=== PATIENT | male | born 1950 | race Caucasian/White ===

== ENCOUNTER 2016-09-13 08:41 | Inpatient (IN) | payer MEDICARE ==
[2016-09-13] VITALS (38 sets, daily range): BP systolic 51–123; BP diastolic 33–67; PULSE 70–124; RESP 16–18; TEMP 98.9–103.1; O2SAT 82–100
[~2016-09-13] VITALS: Ht 180.3 cm; Wt 76.0 kg
[~2016-09-13 08:41] MED LIST: AMLO5TAB22 PO; AZAT50 PO; GABA300C3 PO; NORC10TA2 PO; OMEP20TA PO; PROZ20CA11 PO; ROPI2 PO; TEMA15 PO; TIZA4 PO
[2016-09-13] MEDS ORDERED: AZAT50 PO (08:48)
[2016-09-13] MEDS ORDERED: AMLO10TA2 PO (08:48)
[2016-09-13] MEDS ORDERED: ZOFR4TAB PO (08:48)
[2016-09-13] MEDS ORDERED: FLUO1TAB3 PO (08:48)
[2016-09-13] MEDS ORDERED: TIZA4TAB PO (08:48)
[2016-09-13] MEDS ORDERED: GABA600T PO (08:48)
[2016-09-13] MEDS ORDERED: DIAZ10TA PO (08:48)
[2016-09-13] MEDS ORDERED: OMEP20TA PO (08:48)
[2016-09-13] MEDS ORDERED: SODIUM CHLOR 0.9% 1000 ML INJ 400 ML IV ONE (08:49)
[2016-09-13] MEDS ORDERED: SODIUM CHLOR 0.9% 1000 ML INJ 1,000 ML IV ONE ×2 (08:49)
[2016-09-13] MEDS ORDERED: AZITHROMYCIN INJ 500 MG in SODIUM CHLOR 0.9% 250 ML INJ 250 ML IV STA (08:49)
[2016-09-13] MEDS ORDERED: CEFEPIME INJ 2,000 MG in SODIUM CHLORIDE 0.9% INJ 100 ML IV STA (08:49)
--- NOTE | 2016-09-13 08:57 | PD ---
HPI Chief Complaint: myalgias Time Seen by Provider: 08:43 Travel History International Travel<30 days: No Contact w/Intl Traveler<30days: No Traveled to known affect area: No History of Present Illness HPI The patient is a 66-year-old male who presents emergency department via EMS for body aches. The patient states he has a history of myositis and neuropathy for which she takes multiple medications. However, over the last 2 days the patient notes increasing body aches. The patient states that his entire body hurts, he also complains of a productive cough producing clear to yellow sputum, nausea with one episode of vomiting this morning, and diffuse body aches. He does complain of chills, is unsure if he has been running a fever. The patient denies any abdominal pain or diarrhea. The patient states he did not receive an influenza vaccination this year because of his history of myositis. The patient's primary physician is Dr. Mills. The patient's symptoms are moderate, possibly exacerbated by history of myositis and neuropathy, and there are no current alleviating factors. 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) Cardiovascular Problems: Yes (NEW ONSET OF HYPOTENSION ) High Cholesterol: Yes Chemotherapy: No Chest Pain: No Congestive Heart Failure: No COPD: Yes Cerebrovascular Accident: No Diabetes: No Diminished Hearing: No Endocrine: No Fibromyalgia: Yes Gastrointestinal Disorders: Yes (CHRON'S DISEASE, GERD, HIATAL HERNIA, CHRONIC GASTRITIS, DIARRHEA) GERD: Yes (TAKES PRILOSEC) Glaucoma: No Genitourinary: No Headaches: Yes Hepatitis: No Hiatal Hernia: Yes Hypertension: Yes Kidney Stones: No Musculoskeletal: Yes (ARTHRITIS, BURSITIS, FIBROMYALGIA, DDD, R SHOULDER PAIN) Neurologic: Yes (LEG NEUROPATHY) Psychiatric: No Reproductive: 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) Respiratory: Yes (SLEEP APNEA, COPD) Immunizations Current: No ( ) Migraines: No Myocardial Infarction: No Radiation Therapy: No Renal Failure: No Seizures: No Sickle Cell Disease: No Sleep Apnea: Yes Thyroid Disease: No Ulcer: No PNEUMOCCOCAL Vaccine (Year): 1 Past Surgical History Abdominal Surgery: Yes (HERNIA REPAIR 5 Y/0, BOWEL RESECTION 04/2010) AICD: No Appendectomy: No Arteriovenous Shunt: No Cardiac Surgery: No Cholecystectomy: Yes Ear Surgery: No Endocrine Surgery: No Eye Surgery: No Genitourinary Surgery: 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) Gynecologic Surgery: No Insulin Pump: No Joint Replacement: No Oral Surgery: Yes (TEETH REMOVAL) Pacemaker: No Thoracic Surgery: No Other Surgery: Yes Social History Alcohol Use: Yes (RARE) Tobacco Use: No (quit 2006 ) Substance Use: No Allergies-Medications (Allergen,Severity, Reaction): Coded Allergies: Fire Ant (Verified Allergy, Intermediate, Anaphylaxis, 07/17/16) Reported Meds & Prescriptions Reported Meds & Active Scripts Active Reported Diazepam 10 Mg Tab 10 Mg PO TID PRN Amlodipine (Amlodipine Besylate) 10 Mg Tab 10 Mg PO DAILY Fluoxetine (Fluoxetine HCl) 20 Mg Tab 20 Mg PO DAILY Omeprazole 20 Mg Tab 20 Mg PO DAILY Zofran (Ondansetron HCl) 4 Mg Tab 4 Mg PO Q6HR PRN Gabapentin 600 Mg Tab 600 Mg PO HS Tizanidine (Tizanidine HCl) 4 Mg Tab 4 Mg PO QID Azathioprine 50 Mg Tab 50 Mg PO DAILY Hazardous agent use appropriate precautions for handling and disposal. Review of Systems Except as stated in HPI: all other systems reviewed are Neg General / Constitutional: Positive: Fever, Chills HENT: Positive: Headaches, No: Neck Pain Cardiovascular: No: Chest Pain or Discomfort Respiratory: Positive: Cough, No: Shortness of Breath Gastrointestinal: Positive: Nausea, Vomiting, No: Diarrhea, Abdominal Pain Musculoskeletal: Positive: Myalgias, Arthralgias Skin: No Rash Physical Exam Narrative GENERAL: Awake, alert, pleasant 66-year-old male who appears his stated age. SKIN: Warm and dry. HEAD: Atraumatic. Normocephalic. EYES: Mild injection bilaterally. ENT: No nasal bleeding or discharge. Mucous membranes pink and moist. NECK: Trachea midline. No JVD. CARDIOVASCULAR: Regular, tachycardic with a heart rate of 120. RESPIRATORY: No accessory muscle use. Diminished breath sounds in the right bases with rhonchi. Scattered rhonchi noted over the left lung le. GASTROINTESTINAL: Abdomen soft, non-tender, nondistended. Well-healed midline surgical scar. MUSCULOSKELETAL: Extremities are slightly cool to the touch. NEUROLOGICAL: Awake and alert. No obvious cranial nerve deficits. Motor grossly within normal limits. Normal speech. PSYCHIATRIC: Appropriate mood and affect; insight and judgment normal. Data Data Last Documented VS Vital Signs Date Time Temp Pulse Resp B/P Pulse Ox O2 Delivery O2 Flow Rate FiO2 09/13/16 10:20 100.8 115 18 107/57 97 Nasal Cannula 2 Orders Electrocardiogram (09/13/16 08:49) Complete Blood Count With Diff (09/13/16 08:49) Comprehensive Metabolic Panel (09/13/16 08:49) Lactic Acid Sepsis Protocol (09/13/16 08:49) Magnesium (Mg) (09/13/16 08:49) Lipase (09/13/16 08:49) Ckmb (Isoenzyme) Profile (09/13/16 08:49) Troponin I (09/13/16 08:49) Urinalysis - C+S If Indicated (09/13/16 08:49) Influenzae A/B Antigen (09/13/16 08:49) Blood Culture (09/13/16 08:49) Chest, Single Ap (09/13/16 08:49) Blood Gas Venous (Vbg) (09/13/16 08:49) Blood Glucose (09/13/16 08:49) Ecg Monitoring (09/13/16 08:49) Iv Access Insert/Monitor (09/13/16 08:49) Oximetry (09/13/16 08:49) Oxygen Administration (09/13/16 08:49) Cefepime Inj (Maxipime Inj) (09/13/16 08:49) Azithromycin Inj (Zithromax Inj) (09/13/16 08:49) Acetaminophen (Tylenol) (09/13/16 09:00) Ondansetron Inj (Zofran Inj) (09/13/16 09:00) Sodium Chlor 0.9% 1000 Ml Inj (Ns 1000 M (09/13/16 08:49) Sodium Chlor 0.9% 1000 Ml Inj (Ns 1000 M (09/13/16 08:49) Sodium Chlor 0.9% 1000 Ml Inj (Ns 1000 M (09/13/16 08:49) Ketorolac Inj (Toradol Inj) (09/13/16 09:00) Morphine Inj (Morphine Inj) (09/13/16 09:00) Albuterol-Ipratropium Neb (Duoneb Neb) (09/13/16 09:00) Ct Pulmonary Angiogram (09/13/16 ) Magnesium Sulfate 1 Gm Premix (Magnesium (09/13/16 10:00) Potassium Chloride Eff (K-Lyte Cl Eff) (09/13/16 10:15) Admit Order (Ed Use Only) (09/13/16 11:00) Iohexol 350 Inj (Omnipaque 350 Inj) (09/13/16 11:02) Labs Laboratory Tests Test 09/13/16 09/13/16 09/13/16 08:56 09:00 09:32 White Blood Count 14.0 TH/MM3 Red Blood Count 4.13 MIL/MM3 Hemoglobin 12.6 GM/DL Hematocrit 37.9 % Mean Corpuscular Volume 91.7 FL Mean Corpuscular Hemoglobin 30.5 PG Mean Corpuscular Hemoglobin 33.3 % Concent Red Cell Distribution Width 14.4 % Platelet Count 283 TH/MM3 Mean Platelet Volume 7.3 FL Neutrophils (%) (Auto) 91.3 % Lymphocytes (%) (Auto) 2.0 % Monocytes (%) (Auto) 4.4 % Eosinophils (%) (Auto) 0.3 % Basophils (%) (Auto) 2.0 % Neutrophils # (Auto) 12.8 TH/MM3 Lymphocytes # (Auto) 0.3 TH/MM3 Monocytes # (Auto) 0.6 TH/MM3 Eosinophils # (Auto) 0.0 TH/MM3 Basophils # (Auto) 0.3 TH/MM3 CBC Comment DIFF FINAL Differential Comment Sodium Level 145 MEQ/L Potassium Level 3.2 MEQ/L Chloride Level 108 MEQ/L Carbon Dioxide Level 27.6 MEQ/L Anion Gap 9 MEQ/L Blood Urea Nitrogen 9 MG/DL Creatinine 1.00 MG/DL Estimat Glomerular Filtration 75 ML/MIN Rate Random Glucose 93 MG/DL Lactic Acid Level 2.2 mmol/L Calcium Level 8.0 MG/DL Magnesium Level 1.1 MG/DL Total Bilirubin 0.4 MG/DL Aspartate Amino Transf 16 U/L (AST/SGOT) Alanine Aminotransferase 13 U/L (ALT/SGPT) Alkaline Phosphatase 73 U/L Total Creatine Kinase 53 U/L Troponin I 0.02 NG/ML Total Protein 6.7 GM/DL Albumin 2.8 GM/DL Lipase 72 U/L Blood Gas Puncture Site VENOUS DRAW Blood Gas Patient Temperature 98.6 Venous Blood pH 7.29 Venous Blood Partial Pressure 57 mmHg CO2 Venous Blood Partial Pressure 31 mmHg O2 Venous Blood HCO3 27 mmol/L Venous Blood Oxygen Saturation 46 % Venous Blood Oxygen Content 8.3 Vol % Venous Blood Base Excess 1.0 mmol/L Oxygen Delivery Device NASAL CANNULA Blood Gas Liter Flow 4 L/M Urine pH 6.0 Urine Protein NEG mg/dL Urine Glucose (UA) NEG mg/dL Urine Ketones NEG mg/dL Urine Occult Blood TRACE Urine Nitrite NEG Urine Bilirubin NEG Urine Leukocyte Esterase NEG MDM Medical Decision Making Medical Screen Exam Complete: Yes Emergency Medical Condition: Yes Medical Record Reviewed: Yes Interpretation(s) EKG reveals sinus tachycardia with a heart rate of 114. Nonspecific T wave changes. QTC slightly prolonged 424 ms, just less than half the R-R interval. Laboratory Tests Test 09/13/16 09/13/16 09/13/16 08:56 09:00 09:32 White Blood Count 14.0 TH/MM3 Red Blood Count 4.13 MIL/MM3 Hemoglobin 12.6 GM/DL Hematocrit 37.9 % Mean Corpuscular Volume 91.7 FL Mean Corpuscular Hemoglobin 30.5 PG Mean Corpuscular Hemoglobin 33.3 % Concent Red Cell Distribution Width 14.4 % Platelet Count 283 TH/MM3 Mean Platelet Volume 7.3 FL Neutrophils (%) (Auto) 91.3 % Lymphocytes (%) (Auto) 2.0 % Monocytes (%) (Auto) 4.4 % Eosinophils (%) (Auto) 0.3 % Basophils (%) (Auto) 2.0 % Neutrophils # (Auto) 12.8 TH/MM3 Lymphocytes # (Auto) 0.3 TH/MM3 Monocytes # (Auto) 0.6 TH/MM3 Eosinophils # (Auto) 0.0 TH/MM3 Basophils # (Auto) 0.3 TH/MM3 CBC Comment DIFF FINAL Differential Comment Sodium Level 145 MEQ/L Potassium Level 3.2 MEQ/L Chloride Level 108 MEQ/L Carbon Dioxide Level 27.6 MEQ/L Anion Gap 9 MEQ/L Blood Urea Nitrogen 9 MG/DL Creatinine 1.00 MG/DL Estimat Glomerular Filtration 75 ML/MIN Rate Random Glucose 93 MG/DL Lactic Acid Level 2.2 mmol/L Calcium Level 8.0 MG/DL Magnesium Level 1.1 MG/DL Aspartate Amino Transf 16 U/L (AST/SGOT) Alanine Aminotransferase 13 U/L (ALT/SGPT) Alkaline Phosphatase 73 U/L Total Creatine Kinase 53 U/L Troponin I 0.02 NG/ML Total Protein 6.7 GM/DL Albumin 2.8 GM/DL Lipase 72 U/L Blood Gas Puncture Site VENOUS DRAW Blood Gas Patient Temperature 98.6 Venous Blood pH 7.29 Venous Blood Partial Pressure 57 mmHg CO2 Venous Blood Partial Pressure 31 mmHg O2 Venous Blood HCO3 27 mmol/L Venous Blood Oxygen Saturation 46 % Venous Blood Oxygen Content 8.3 Vol % Venous Blood Base Excess 1.0 mmol/L Oxygen Delivery Device NASAL CANNULA Blood Gas Liter Flow 4 L/M Urine pH 6.0 Urine Protein NEG mg/dL Urine Glucose (UA) NEG mg/dL Urine Ketones NEG mg/dL Urine Occult Blood TRACE Urine Nitrite NEG Urine Bilirubin NEG Urine Leukocyte Esterase NEG Date/Time Procedure Status Source Growth 09/13/16 08:40 Aerobic Blood Culture Received Blood Peripheral Pending 09/13/16 08:40 Anaerobic Blood Culture Received Blood Peripheral Pending 09/13/16 08:56 Aerobic Blood Culture Received Blood Peripheral Pending 09/13/16 08:56 Anaerobic Blood Culture Received Blood Peripheral Pending 09/13/16 09:00 Influenza Types A,B Antigen (DAYANNA) - Final Complete Nasal Aspirate NEGATIVE FOR FLU A AND B ANTIGEN.... Differential Diagnosis Differential diagnosis includes pneumonia, influenza, sepsis, pyelonephritis, myositis, neuropathy, chronic pain. Narrative Course IV was established, labs are drawn and sent, and the patient was placed on cardiac telemetry monitoring and continuous pulse oximetry monitoring. The patient met SIRS criteria with elevated heart rate of 120 and temperature 103.1 orally. Therefore, blood cultures and lactic acid were sent to lab. Chest x- ray was obtained. Patient has hypoxia with an O2 saturation on 6 L of 90-92%, initially pneumonia was considered as the top differential. Therefore, the patient was administered cefepime and Zithromax as he may need intensive care unit admission. The patient was administered 3 L of IV fluids, Tylenol, Toradol , Zofran, and 2 mg of morphine for his myalgias. The patient's white count was mildly elevated at 14.3, lactic acid was mildly elevated at 2.2, creatinine was normal at 1. Chest x-ray was clear, therefore, CT pulmonary angiogram was ordered as patient does have hypoxia with tachycardia. CT pulmonary angiogram was negative for PE, does reveal bilateral infiltrates. The patient's oxygen level did improve, he is weaned to 2 L via nasal cannula with an O2 sat of 96%. The patient's heart rate also improved to 103. I believe the patient is stable for the medical floor, I discussed the patient with the on-call hospitalist for Dr. Mills, Dr. Ramirez, who agrees with admission. Sepsis Criteria SIRS Criteria (2 or more): Temp > 100.9 or < 96.8, Heart rate over 90 Physician Communication Physician Communication I discussed the patient Dr. Ramirez who agrees with admission. Diagnosis Primary Impression: Bilateral pneumonia Qualified Code: J18.9 - Pneumonia of both lungs due to infectious organism, unspecified part of lung Additional Impressions: Sepsis Qualified Code: A41.9 - Sepsis, due to unspecified organism Hypoxia Admitting Information Admitting Physician Requests: Admit Condition: Stable Aden Nash MD Sep 13, 2016 08:57
[2016-09-13] MEDS ORDERED: ONDANSETRON HCL 4 MG/2 ML VIAL IV PRN (09:00)
[2016-09-13] MEDS ORDERED: RESP: ALBUTEROL 2.5 MG/IPRATROPIUM 0.5 MG NEB (SCH) NEB ONE (09:00)
[2016-09-13] MEDS ORDERED: MORPHINE SULFATE 4 MG/ML INJ IV PUSH ONE (09:00)
[2016-09-13] MEDS ORDERED: ACETAMINOPHEN 325 MG TAB PO ONE (09:00)
[2016-09-13] MEDS ORDERED: KETOROLAC TROMETHAMINE 30 MG/ML (IVP) VIAL IV PUSH ONE (09:00)
[2016-09-13 09:07] LABS: BLOOD GAS VENOUS HCO3 27 mmol/L (22-26); BLOOD GAS VENOUS O2 CONTENT 8.3 Vol % (9.0-17.0); BLOOD GAS VENOUS O2 HGB SAT 46 % (70-76); BLOOD GAS VENOUS PCO2 57 mmHg (44-48); BLOOD GAS VENOUS PO2 31 mmHg (35-40); BLOOD GAS VENOUS pH 7.29 (7.360-7.400); TEMP CORR TO 98.6
[2016-09-13 09:08] LABS: CRITICAL VALUE YES; DRAW SITE VENOUS DRAW; LITER FLOW 4 L/M; OXYGEN DEVICE NASAL CANNULA; STAT YES
[2016-09-13 09:15] LABS: AUTOMATED NEUTROPHIL # 12.8 TH/MM3 (1.8-7.7); BASOPHIL # 0.3 TH/MM3 (0-0.2); EOSINOPHIL % 0.3 % (0.0-4.0); HEMATOCRIT 37.9 % (39.0-51.0); HEMO FLAGS DIFF FINAL; LYMPHOCYTE # 0.3 TH/MM3 (1.0-4.8); MEAN CELL VOLUME 91.7 FL (80.0-100.0); MEAN CORPUSCULAR HEMOGLOBIN 30.5 PG (27.0-34.0); MEAN CORPUSCULAR HGB CONC 33.3 % (32.0-36.0); MONO % 4.4 % (0.0-8.0); NEUT % 91.3 % (16.0-70.0); PLATELET COUNT 283 TH/MM3 (150-450); RED BLOOD COUNT 4.13 MIL/MM3 (4.50-5.90); RED CELL DISTRIBUTION WIDTH 14.4 % (11.6-17.2)
[2016-09-13 09:40] LABS: BLOOD, URINE TRACE (NEG); GLUCOSE,URINE NEG (NEG); KETONE, URINE NEG (NEG); NITRITE,URINE NEG (NEG)
[2016-09-13 09:42] LABS: METHOD OF COLLECTION CATH; URINE COLOR YELLOW (YELLW/STRAW)
[2016-09-13 09:48] LABS: BICARBONATE 27.6 MEQ/L (21.0-32.0); BLOOD UREA NITROGEN 9 MG/DL (7-18); MAGNESIUM 1.1 MG/DL (1.5-2.5)
[2016-09-13 09:50] LABS: ALT (GPT) 13 U/L (12-78); AST (GOT) 16 U/L (15-37)
[2016-09-13 09:51] LABS: GLOMERULAR FILTRATION RATE 75 ML/MIN (>89)
[2016-09-13 09:53] LABS: ALKALINE PHOSPHATASE 73 U/L (45-117)
--- NOTE | 2016-09-13 09:54 | RADHPO ---
EXAM DATE/TIME: 09/13/2016 08:51 [facility] COMPARISON: No previous studies available for comparison. INDICATIONS : Cough and fever. MEDICAL HISTORY : Hypertension. Chronic obstructive pulmonary disease. SURGICAL HISTORY : None. ENCOUNTER: Initial ACUITY: 2 days PAIN SCORE: 0/10 LOCATION: Bilateral chest FINDINGS: A single view of the chest demonstrates the lungs to be symmetrically aerated without evidence of mas s, infiltrate or effusion. The cardiomediastinal contours are unremarkable. Osseous structures are intact. CONCLUSION: No acute disease. Rony Garcia MD on September 13, 2016 at 9:53 Board Certified Radiologist. This report was verified electronically.
[2016-09-13 09:55] LABS: ANION GAP 9 MEQ/L (5-15); CHLORIDE 108 MEQ/L (98-107); POTASSIUM 3.2 MEQ/L (3.5-5.1); SODIUM (NA) 145 MEQ/L (136-145)
[2016-09-13 09:57] LABS: CREATINE KINASE 53 U/L (39-308)
[2016-09-13] MEDS ORDERED: MAGNESIUM SULFATE 1 GM PREMIX 100 ML IV ONE (10:00)
[2016-09-13 10:01] LABS: TOTAL BILIRUBIN ADULT 0.4 MG/DL (0.2-1.0)
[2016-09-13] MEDS ORDERED: POTASSIUM CHLORIDE 25 MEQ EFFERVESCENT TAB PO ONE (10:15)
--- NOTE | 2016-09-13 10:45 | RADHPO ---
EXAM DATE/TIME: 09/13/2016 10:24 [facility] COMPARISON: CHEST SINGLE AP, September 13, 2016, 8:51. INDICATIONS : Hypoxia. IV CONTRAST: 75 cc Omnipaque 350 (iohexol) IV RADIATION DOSE: 9.94 CTDIvol (mGy) MEDICAL HISTORY : Hypertension. Chronic obstructive pulmonary disease. Hernia, hiatal. SURGICAL HISTORY : Hysterectomy. ENCOUNTER: Initial ACUITY: 1 day PAIN SCALE: 0/10 LOCATION: Bilateral chest TECHNIQUE: Volumetric scanning of the chest was performed using a pulmonary embolism protocol MIP images were re constructed. Using automated exposure control and adjustment of the mA and/or kV according to patien t size, radiation dose was kept as low as reasonably achievable to obtain optimal diagnostic quality images. FINDINGS: There are emphysematous changes identified. A ground glass nodule in the left upper lobe is noted dei suring 7 mm. There is a nodular focus in the left lower lobe measuring 8 point millimeters as well as a right upper lobe nodular density measuring 10.1 mm. There is basilar air space disease in both low er lobes. Subcentimeter mediastinal and hilar lymph nodes. Fatty infiltration of the liver. There are no pulmonary emboli. CONCLUSION: 1. No evidence for pulmonary embolism. 2. Bilateral scattered pulmonary infiltrates noted. Followup CT examination recommended after appropr iate medical therapy to ensure resolution of these nodular infiltrates. Rony Garcia MD on September 13, 2016 at 10:42 Board Certified Radiologist. This report was verified electronically.
[2016-09-13] MEDS ORDERED: IOHEXOL 350 MG/ML 10 ML VIAL (for RAD DIAG) IV ONE (11:02)
[2016-09-13 11:07] LABS: LACTIC ACID GHOST NOT REPORTABLE
[2016-09-13 11:13] LABS: COMMENT (UR) CATH-CULT NOT IND; CULTURE IF INDICATED CATH CULTURE NOT IND; RBC, URINE 0-3 /hpf (0-3); SQUAMOUS EPITHELIAL CELL URINE 0-5 /hpf (0-5)
[2016-09-13] MEDS ORDERED: SODIUM CHLORID 0.9% 500 ML INJ 500 ML IV ONE (12:00)
[2016-09-13] MEDS: LEVOFLOXACIN 750 MG PREMIX INJ 150 ML IV SCH (12:26)
[2016-09-13] MEDS: SODIUM CHLOR 0.9% 1000 ML INJ 1,000 ML IV SCH (12:27)
[2016-09-13] MEDS: ENOXAPARIN SODIUM 40 MG/0.4 ML SYRINGE SQ SCH (13:14)
[2016-09-13] MEDS: NOREPINEPHRINE 4 MG/D5W 250 ML IV SCH (15:47)
[2016-09-13] MEDS: cefTRIAXone INJ 1,000 MG in SODIUM CHLORIDE 0.9% INJ 100 ML IV SCH (17:10)
[2016-09-13] MEDS ORDERED: POTASSIUM CHLORIDE 8 MEQ CONTROLLED RELEASE TAB PO ONE (18:15)
[2016-09-13] MEDS ORDERED: POTASSIUM CHLORIDE 20 MEQ CONTROLLED RELEASE TAB PO ONE (18:45)
[2016-09-13] MEDS: MAGNESIUM SULFATE 1 GM PREMIX 100 ML IV SCH ×2 (18:50→20:18)
[2016-09-13] MEDS: methylPREDNISolone SOD SUCC 40 MG/1 ML VIAL IV PUSH SCH (18:50)
--- NOTE | 2016-09-13 19:12 | MH ---
cc: ORLANDO FARRELL DATE OF ADMISSION 09/13/[address] Herbert Mills CHIEF COMPLAINT The patient came to the emergency room complaining of cough, congestion and weakness of 2-3 days duration. HISTORY OF PRESENT ILLNESS This is a 66 year old chronically ill male with prior history of Crohn's disease who is on Imuran. Had last colonoscopy about two years that was okay. As per patient, he has chronic diarrhea three or four times a day sometimes more. He also suffers from chronic pain and has to take narcotics along with Valium on regular basis. He was in his usual state of health until two or three days ago when he started experiencing cough when was worse at night. He has bouts of bad coughing spells which is mostly dry, occasional scanty white sputum production. He felt congested in his chest. This morning he woke up not feeling good. He was weak, tired, very fatigued. He developed nausea, started vomiting. He vomited four or five times a day and also had four or five loose bowel movements. He felt very weak afterward with body aches, got concerned and ended up at the hospital. Upon arrival he was clinically getting dehydrated. He was tachycardic. Lab showed evidence of leukocytosis. Chest x-ray did not reveal any acute finding. He was complaining of shortness of breath. CTA of the chest was performed to rule out pulmonary embolism. That study was negative for PE, however, it picked up bilateral pulmonary small infiltrate. He was diagnosed with pneumonia, possible early sepsis. He was given about two liters of IV fluid along with broad spectrum IV antibiotics. His lactic acid level was also elevated. The patient has shown some improvement initially, however, his blood pressure dropped again. He ended up needing another liter of IV fluid bolus followed by initiation of pressors. He is now being admitted to the Intensive Care Unit for further evaluation and management. PAST MEDICAL HISTORY 1. Crohn's disease 2. Hypertension 3. Hyperlipidemia 4. Chronic obstructive pulmonary disease 5. Osteoarthritis 6. Fibromyalgia 7. Degenerative disk disease 8. Chronic pain 9. History of depression 10. History of peripheral neuropathy 11. Possible questionable rheumatoid arthritis 12. History of testicular cancer PAST SURGICAL HISTORY 1. Orchiectomy followed by radiation and chemotherapy 2. History of herniated appendix 3. History of bowel surgery 4. Prior colonoscopy ALLERGIES BEE STINGS DILAUDID - HALLUCINATIONS MORPHINE - HALLUCINATIONS FIRE ANTS. MEDICATIONS Home, 1. Zofran 4 mg q 6 hrs 2. Neurontin 600 mg at bedtime 3. Fluoxetine 20 mg daily 4. Valium 10 mg three times a day 5. 4 mg four times a day 6. Norvasc 10 mg daily 7. Imuran 50 mg daily 8. Omeprazole 20 mg daily SOCIAL HISTORY The patient used to smoke in the past. He is about 30 years of two pack per day smoking. Stopped smoking six years ago. Denies drinking or drug abuse. He is and lives with his . Used to work at [employer]. He is currently on disability due to his Crohn's disease. FAMILY HISTORY Both of his parents are . They in their 80s. Dad had Alzheimer's disease. Mom of old age.. REVIEW OF SYSTEMS The patient reports weakness, chronic back pain, chronic abdominal pain, chronic diarrhea which has not significantly changed but he did vomit this morning four or five times. Lee hematemesis, denies coffee ground emesis, denies melena or bright red blood per rectum. He denies chest pain, dyspnea at rest, orthopnea or paroxysmal nocturnal dyspnea. He feels weak, tired and malaise. He reportedly has lost weight probably in the last four or five months. He had a colonoscopy two years ago that was okay and he was told to have a repeat colonoscopy in five years as per patient. The patient denied major depression or suicidal ideations. Denies dysuria or hematuria. He has burning pain in his feet. He takes Neurontin and Dilaudid and muscle spasms. He is able to ambulate with his cane. Otherwise review of systems is negative for 12 systems. PHYSICAL EXAMINATION GENERAL: Chronic ill-appearing middle aged male lying in bed. He is awake and alert. He is oriented times three. VITAL SIGNS: Upon arrival blood pressure 122/66, pulse 124, respirations 18, temperature 103.1 degrees Fahrenheit. O2 saturation 82%. Most recent blood pressure is 101/59 with pulse of __, respirations 18, O2 saturation 98% on two liters. HEAD: Normocephalic, atraumatic. EYES: Extraocular movements are intact. Pupils round and reactive. No icterus. Patient has mild pallor. ENT: No throat congestion. No oral ulcer. No thrush. Patient had dry oral mucosa. Ears clear. NECK: Supple. No jugular venous distention. No lymphadenopathy. No bruits. CARDIOVASCULAR: S1, S2 audible, irregular rhythm. No murmur or gallop. RESPIRATORY: Good bilateral air entry. Occasional faint rhonchi. No crackles. ABDOMEN: Soft, protuberant, bulky. Mild tenderness in lower abdomen. No rebound or guarding. No rigidity. No hepatosplenomegaly appreciated. EXTREMITIES: No pedal edema. Feet are slightly cool to touch. She has good capillary refill. No mottling noted. NEUROLOGIC: Awake and responsive. Oriented times three. No left right confusion. No slurring of speech. No facial asymmetry. Moving all four extremities. ____ generalized weakness. No cerebellar sign. Gait not tested. LABORATORY DATA White count 14.0, hemoglobin 12.6. Hematocrit 37.9 platelet count 128, MCV 91.7. Sodium 145, potassium 3.2, chloride 108, bicarb 27.6, BUN of 9, creatinine 1.0, glucose 93. Calcium 8.0. ALP 73, AST 16, ALT 13. Total protein 6.7, albumin 2.8. Lipase was 72. Magnesium 1.1, total bilirubin 0.4. Lactic acid level was 2.2, repeat was 2.6 after three hours of resuscitation. Urinalysis showed yellow clear urine. Specific gravity 1.020. Occult blood trace. Otherwise unremarkable. Influenza A and B antigens were negative. IMAGING STUDIES Chest x-ray portable done did not reveal any evidence of acute infiltrate or effusion. No mass lesion, osseous structures were normal. CT of the chest was performed. This study was negative for pulmonary embolism. However, it showed bilateral scattered pulmonary infiltrate. Follow up CT recommended after completion of medical therapy to ensure resolution of these nodular infiltrates. CARDIOLOGY STUDIES Electrocardiogram shows sinus tachycardia, ventricular rate 114, possible left atrial abnormality, nonspecific T wave changes. ASSESSMENT 1. Septic shock. 2. Community acquired pneumonia question aspiration 3. Chronic diarrhea, rule out superimposed bacterial infection with C-difficile colitis. Patient may have element of dehydration further precipitating his hypotension. 4. Crohn's disease on Imuran 5. Immunocompromised host. 6. History of hypertension 7. History of chronic obstructive pulmonary disease 8. Prior history of testicular cancer 9. Generalized anxiety disorder. 10. Chronic pain. PLAN The patient is admitted to the hospital. He is admitted to the Intensive Care Unit. He has received aggressive IV fluid resuscitation. We will continue IV fluid with normal saline at 100 mL an hour. He was started on Levophed drip. We will continue it. We will titrate to keep MAP above 65. Blood cultures have been taken. He was started on IV Rocephin 1 gram daily and Levaquin 750 mg IV daily. We will add Solu-Medrol 40 mg q 6 hr. We will obtain Infectious Disease consultation. We will hold blood pressure medication. His potassium and magnesium are low. We will replace them. We will put him on heart healthy diet. Put him on Pepcid for GI protection. We will give him subcu Lovenox for DVT prophylaxis. Follow CBC and electrolytes. I have discussed the finding with the patient discussion. GI service has been consulted and Infectious Disease has been consulted. The patient meets inpatient criteria due to his sepsis and shock. He requires aggressive fluid resuscitation along with IV antibiotic and control of the infection. Expected length of stay is about 4-5 days. Possible discharge home versus senior living facility when stable. MD KIRTI Rodriguez/ /6:09 PM /6:31 PM
[2016-09-13] MEDS: GABAPENTIN 300 MG CAP PO SCH (20:18)
[2016-09-14] VITALS (33 sets, daily range): BP systolic 107–174; BP diastolic 61–92; PULSE 66–105; RESP 15–20; TEMP 96.3–98.6; O2SAT 95–100
[2016-09-14] MEDS: methylPREDNISolone SOD SUCC 40 MG/1 ML VIAL IV PUSH SCH ×5 (01:43→23:50)
[2016-09-14] MEDS: SODIUM CHLOR 0.9% 1000 ML INJ 1,000 ML IV SCH ×3 (01:45→16:35)
[2016-09-14 06:30] LABS: HEMATOCRIT 35.3 % (39.0-51.0); MEAN CELL VOLUME 91.3 FL (80.0-100.0); MEAN CORPUSCULAR HEMOGLOBIN 30.5 PG (27.0-34.0); MEAN CORPUSCULAR HGB CONC 33.4 % (32.0-36.0); PLATELET COUNT 230 TH/MM3 (150-450); RED BLOOD COUNT 3.87 MIL/MM3 (4.50-5.90); RED CELL DISTRIBUTION WIDTH 14.6 % (11.6-17.2); REVIEW FLAG FINAL; WHITE BLOOD COUNT 7.8 TH/MM3 (4.0-11.0)
[2016-09-14] MEDS: ACETAMINOPHEN/HYDROcodone 325 MG/5 MG TAB PO PRN ×3 (07:01→21:23)
[2016-09-14 07:15] LABS: BICARBONATE 25.9 MEQ/L (21.0-32.0); POTASSIUM 4.4 MEQ/L (3.5-5.1)
[2016-09-14] MEDS: PANTOPRAZOLE SOD 40 MG DELAYED RELEASE TAB PO SCH (08:59)
[2016-09-14] MEDS: DIAZEPAM 5 MG TAB PO PRN ×2 (09:01→21:24)
[2016-09-14] MEDS: FLUoxetine HCL 20 MG CAP PO SCH (09:01)
[2016-09-14] MEDS: LEVOFLOXACIN 750 MG PREMIX INJ 150 ML IV SCH (12:31)
[2016-09-14] MEDS: ENOXAPARIN SODIUM 40 MG/0.4 ML SYRINGE SQ SCH (12:32)
--- NOTE | 2016-09-14 12:36 | PD.ID.CON ---
History of Present Illness Service ID Consult Requested By Dr Luna Reason for Consult sepsis Primary Care Physician Herbert Mills M.D. Diagnoses: History of Present Illness 66-year-old male with extensive past med hx including Chrohn dz, arthritis, fibromyalgia presents emergency department yday via EMS for body aches. Also co emesis x few hrs (resolved) Denies cough SOB or chest pain Reports diarrnehea, chronic, unchanged Some vague abdominal discomfort No fever, chil;ls On presentatiojn leukocytosis if 14 K, lactic acidemia CTA showe no e/o PE, but showed bilateral scattered pulmonary infiltrates Started on levaquine and CFTX He was ob pressors initially 2/2 hypotension , but levaphed was stoppped His BP is stable, with a trend to hypertension Review of Systems Constitutional: COMPLAINS OF: Fatigue, Weight loss Ears, nose, mouth, throat: COMPLAINS OF: Running Nose, Sinus Pain Gastrointestinal: COMPLAINS OF: Abdominal pain, Diarrhea, Nausea, Vomiting Musculoskeletal: COMPLAINS OF: Joint pain, Muscle aches Other As above, thre rest of 12 point review is negative Past Family Social History Allergies: Coded Allergies: Fire Ant (Verified Allergy, Intermediate, Anaphylaxis, 07/17/16) Past Medical History Chrohn's dz neuropathy HTN COPD testicular ca sp orchiectomy arthritis bursitis Past Surgical History orchiectomy R hemicolectomy Active Ordered Medications Medications where reviewed in EMR Antibiotics Include: levaquine iv CFTX Family History Non-Contributory. Social History Past Tobacco. No ETOH. No Illicit Drugs. Physical Exam Vital Signs Vital Signs Date Time Temp Pulse Resp B/P Pulse Ox O2 Delivery O2 Flow Rate FiO2 09/14/16 11:03 102 17 174/84 95 Room Air 09/14/16 10:26 103 16 134/72 99 09/14/16 09:18 105 16 163/89 99 09/14/16 08:18 94 16 158/79 100 Nasal Cannula 2 09/14/16 08:05 16 09/14/16 07:16 98.2 96 16 164/92 100 Nasal Cannula 2 09/14/16 07:15 96 16 09/14/16 06:20 92 17 157/82 96 Room Air 09/14/16 06:05 92 17 138/76 96 Room Air 09/14/16 05:46 77 18 107/68 09/14/16 05:25 80 114/63 09/14/16 05:05 85 120/61 09/14/16 04:40 82 17 128/66 95 Room Air 09/14/16 04:25 72 128/61 09/14/16 04:15 82 126/73 09/14/16 03:55 77 16 134/70 09/14/16 03:35 75 18 126/70 09/14/16 03:15 72 17 133/74 09/14/16 02:50 80 16 147/72 96 Room Air 09/14/16 02:35 72 15 133/70 96 Room Air 09/14/16 02:15 98.6 09/14/16 02:15 70 16 125/68 Nasal Cannula 09/14/16 02:00 72 16 131/66 96 Room Air 09/14/16 01:55 72 18 131/64 95 Room Air 09/14/16 01:35 72 17 133/72 98 Nasal Cannula 2 09/14/16 01:15 68 17 131/64 96 Room Air 09/14/16 01:00 72 16 143/77 95 Room Air 09/14/16 00:35 67 16 136/73 97 Nasal Cannula 09/13/16 23:55 70 16 118/63 100 Nasal Cannula 2 09/13/16 23:05 72 18 119/66 99 Nasal Cannula 09/13/16 22:45 98.9 09/13/16 22:30 70 16 113/59 100 Nasal Cannula 2 09/13/16 22:00 70 16 123/67 99 Nasal Cannula 2 09/13/16 21:50 72 18 120/66 98 Nasal Cannula 2 09/13/16 21:32 73 17 117/61 100 Nasal Cannula 2 09/13/16 21:06 80 102/51 09/13/16 20:40 80 17 108/60 99 2 09/13/16 20:15 83 17 118/64 99 Nasal Cannula 2 09/13/16 19:45 81 16 107/59 99 Nasal Cannula 2 09/13/16 19:20 82 16 102/60 99 Nasal Cannula 2 09/13/16 19:05 82 16 100/60 100 Nasal Cannula 2 09/13/16 18:20 71 09/13/16 18:00 71 18 111/62 100 Nasal Cannula 2 09/13/16 16:40 77 18 101/59 97 Nasal Cannula 2 09/13/16 16:30 76 18 106/63 97 Nasal Cannula 2 09/13/16 16:20 76 18 85/49 97 Nasal Cannula 2 09/13/16 16:10 78 18 76/48 97 Nasal Cannula 2 09/13/16 16:00 78 18 69/42 97 Nasal Cannula 2 09/13/16 15:50 80 18 79/49 97 Nasal Cannula 2 09/13/16 15:40 80 18 68/41 96 Nasal Cannula 2 09/13/16 15:30 78 18 62/40 99 Nasal Cannula 2 09/13/16 15:10 78 18 61/39 98 Nasal Cannula 2 09/13/16 15:00 78 18 52/33 98 Nasal Cannula 2 09/13/16 14:30 82 18 51/35 98 Nasal Cannula 2 09/13/16 14:00 92 18 70/45 97 Nasal Cannula 2 09/13/16 13:30 96 18 85/51 96 Nasal Cannula 2 09/13/16 13:00 100 18 104/54 96 Nasal Cannula 2 09/13/16 12:40 96 18 87/46 96 Nasal Cannula 2 09/13/16 12:30 98 18 75/46 96 Nasal Cannula 2 Physical Exam CONSTITUTIONAL/GENERAL: This is an adequately nourished patient, in no apparent distress. TUBES/LINES/DRAINS: SKIN: No jaundice, rashes, or lesions. Skin temperature appropriate. Not diaphoretic. HEAD: Atraumatic. Normocephalic. EYES: Pupils equal and round and reactive. Extraocular motions intact. No scleral icterus. No injection or drainage. Fundi not examined. ENT: Hearing grossly normal. Nose without bleeding or purulent drainage. Oral mucosae without visible erythema, exudates, masses, or lesions. Edentulous dentures in place NECK: Trachea midline. Supple, nontender. CARDIOVASCULAR: Regular rate and rhythm without murmurs, gallops, or rubs. No JVD. Peripheral pulses symmetric. RESPIRATORY/CHEST: Symmetric, unlabored respirations. Clear to auscultation. Breath sounds equal bilaterally. No wheezes, rales, or rhonchi. GASTROINTESTINAL: Abdomen soft, non-tender, nondistended. No hepato-splenomegaly , or palpable masses. No guarding. Bowel sounds present. Well healed old medial laparotomy scar cw past surg hx GENITOURINARY: Without palpable bladder distension. MUSCULOSKELETAL: Extremities without clubbing, cyanosis, or edema. No joint tenderness or effusion noted. No calf tenderness. No mottling or clubbing. R hip w/o swelling or skin changes + mildly limited ROM 2/2 pain mild tenderness to palpation (diffuse) LYMPHATICS: No palpable cervical or supraclavicular adenopathy. NEUROLOGICAL: Awake and alert. Motor and sensory grossly within normal limits. Follows commands.Normal speech Moves all extremities. PSYCHIATRIC: No obvious anxiety/depression. no apparent hallucinations or other psychotic thought process. Laboratory Laboratory Tests Test 09/14/16 06:20 White Blood Count 7.8 Red Blood Count 3.87 Hemoglobin 11.8 Hematocrit 35.3 Mean Corpuscular Volume 91.3 Mean Corpuscular Hemoglobin 30.5 Mean Corpuscular Hemoglobin 33.4 Concent Red Cell Distribution Width 14.6 Platelet Count 230 Mean Platelet Volume 6.8 Sodium Level 146 Potassium Level 4.4 Chloride Level 114 Carbon Dioxide Level 25.9 Anion Gap 6 Blood Urea Nitrogen 8 Creatinine 0.89 Estimat Glomerular Filtration 86 Rate Random Glucose 119 Calcium Level 7.7 Date/Time Procedure Status Source Growth 09/13/16 09:00 Influenza Types A,B Antigen (DAYANNA) - Final Complete Nasal Aspirate NEGATIVE FOR FLU A AND B ANTIGEN.... 09/13/16 08:56 Aerobic Blood Culture - Preliminary Resulted Blood Peripheral NO GROWTH IN 1 DAY 09/13/16 08:56 Anaerobic Blood Culture - Preliminary Resulted Blood Peripheral NO GROWTH IN 1 DAY Result Diagram: 09/14/16 0620 09/14/16 0620 Imaging Last Impressions Chest X-Ray 09/13/16 0849 Signed Impressions: Service Date/Time: Tuesday, September 13, 2016 08:51 - CONCLUSION: No acute disease. Rony Garcia MD CT Angiography 09/13/16 0000 Signed Impressions: Service Date/Time: Tuesday, September 13, 2016 10:24 - CONCLUSION: 1. No evidence for pulmonary embolism. 2. Bilateral scattered pulmonary infiltrates noted. Followup CT examination recommended after appropriate medical therapy to ensure resolution of these nodular infiltrates. Rony Garcia MD Assessment and Plan Assessment and Plan Suspected sepsis PNA ? atypical ? viral Underlying Chrohn dz on imuran - cont CFTX - change levaquine to azithro monitor blood clx - chk sputum clx and leg/pneumococcal AG Discussed Condition With Jeanine Perez MD Sep 14, 2016 12:36
--- NOTE | 2016-09-14 13:30 | EKG ---
Date Performed: 09/13/2016 Time Performed: 08:52:08 PTAGE: 66 years EKG: Sinus tachycardia Possible left atrial abnormality Septal T wave changes are nonspecific Roland rderline ECG Compared to PREVIOUS TRACING , the sinus tachycardia and anterolateral ST-T wave changes are new. PRE VIOUS TRACIN02/01/2015 05.03 DOCTOR: Jillian Hubbard Interpretating Date/Time 09/14/2016 13:27:53
[2016-09-14] MEDS: AZITHROMYCIN INJ 500 MG in SODIUM CHLOR 0.9% 250 ML INJ 250 ML IV SCH (14:30)
[2016-09-14] MEDS: NOREPINEPHRINE 4 MG/D5W 250 ML IV SCH (14:48)
--- NOTE | 2016-09-14 15:20 | HHI.PR ---
Subjective History of Present Illness Patent feel better no acute issue d/w MARIANGEL Dacosta Leukocytosis resolved mild high sodium will monitor. Review of Systems Constitutional Constitutional: Fatigue, Weakness Vitals/Results Intake & Output 09/13/16 09/13/16 09/14/16 15:00 23:00 07:00 Intake Total 3100 ml 700 ml Output Total 2700 ml Balance 3100 ml -2000 ml Intake IV Total 3100 ml 700 ml Output Urine Total 2700 ml # Voids 1 Vital Signs Vital Signs Date Time Temp Pulse Resp B/P Pulse Ox O2 Delivery O2 Flow Rate FiO2 09/14/16 13:51 16 09/14/16 11:03 102 17 174/84 95 Room Air 09/14/16 10:26 103 16 134/72 99 09/14/16 09:18 105 16 163/89 99 09/14/16 08:18 94 16 158/79 100 Nasal Cannula 2 09/14/16 07:16 98.2 96 16 164/92 100 Nasal Cannula 2 09/14/16 07:15 96 16 09/14/16 06:20 92 17 157/82 96 Room Air 09/14/16 06:05 92 17 138/76 96 Room Air 09/14/16 05:46 77 18 107/68 09/14/16 05:25 80 114/63 09/14/16 05:05 85 120/61 09/14/16 04:40 82 17 128/66 95 Room Air 09/14/16 04:25 72 128/61 09/14/16 04:15 82 126/73 09/14/16 03:55 77 16 134/70 09/14/16 03:35 75 18 126/70 09/14/16 03:15 72 17 133/74 09/14/16 02:50 80 16 147/72 96 Room Air 09/14/16 02:35 72 15 133/70 96 Room Air 09/14/16 02:15 98.6 09/14/16 02:15 70 16 125/68 Nasal Cannula 09/14/16 02:00 72 16 131/66 96 Room Air 09/14/16 01:55 72 18 131/64 95 Room Air 09/14/16 01:35 72 17 133/72 98 Nasal Cannula 2 09/14/16 01:15 68 17 131/64 96 Room Air 09/14/16 01:00 72 16 143/77 95 Room Air 09/14/16 00:35 67 16 136/73 97 Nasal Cannula 09/13/16 23:55 70 16 118/63 100 Nasal Cannula 2 09/13/16 23:05 72 18 119/66 99 Nasal Cannula 09/13/16 22:45 98.9 09/13/16 22:30 70 16 113/59 100 Nasal Cannula 2 09/13/16 22:00 70 16 123/67 99 Nasal Cannula 2 09/13/16 21:50 72 18 120/66 98 Nasal Cannula 2 09/13/16 21:32 73 17 117/61 100 Nasal Cannula 2 09/13/16 21:06 80 102/51 09/13/16 20:40 80 17 108/60 99 2 09/13/16 20:15 83 17 118/64 99 Nasal Cannula 2 09/13/16 19:45 81 16 107/59 99 Nasal Cannula 2 09/13/16 19:20 82 16 102/60 99 Nasal Cannula 2 09/13/16 19:05 82 16 100/60 100 Nasal Cannula 2 09/13/16 18:20 71 09/13/16 18:00 71 18 111/62 100 Nasal Cannula 2 09/13/16 16:40 77 18 101/59 97 Nasal Cannula 2 09/13/16 16:30 76 18 106/63 97 Nasal Cannula 2 09/13/16 16:20 76 18 85/49 97 Nasal Cannula 2 09/13/16 16:10 78 18 76/48 97 Nasal Cannula 2 09/13/16 16:00 78 18 69/42 97 Nasal Cannula 2 09/13/16 15:50 80 18 79/49 97 Nasal Cannula 2 09/13/16 15:40 80 18 68/41 96 Nasal Cannula 2 09/13/16 15:30 78 18 62/40 99 Nasal Cannula 2 CBC/BMP: 09/14/16 0620 09/14/16 0620 Lab Results Laboratory Tests Test 09/14/16 06:20 White Blood Count 7.8 TH/MM3 Red Blood Count 3.87 MIL/MM3 Hemoglobin 11.8 GM/DL Hematocrit 35.3 % Mean Corpuscular Volume 91.3 FL Mean Corpuscular Hemoglobin 30.5 PG Mean Corpuscular Hemoglobin 33.4 % Concent Red Cell Distribution Width 14.6 % Platelet Count 230 TH/MM3 Mean Platelet Volume 6.8 FL Sodium Level 146 MEQ/L Potassium Level 4.4 MEQ/L Chloride Level 114 MEQ/L Carbon Dioxide Level 25.9 MEQ/L Anion Gap 6 MEQ/L Blood Urea Nitrogen 8 MG/DL Creatinine 0.89 MG/DL Estimat Glomerular Filtration 86 ML/MIN Rate Random Glucose 119 MG/DL Calcium Level 7.7 MG/DL Physical Exam General General Appearance: No Acute Distress, Comfortable Eyes Eye Exam: Sclera White, Extraocular Movement Intact Throat Throat Exam: Oral Mucosa [place] & Moist, Oral Pharynx Normal Neck Neck Exam: Neck Supple, Trachea Midline Pulmonary Resp Exam: Clear Bilaterally, Breath Sounds Equal Cardiology CV Exam: Regular, Normal Sinus Rhythm Gastrointestinal/Abdomen GI Exam: Soft, Non-Tender, Bowel Sounds Present Musculoskeletal MS Exam: Joints Intact Integumentary Skin Exam: Warm, Dry, Intact Extremeties Extremities Exam: No Edema Neurologic Neuro Exam: Alert, Awake, Oriented, Speech Clear, Moving All Extremities, No Focal Deficits Psychiatric Psych Exam: Appropriate Responses VTE Prophylaxis VTE Prophylaxis Device: SCDs PUD Prophylasis PUD Prophylaxis: Protonix Assessment/Plan Assessment/Plan ASSESSMENT 1. Septic shock. 2. Community acquired pneumonia on rocephin + zithromax. 3. Chronic diarrhea, rule out superimposed bacterial infection with C-difficile colitis. Patient may have element of dehydration further precipitating his hypotension. 4. Crohn's disease on Imuran GI Consulted. 5. Immunocompromised host. 6. History of hypertension 7. History of chronic obstructive pulmonary disease 8. Prior history of testicular cancer 9. Generalized anxiety disorder. 10. Chronic pain. PLAN He has received aggressive IV fluid resuscitation. We will continue IV fluid with normal saline at 100 mL an hour. He is off Levophed drip. Blood cultures have been taken. negative so far. He is on IV Rocephin 1 gram daily and Zithromax 500 mg IV daily. + Solu-Medrol 40 mg q 6 hr. Infectious Disease input noted... . His potassium and magnesium was low. replace will monitor.. on Pepcid for GI protection. + subcu Lovenox for DVT prophylaxis. Follow CBC and CMP and magnasium level.. Discussed Condition with: Patient Srini Palmer MD Sep 14, 2016 15:19 stable. Discussed Condition with: Patient Srini Palmer MD Sep 14, 2016 15:19
[2016-09-14] MEDS: cefTRIAXone INJ 1,000 MG in SODIUM CHLORIDE 0.9% INJ 100 ML IV SCH (16:35)
--- NOTE | 2016-09-14 20:28 | MB ---
cc: KENY ARMENTA MD DATE OF CONSULTATION 09/14/[address] Panda Ramirez. REASON FOR CONSULTATION Crohn's disease for followup. HISTORY OF THE PRESENT ILLNESS A 66-year-old male patient with a known history of Crohn disease diagnosed in 2009, mainly ileocolonic. He had a right hemicolectomy at the time of presentation and was treated by Imuran and a short period of time by Humira, that appeared to put him in complete resolution of his symptoms. The patient had colonoscopy two years ago by Dr. Alfredo that reported him as normal. The patient is also known to have irritable bowel syndrome along with his symptoms with a chronic diarrhea described as three to four bowel movements a day mostly post prandial and no blood, change in weight or appetite. No other associated symptoms. The patient was admitted to the hospital and part of the evaluation he was found to have cough and CT scan was suggestive of pneumonia and currently being treated for community-acquired pneumonia and possible early sepsis. The patient himself denies any new symptoms when it comes to Crohn disease. He has frequent bowel movements described as chronic without any change, mostly postprandial. No other associated symptoms and no blood. The patient had some improvement when he took cholestyramine but the patient cannot afford this medication now because of insurance issues. PAST MEDICAL HISTORY 1. Crohn disease. 2. Hypertension. 3. Dyslipidemia. 4. Chronic obstructive pulmonary disease. 5. Osteoarthritis. 6. Fibromyalgia. 7. Degenerative joint disease. 8. Chronic pains. 9. History of depression. 10. History of peripheral neuropathy. 11. History of testicular tumor. PAST SURGICAL HISTORY 1. Previous colonoscopy 2 years ago. 2. Orchiectomy followed by radiation chemotherapy. 3. History of herniated appendix. 4. History of right hemicolectomy. ALLERGIES DILAUDID, MORPHINE, AND FIRE ANTS. MEDICATIONS 1. Imuran 50 mg p.o. daily. 2. Norvasc 10 mg p.o. daily. 3. Omeprazole 20 milligrams p.o. daily. 4. Zofran 4 mg p.o. p.r.n. 5. Neurontin 600 mg at bedtime. 6. Fluoxetine 20 mg p.o. daily. SOCIAL HISTORY The patient is an ex-smoker with 50 years, a pack smoking per day. Stopped smoking six years ago. Denies IV drug abuse or alcohol use. He is and lives with his . FAMILY HISTORY Unremarkable. REVIEW OF SYSTEMS All 10 systems reviewed, negative except the ones mentioned in the history of present illness. PHYSICAL EXAMINATION GENERAL: The patient is found to be comfortable at this time, not in distress or in pain. Hemodynamically stable. HEAD AND NECK: Normocephalic, atraumatic. Pupils equal and reactive to light. Supple neck. No lymphadenopathy. No thyromegaly. CHEST: Clear to auscultation bilaterally. No crackles or wheezes. HEART: Regular rate and rhythm. No murmurs. ABDOMEN: Soft, nontender. No hepatosplenomegaly. No palpable masses. Scar of surgery noted in the right abdomen. EXTREMITIES: Showed bilateral clubbing. No edema. Normal pulses. NEUROLOGIC: Cranial nerves II-XII grossly intact. No motor or sensory deficits. SKIN: No rashes or discoloration. LABORATORY DATA The labs showed a white count 7.8, hemoglobin 11.8, hematocrit 35.3. Chemistry within normal limits. CT angio showed no evidence of PE but bilateral pulmonary infiltrates suggestive of early pneumonia. ASSESSMENT/PLAN A 66-year-old male patient with the following problems: 1. Chronic diarrhea described as postprandial for several years attributed to irritable bowel syndrome rather than his Crohn with improvement in cholestyramine that he stopped taking because of insurance issues. 2. Crohn disease in remission for several years, currently stable on low-dose Imuran 50 mg p.o. daily. 3. Status post right hemicolectomy in 2009. 4. Currently with pneumonia and likely community-acquired with a status of chronic immunosuppressive with Imuran. RECOMMENDATIONS 1. I agree with the plan as by primary care doctor including check stool for ova and parasite, culture and sensitivity. We will check CRP to check disease activity. Check stools for calprotectin. 2. Continue IV methyl prednisolone. Further recommendations to follow. Thank you for the consult. Keny MCCALL /4:24 PM /7:56 PM
[2016-09-14] MEDS: GABAPENTIN 300 MG CAP PO SCH (21:24)
[2016-09-15] VITALS (7 sets, daily range): BP systolic 98–149; BP diastolic 67–92; PULSE 63–89; RESP 16–20; TEMP 96.8–98.3; O2SAT 96–100
[2016-09-15] MEDS: ACETAMINOPHEN/HYDROcodone 325 MG/5 MG TAB PO PRN (05:03)
[2016-09-15] MEDS: SODIUM CHLOR 0.9% 1000 ML INJ 1,000 ML IV SCH ×3 (05:03→23:20)
[2016-09-15] MEDS: methylPREDNISolone SOD SUCC 40 MG/1 ML VIAL IV PUSH SCH ×4 (05:03→23:19)
[2016-09-15] MEDS ORDERED: HYDR-3583 PO (05:37)
[2016-09-15] MEDS ORDERED: TIZA4TAB PO (05:37)
[2016-09-15 06:15] LABS: AUTOMATED NEUTROPHIL # 7.9 TH/MM3 (1.8-7.7); BASOPHIL % 0.4 % (0.0-2.0); EOSINOPHIL # 0.1 TH/MM3 (0-0.4); EOSINOPHIL % 0.6 % (0.0-4.0); HEMATOCRIT 33.1 % (39.0-51.0); LYMPHOCYTE # 0.3 TH/MM3 (1.0-4.8); MEAN CELL VOLUME 93.7 FL (80.0-100.0); MEAN CORPUSCULAR HEMOGLOBIN 30.9 PG (27.0-34.0); MEAN CORPUSCULAR HGB CONC 32.9 % (32.0-36.0); MONO % 1.9 % (0.0-8.0); NEUT % 94.1 % (16.0-70.0); PLATELET COUNT 235 TH/MM3 (150-450); RED BLOOD COUNT 3.53 MIL/MM3 (4.50-5.90); RED CELL DISTRIBUTION WIDTH 15.4 % (11.6-17.2); WHITE BLOOD COUNT 8.5 TH/MM3 (4.0-11.0)
[2016-09-15 06:21] LABS: HEMO FLAGS DIFF FINAL
[2016-09-15 06:24] LABS: CHLORIDE 111 MEQ/L (98-107); POTASSIUM 3.8 MEQ/L (3.5-5.1); SODIUM (NA) 144 MEQ/L (136-145)
[2016-09-15 06:27] LABS: ANION GAP 9 MEQ/L (5-15); BICARBONATE 24.2 MEQ/L (21.0-32.0)
[2016-09-15 06:43] LABS: ALKALINE PHOSPHATASE 55 U/L (45-117); ALT (GPT) 12 U/L (12-78); AST (GOT) 12 U/L (15-37); BLOOD UREA NITROGEN 8 MG/DL (7-18); GLOMERULAR FILTRATION RATE 115 ML/MIN (>89); MAGNESIUM 2.1 MG/DL (1.5-2.5); TOTAL BILIRUBIN ADULT 0.2 MG/DL (0.2-1.0)
--- NOTE | 2016-09-15 08:47 | HHI.PR ---
Subjective History of Present Illness Patent feel better no acute issue d/w RN at bed side. Leukocytosis resolved mild high sodium resolve stool positive for C- diff started on oral vancomycin. Review of Systems Constitutional Constitutional: Fatigue, Weakness Vitals/Results Intake & Output 09/14/16 09/14/16 09/15/16 14:59 22:59 06:59 Intake Total 1000 ml 1780 ml Output Total 820 ml Balance 180 ml 1780 ml Intake Oral 480 ml IV Total 1000 ml 1300 ml Output Urine Total 820 ml # Voids 1 2 2 # Bowel Movements 1 Vital Signs Vital Signs Date Time Temp Pulse Resp B/P Pulse Ox O2 Delivery O2 Flow Rate FiO2 09/15/16 05:57 18 09/15/16 04:00 97.1 81 16 142/83 97 09/15/16 00:00 97.5 71 18 109/76 98 09/14/16 22:00 97.6 69 16 126/83 96 09/14/16 20:10 66 09/14/16 20:00 97.6 67 16 135/82 98 09/14/16 16:00 96.3 73 20 124/80 97 09/14/16 14:55 92 17 124/66 96 Room Air 09/14/16 14:25 88 16 123/73 97 Room Air 09/14/16 13:25 91 16 131/73 96 Room Air 09/14/16 12:25 98.0 82 16 119/66 98 Room Air 09/14/16 11:03 102 17 174/84 95 Room Air 09/14/16 10:26 103 16 134/72 99 09/14/16 09:18 105 16 163/89 99 CBC/BMP: 09/15/16 0500 09/15/16 0500 Lab Results Laboratory Tests Test 09/15/16 05:00 White Blood Count 8.5 TH/MM3 Red Blood Count 3.53 MIL/MM3 Hemoglobin 10.9 GM/DL Hematocrit 33.1 % Mean Corpuscular Volume 93.7 FL Mean Corpuscular Hemoglobin 30.9 PG Mean Corpuscular Hemoglobin 32.9 % Concent Red Cell Distribution Width 15.4 % Platelet Count 235 TH/MM3 Mean Platelet Volume 7.4 FL Neutrophils (%) (Auto) 94.1 % Lymphocytes (%) (Auto) 3.0 % Monocytes (%) (Auto) 1.9 % Eosinophils (%) (Auto) 0.6 % Basophils (%) (Auto) 0.4 % Neutrophils # (Auto) 7.9 TH/MM3 Lymphocytes # (Auto) 0.3 TH/MM3 Monocytes # (Auto) 0.2 TH/MM3 Eosinophils # (Auto) 0.1 TH/MM3 Basophils # (Auto) 0.0 TH/MM3 CBC Comment DIFF FINAL Differential Comment Sodium Level 144 MEQ/L Potassium Level 3.8 MEQ/L Chloride Level 111 MEQ/L Carbon Dioxide Level 24.2 MEQ/L Anion Gap 9 MEQ/L Blood Urea Nitrogen 8 MG/DL Creatinine 0.69 MG/DL Estimat Glomerular Filtration 115 ML/MIN Rate Random Glucose 128 MG/DL Calcium Level 8.1 MG/DL Magnesium Level 2.1 MG/DL Total Bilirubin 0.2 MG/DL Aspartate Amino Transf 12 U/L (AST/SGOT) Alanine Aminotransferase 12 U/L (ALT/SGPT) Alkaline Phosphatase 55 U/L Total Protein 6.1 GM/DL Albumin 2.4 GM/DL Physical Exam General General Appearance: No Acute Distress, Comfortable Eyes Eye Exam: Sclera White, Extraocular Movement Intact Throat Throat Exam: Oral Mucosa [place] & Moist, Oral Pharynx Normal Neck Neck Exam: Neck Supple, Trachea Midline Pulmonary Resp Exam: Clear Bilaterally, Breath Sounds Equal Cardiology CV Exam: Regular, Normal Sinus Rhythm Gastrointestinal/Abdomen GI Exam: Soft, Non-Tender, Bowel Sounds Present Musculoskeletal MS Exam: Joints Intact Integumentary Skin Exam: Warm, Dry, Intact Extremeties Extremities Exam: No Edema Neurologic Neuro Exam: Alert, Awake, Oriented, Speech Clear, Moving All Extremities, No Focal Deficits Psychiatric Psych Exam: Appropriate Responses VTE Prophylaxis VTE Prophylaxis Device: SCDs PUD Prophylasis PUD Prophylaxis: Protonix Assessment/Plan Assessment/Plan ASSESSMENT 1. Septic shock. 2. Community acquired pneumonia on rocephin + zithromax. 3. Chronic diarrhea, C-difficile colitis started on vancomycin oral.. Patient have element of dehydration ..better 4. Crohn's disease on Imuran GI Consulted. 5. Immunocompromised host. 6. History of hypertension 7. History of chronic obstructive pulmonary disease 8. Prior history of testicular cancer 9. Generalized anxiety disorder. 10. Chronic pain. PLAN He has received aggressive IV fluid resuscitation. We will continue IV fluid with normal saline at 100 mL an hour. He is off Levophed drip. Blood cultures have been taken. negative so far. He is on IV Rocephin 1 gram daily and Zithromax 500 mg IV daily. + Solu-Medrol 40 mg q 6 hr. Infectious Disease input noted... . His potassium and magnesium was low. resolved.. on Pepcid for GI protection. + subcu Lovenox for DVT prophylaxis. Follow CBC and CMP and magnasium level.. ..noted. check CBC with diff CMP in AM. Discussed Condition with: Patient Srini Palmer MD Sep 15, 2016 08:46
[2016-09-15] MEDS: FLUoxetine HCL 20 MG CAP PO SCH (09:11)
[2016-09-15] MEDS: PANTOPRAZOLE SOD 40 MG DELAYED RELEASE TAB PO SCH (09:11)
[2016-09-15] MEDS: ACETAMINOPHEN/HYDROcodone 325 MG/10 MG TAB PO PRN ×4 (09:12→21:58)
[2016-09-15 11:26] LABS: C. DIFF EPI 027 PRESUMPTIVE NEGATIVE (NEGATIVE)
[2016-09-15 11:53] LABS: C. DIFF TOXIN PCR POSITIVE (NEGATIVE)
[2016-09-15] MEDS: AZITHROMYCIN INJ 500 MG in SODIUM CHLOR 0.9% 250 ML INJ 250 ML IV SCH (12:28)
[2016-09-15] MEDS: ENOXAPARIN SODIUM 40 MG/0.4 ML SYRINGE SQ SCH (12:29)
[2016-09-15] MEDS ORDERED: ACETAMINOPHEN/HYDROcodone 325 MG/5 MG TAB PO PRN (12:30)
[2016-09-15] MEDS: LACTOBACILLUS ACIDOPHILUS TAB PO SCH (17:22)
[2016-09-15] MEDS: cefTRIAXone INJ 1,000 MG in SODIUM CHLORIDE 0.9% INJ 100 ML IV SCH (17:22)
[2016-09-15] MEDS: VANCOMYCIN 500 MG VIAL (FOR ORAL USE ONLY) PO SCH ×2 (17:23→21:59)
[2016-09-15] MEDS: GABAPENTIN 300 MG CAP PO SCH (21:57)
[2016-09-15] MEDS: DIAZEPAM 5 MG TAB PO PRN (23:19)
[2016-09-16] VITALS (7 sets, daily range): BP systolic 94–167; BP diastolic 58–91; PULSE 59–80; RESP 16–20; TEMP 95.9–96.9; O2SAT 94–100
[2016-09-16] MEDS: ACETAMINOPHEN/HYDROcodone 325 MG/10 MG TAB PO PRN ×5 (02:43→21:32)
[2016-09-16] MEDS: methylPREDNISolone SOD SUCC 40 MG/1 ML VIAL IV PUSH SCH ×2 (05:55→12:00)
[2016-09-16 06:17] LABS: AUTOMATED NEUTROPHIL # 7.3 TH/MM3 (1.8-7.7); BASOPHIL % 0.2 % (0.0-2.0); EOSINOPHIL % 0.1 % (0.0-4.0); HEMATOCRIT 35.6 % (39.0-51.0); HEMO FLAGS DIFF FINAL; LYMPH % 3.3 % (9.0-44.0); LYMPHOCYTE # 0.3 TH/MM3 (1.0-4.8); MEAN CORPUSCULAR HEMOGLOBIN 29.7 PG (27.0-34.0); MEAN CORPUSCULAR HGB CONC 31.9 % (32.0-36.0); MONO % 1.7 % (0.0-8.0); NEUT % 94.7 % (16.0-70.0); PLATELET COUNT 266 TH/MM3 (150-450); RED BLOOD COUNT 3.83 MIL/MM3 (4.50-5.90); RED CELL DISTRIBUTION WIDTH 14.8 % (11.6-17.2); WHITE BLOOD COUNT 7.7 TH/MM3 (4.0-11.0)
[2016-09-16 06:28] LABS: CHLORIDE 110 MEQ/L (98-107); POTASSIUM 3.7 MEQ/L (3.5-5.1); SODIUM (NA) 144 MEQ/L (136-145)
[2016-09-16 06:37] LABS: ANION GAP 10 MEQ/L (5-15); BICARBONATE 23.7 MEQ/L (21.0-32.0); BLOOD UREA NITROGEN 8 MG/DL (7-18)
[2016-09-16 06:40] LABS: ALT (GPT) 13 U/L (12-78); AST (GOT) 15 U/L (15-37); GLOMERULAR FILTRATION RATE 105 ML/MIN (>89)
[2016-09-16 06:41] LABS: TOTAL BILIRUBIN ADULT 0.3 MG/DL (0.2-1.0)
[2016-09-16 06:42] LABS: ALKALINE PHOSPHATASE 54 U/L (45-117)
[2016-09-16] MEDS: FLUoxetine HCL 20 MG CAP PO SCH (08:30)
[2016-09-16] MEDS: PANTOPRAZOLE SOD 40 MG DELAYED RELEASE TAB PO SCH (08:30)
[2016-09-16] MEDS: VANCOMYCIN 500 MG VIAL (FOR ORAL USE ONLY) PO SCH ×4 (08:30→21:26)
[2016-09-16] MEDS: LACTOBACILLUS ACIDOPHILUS TAB PO SCH ×3 (08:30→17:04)
--- NOTE | 2016-09-16 08:54 | HHI.PR ---
Subjective History of Present Illness Patent feel better no acute issue d/w RN at bed side.Tri. Leukocytosis resolved mild high sodium resolve stool positive for C- diff on oral vancomycin. Diarrhea better Review of Systems Constitutional Constitutional: Fatigue, Weakness Vitals/Results Intake & Output 09/15/16 09/15/16 09/16/16 15:00 23:00 07:00 Intake Total 1825 ml 400 ml 754 ml Output Total 2 ml Balance 1825 ml 398 ml 754 ml Intake Oral 850 ml IV Total 975 ml 400 ml 754 ml Output Urine Total 2 ml # Voids 8 2 # Bowel Movements 6 0 0 Vital Signs Vital Signs Date Time Temp Pulse Resp B/P Pulse Ox O2 Delivery O2 Flow Rate FiO2 09/16/16 07:29 78 09/16/16 04:00 96.2 75 20 154/91 100 09/16/16 00:00 96.3 63 18 138/84 96 09/15/16 20:00 63 09/15/16 20:00 96.8 65 20 98/67 96 09/15/16 16:00 96.8 64 18 135/78 97 09/15/16 13:47 67 09/15/16 12:00 97.2 68 18 135/76 96 CBC/BMP: 09/16/16 0525 09/16/16 0525 Lab Results Laboratory Tests Test 09/16/16 05:25 White Blood Count 7.7 TH/MM3 Red Blood Count 3.83 MIL/MM3 Hemoglobin 11.4 GM/DL Hematocrit 35.6 % Mean Corpuscular Volume 93.0 FL Mean Corpuscular Hemoglobin 29.7 PG Mean Corpuscular Hemoglobin 31.9 % Concent Red Cell Distribution Width 14.8 % Platelet Count 266 TH/MM3 Mean Platelet Volume 7.4 FL Neutrophils (%) (Auto) 94.7 % Lymphocytes (%) (Auto) 3.3 % Monocytes (%) (Auto) 1.7 % Eosinophils (%) (Auto) 0.1 % Basophils (%) (Auto) 0.2 % Neutrophils # (Auto) 7.3 TH/MM3 Lymphocytes # (Auto) 0.3 TH/MM3 Monocytes # (Auto) 0.1 TH/MM3 Eosinophils # (Auto) 0.0 TH/MM3 Basophils # (Auto) 0.0 TH/MM3 CBC Comment DIFF FINAL Differential Comment Sodium Level 144 MEQ/L Potassium Level 3.7 MEQ/L Chloride Level 110 MEQ/L Carbon Dioxide Level 23.7 MEQ/L Anion Gap 10 MEQ/L Blood Urea Nitrogen 8 MG/DL Creatinine 0.75 MG/DL Estimat Glomerular Filtration 105 ML/MIN Rate Random Glucose 112 MG/DL Calcium Level 8.4 MG/DL Total Bilirubin 0.3 MG/DL Aspartate Amino Transf 15 U/L (AST/SGOT) Alanine Aminotransferase 13 U/L (ALT/SGPT) Alkaline Phosphatase 54 U/L Total Protein 6.2 GM/DL Albumin 2.5 GM/DL Physical Exam General General Appearance: Well Developed, Well Nourished, No Acute Distress, Comfortable Eyes Eye Exam: Sclera White, Extraocular Movement Intact Throat Throat Exam: Oral Mucosa [place] & Moist, Oral Pharynx Normal Neck Neck Exam: Neck Supple, Trachea Midline Pulmonary Resp Exam: Clear Bilaterally, Breath Sounds Equal Cardiology CV Exam: Regular, Normal Sinus Rhythm Gastrointestinal/Abdomen GI Exam: Soft, Non-Tender, Bowel Sounds Present Musculoskeletal MS Exam: Joints Intact Integumentary Skin Exam: Warm, Dry, Intact Extremeties Extremities Exam: No Edema Neurologic Neuro Exam: Alert, Awake, Oriented, Speech Clear, Moving All Extremities, No Focal Deficits Psychiatric Psych Exam: Appropriate Responses VTE Prophylaxis VTE Prophylaxis Device: SCDs PUD Prophylasis PUD Prophylaxis: Protonix Assessment/Plan Assessment/Plan ASSESSMENT 1. Septic shock. 2. Community acquired pneumonia on rocephin + zithromax. 3. Chronic diarrhea, C-difficile colitis on vancomycin oral.. Patient have element of dehydration ..better 4. Crohn's disease on Imuran GI input noted. 5. Immunocompromised host. 6. History of hypertension 7. History of chronic obstructive pulmonary disease 8. Prior history of testicular cancer 9. Generalized anxiety disorder. 10. Chronic pain. PLAN He has received aggressive IV fluid resuscitation. We will continue IV fluid with normal saline at 100 mL an hour. He is off Levophed drip. Blood cultures have been taken. negative so far. He is on IV Rocephin 1 gram daily and Zithromax 500 mg IV daily. + Solu-Medrol 40 mg q 6 hr. Infectious Disease input noted... . His potassium and magnesium was low. resolved.. on Pepcid for GI protection. + subcu Lovenox for DVT prophylaxis. Follow CBC and CMP and magnasium level.. ..noted. check CBC with diff CMP in AM. Discussed Condition with: Patient Srini Palmer MD Sep 16, 2016 08:54
[2016-09-16] MEDS ORDERED: ZOLPIDEM TARTRATE 5 MG TAB PO PRN (09:00)
[2016-09-16] MEDS: SODIUM CHLOR 0.9% 1000 ML INJ 1,000 ML IV SCH ×2 (10:00→21:25)
--- NOTE | 2016-09-16 12:12 | HHI.IDPN ---
Subjective Subjective Remarks pt has + C diff test he was started on vancomycin and improved Diarrhea decerased fever resolved no cough no SOB abdominal pain minimal Antibiotics vancomycin Allergies: Coded Allergies: Fire Ant (Verified Allergy, Intermediate, Anaphylaxis, 07/17/16) Objective . Vital Signs Date Time Temp Pulse Resp B/P Pulse Ox O2 Delivery O2 Flow Rate FiO2 09/16/16 11:54 95.9 59 18 128/76 96 09/16/16 08:00 96.9 80 18 167/91 99 09/16/16 07:29 78 09/16/16 04:00 96.2 75 20 154/91 100 09/16/16 00:00 96.3 63 18 138/84 96 09/15/16 20:00 63 09/15/16 20:00 96.8 65 20 98/67 96 09/15/16 16:00 96.8 64 18 135/78 97 09/15/16 13:47 67 09/15/16 09/15/16 09/16/16 15:00 23:00 07:00 Intake Total 1825 ml 400 ml 754 ml Output Total 2 ml Balance 1825 ml 398 ml 754 ml Intake Oral 850 ml IV Total 975 ml 400 ml 754 ml Output Urine Total 2 ml # Voids 8 2 # Bowel Movements 6 0 0 . Laboratory Tests Test 09/15/16 09/16/16 05:00 05:25 White Blood Count 8.5 TH/MM3 7.7 TH/MM3 Red Blood Count 3.53 MIL/MM3 3.83 MIL/MM3 Hemoglobin 10.9 GM/DL 11.4 GM/DL Hematocrit 33.1 % 35.6 % Mean Corpuscular Volume 93.7 FL 93.0 FL Mean Corpuscular Hemoglobin 30.9 PG 29.7 PG Mean Corpuscular Hemoglobin 32.9 % 31.9 % Concent Red Cell Distribution Width 15.4 % 14.8 % Platelet Count 235 TH/MM3 266 TH/MM3 Mean Platelet Volume 7.4 FL 7.4 FL Neutrophils (%) (Auto) 94.1 % 94.7 % Lymphocytes (%) (Auto) 3.0 % 3.3 % Monocytes (%) (Auto) 1.9 % 1.7 % Eosinophils (%) (Auto) 0.6 % 0.1 % Basophils (%) (Auto) 0.4 % 0.2 % Neutrophils # (Auto) 7.9 TH/MM3 7.3 TH/MM3 Lymphocytes # (Auto) 0.3 TH/MM3 0.3 TH/MM3 Monocytes # (Auto) 0.2 TH/MM3 0.1 TH/MM3 Eosinophils # (Auto) 0.1 TH/MM3 0.0 TH/MM3 Basophils # (Auto) 0.0 TH/MM3 0.0 TH/MM3 CBC Comment DIFF FINAL DIFF FINAL Differential Comment Laboratory Tests Test 09/15/16 09/16/16 05:00 05:25 Sodium Level 144 MEQ/L 144 MEQ/L Potassium Level 3.8 MEQ/L 3.7 MEQ/L Chloride Level 111 MEQ/L 110 MEQ/L Carbon Dioxide Level 24.2 MEQ/L 23.7 MEQ/L Anion Gap 9 MEQ/L 10 MEQ/L Blood Urea Nitrogen 8 MG/DL 8 MG/DL Creatinine 0.69 MG/DL 0.75 MG/DL Estimat Glomerular Filtration 115 ML/MIN 105 ML/MIN Rate Random Glucose 128 MG/DL 112 MG/DL Calcium Level 8.1 MG/DL 8.4 MG/DL Magnesium Level 2.1 MG/DL Total Bilirubin 0.2 MG/DL 0.3 MG/DL Aspartate Amino Transf 12 U/L 15 U/L (AST/SGOT) Alanine Aminotransferase 12 U/L 13 U/L (ALT/SGPT) Alkaline Phosphatase 55 U/L 54 U/L Total Protein 6.1 GM/DL 6.2 GM/DL Albumin 2.4 GM/DL 2.5 GM/DL Imaging Last Impressions Chest X-Ray 09/13/16 0849 Signed Impressions: Service Date/Time: Tuesday, September 13, 2016 08:51 - CONCLUSION: No acute disease. Rony Garcia MD CT Angiography 09/13/16 0000 Signed Impressions: Service Date/Time: Tuesday, September 13, 2016 10:24 - CONCLUSION: 1. No evidence for pulmonary embolism. 2. Bilateral scattered pulmonary infiltrates noted. Followup CT examination recommended after appropriate medical therapy to ensure resolution of these nodular infiltrates. Rony Garcia MD Physical Exam CONSTITUTIONAL/GENERAL: This is an adequately nourished patient, in no apparent distress. SKIN: No jaundice, rashes, or lesions. EYES: No scleral icterus. CARDIOVASCULAR: Regular rate and rhythm without murmurs, gallops, or rubs. RESPIRATORY/CHEST: Symmetric, unlabored respirations. Clear to auscultation. Breath sounds equal bilaterally. No wheezes, rales, or rhonchi. GASTROINTESTINAL: Abdomen soft, non-tender, nondistended. No hepato-splenomegaly , or palpable masses. No guarding. Bowel sounds present. Well healed old medial laparotomy scar cw past surg hx GENITOURINARY: Without palpable bladder distension. MUSCULOSKELETAL: Extremities without clubbing, cyanosis, or edema. No joint tenderness or effusion noted. No calf tenderness. No mottling or clubbing. NEUROLOGICAL: Awake and alert. Motor and sensory grossly within normal limits. Follows commands.Normal speech PSYCHIATRIC: No obvious anxiety/depression. no apparent hallucinations or other psychotic thought process. Assessment & Plan Remarks C.diff - confirmed - 1 st episode - improving with vancomycin Suspected sepsis PNA ? viral -clinically resolved Underlying Chrohn dz on imuran - dc CFTX, azithro - cont vancomycin 125 mg PO q6 hrs x 2 wks Jeanine Mccracken MD Sep 16, 2016 12:12
[2016-09-16] MEDS: ENOXAPARIN SODIUM 40 MG/0.4 ML SYRINGE SQ SCH (13:56)
--- NOTE | 2016-09-16 16:18 | HHI.GIFU ---
GI Follow-up Note Consult Follow-up Subjective: Patient laying in bed comfortably, no new complaints except diarrhea, and some abdominal pain Objective: PHYSICAL EXAMINATION: Vitals signs stable No fever HEENT: Pupils round and reactive to light; normocephalic; atraumatic; no jaundice. Throat is clear. NECK: Neck is supple, no JVD, no lymphadenopathy. CHEST: Chest is clear to auscultation and percussion. CARDIAC: Regular rate and rhythm with no murmur gallop or rubs. ABDOMEN: Soft, nondistended, nontender; no hepatosplenomegaly; bowel sounds are present in all four quadrants. EXTREMITIES: No clubbing, cyanosis, or edema. SKIN: Normal; no rash; no jaundice. BLADDER CHANGER: No focal deficits; alert and oriented times three. Available Data (labs, X- Rays, Procedues) : Last Impressions Chest X-Ray 09/13/16 0849 Signed Impressions: Service Date/Time: Tuesday, September 13, 2016 08:51 - CONCLUSION: No acute disease. Rony Garcia MD CT Angiography 09/13/16 0000 Signed Impressions: Service Date/Time: Tuesday, September 13, 2016 10:24 - CONCLUSION: 1. No evidence for pulmonary embolism. 2. Bilateral scattered pulmonary infiltrates noted. Followup CT examination recommended after appropriate medical therapy to ensure resolution of these nodular infiltrates. Rony Garcia MD Laboratory Tests Test 09/15/16 09/16/16 05:00 05:25 White Blood Count 8.5 TH/MM3 7.7 TH/MM3 Red Blood Count 3.53 MIL/MM3 3.83 MIL/MM3 Hemoglobin 10.9 GM/DL 11.4 GM/DL Hematocrit 33.1 % 35.6 % Mean Corpuscular Volume 93.7 FL 93.0 FL Mean Corpuscular Hemoglobin 30.9 PG 29.7 PG Mean Corpuscular Hemoglobin 32.9 % 31.9 % Concent Red Cell Distribution Width 15.4 % 14.8 % Platelet Count 235 TH/MM3 266 TH/MM3 Mean Platelet Volume 7.4 FL 7.4 FL Neutrophils (%) (Auto) 94.1 % 94.7 % Lymphocytes (%) (Auto) 3.0 % 3.3 % Monocytes (%) (Auto) 1.9 % 1.7 % Eosinophils (%) (Auto) 0.6 % 0.1 % Basophils (%) (Auto) 0.4 % 0.2 % Neutrophils # (Auto) 7.9 TH/MM3 7.3 TH/MM3 Lymphocytes # (Auto) 0.3 TH/MM3 0.3 TH/MM3 Monocytes # (Auto) 0.2 TH/MM3 0.1 TH/MM3 Eosinophils # (Auto) 0.1 TH/MM3 0.0 TH/MM3 Basophils # (Auto) 0.0 TH/MM3 0.0 TH/MM3 CBC Comment DIFF FINAL DIFF FINAL Differential Comment Sodium Level 144 MEQ/L 144 MEQ/L Potassium Level 3.8 MEQ/L 3.7 MEQ/L Chloride Level 111 MEQ/L 110 MEQ/L Carbon Dioxide Level 24.2 MEQ/L 23.7 MEQ/L Anion Gap 9 MEQ/L 10 MEQ/L Blood Urea Nitrogen 8 MG/DL 8 MG/DL Creatinine 0.69 MG/DL 0.75 MG/DL Estimat Glomerular Filtration 115 ML/MIN 105 ML/MIN Rate Random Glucose 128 MG/DL 112 MG/DL Calcium Level 8.1 MG/DL 8.4 MG/DL Magnesium Level 2.1 MG/DL Total Bilirubin 0.2 MG/DL 0.3 MG/DL Aspartate Amino Transf 12 U/L 15 U/L (AST/SGOT) Alanine Aminotransferase 12 U/L 13 U/L (ALT/SGPT) Alkaline Phosphatase 55 U/L 54 U/L Total Protein 6.1 GM/DL 6.2 GM/DL Albumin 2.4 GM/DL 2.5 GM/DL Allergies Coded Allergies Type Severity Reaction Last Updated Verified Fire Ant Allergy Intermediate Anaphylaxis 07/17/16 Yes Active Scripts Medications Dose Route/Sig Days Date Category Dose Instructions Tizanidine (Tizanidine HCl) 4 Mg Tab 4 Mg PO TID 09/15/16 Reported Hydrocodone-Acetaminophen 10-325 mg Tab 1 Tab PO Q6H PRN 09/15/16 Reported Diazepam 10 Mg Tab 10 Mg PO TID PRN 09/13/16 Reported Amlodipine (Amlodipine Besylate) 10 Mg Tab 10 Mg PO DAILY 09/13/16 Reported Fluoxetine (Fluoxetine HCl) 20 Mg Tab 20 Mg PO DAILY 09/13/16 Reported Omeprazole 20 Mg Tab 20 Mg PO DAILY 09/13/16 Reported Zofran (Ondansetron HCl) 4 Mg Tab 4 Mg PO Q6HR PRN 09/13/16 Reported Gabapentin 600 Mg Tab 600 Mg PO HS 09/13/16 Reported Tizanidine (Tizanidine HCl) 4 Mg Tab 4 Mg PO QID 09/13/16 Reported Azathioprine 50 Mg Tab 50 Mg PO DAILY 09/13/16 Reported Hazardous agent use appropriate precautions for handling and disposal. ASSESSMENT/PLAN: Seen and examined , doing well. Restart azathioprine. DC solumederol. Complete 2 weeks on vancomicin. Can dc home with gi fu. Will sign off.Thank you It was a pleasure seeing Dave Wolff. Thank you for this consult. Entered by: Evan Ulrich MD Sep 16, 2016 16:18
[2016-09-16] MEDS ORDERED: azaTHIOprine 50 MG TAB PO ONE ×2 (16:30→17:30)
[2016-09-16] MEDS: GABAPENTIN 300 MG CAP PO SCH (21:25)
[2016-09-17] VITALS: BP 148/87; PULSE 51; RESP 18; TEMP 96.2; O2SAT 95
[2016-09-17 04:00] VITALS: BP 154/93; PULSE 66; RESP 18; TEMP 96.7; O2SAT 98
[2016-09-17] MEDS: DIAZEPAM 5 MG TAB PO PRN (05:57)
[2016-09-17] MEDS: ACETAMINOPHEN/HYDROcodone 325 MG/10 MG TAB PO PRN (05:57)
[2016-09-17] MEDS: SODIUM CHLOR 0.9% 1000 ML INJ 1,000 ML IV SCH (05:58)
[2016-09-17 06:22] LABS: AUTOMATED NEUTROPHIL # 4.7 TH/MM3 (1.8-7.7); BASOPHIL % 0.2 % (0.0-2.0); HEMATOCRIT 37.3 % (39.0-51.0); LYMPH % 12.6 % (9.0-44.0); LYMPHOCYTE # 0.7 TH/MM3 (1.0-4.8); MEAN CELL VOLUME 92.6 FL (80.0-100.0); MEAN CORPUSCULAR HEMOGLOBIN 29.7 PG (27.0-34.0); MONO % 7.9 % (0.0-8.0); NEUT % 79.3 % (16.0-70.0); PLATELET COUNT 302 TH/MM3 (150-450); RED BLOOD COUNT 4.03 MIL/MM3 (4.50-5.90); RED CELL DISTRIBUTION WIDTH 14.4 % (11.6-17.2); WHITE BLOOD COUNT 5.9 TH/MM3 (4.0-11.0)
[2016-09-17 06:23] LABS: HEMO FLAGS DIFF FINAL
[2016-09-17 06:27] LABS: CHLORIDE 110 MEQ/L (98-107); POTASSIUM 3.1 MEQ/L (3.5-5.1); SODIUM (NA) 146 MEQ/L (136-145)
[2016-09-17 06:30] LABS: ANION GAP 7 MEQ/L (5-15); BICARBONATE 28.8 MEQ/L (21.0-32.0)
[2016-09-17 06:31] LABS: BLOOD UREA NITROGEN 8 MG/DL (7-18)
[2016-09-17 06:33] LABS: ALT (GPT) 14 U/L (12-78)
[2016-09-17 06:34] LABS: AST (GOT) 11 U/L (15-37); GLOMERULAR FILTRATION RATE 93 ML/MIN (>89)
[2016-09-17 06:35] LABS: TOTAL BILIRUBIN ADULT 0.2 MG/DL (0.2-1.0)
[2016-09-17 06:36] LABS: ALKALINE PHOSPHATASE 50 U/L (45-117)
[2016-09-17 08:00] VITALS: BP 127/76; PULSE 59; RESP 16; TEMP 96.1; O2SAT 96
--- NOTE | 2016-09-17 08:29 | HHI.PR ---
Subjective History of Present Illness Patent feel better no acute issue d/w RN at bed side.Tri. Leukocytosis resolved mild high sodium resolved stool positive for C- diff on oral vancomycin. Diarrhea better ok to DC per GI. Review of Systems Constitutional Constitutional: Fatigue, Weakness Vitals/Results Intake & Output 09/16/16 09/16/16 09/17/16 15:00 23:00 07:00 Intake Total 360 ml 224 ml 688 ml Balance 360 ml 224 ml 688 ml Intake Oral 360 ml IV Total 224 ml 688 ml # Voids 2 1 # Bowel Movements 0 Vital Signs Vital Signs Date Time Temp Pulse Resp B/P Pulse Ox O2 Delivery O2 Flow Rate FiO2 09/17/16 07:52 18 09/17/16 04:00 96.7 66 18 154/93 98 09/17/16 00:00 96.2 51 18 148/87 95 09/16/16 20:00 59 09/16/16 20:00 96.3 65 18 94/58 96 09/16/16 16:00 96.9 70 16 142/85 94 09/16/16 11:54 95.9 59 18 128/76 96 CBC/BMP: 09/17/16 0550 09/17/16 0550 Lab Results Laboratory Tests Test 09/17/16 05:50 White Blood Count 5.9 TH/MM3 Red Blood Count 4.03 MIL/MM3 Hemoglobin 12.0 GM/DL Hematocrit 37.3 % Mean Corpuscular Volume 92.6 FL Mean Corpuscular Hemoglobin 29.7 PG Mean Corpuscular Hemoglobin 32.0 % Concent Red Cell Distribution Width 14.4 % Platelet Count 302 TH/MM3 Mean Platelet Volume 7.0 FL Neutrophils (%) (Auto) 79.3 % Lymphocytes (%) (Auto) 12.6 % Monocytes (%) (Auto) 7.9 % Eosinophils (%) (Auto) 0.0 % Basophils (%) (Auto) 0.2 % Neutrophils # (Auto) 4.7 TH/MM3 Lymphocytes # (Auto) 0.7 TH/MM3 Monocytes # (Auto) 0.5 TH/MM3 Eosinophils # (Auto) 0.0 TH/MM3 Basophils # (Auto) 0.0 TH/MM3 CBC Comment DIFF FINAL Differential Comment Sodium Level 146 MEQ/L Potassium Level 3.1 MEQ/L Chloride Level 110 MEQ/L Carbon Dioxide Level 28.8 MEQ/L Anion Gap 7 MEQ/L Blood Urea Nitrogen 8 MG/DL Creatinine 0.83 MG/DL Estimat Glomerular Filtration 93 ML/MIN Rate Random Glucose 79 MG/DL Calcium Level 8.1 MG/DL Total Bilirubin 0.2 MG/DL Aspartate Amino Transf 11 U/L (AST/SGOT) Alanine Aminotransferase 14 U/L (ALT/SGPT) Alkaline Phosphatase 50 U/L Total Protein 5.8 GM/DL Albumin 2.4 GM/DL Physical Exam General General Appearance: Well Developed, Well Nourished, No Acute Distress, Comfortable Eyes Eye Exam: Sclera White, Extraocular Movement Intact Throat Throat Exam: Oral Mucosa [place] & Moist, Oral Pharynx Normal Neck Neck Exam: Neck Supple, Trachea Midline Pulmonary Resp Exam: Clear Bilaterally, Breath Sounds Equal Cardiology CV Exam: Regular, Normal Sinus Rhythm Gastrointestinal/Abdomen GI Exam: Soft, Non-Tender, Bowel Sounds Present Musculoskeletal MS Exam: Joints Intact Integumentary Skin Exam: Warm, Dry, Intact Extremeties Extremities Exam: No Edema Neurologic Neuro Exam: Alert, Awake, Oriented, Speech Clear, Moving All Extremities, No Focal Deficits Psychiatric Psych Exam: Appropriate Responses VTE Prophylaxis VTE Prophylaxis Device: SCDs PUD Prophylasis PUD Prophylaxis: Protonix Assessment/Plan Assessment/Plan ASSESSMENT 1. Septic shock. 2. Community acquired pneumonia on rocephin + zithromax. 3. Chronic diarrhea, C-difficile colitis on vancomycin oral.. Patient have element of dehydration ..better 4. Crohn's disease on Imuran GI input noted. 5. Immunocompromised host. 6. History of hypertension 7. History of chronic obstructive pulmonary disease 8. Prior history of testicular cancer 9. Generalized anxiety disorder. 10. Chronic pain. PLAN He has received aggressive IV fluid resuscitation. We will continue IV fluid with normal saline at 100 mL an hour. He is off Levophed drip. Blood cultures have been taken. negative so far. He is on IV Rocephin 1 gram daily and Zithromax 500 mg IV daily. + Solu-Medrol 40 mg q 6 hr. Infectious Disease input noted... . His potassium and magnesium was low. resolved.. on Pepcid for GI protection. + subcu Lovenox for DVT prophylaxis. Follow CBC and CMP and magnasium level.. ..noted. OK TO DC HOME TODAY. F/U WITH PCP/GI 1 WEEK. Discussed Condition with: Patient Srini Palmer MD Sep 17, 2016 08:29
[2016-09-17] MEDS ORDERED: VANC1CAP7 PO (09:05)
[2016-09-17] MEDS ORDERED: LACT PO (09:05)
[2016-09-17] MEDS: VANCOMYCIN 500 MG VIAL (FOR ORAL USE ONLY) PO SCH (10:24)
[2016-09-17] MEDS: PANTOPRAZOLE SOD 40 MG DELAYED RELEASE TAB PO SCH (10:24)
[2016-09-17] MEDS: FLUoxetine HCL 20 MG CAP PO SCH (10:24)
[2016-09-17] MEDS: LACTOBACILLUS ACIDOPHILUS TAB PO SCH (10:24)
--- NOTE | 2016-09-19 08:54 | MD ---
cc: SRINI BEDOLLA MD ADMISSION DATE: 09/13/2016 DISCHARGE DATE: 09/17/2016 DISCHARGE DISPOSITION Okay to discharge the patient home. CONDITION AT THE TIME OF DISCHARGE Satisfactory. ACTIVITY As tolerated. DIET Cardiac diet. ALLERGY TO FIRE ANTS. MEDICATIONS 1. Lactobacillus/acidophilus one p.o. t.i.d. 2. Vancomycin 250 mg p.o. q.i.d. 3. Amlodipine 10 mg p.o. daily. 4. Azathioprine 50 mg p.o. daily. 5. Diazepam 10 mg p.o. daily. 6. Fluoxetine 20 mg p.o. daily. 7. Gabapentin 600 mg p.o. at bedtime. 8. Hydrocodone/acetaminophen one p.o. q. 6 hours. 9. Omeprazole 20 mg p.o. daily. 10. Zofran 4 mg p.o. q.6 hours p.r.n. nausea and vomiting. 11. Tizanidine 4 mg p.o. q.i.d. FOLLOWUP Patient advised to follow up with PCP and GI in one week. ADMISSION DIAGNOSES 1. Septic shock which is improved. 2. Possible community-acquired pneumonia which is improved. 3. Diarrhea secondary to Clostridium difficile colitis. The patient treated with and vancomycin. Diarrhea improved. 4. Immunocompromised host. 5. History of hypertension. 6. History of chronic obstructive pulmonary disease. 7. Prior history of testicular cancer. 8. History of anxiety. 9. History of chronic pain. HOSPITAL COURSE This is a 66-year-old male admitted with above-mentioned diagnosis, seen by GI. The patient's CT angio was done and shows no evidence of pulmonary embolism, bilateral scattered pulmonary infiltrate noted. Follow-up CT examination recommended after appropriate medical therapy to ensure resolution of these nodular infiltrates. The patient's chest x-ray done shows no acute disease. The patient remained stable. No acute event happened. The patient had influenza A and B antigen test which were negative. Blood cultures x 2 - at 5 days no growth. The patient had leukocytosis which resolved. The patient with a hemoglobin of 12.0. The patient had mild hypernatremia; sodium was 146. The patient also mild hypokalemia. The patient had a urine examination shows urine occult blood trace. The patient's C. diff antigen was positive. DISCHARGE INSTRUCTIONS The patient discharged in satisfactory condition, was advised to followup with PCP in 1-2 days. Infectious Disease doctor, Dr. Torie Mccracken, had seen the patient during his hospital stay. The patient remained stable during the hospital stay. No acute event happened. Please see further details in the medical record. Srini Bedolla MD EA/JORGE A /5:42 AM /8:29 AM
== END 2016-09-17 11:00 | disposition home or self-care (01) | DRG 871 ==
LOC: PHED 08:41 → PHEDA 11:12 → PH3A 09-14 15:18
PROVIDERS: ADMIT Specialist; ATTEND Specialist
DX: A41.9 Sepsis, unspecified organism (principal); J18.9 Pneumonia, unspecified organism; R65.21 Severe sepsis with septic shock; E87.0 Hyperosmolality and hypernatremia; J44.9 Chronic obstructive pulmonary disease, unspecified; A04.7 Enterocolitis due to Clostridium difficile; K50.90 Crohn's disease, unspecified, without complications; E86.0 Dehydration; F41.1 Generalized anxiety disorder; E87.6 Hypokalemia; G89.29 Other chronic pain; I10 Essential (primary) hypertension; R09.02 Hypoxemia; K58.0 Irritable bowel syndrome with diarrhea; M79.7 Fibromyalgia; E78.5 Hyperlipidemia, unspecified; G47.30 Sleep apnea, unspecified; K21.9 Gastro-esophageal reflux disease without esophagitis; M19.90 Unspecified osteoarthritis, unspecified site; M60.9 Myositis, unspecified; G62.9 Polyneuropathy, unspecified; Z85.47 Personal history of malignant neoplasm of testis; Z92.3 Personal history of irradiation; Z92.21 Personal history of antineoplastic chemotherapy; Z87.891 Personal history of nicotine dependence; Z88.5 Allergy status to narcotic agent; Z79.899 Other long term (current) drug therapy
CPT/HCPCS: 71010; 71275; 80048; 80053; 81001; 82550; 82805; 83605; 83690; 83735; 84484; 85025; 85027; 87040; 87493; 87804; 93005; 94664; 96365; 96367; 96368; 96375; J0456; J0692; J0696; J1650; J1885; J1956; J2270; J2405; J2920; J3475; J7030; J7040; J7050; J7500; Q9967

== ENCOUNTER 2016-10-09 18:07 | Emergency (ER) | payer MEDICARE ==
[~2016-10-09] VITALS: Ht 180.3 cm; Wt 76.0 kg
[~2016-10-09 18:07] MED LIST changes: +AMLO10TA2 PO; -AMLO5TAB22 PO; +DIAZ10TA PO; +FLUO1TAB3 PO; -GABA300C3 PO; +GABA600T PO; +HYDR-3583 PO; +LACT PO; -NORC10TA2 PO; -PROZ20CA11 PO; -ROPI2 PO; -TEMA15 PO; -TIZA4 PO; +TIZA4TAB PO; +VANC1CAP7 PO; +ZOFR4TAB PO
[2016-10-09] MEDS ORDERED: SODIUM CHLOR 0.9% 1000 ML INJ 1,000 ML IV ONE (19:05)
--- NOTE | 2016-10-09 19:11 | PD ---
HPI Chief Complaint: syncope Time Seen by Provider: 18:57 Travel History International Travel<30 days: No (unknown) Contact w/Intl Traveler<30days: No (unknown) History of Present Illness HPI 66yo M with PMH of crohns disease with chronic diarrhea, chronic pain, HTN, COPD , h/o testicular CA presents to the ED with c/o syncopal episode today. Pt went to open the door for his physical therapist and passed out. States the PT caught him. However, he fell 3 days ago and has abrasion on his forehead. Denies any fever, chest pain, sob, n/v, abdominal pain, focal weakness or numbness. Pt was recently admitted 09/13/16-09/17/16 for septal shock and found to have bilateral pneumonia and cdiff colitis. Only complaint right now is his chronic diarrhea but has no abdominal pain. 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) Cardiovascular Problems: Yes (htn) High Cholesterol: Yes (controlled on meds) Chemotherapy: No Chest Pain: No Congestive Heart Failure: No COPD: Yes Cerebrovascular Accident: No Diabetes: No Diminished Hearing: No Endocrine: No Fibromyalgia: Yes Gastrointestinal Disorders: Yes (CHRON'S DISEASE, GERD, HIATAL HERNIA, CHRONIC GASTRITIS, DIARRHEA) GERD: Yes (TAKES PRILOSEC) Glaucoma: No Genitourinary: No Headaches: Yes Hepatitis: No Hiatal Hernia: Yes Hypertension: Yes Kidney Stones: No Musculoskeletal: Yes (ARTHRITIS, BURSITIS, FIBROMYALGIA, DDD, R SHOULDER PAIN) Neurologic: Yes (LEG NEUROPATHY) Psychiatric: No Reproductive: 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) Respiratory: Yes (copd) Immunizations Current: No ( ) Migraines: No Myocardial Infarction: No Radiation Therapy: No Renal Failure: No Seizures: No Sickle Cell Disease: No Sleep Apnea: Yes Thyroid Disease: No Ulcer: No PNEUMOCCOCAL Vaccine (Year): 1 Past Surgical History Abdominal Surgery: Yes (HERNIA REPAIR 5 Y/0, BOWEL RESECTION 04/2010) AICD: No Appendectomy: No Arteriovenous Shunt: No Cardiac Surgery: No Cholecystectomy: Yes Ear Surgery: No Endocrine Surgery: No Eye Surgery: No Genitourinary Surgery: 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) Gynecologic Surgery: No Insulin Pump: No Joint Replacement: No Oral Surgery: Yes (TEETH REMOVAL) Pacemaker: No Thoracic Surgery: No Other Surgery: Yes Social History Alcohol Use: Yes (RARE) Tobacco Use: No (quit 2006 ) Substance Use: No Allergies-Medications (Allergen,Severity, Reaction): Coded Allergies: Fire Ant (Verified Allergy, Intermediate, Anaphylaxis, 07/17/16) Reported Meds & Prescriptions Reported Meds & Active Scripts Active Vancocin (Vancomycin HCl) 250 Mg Cap 250 Mg PO QID Acidophilus/l-Sporogenes (Lactobacillus Acidophilus) 1 Tab Tab 1 Tab PO TID Reported Hydrocodone-Acetaminophen 10-325 mg Tab 1 Tab PO Q6H PRN Diazepam 10 Mg Tab 10 Mg PO TID PRN Amlodipine (Amlodipine Besylate) 10 Mg Tab 10 Mg PO DAILY Fluoxetine (Fluoxetine HCl) 20 Mg Tab 20 Mg PO DAILY Omeprazole 20 Mg Tab 20 Mg PO DAILY Gabapentin 600 Mg Tab 600 Mg PO HS Tizanidine (Tizanidine HCl) 4 Mg Tab 4 Mg PO QID Azathioprine 50 Mg Tab 50 Mg PO DAILY Hazardous agent use appropriate precautions for handling and disposal. Review of Systems Except as stated in HPI: all other systems reviewed are Neg Physical Exam Narrative GENERAL: 66yo flail appearing male. SKIN: Warm and dry. HEAD: Atraumatic. Normocephalic. EYES: Pupils equal and round. No scleral icterus. No injection or drainage. ENT: No nasal bleeding or discharge. Mucous membranes pink and moist. NECK: Trachea midline. No JVD. CARDIOVASCULAR: Bradycardic and hypotensive. No murmur appreciated. RESPIRATORY: No accessory muscle use. Clear to auscultation. Breath sounds equal bilaterally. GASTROINTESTINAL: Abdomen soft, non-tender, nondistended. No rebound tenderness or guarding. RECTAL: Brown stool. Hemaprompt negative. MUSCULOSKELETAL: No obvious deformities. No clubbing. No cyanosis. No edema. NEUROLOGICAL: Awake and alert. No obvious cranial nerve deficits. Motor grossly within normal limits. Normal speech. PSYCHIATRIC: Appropriate mood and affect; insight and judgment normal. Data Data Last Documented VS Vital Signs Date Time Temp Pulse Resp B/P Pulse Ox O2 Delivery O2 Flow Rate FiO2 10/09/16 22:40 62 17 128/69 98 10/09/16 21:20 Room Air 10/09/16 19:15 97.5 Orders Electrocardiogram (10/09/16 19:05) Basic Metabolic Panel (Bmp) (10/09/16 19:05) Complete Blood Count With Diff (10/09/16 19:05) Ckmb (Isoenzyme) Profile (10/09/16 19:05) Troponin I (10/09/16 19:05) Act Partial Throm Time (Ptt) (10/09/16 19:05) Prothrombin Time / Inr (Pt) (10/09/16 19:05) Urinalysis - C+S If Indicated (10/09/16 19:05) Chest, Single Ap (10/09/16 19:05) Ct Brain W/O Iv Contrast(Rout) (10/09/16 19:05) Ecg Monitoring (10/09/16 19:05) Iv Access Insert/Monitor (10/09/16 19:05) Oximetry (10/09/16 19:05) Sodium Chloride 0.9% Flush (Ns Flush) (10/09/16 19:15) Sodium Chlor 0.9% 1000 Ml Inj (Ns 1000 M (10/09/16 19:05) Orthostatic Vital Signs (10/09/16 19:05) Lactic Acid Sepsis Protocol (10/09/16 19:26) Protein Corrected Calcium(Pcc) (10/09/16 19:20) Calcium Gluconate Inj (Calcium Gluconate (10/09/16 20:45) Labs Laboratory Tests Test 10/09/16 10/09/16 19:20 20:45 White Blood Count 3.5 TH/MM3 Red Blood Count 3.38 MIL/MM3 Hemoglobin 10.6 GM/DL Hematocrit 31.0 % Mean Corpuscular Volume 91.7 FL Mean Corpuscular Hemoglobin 31.2 PG Mean Corpuscular Hemoglobin 34.1 % Concent Red Cell Distribution Width 14.8 % Platelet Count 192 TH/MM3 Mean Platelet Volume 6.6 FL Neutrophils (%) (Auto) 56.6 % Lymphocytes (%) (Auto) 24.2 % Monocytes (%) (Auto) 12.0 % Eosinophils (%) (Auto) 6.7 % Basophils (%) (Auto) 0.5 % Neutrophils # (Auto) 2.1 TH/MM3 Lymphocytes # (Auto) 0.8 TH/MM3 Monocytes # (Auto) 0.4 TH/MM3 Eosinophils # (Auto) 0.2 TH/MM3 Basophils # (Auto) 0.0 TH/MM3 CBC Comment DIFF FINAL Differential Comment Prothrombin Time 10.5 SEC Prothromb Time International 1.0 RATIO Ratio Activated Partial 24.4 SEC Thromboplast Time Sodium Level 147 MEQ/L Potassium Level 4.0 MEQ/L Chloride Level 114 MEQ/L Carbon Dioxide Level 25.6 MEQ/L Anion Gap 7 MEQ/L Blood Urea Nitrogen 7 MG/DL Creatinine 0.87 MG/DL Estimat Glomerular Filtration 88 ML/MIN Rate Random Glucose 85 MG/DL Lactic Acid Level 1.0 mmol/L Calcium Level 7.4 MG/DL Protein Corrected Calcium 8.1 MG/DL Total Creatine Kinase 35 U/L Troponin I LESS THAN 0.02 NG/ML Total Protein 5.8 GM/DL Urine Collection Type CLEAN CATCH Urine Color YELLOW Urine Turbidity CLEAR Urine pH 6.0 Urine Specific [place] 1.017 Urine Protein NEG mg/dL Urine Glucose (UA) NEG mg/dL Urine Ketones NEG mg/dL Urine Occult Blood NEG Urine Nitrite NEG Urine Bilirubin NEG Urine Leukocyte Esterase NEG Urine WBC 0-2 /hpf Microscopic Urinalysis Comment CULT NOT INDICATED Urine Collection Time 2044 [facility] Medical Decision Making Medical Screen Exam Complete: Yes Emergency Medical Condition: Yes Interpretation(s) EKG: Sinus bradycardia at 58bpm. Normal axis. No ST segment elevation or depression. Differential Diagnosis Dehydration vs. orthostatic hypotension vs. arrhythmia vs. ICH Narrative Course 66yo flail appearing male here with episode of syncope. Pt was initially hypotensive with BP 80s/50s. Pt looks dehydrated and has been having chronic diarrhea and recent cdiff colitis. Pt will be given IVF NS. Labs reviewed, WBC low at 3.5. H/H 10.6/31.0 at baseline. Calcium low at 8.1 corrected, replaced with calcium gluconate 1gm IV. Na mildly elevated at 147. Troponin negative. Lactic acid 1.0. Creatinine normal at 0.87. BP improved to 123/69 with 1 liter of NS IVF. UA negative. CXR negative. CT brain negative. Pt feels better after liter of fluid. Pt likely had vasovagal syncope. Pt has good services at home and his PMD is setting him up for hospice care. Pt wants to go home and feels better. Work up has been negative. Pt will be discharged home with close follow up with PMD. Return precautions given. VS is stable now and pt has no complaints. [facility] Point of Care Internal Pos. & Neg. Controls: Passed Fecal Specimen Occult Blood: Negative Diagnosis Primary Impression: Dehydration Patient Instructions: General Instructions Departure Forms: Tests/Procedures Additional Instructions: Please follow up with your PMD in 1-2 days. Return to the ED if symptoms worsen. Med/Other Pt SpecificInfo: No Change to Meds Disposition: DISCHARGE HOME Condition: Stable Jaci Campo DO Oct 09, 2016 19:11 Med/Other Pt SpecificInfo: No Change to Meds Disposition: DISCHARGE HOME Condition: Stable Jaci Campo DO Oct 09, 2016 19:11
[2016-10-09 19:15] VITALS: BP 85/53; PULSE 65; RESP 18; TEMP 97.5; O2SAT 96
[2016-10-09] MEDS ORDERED: SODIUM CHLORIDE 0.9% FLUSH 5 ML FLUSH IVF PRN (19:15)
[2016-10-09 19:25] VITALS: BP 88/46; PULSE 62; RESP 16; O2SAT 95
--- NOTE | 2016-10-09 19:36 | RADHPO ---
EXAM DATE/TIME: 10/09/2016 19:18 [facility] COMPARISON: CHEST SINGLE AP, September 13, 2016, 8:51. INDICATIONS : Syncope. MEDICAL HISTORY : Hypertension. Chronic obstructive pulmonary disease. SURGICAL HISTORY : None. ENCOUNTER: Initial ACUITY: 1 day PAIN SCORE: 0/10 LOCATION: Bilateral chest FINDINGS: A single view of the chest demonstrates the lungs to be symmetrically aerated without evidence of mas s, infiltrate or effusion. The cardiomediastinal contours are unremarkable. Osseous structures are intact. CONCLUSION: No acute disease. Enio Parr MD on October 09, 2016 at 19:35 Board Certified Radiologist. This report was verified electronically.
[2016-10-09 19:45] VITALS: BP 93/57; PULSE 59; RESP 16
[2016-10-09 19:52] LABS: CHLORIDE 114 MEQ/L (98-107); SODIUM (NA) 147 MEQ/L (136-145)
[2016-10-09 19:56] LABS: APTT (PATIENT) 24.4 SEC (24.3-30.1); PROTHROMBIN TIME - PATIENT 10.5 SEC (9.8-11.6)
[2016-10-09 19:58] LABS: ANION GAP 7 MEQ/L (5-15); BICARBONATE 25.6 MEQ/L (21.0-32.0); BLOOD UREA NITROGEN 7 MG/DL (7-18)
[2016-10-09 20:00] LABS: GLOMERULAR FILTRATION RATE 88 ML/MIN (>89)
[2016-10-09 20:06] LABS: CREATINE KINASE 35 U/L (39-308)
[2016-10-09 20:10] VITALS: BP 103/56; PULSE 60; RESP 17
[2016-10-09 20:12] LABS: CALCIUM-PROTEIN CORRECTED 8.1 MG/DL (8.5-10.1)
[2016-10-09 20:21] LABS: AUTOMATED NEUTROPHIL # 2.1 TH/MM3 (1.8-7.7); BASOPHIL % 0.5 % (0.0-2.0); EOSINOPHIL # 0.2 TH/MM3 (0-0.4); EOSINOPHIL % 6.7 % (0.0-4.0); HEMO FLAGS DIFF FINAL; LYMPH % 24.2 % (9.0-44.0); LYMPHOCYTE # 0.8 TH/MM3 (1.0-4.8); MEAN CELL VOLUME 91.7 FL (80.0-100.0); MEAN CORPUSCULAR HEMOGLOBIN 31.2 PG (27.0-34.0); MEAN CORPUSCULAR HGB CONC 34.1 % (32.0-36.0); NEUT % 56.6 % (16.0-70.0); RED BLOOD COUNT 3.38 MIL/MM3 (4.50-5.90); RED CELL DISTRIBUTION WIDTH 14.8 % (11.6-17.2); WHITE BLOOD COUNT 3.5 TH/MM3 (4.0-11.0)
[2016-10-09 20:22] LABS: PLATELET COUNT 192 TH/MM3 (150-450)
[2016-10-09 20:35] VITALS: BP_SYST 115; BP_SYST 121; BP_SYST 123; BP_DIAS 69; BP_DIAS 72; RESP 18; RESP 19
[2016-10-09] MEDS ORDERED: CALCIUM GLUCONATE INJ 1 GM in DEXTROSE 5% IN WATER 100ML INJ 100 ML IV ONE ×2 (20:45)
[2016-10-09 20:58] LABS: BLOOD, URINE NEG (NEG); GLUCOSE,URINE NEG (NEG); KETONE, URINE NEG (NEG); NITRITE,URINE NEG (NEG)
--- NOTE | 2016-10-09 21:05 | RADHPO ---
EXAM DATE/TIME: 10/09/2016 20:21 [facility] COMPARISON: CT BRAIN W/O CONTRAST, July 12, 2016, 1:42. INDICATIONS : Syncope. Dizziness. RADIATION DOSE: 62.18 CTDIvol (mGy) MEDICAL HISTORY : Chronic obstructive pulmonary disease. Hypertension. Carcinoma, testicular. SURGICAL HISTORY : Testicular. ENCOUNTER: Initial ACUITY: 2 days PAIN SCALE: 2/10 LOCATION: frontal TECHNIQUE: Multiple contiguous axial images were obtained of the head. Using automated exposure control and adj ustment of the mA and/or kV according to patient size, radiation dose was kept as low as reasonably a chievable to obtain optimal diagnostic quality images. FINDINGS: CEREBRUM: The ventricles are normal for age. No evidence of midline shift, mass lesion, hemorrhage or acute in farction. No extra-axial fluid collections are seen. POSTERIOR FOSSA: The cerebellum and brainstem are intact. The 4th ventricle is midline. The cerebellopontine angle i s unremarkable. EXTRACRANIAL: The visualized portion of the orbits is intact. Minimal sinus disease. SKULL: The calvaria is intact. No evidence of skull fracture. CONCLUSION: No acute intracranial findings Enio Parr MD on October 09, 2016 at 21:02 Board Certified Radiologist. This report was verified electronically.
[2016-10-09 21:08] LABS: METHOD OF COLLECTION CLEAN CATCH
[2016-10-09 21:09] LABS: COMMENT (UR) CULT NOT INDICATED; CULTURE IF INDICATED CULT NOT INDICATED; URINE COLOR YELLOW (YELLW/STRAW); WBC, URINE 0-2 /hpf (0-5)
[2016-10-09 22:40] VITALS: BP 128/69
--- NOTE | 2016-10-10 16:30 | EKG ---
Date Performed: 10/09/2016 Time Performed: 19:29:24 PTAGE: 66 years EKG: Sinus bradycardia with borderline 1st degree A-V block Borderline ECG PREVIOUS TRACING : 09/13/2016 08.52 Compared to prior tracing no significant change DOCTOR: Clayton Nelson Interpretating Date/Time 10/10/2016 16:28:50
== END 2016-10-09 22:44 | disposition home or self-care (01) ==
LOC: PHED 18:07
DX: E86.0 Dehydration (principal); S00.81XA Abrasion of other part of head, initial encounter; K50.90 Crohn's disease, unspecified, without complications; E78.00 Pure hypercholesterolemia, unspecified; J44.9 Chronic obstructive pulmonary disease, unspecified; M79.7 Fibromyalgia; K21.9 Gastro-esophageal reflux disease without esophagitis; Z91.81 History of falling; I10 Essential (primary) hypertension; W19.XXXA Unspecified fall, initial encounter; Y93.9 Activity, unspecified; Y92.9 Unspecified place or not applicable; Y99.9 Unspecified external cause status
CPT/HCPCS: 70450; 71010; 80048; 81001; 82550; 83605; 84155; 84484; 85025; 85610; 85730; 93005; 96361; 96365; 99285; J0610; J7030

== ENCOUNTER 2016-10-26 23:53 | Emergency (ER) | payer MEDICARE ==
[~2016-10-26 23:53] MED LIST changes: -ZOFR4TAB PO
[2016-10-26 23:59] VITALS: BP 196/93; PULSE 107; RESP 18; TEMP 98.6; O2SAT 97
[2016-10-27 00:31] VITALS: PULSE 107; RESP 18; O2SAT 99
--- NOTE | 2016-10-27 01:04 | RADRPT ---
EXAM DATE/TIME: 10/27/2016 00:32 [facility] COMPARISON: CHEST SINGLE AP, October 09, 2016, 19:18. INDICATIONS : Pt has had headache x 2 days with shortness of breath. MEDICAL HISTORY : Hypertension. Chronic obstructive pulmonary disease. Carcinoma, testicular. SURGICAL HISTORY : Testicular ENCOUNTER: Initial ACUITY: 2 days PAIN SCORE: 8/10 LOCATION: Bilateral chest FINDINGS: A single view of the chest demonstrates the lungs to be symmetrically aerated without evidence of mas s, infiltrate or effusion. The cardiomediastinal contours are unremarkable. Osseous structures are intact. CONCLUSION: 1. No acute cardiopulmonary disease. Juanito Cagle MD on October 27, 2016 at 1:02 Board Certified Radiologist. This report was verified electronically.
--- NOTE | 2016-10-27 01:09 | RADRPT ---
EXAM DATE/TIME: 10/27/2016 00:52 [facility] COMPARISON: CT BRAIN W/O CONTRAST, October 09, 2016, 20:21. INDICATIONS : Cephalgia with nausea. RADIATION DOSE: 44.05 CTDIvol (mGy) MEDICAL HISTORY : Hypertension. Chronic obstructive pulmonary disease. Crohn's disease. testicular cancer. SURGICAL HISTORY : Cholecystectomy. Hernia repair. Bowel resection. ENCOUNTER: Initial ACUITY: 1 day PAIN SCALE: 3/10 LOCATION: cranial TECHNIQUE: Multiple contiguous axial images were obtained of the head. Using automated exposure control and adj ustment of the mA and/or kV according to patient size, radiation dose was kept as low as reasonably a chievable to obtain optimal diagnostic quality images. FINDINGS: CEREBRUM: The ventricles are normal for age. No evidence of midline shift, mass lesion, hemorrhage or acute in farction. No extra-axial fluid collections are seen. POSTERIOR FOSSA: The cerebellum and brainstem are intact. The 4th ventricle is midline. The cerebellopontine angle i s unremarkable. EXTRACRANIAL: The visualized portion of the orbits is intact. SKULL: The calvaria is intact. No evidence of skull fracture. CONCLUSION: 1. No evidence of acute intracranial pathology. No masses are identified. Juanito Cagle MD on October 27, 2016 at 1:07 Board Certified Radiologist. This report was verified electronically.
[2016-10-27] MEDS ORDERED: ONDANSETRON HCL 4 MG/2 ML VIAL IV ONE (01:15)
[2016-10-27] MEDS ORDERED: HYDROmorphone HCL PF 1 MG/ML VIAL IV PUSH ONE (01:15)
[2016-10-27] MEDS ORDERED: SODIUM CHLORID 0.9% 500 ML INJ 500 ML IV ONE (01:15)
--- NOTE | 2016-10-27 01:25 | PD ---
HPI Chief Complaint: Headache Time Seen by Provider: 00:07 Travel History International Travel<30 days: No Contact w/Intl Traveler<30days: No Traveled to known affect area: No History of Present Illness HPI The patient is a 66 year old male who presents to the [facility] emergency department with a history of reportedly beginning to have difficulty swallowing with a sore throat around 5 PM. He reports that he then went to lie down and woke up at approximately 10 PM with a headache. He reports that the headache is at the base of his skull and radiates up into the temples. He cannot recall when he last checked his blood pressure. He reports that he has a history of high blood pressure with intermittent bouts of low blood pressure, therefore he was placed on his blood pressure medication as needed if his systolic blood pressure goes above 175. The patient on arrival is noted to have a blood pressure 196/93. The patient reports having nausea but no vomiting. The patient denies having any recent diarrhea, however a month ago he was experiencing diarrhea and was diagnosed with C. difficile colitis, status post treatment. The patient additionally reports that he was also on antibiotic within the last month related to a diagnosis of pneumonia. He reports that his cough has improved. He denies having any recent fevers or chills. He reports that he had been eating and drinking well prior to the onset of sore throat. The patient denies any recent fevers, neck pain, chest pain, shortness of breath , abdominal pain, vomiting, diarrhea, urinary symptoms, one-sided weakness, slurred speech, facial droop, or difficulty with word finding ability. FOR[facility], LAT[facility] Past Medical History Narrative Medical The patient's past medical history is significant for recent history of C. difficile diagnosed a month ago status post treatment, history of pneumonia diagnosed a few weeks ago status post treatment, history of possible rheumatoid arthritis, Crohn's disease, hypertension, hyperlipidemia, COPD, osteoarthritis, degenerative disc disease with chronic pain, depression, peripheral neuropathy, history of testicular cancer Arthritis: Yes Asthma: No Autoimmune Disease: Yes (RA) Blood Disorders: No Anxiety: Yes Depression: Yes Heart Rhythm Problems: No Cancer: 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) Cardiovascular Problems: Yes (htn) High Cholesterol: Yes (controlled on meds) Chemotherapy: No Chest Pain: No Congestive Heart Failure: No COPD: Yes Cerebrovascular Accident: No Diabetes: No Diminished Hearing: No Endocrine: No Fibromyalgia: Yes Gastrointestinal Disorders: Yes (CHRON'S DISEASE, GERD, HIATAL HERNIA, CHRONIC GASTRITIS, DIARRHEA) GERD: Yes (TAKES PRILOSEC) Glaucoma: No Genitourinary: No Headaches: Yes Hepatitis: No Hiatal Hernia: Yes Hypertension: Yes (controlled on meds) Kidney Stones: No Musculoskeletal: Yes (ARTHRITIS, BURSITIS, FIBROMYALGIA, DDD, R SHOULDER PAIN) Neurologic: Yes (LEG NEUROPATHY) Psychiatric: No Reproductive: 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) Respiratory: Yes (copd) Immunizations Current: No ( ) Migraines: No Myocardial Infarction: No Radiation Therapy: No Renal Failure: No Seizures: No Sickle Cell Disease: No Sleep Apnea: Yes Thyroid Disease: No Ulcer: No PNEUMOCCOCAL Vaccine (Year): 1 Past Surgical History Narrative Surgical The patient's past surgical history is significant for orchiectomy followed by radiation and chemotherapy, history of appendectomy, history of bowel surgery related to Crohn's Abdominal Surgery: Yes (HERNIA REPAIR 5 Y/0, BOWEL RESECTION 04/2010) AICD: No Appendectomy: No Arteriovenous Shunt: No Cardiac Surgery: No Cholecystectomy: Yes Ear Surgery: No Endocrine Surgery: No Eye Surgery: No Genitourinary Surgery: 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) Gynecologic Surgery: No Insulin Pump: No Joint Replacement: No Oral Surgery: Yes (TEETH REMOVAL) Pacemaker: No Thoracic Surgery: No Other Surgery: Yes Social History Alcohol Use: Yes (RARE) Tobacco Use: No (quit 2006 ) Substance Use: No Allergies-Medications (Allergen,Severity, Reaction): Coded Allergies: Fire Ant (Verified Allergy, Intermediate, Anaphylaxis, 07/17/16) Reported Meds & Prescriptions Reported Meds & Active Scripts Active Nystatin Liq 100,000 unit/ml Susp 5 Ml SWISH-SWAL QID 10 Days Zofran Odt (Ondansetron Odt) 4 Mg Tab 4 Mg SL Q6HR PRN Acidophilus/l-Sporogenes (Lactobacillus Acidophilus) 1 Tab Tab 1 Tab PO TID Reported Hydrocodone-Acetaminophen 10-325 mg Tab 1 Tab PO Q6H PRN Diazepam 10 Mg Tab 10 Mg PO TID PRN Amlodipine (Amlodipine Besylate) 10 Mg Tab 10 Mg PO DAILY Fluoxetine (Fluoxetine HCl) 20 Mg Tab 20 Mg PO DAILY Omeprazole 20 Mg Tab 20 Mg PO DAILY Gabapentin 600 Mg Tab 600 Mg PO HS Tizanidine (Tizanidine HCl) 4 Mg Tab 4 Mg PO QID Azathioprine 50 Mg Tab 50 Mg PO DAILY Hazardous agent use appropriate precautions for handling and disposal. Review of Systems Except as stated in HPI: all other systems reviewed are Neg General / Constitutional: No: Fever Eyes: No: Visual changes HENT: No: Headaches Cardiovascular: No: Chest Pain or Discomfort Respiratory: No: Shortness of Breath Gastrointestinal: No: Abdominal Pain Genitourinary: No: Dysuria Musculoskeletal: No: Pain Skin: No Rash Neurologic: No: Weakness Psychiatric: No: Depression Endocrine: No: Polydipsia Hematologic/Lymphatic: No: Easy Bruising Physical Exam Narrative General: The patient is a well-developed, thin appearing male, uncomfortable appearing on initial arrival, initial blood pressure is 196/93. Head and Neck exam: Head is normocephalic atraumatic. Eyes: EOMI, pupils are equal round and reactive to light. Nose: Midline septum with pink mucous membranes Mouth: Dentition unremarkable. Moist mucus membranes. Posterior oropharynx is mild erythematous with white patchy exudates along the posterior hard and soft palate suspicious for thrush. No tonsillar hypertrophy. Uvula midline. Airway patent. Neck: No palpable lymphadenopathy. No nuchal rigidity. No thyromegaly. Cardiovascular: Sinus tachycardia in the 1 teens without murmurs, gallops, or rubs. No pulse deficit to the extremities on simultaneous auscultation and palpation of his radial artery. Lungs: Clear to auscultation bilaterally. No wheezes, rhonchi, or rales. Abdomen: Soft, without tenderness to palpation in all 4 quadrants of the abdomen. No guarding, rebound, or rigidity. Normal bowel sounds are audible. Extremities: No clubbing, cyanosis, or edema. 2+ pulses in all 4 extremities. Back: No spinous process tenderness to palpation. No costovertebral angle tenderness to palpation. No calf tenderness on palpation. Neurologic Exam: Cranial nerves 2-12 were intact on exam. Strength is 5/5 in all 4 extremities. No sensory deficits noted. Skin Exam: No rash noted. Intact skin that is warm and dry. Data Data Last Documented VS Vital Signs Date Time Temp Pulse Resp B/P Pulse Ox O2 Delivery O2 Flow Rate FiO2 10/27/16 04:35 89 18 183/92 99 Nasal Cannula 3 10/26/16 23:59 98.6 Orders Electrocardiogram (10/27/16 00:15) Complete Blood Count With Diff (10/27/16 00:15) Comprehensive Metabolic Panel (10/27/16 00:15) Prothrombin Time / Inr (Pt) (10/27/16 00:15) Act Partial Throm Time (Ptt) (10/27/16 00:15) Urinalysis - C+S If Indicated (10/27/16 00:15) Chest, Single Ap (10/27/16 00:15) Ct Brain W/O Iv Contrast(Rout) (10/27/16 00:15) Iv Access Insert/Monitor (10/27/16 00:15) Ecg Monitoring (10/27/16:15) Oximetry (10/27/16 00:15) Ondansetron Inj (Zofran Inj) (10/27/16 01:15) Hydromorphone Pf Inj (Dilaudid Pf Inj) (10/27/16 01:15) Sodium Chlorid 0.9% 500 Ml Inj (Ns 500 M (10/27/16 01:15) Metoclopramide Inj (Reglan Inj) (10/27/16 02:30) Labetalol Inj (Trandate Inj) (10/27/16 03:30) Oral Rehydration (10/27/16 03:31) Clonidine (Catapres) (10/27/16 04:45) Labs Laboratory Tests Test 10/27/16 10/27/16 02:00 02:40 White Blood Count 10.7 TH/MM3 Red Blood Count 4.05 MIL/MM3 Hemoglobin 12.5 GM/DL Hematocrit 37.1 % Mean Corpuscular Volume 91.7 FL Mean Corpuscular Hemoglobin 30.8 PG Mean Corpuscular Hemoglobin 33.6 % Concent Red Cell Distribution Width 15.0 % Platelet Count 266 TH/MM3 Mean Platelet Volume 7.5 FL Neutrophils (%) (Auto) 86.1 % Lymphocytes (%) (Auto) 4.0 % Monocytes (%) (Auto) 7.3 % Eosinophils (%) (Auto) 2.0 % Basophils (%) (Auto) 0.6 % Neutrophils # (Auto) 9.2 TH/MM3 Lymphocytes # (Auto) 0.4 TH/MM3 Monocytes # (Auto) 0.8 TH/MM3 Eosinophils # (Auto) 0.2 TH/MM3 Basophils # (Auto) 0.1 TH/MM3 CBC Comment DIFF FINAL Differential Comment Prothrombin Time 10.1 SEC Prothromb Time International 0.9 RATIO Ratio Activated Partial 25.7 SEC Thromboplast Time Sodium Level 144 MEQ/L Potassium Level 4.1 MEQ/L Chloride Level 109 MEQ/L Carbon Dioxide Level 28.9 MEQ/L Anion Gap 6 MEQ/L Blood Urea Nitrogen 12 MG/DL Creatinine 0.91 MG/DL Estimat Glomerular Filtration 84 ML/MIN Rate Random Glucose 88 MG/DL Calcium Level 8.4 MG/DL Total Bilirubin 0.3 MG/DL Aspartate Amino Transf 12 U/L (AST/SGOT) Alanine Aminotransferase 10 U/L (ALT/SGPT) Alkaline Phosphatase 64 U/L Total Protein 6.5 GM/DL Albumin 3.1 GM/DL Urine Color LIGHT-YELLOW Urine Turbidity CLEAR Urine pH 5.5 Urine Specific [place] 1.014 Urine Protein NEG mg/dL Urine Glucose (UA) NEG mg/dL Urine Ketones TRACE mg/dL Urine Occult Blood NEG Urine Nitrite NEG Urine Bilirubin NEG Urine Urobilinogen LESS THAN 2.0 MG/DL Urine Leukocyte Esterase NEG Urine RBC 1 /hpf Urine WBC 1 /hpf Urine Squamous Epithelial <1 /hpf Cells Microscopic Urinalysis Comment CULT NOT INDICATED MDM Medical Decision Making Medical Screen Exam Complete: Yes Emergency Medical Condition: Yes Medical Record Reviewed: Yes Interpretation(s) Last Impressions Head CT 10/27/1614 Signed Impressions: Service Date/Time: Thursday, October 27, 2016 00:52 - CONCLUSION: 1. No evidence of acute intracranial pathology. No masses are identified. Juanito Cagle MD Chest X-Ray 10/27/1614 Signed Impressions: Service Date/Time: Thursday, October 27, 2016 00:32 - CONCLUSION: 1. No acute cardiopulmonary disease. Juanito Cagle MD Laboratory Tests Test 10/27/16 10/27/16 02:00 02:40 White Blood Count 10.7 TH/MM3 Red Blood Count 4.05 MIL/MM3 Hemoglobin 12.5 GM/DL Hematocrit 37.1 % Mean Corpuscular Volume 91.7 FL Mean Corpuscular Hemoglobin 30.8 PG Mean Corpuscular Hemoglobin 33.6 % Concent Red Cell Distribution Width 15.0 % Platelet Count 266 TH/MM3 Mean Platelet Volume 7.5 FL Neutrophils (%) (Auto) 86.1 % Lymphocytes (%) (Auto) 4.0 % Monocytes (%) (Auto) 7.3 % Eosinophils (%) (Auto) 2.0 % Basophils (%) (Auto) 0.6 % Neutrophils # (Auto) 9.2 TH/MM3 Lymphocytes # (Auto) 0.4 TH/MM3 Monocytes # (Auto) 0.8 TH/MM3 Eosinophils # (Auto) 0.2 TH/MM3 Basophils # (Auto) 0.1 TH/MM3 CBC Comment DIFF FINAL Differential Comment Prothrombin Time 10.1 SEC Prothromb Time International 0.9 RATIO Ratio Activated Partial 25.7 SEC Thromboplast Time Sodium Level 144 MEQ/L Potassium Level 4.1 MEQ/L Chloride Level 109 MEQ/L Carbon Dioxide Level 28.9 MEQ/L Anion Gap 6 MEQ/L Blood Urea Nitrogen 12 MG/DL Creatinine 0.91 MG/DL Estimat Glomerular Filtration 84 ML/MIN Rate Random Glucose 88 MG/DL Calcium Level 8.4 MG/DL Total Bilirubin 0.3 MG/DL Aspartate Amino Transf 12 U/L (AST/SGOT) Alanine Aminotransferase 10 U/L (ALT/SGPT) Alkaline Phosphatase 64 U/L Total Protein 6.5 GM/DL Albumin 3.1 GM/DL Urine Color LIGHT-YELLOW Urine Turbidity CLEAR Urine pH 5.5 Urine Specific [place] 1.014 Urine Protein NEG mg/dL Urine Glucose (UA) NEG mg/dL Urine Ketones TRACE mg/dL Urine Occult Blood NEG Urine Nitrite NEG Urine Bilirubin NEG Urine Urobilinogen LESS THAN 2.0 MG/DL Urine Leukocyte Esterase NEG Urine RBC 1 /hpf Urine WBC 1 /hpf Urine Squamous Epithelial <1 /hpf Cells Microscopic Urinalysis Comment CULT NOT INDICATED Laboratory Tests Test 10/27/16 10/27/16 02:00 02:40 Red Blood Count 4.05 MIL/MM3 (4.50-5.90) Hemoglobin 12.5 GM/DL (13.0-17.0) Hematocrit 37.1 % (39.0-51.0) Neutrophils (%) (Auto) 86.1 % (16.0-70.0) Lymphocytes (%) (Auto) 4.0 % (9.0-44.0) Neutrophils # (Auto) 9.2 TH/MM3 (1.8-7.7) Lymphocytes # (Auto) 0.4 TH/MM3 (1.0-4.8) Chloride Level 109 MEQ/L (98-107) Estimat Glomerular Filtration 84 ML/MIN (>89) Rate Calcium Level 8.4 MG/DL (8.5-10.1) Aspartate Amino Transf 12 U/L (15-37) (AST/SGOT) Alanine Aminotransferase 10 U/L (12-78) (ALT/SGPT) Albumin 3.1 GM/DL (3.4-5.0) Urine Ketones TRACE mg/dL (NEG) Differential Diagnosis Intracranial hemorrhage, versus headache related to elevated blood pressure, versus migraine, versus tension headache, versus viral syndrome Narrative Course During the course of the patients emergency department visit, the patients history, examination, and differential diagnosis were reviewed with the patient. The patient had IV access obtained and blood work sent for analysis. The patient was placed on a court monitor with oximetry and blood pressure monitoring. An EKG was done on arrival. The patient's EKG shows heart rate of 116, sinus rhythm, no acute ST segment elevation. A CT scan of the brain was ordered, chest x-ray was ordered. The patient was provided hydromorphone 0.5 mg IV for pain, Zofran 4 mg IV for nausea, normal saline a 500 mL bolus 1. The patient's blood pressure was monitored for improvement, however his blood pressure actually went up to a systolic in the 200s. The patient had an episode of vomiting and was given Reglan 5 mg IV. The patient was given labetalol 5 mg IV for hypertension. The patient's nausea was controlled. The patient was started on oral rehydration therapy after his CT scan of the brain showed no evidence of intracranial hemorrhage. The patients laboratory studies were reviewed and remarkable for a white count of 10.7, hemoglobin 12.5, platelets 266 with 86.1 neutrophils, lymphocytes 4.0, CMP is remarkable for chloride of 109, GFR of 84, calcium 8.4, AST 12, ALT 10, albumin 3.1, PT PTT unremarkable. Urinalysis unremarkable. Radiology studies were reviewed and remarkable for a chest x-ray that shows no acute abnormality. CT scan of the brain shows no evidence of acute intracranial pathology, no masses are identified. I suspect that the patient's elevated blood pressure is partly the cause of the patient's headache. The patient reports improvement of his headache and has had improvement of his blood pressure. The patient was instructed regarding the importance of close follow-up with his primary care physician. I did recommend that he discuss starting back on amlodipine. The patient was given a trial of oral rehydration. The patient on examination is noted to have thrush. The patient will be given a prescription for nystatin and Zofran if he is able to tolerate his oral rehydration. The patient is resting comfortably and feels better, is alert and in no distress. The patients results and examination findings were discussed with the patient. The repeat examination is unremarkable and benign. The history, exam, diagnostic testing, and current condition do not suggest any significant pathology to warrant further testing, continued ED treatment, admission, or surgical evaluation at this point. The vital signs have been stable. The patient does not have uncontrollable pain, intractable vomiting, or other significant symptoms. The patient's condition is stable and appropriate for discharge. The patient will pursue further outpatient evaluation with a primary care physician or other designated or consulting physician as indicated in the discharge instructions. The patient expressed understanding and was agreeable with this plan. Diagnosis Primary Impression: Headache Qualified Code: R51 - Acute nonintractable headache, unspecified headache type Additional Impressions: Poorly-controlled hypertension Thrush Referrals: Primary Care Physician 2 days Patient Instructions: Acute Headache (ED), General Instructions, Hypertension ( ED), Oral Candidiasis (ED) Med/Other Pt SpecificInfo: Prescription(s) given Scripts Nystatin Liq 100,000 unit/ml Susp5 Ml SWISH-SWAL QID 10 Days Ref 0 Prov:Hilary Gates MD 10/27/16 Ondansetron Odt (Zofran Odt)4 Mg Tab4 Mg SL Q6HR PRN (Nausea/Vomiting) #7 TAB Ref 0 Prov:Hilary Gates MD 10/27/16 Disposition: DISCHARGE HOME Condition: Stable Hilary Gates MD Oct 27, 2016 01:25
[2016-10-27] MEDS ORDERED: METOCLOPRAMIDE HCL 10 MG/2 ML VIAL IV PUSH ONE (02:30)
[2016-10-27 02:41] LABS: AUTOMATED NEUTROPHIL # 9.2 TH/MM3 (1.8-7.7); BASOPHIL # 0.1 TH/MM3 (0-0.2); BASOPHIL % 0.6 % (0.0-2.0); EOSINOPHIL # 0.2 TH/MM3 (0-0.4); HEMATOCRIT 37.1 % (39.0-51.0); HEMO FLAGS DIFF FINAL; LYMPHOCYTE # 0.4 TH/MM3 (1.0-4.8); MEAN CELL VOLUME 91.7 FL (80.0-100.0); MEAN CORPUSCULAR HEMOGLOBIN 30.8 PG (27.0-34.0); MEAN CORPUSCULAR HGB CONC 33.6 % (32.0-36.0); MONO % 7.3 % (0.0-8.0); NEUT % 86.1 % (16.0-70.0); PLATELET COUNT 266 TH/MM3 (150-450); RED BLOOD COUNT 4.05 MIL/MM3 (4.50-5.90); WHITE BLOOD COUNT 10.7 TH/MM3 (4.0-11.0)
[2016-10-27 02:56] LABS: ALT (GPT) 10 U/L (12-78); ANION GAP 6 MEQ/L (5-15); AST (GOT) 12 U/L (15-37); BICARBONATE 28.9 MEQ/L (21.0-32.0); BLOOD UREA NITROGEN 12 MG/DL (7-18); CHLORIDE 109 MEQ/L (98-107); GLOMERULAR FILTRATION RATE 84 ML/MIN (>89); POTASSIUM 4.1 MEQ/L (3.5-5.1); SODIUM (NA) 144 MEQ/L (136-145)
[2016-10-27 02:58] LABS: ALKALINE PHOSPHATASE 64 U/L (45-117); APTT (PATIENT) 25.7 SEC (24.3-30.1); INTERNATIONAL NORMALIZED RATIO 0.9 RATIO; PROTHROMBIN TIME - PATIENT 10.1 SEC (9.8-11.6); TOTAL BILIRUBIN ADULT 0.3 MG/DL (0.2-1.0)
[2016-10-27 02:59] LABS: BLOOD, URINE NEG (NEG); GLUCOSE,URINE NEG (NEG); KETONE, URINE TRACE mg/dL (NEG); NITRITE,URINE NEG (NEG); PH, URINE 5.5 (5.0-8.5); SQUAMOUS EPITHELIAL CELL URINE <1 /hpf (0-5); URINE COLOR LIGHT-YELLOW (YELLW/STRAW)
[2016-10-27 03:00] LABS: COMMENT (UR) CULT NOT INDICATED; CULTURE IF INDICATED CULT NOT INDICATED
[2016-10-27 03:12] VITALS: BP 200/95; PULSE 103; RESP 18; O2SAT 99
[2016-10-27] MEDS ORDERED: LABETALOL HCL 100 MG/20 ML VIAL IV PUSH ONE (03:30)
[2016-10-27 03:34] VITALS: BP 189/95; PULSE 105; RESP 18; O2SAT 99
[2016-10-27] MEDS ORDERED: ZOFR4TAB3 SL (03:42)
[2016-10-27] MEDS ORDERED: NYST1000 SWISH-SWAL (03:42)
[2016-10-27 04:35] VITALS: BP 183/92; PULSE 89; RESP 18; O2SAT 99
[2016-10-27] MEDS ORDERED: cloNIDine HCL 0.1 MG TAB PO ONE (04:45)
--- NOTE | 2016-10-27 11:20 | EKG ---
Date Performed: 10/27/2016 Time Performed: 00:19:54 PTAGE: 66 years EKG: Sinus Tachycardia Compared to prior tracing no significant change except for increase in he art rate. ABNORMAL RHYTHM ECG PREVIOUS TRACING : 10/09/2016 19.29 DOCTOR: Juanito Nelson Interpretating Date/Time 10/27/2016 11:19:43
== END 2016-10-27 05:13 | disposition home or self-care (01) ==
LOC: NEPE 23:53
DX: R51 Headache (principal); I10 Essential (primary) hypertension; B37.9 Candidiasis, unspecified; M79.7 Fibromyalgia; J44.9 Chronic obstructive pulmonary disease, unspecified; R00.0 Tachycardia, unspecified; Z85.47 Personal history of malignant neoplasm of testis; Z87.891 Personal history of nicotine dependence
CPT/HCPCS: 70450; 71010; 80053; 81001; 85025; 85610; 85730; 93005; 96361; 96374; 96375; 99285; J1170; J2405; J2765; J7040

== ENCOUNTER 2016-11-20 06:58 | Inpatient (IN) | payer MEDICARE ==
[~2016-11-20] VITALS: Ht 180.3 cm; Wt 65.0 kg
[2016-11-20] VITALS (9 sets, daily range): BP systolic 134–190; BP diastolic 65–95; PULSE 93–112; RESP 16–20; TEMP 97.8–101; O2SAT 98–100
[~2016-11-20 06:58] MED LIST changes: +NYST1000 SWISH-SWAL; -VANC1CAP7 PO; +ZOFR4TAB3 SL
--- NOTE | 2016-11-20 07:18 | PD ---
HPI Chief Complaint: Fall Time Seen by Provider: 07:02 Travel History International Travel<30 days: No (unknown) Contact w/Intl Traveler<30days: No (unknown) History of Present Illness HPI 66yo M with PMH of peripheral neuropathy, COPD, Crohn's disease, testicular cancer 2000 s/p radiation, HTN presents to the ED for evaluation s/p fall today. Pt was walking to the bathroom and states his legs gave out and next thing he knew he was on the bathroom floor. His was trying to help him get up but he was too weak. States he falls frequently secondary to his neuropathy and has an order for mechanical wheelchair but has not gotten it yet. Denies any chest pain, sob, n/v, abdominal pain, focal weakness or numbness. Pt was found to have a fever by [facility] and admits to increased cough. Pt complained of headache and right sided neck pain after the fall and did not have headache prior to the fall. Headache is mainly occipital. States he does not remember what happened. Pt has chronic diarrhea and was treated for cdiff colitis 2 weeks ago. Has degenerative disc disease and chronic neck pain. 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) Cardiovascular Problems: Yes (htn) High Cholesterol: Yes (controlled on meds) Chemotherapy: No Chest Pain: No Congestive Heart Failure: No COPD: Yes Cerebrovascular Accident: No Diabetes: No Diminished Hearing: No Endocrine: No Fibromyalgia: Yes Gastrointestinal Disorders: Yes (CHRON'S DISEASE, GERD, HIATAL HERNIA, CHRONIC GASTRITIS, DIARRHEA) GERD: Yes (TAKES PRILOSEC) Glaucoma: No Genitourinary: No Headaches: Yes Hepatitis: No Hiatal Hernia: Yes Hypertension: Yes (controlled on meds) Kidney Stones: No Musculoskeletal: Yes (ARTHRITIS, BURSITIS, FIBROMYALGIA, DDD, R SHOULDER PAIN) Neurologic: Yes (LEG NEUROPATHY) Psychiatric: No Reproductive: 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) Respiratory: Yes (copd) Immunizations Current: No ( ) Migraines: No Myocardial Infarction: No Radiation Therapy: No Renal Failure: No Seizures: No Sickle Cell Disease: No Sleep Apnea: Yes Thyroid Disease: No Ulcer: No PNEUMOCCOCAL Vaccine (Year): 1 Past Surgical History Abdominal Surgery: Yes (HERNIA REPAIR 5 Y/0, BOWEL RESECTION 04/2010) AICD: No Appendectomy: No Arteriovenous Shunt: No Cardiac Surgery: No Cholecystectomy: Yes Ear Surgery: No Endocrine Surgery: No Eye Surgery: No Genitourinary Surgery: 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) Gynecologic Surgery: No Insulin Pump: No Joint Replacement: No Oral Surgery: Yes (TEETH REMOVAL) Pacemaker: No Thoracic Surgery: No Other Surgery: Yes Social History Alcohol Use: Yes (RARE) Tobacco Use: No (quit 2006 ) Substance Use: No Allergies-Medications (Allergen,Severity, Reaction): Coded Allergies: Fire Ant (Verified Allergy, Intermediate, Anaphylaxis, 07/17/16) Reported Meds & Prescriptions Reported Meds & Active Scripts Active Zofran Odt (Ondansetron Odt) 4 Mg Tab 4 Mg SL Q6HR PRN Acidophilus/l-Sporogenes (Lactobacillus Acidophilus) 1 Tab Tab 1 Tab PO TID Reported Hydrocodone-Acetaminophen 10-325 mg Tab 1 Tab PO Q6H PRN Diazepam 10 Mg Tab 10 Mg PO TID PRN Fluoxetine (Fluoxetine HCl) 20 Mg Tab 20 Mg PO DAILY Omeprazole 20 Mg Tab 20 Mg PO DAILY Gabapentin 600 Mg Tab 600 Mg PO HS Tizanidine (Tizanidine HCl) 4 Mg Tab 4 Mg PO QID Azathioprine 50 Mg Tab 50 Mg PO DAILY Hazardous agent use appropriate precautions for handling and disposal. Review of Systems Except as stated in HPI: all other systems reviewed are Neg Physical Exam Narrative GENERAL: 66yo M in moderate distress. SKIN: Warm and dry. HEAD: Atraumatic. Normocephalic. No hematoma or ttp but states pain is mainly in occiput region. EYES: Pupils equal and round. EOMI. No scleral icterus. No injection or drainage. ENT: Throat: No exudate. TM wnl. No hemotympanum. NECK: No midline cervical spine ttp. Pt complains of right neck pain but not tender to palpation. CARDIOVASCULAR: Tachycardic. No murmur appreciated. RESPIRATORY: No accessory muscle use. Clear to auscultation. Breath sounds equal bilaterally. GASTROINTESTINAL: Abdomen soft, non-tender, nondistended. MUSCULOSKELETAL: No obvious deformities. No clubbing. No cyanosis. No edema. NEUROLOGICAL: Awake and alert. No obvious cranial nerve deficits. Motor grossly within normal limits. Normal speech. PSYCHIATRIC: Appropriate mood and affect; insight and judgment normal. Data Data Last Documented VS Vital Signs Date Time Temp Pulse Resp B/P Pulse Ox O2 Delivery O2 Flow Rate FiO2 11/20/16 07:21 101.0 100 16 146/77 100 Nasal Cannula 2 Orders Complete Blood Count With Diff (11/20/16 07:22) Comprehensive Metabolic Panel (11/20/16 07:22) Prothrombin Time / Inr (Pt) (11/20/16 07:22) Act Partial Throm Time (Ptt) (11/20/16 07:22) Influenzae A/B Antigen (11/20/16 07:22) Magnesium (Mg) (11/20/16 07:22) Troponin I (11/20/16 07:22) Ckmb (Isoenzyme) Profile (11/20/16 07:22) Electrocardiogram (11/20/16 ) Blood Culture (11/20/16 07:22) Chest, Single Ap (11/20/16 ) Sodium Chlor 0.9% 1000 Ml Inj (Ns 1000 M (11/20/16 07:30) Sodium Chlor 0.9% 1000 Ml Inj (Ns 1000 M (11/20/16 07:30) Vancomycin Inj (Vancomycin Inj) (11/20/16 07:30) Piperacil-Tazo 3.375 Gm Premix (Zosyn 3. (11/20/16 07:30) Ct Brain W/O Iv Contrast(Rout) (11/20/16 ) Ct Cerv Spine W/O Contrast (11/20/16 ) Acetaminophen (Tylenol) (11/20/16 07:30) Ondansetron Inj (Zofran Inj) (11/20/16 08:00) Lactic Acid Sepsis Protocol (11/20/16 08:25) Urinalysis - C+S If Indicated (11/20/16 08:31) Magnesium Sulfate 1 Gm Premix (Magnesium (11/20/16 09:00) Ketorolac Inj (Toradol Inj) (11/20/16 09:30) Ampicillin Inj (Ampicillin Inj) (11/20/16 09:30) Hydralazine Inj (Apresoline Inj) (11/20/16 09:45) Admit Order (Ed Use Only) (11/20/16 09:52) Labs Laboratory Tests Test 11/20/16 11/20/16 11/20/16 08:00 08:40 08:57 White Blood Count 9.9 TH/MM3 Red Blood Count 4.68 MIL/MM3 Hemoglobin 13.9 GM/DL Hematocrit 42.9 % Mean Corpuscular Volume 91.7 FL Mean Corpuscular Hemoglobin 29.7 PG Mean Corpuscular Hemoglobin 32.4 % Concent Red Cell Distribution Width 14.2 % Platelet Count 341 TH/MM3 Mean Platelet Volume 7.0 FL Neutrophils (%) (Auto) 86.8 % Lymphocytes (%) (Auto) 6.4 % Monocytes (%) (Auto) 5.5 % Eosinophils (%) (Auto) 1.2 % Basophils (%) (Auto) 0.1 % Neutrophils # (Auto) 8.7 TH/MM3 Lymphocytes # (Auto) 0.6 TH/MM3 Monocytes # (Auto) 0.5 TH/MM3 Eosinophils # (Auto) 0.1 TH/MM3 Basophils # (Auto) 0.0 TH/MM3 CBC Comment DIFF FINAL Differential Comment Erythrocyte Sedimentation Rate 49 mm/hr Prothrombin Time 10.3 SEC Prothromb Time International 0.9 RATIO Ratio Activated Partial 24.6 SEC Thromboplast Time Sodium Level 143 MEQ/L Potassium Level 4.1 MEQ/L Chloride Level 106 MEQ/L Carbon Dioxide Level 30.1 MEQ/L Anion Gap 7 MEQ/L Blood Urea Nitrogen 9 MG/DL Creatinine 0.94 MG/DL Estimat Glomerular Filtration 81 ML/MIN Rate Random Glucose 102 MG/DL Calcium Level 8.1 MG/DL Magnesium Level 1.2 MG/DL Total Bilirubin 0.3 MG/DL Aspartate Amino Transf 435 U/L (AST/SGOT) Alanine Aminotransferase 183 U/L (ALT/SGPT) Alkaline Phosphatase 188 U/L Total Creatine Kinase 32 U/L Troponin I LESS THAN 0.02 NG/ML C-Reactive Protein 1.30 MG/DL Total Protein 7.2 GM/DL Albumin 3.0 GM/DL Urine Collection Type CLEAN CATCH Urine Color YELLOW Urine Turbidity CLEAR Urine pH 5.5 Urine Specific [place] 1.025 Urine Protein NEG mg/dL Urine Glucose (UA) NEG mg/dL Urine Ketones NEG mg/dL Urine Occult Blood NEG Urine Nitrite NEG Urine Bilirubin NEG Urine Leukocyte Esterase NEG Urine RBC 0-3 /hpf Urine Squamous Epithelial 0-5 /hpf Cells Microscopic Urinalysis Comment CULT NOT INDICATED Urine Collection Time 08:40 Lactic Acid Level 1.0 mmol/L MDM Medical Decision Making Medical Screen Exam Complete: Yes Emergency Medical Condition: Yes Interpretation(s) EKG: Sinu tachycardia at 65bpm. RAD. RBBB. TWI III. QTc 415ms. Differential Diagnosis ICH vs. sepsis vs. pneumonia vs. dehydration vs. UTI vs. electrolyte abnormality vs. meningitis Narrative Course 66yo M with history of neuropathy and frequent falls here s/p fall and generalized weakness. Pt found to be febrile and tachycardic. Pt given NS IVF x2 and empirically treated with vancomycin and zosyn. Appears dehydrated and states he has chronic diarrhea. Does have headache and neck pain but did not have it until after the fall today. Labs reviewed, no leukocytosis. Neutrophil 86.8%. CMP notable for elevated liver enzymes compare to 10/27/16. Pt may have hepatitis. No abdominal tenderness on exam. Troponin negative. Albumin low at baseline. Magnesium is low at 1.2. Will replace with magnesium sulfate 1gm IV. UA negative. CT brain negative. CT cspine negative. Mild degenerative disc disease. CXR showed no acute cardiopulmonary abnormality. Influenza is negative. Discussed with Dr. Valle and admitted to his service. Although I have low suspicion for meningitis, pt is febrile with headache and neck pain and I have no other source of infection. Pt agreed to lumbar puncture and it was sent. CSF was clear on first attempt. Pt was empirically given vancomycin and zosyn already and I added ampicillin since pt is over 50yo to cover listeria. Hydralazine 10mg IV given for elevated bp. Pt's headache improved very mildly with toradol. Will place pt on droplet precaution while waiting for LP results. Critical Care Narrative Aggregate critical care time was 35 minutes. Time to perform other separately billable procedures was not included in the critical care time. My time did not include minutes spent treating any other patients simultaneously or on activities that did not directly contribute to the patient's treatment. The services I provided to this patient were to treat and/or prevent clinically significant deterioration that could result in: cardiovascular collapse or . I provided critical care services requiring my management, as noted below: Chart data review, documentation time, medication orders and management, vital sign assessments/reviewing monitor data, ordering and reviewing lab tests, ordering and interpreting/reviewing x-rays and diagnostic studies, care of the patient and discussion of the patient with the admitting physicians. Procedures Procedure Narrative LUMBAR PUNCTURE: The patient was placed in sitting position. The lumbar area of the back was prepped with Betadine and sterilely draped. The L4-L5 interspace was infiltrated with 1% lidocaine plain. Number 20 gauge LP needle was placed in the interspace. Opening pressure deferred. Number 4 milliliters of clear CSF were obtained. Patient tolerated procedure well. Diagnosis Primary Impression: Sepsis Qualified Code: A41.9 - Sepsis, due to unspecified organism Additional Impression: Hypomagnesemia Admitting Information Admitting Physician Requests: Jaci Sofia DO Nov 20, 2016 07:18
[2016-11-20] MEDS ORDERED: PIPERACIL-TAZO 3.375 GM PREMIX 50 ML IV ONE (07:30)
[2016-11-20] MEDS ORDERED: ACETAMINOPHEN 325 MG TAB PO ONE (07:30)
[2016-11-20] MEDS ORDERED: VANCOMYCIN INJ 1,050 MG in SODIUM CHLOR 0.9% 250 ML INJ 250 ML IV ONE (07:30)
[2016-11-20] MEDS ORDERED: SODIUM CHLOR 0.9% 1000 ML INJ 1,000 ML IV ONE ×2 (07:30)
--- NOTE | 2016-11-20 07:51 | RADHPO ---
EXAM DATE/TIME: 11/20/2016 07:34 [facility] COMPARISON: CHEST SINGLE AP, October 27, 2016, 0:32. INDICATIONS : Cough, weakness, headache MEDICAL HISTORY : Hypertension. Chronic obstructive pulmonary disease. Crohn's disease. SURGICAL HISTORY : Cholecystectomy. hernia repair, bowel resection ENCOUNTER: Initial ACUITY: 1 day PAIN SCORE: 6/10 LOCATION: Bilateral chest FINDINGS: Portable AP view of the chest demonstrates a normal-sized cardiac silhouette. No effusion, consolidat ion, or pneumothorax is visualized. The bones and soft tissues demonstrate no acute abnormality. CONCLUSION: No acute cardiopulmonary abnormality is identified. Enio Arteaga MD on November 20, 2016 at 7:46 Board Certified Radiologist. This report was verified electronically.
[2016-11-20] MEDS ORDERED: ONDANSETRON HCL 4 MG/2 ML VIAL IV PUSH ONE (08:00)
[2016-11-20 08:16] LABS: AUTOMATED NEUTROPHIL # 8.7 TH/MM3 (1.8-7.7); BASOPHIL % 0.1 % (0.0-2.0); EOSINOPHIL # 0.1 TH/MM3 (0-0.4); EOSINOPHIL % 1.2 % (0.0-4.0); HEMATOCRIT 42.9 % (39.0-51.0); HEMO FLAGS DIFF FINAL; LYMPH % 6.4 % (9.0-44.0); LYMPHOCYTE # 0.6 TH/MM3 (1.0-4.8); MEAN CELL VOLUME 91.7 FL (80.0-100.0); MEAN CORPUSCULAR HEMOGLOBIN 29.7 PG (27.0-34.0); MEAN CORPUSCULAR HGB CONC 32.4 % (32.0-36.0); MONO % 5.5 % (0.0-8.0); NEUT % 86.8 % (16.0-70.0); PLATELET COUNT 341 TH/MM3 (150-450); RED BLOOD COUNT 4.68 MIL/MM3 (4.50-5.90); RED CELL DISTRIBUTION WIDTH 14.2 % (11.6-17.2); WHITE BLOOD COUNT 9.9 TH/MM3 (4.0-11.0)
[2016-11-20 08:19] LABS: CHLORIDE 106 MEQ/L (98-107); POTASSIUM 4.1 MEQ/L (3.5-5.1); SODIUM (NA) 143 MEQ/L (136-145)
[2016-11-20 08:23] LABS: ANION GAP 7 MEQ/L (5-15); BICARBONATE 30.1 MEQ/L (21.0-32.0); BLOOD UREA NITROGEN 9 MG/DL (7-18); MAGNESIUM 1.2 MG/DL (1.5-2.5)
[2016-11-20 08:24] LABS: APTT (PATIENT) 24.6 SEC (24.3-30.1); INTERNATIONAL NORMALIZED RATIO 0.9 RATIO; PROTHROMBIN TIME - PATIENT 10.3 SEC (9.8-11.6)
[2016-11-20 08:26] LABS: ALT (GPT) 183 U/L (12-78); AST (GOT) 435 U/L (15-37); GLOMERULAR FILTRATION RATE 81 ML/MIN (>89)
[2016-11-20 08:27] LABS: TOTAL BILIRUBIN ADULT 0.3 MG/DL (0.2-1.0)
[2016-11-20 08:29] LABS: ALKALINE PHOSPHATASE 188 U/L (45-117)
[2016-11-20 08:30] LABS: CREATINE KINASE 32 U/L (39-308)
--- NOTE | 2016-11-20 08:46 | RADHPO ---
EXAM DATE/TIME: 11/20/2016 08:31 [facility] COMPARISON: CT BRAIN W/O CONTRAST, October 27, 2016, 0:52. INDICATIONS : Trauma. Fall. Cephalgia. RADIATION DOSE: 65.04 CTDIvol (mGy) MEDICAL HISTORY : Chronic obstructive pulmonary disease. Gastroesophageal reflux disease. Carcinoma, testicular.Hyperte nsion. Crohn's disease. SURGICAL HISTORY : Cholecystectomy. ENCOUNTER: Initial ACUITY: 1 day PAIN SCALE: 8/10 LOCATION: cranial TECHNIQUE: Multiple contiguous axial images were obtained of the head. Using automated exposure control and adj ustment of the mA and/or kV according to patient size, radiation dose was kept as low as reasonably a chievable to obtain optimal diagnostic quality images. FINDINGS: CEREBRUM: The ventricles are normal for age. No evidence of midline shift, mass lesion, hemorrhage or acute in farction. No extra-axial fluid collections are seen. POSTERIOR FOSSA: The cerebellum and brainstem are intact. The 4th ventricle is midline. The cerebellopontine angle i s unremarkable. EXTRACRANIAL: The visualized portion of the orbits is intact. SKULL: The calvaria is intact. No evidence of skull fracture. CONCLUSION: Normal examination for a patient of this age. No significant change has occurred. Gary Juarez MD on November 20, 2016 at 8:43 Board Certified Radiologist. This report was verified electronically.
[2016-11-20 08:51] LABS: BLOOD, URINE NEG (NEG); GLUCOSE,URINE NEG (NEG); KETONE, URINE NEG (NEG); NITRITE,URINE NEG (NEG); PH, URINE 5.5 (5.0-8.5)
--- NOTE | 2016-11-20 08:55 | RADHPO ---
EXAM DATE/TIME: 11/20/2016 08:31 [facility] COMPARISON: CT CERVICAL SPINE W/O CONTRAST, July 12, 2016, 1:42. INDICATIONS : Trauma. Fall. Neck pain. RADIATION DOSE: 26.58 CTDIvol (mGy) MEDICAL HISTORY : Chronic obstructive pulmonary disease. Gastroesophageal reflux disease. Carcinoma, testicular.Hyperte nsion. Crohn's disease. SURGICAL HISTORY : Cholecystectomy. ENCOUNTER: Initial ACUITY: 1 day PAIN SCALE: 7/10 LOCATION: neck TECHNIQUE: Volumetric scanning of the cervical spine was performed. Multiplanar reconstructions in the sagittal, coronal and oblique axial planes were performed. Using automated exposure control and adjustment o f the mA and/or kV according to patient size, radiation dose was kept as low as reasonably achievable to obtain optimal diagnostic quality images. FINDINGS: VERTEBRAE: Normal vertebral body height. ALIGNMENT: No evidence of subluxation. C2-C3: The bony spinal canal is normal in size. No evidence of disc bulge or herniation. The neural forami na are bilaterally patent. C3-C4: The bony spinal canal is normal in size. No evidence of disc bulge or herniation. The neural forami na are bilaterally patent. C4-C5: The bony spinal canal is normal in size. No evidence of disc bulge or herniation. The neural forami na are bilaterally patent. C5-C6: The bony spinal canal is normal in size. No evidence of disc bulge or herniation. The neural forami na are bilaterally patent. C6-C7: The bony spinal canal is normal in size. No evidence of disc bulge or herniation. The neural forami na are bilaterally patent. C7-T1: The bony spinal canal is normal in size. No evidence of disc bulge or herniation. The neural forami na are bilaterally patent. CONCLUSION: 1. No acute findings. Mild degenerative disc disease. No significant change from June 2016. Gary Juarez MD on November 20, 2016 at 8:48 Board Certified Radiologist. This report was verified electronically.
[2016-11-20 08:58] LABS: COMMENT (UR) CULT NOT INDICATED; CULTURE IF INDICATED CULT NOT INDICATED; METHOD OF COLLECTION CLEAN CATCH; RBC, URINE 0-3 /hpf (0-3); SQUAMOUS EPITHELIAL CELL URINE 0-5 /hpf (0-5); URINE COLOR YELLOW (YELLW/STRAW)
[2016-11-20] MEDS ORDERED: MAGNESIUM SULFATE 1 GM PREMIX 100 ML IV ONE (09:00)
[2016-11-20] MEDS ORDERED: AMPICILLIN INJ 2,000 MG in SODIUM CHLORIDE 0.9% INJ 100 ML IV ONE (09:30)
[2016-11-20] MEDS ORDERED: KETOROLAC TROMETHAMINE 30 MG/ML (IVP) VIAL IV PUSH ONE (09:30)
[2016-11-20] MEDS ORDERED: hydrALAZINE HCL 20 MG/ML VIAL IV PUSH ONE (09:45)
[2016-11-20] MEDS ORDERED: ONDANSETRON HCL 4 MG/2 ML VIAL IVP PRN (11:15)
[2016-11-20] MEDS ORDERED: NALOXONE HCL 0.4 MG/ML AMP IV PRN (11:15)
[2016-11-20] MEDS ORDERED: DIAZEPAM 10 MG TAB PO PRN (11:15)
[2016-11-20] MEDS ORDERED: SODIUM CHLORIDE 0.9% FLUSH 5 ML FLUSH FLUSH PRN (11:15)
[2016-11-20 11:19] LABS: GROSS BLOOD TUBE #1 0 (0); GROSS BLOOD TUBE #2 0 (0); GROSS BLOOD TUBE #3 0 (0); SUPERNATE COLOR TUBE #1 CLEAR (CLEAR); SUPERNATE COLOR TUBE #2 CLEAR (CLEAR); SUPERNATE COLOR TUBE #3 CLEAR (CLEAR)
[2016-11-20 11:20] LABS: GROSS BLOOD TUBE #4 0 (0); SUPERNATE COLOR TUBE #4 CLEAR (CLEAR); WBC TUBE #4 0 /MM3 (0-10)
[2016-11-20 11:42] LABS: CSF LYMPHOCYTES 0 %; CSF NEUTROPHILS 0 %
[2016-11-20] MEDS: SODIUM CHLOR 0.9% 1000 ML INJ 1,000 ML IV SCH ×2 (11:56→22:19)
[2016-11-20] MEDS ORDERED: Vancomycin Consult Pharmacy 1 EA OTHER SCH (12:00)
[2016-11-20] MEDS: MORPHINE SULFATE 15 MG TAB PO PRN ×3 (12:11→22:41)
[2016-11-20] MEDS: LACTOBACILLUS ACIDOPHILUS TAB PO SCH ×2 (13:00→18:36)
[2016-11-20] MEDS: AMPICILLIN-SULBACTAM INJ 3 GM in SODIUM CHLORIDE 0.9% INJ 100 ML IV SCH ×2 (13:03→18:36)
[2016-11-20] MEDS ORDERED: DIATRIZOATE MEGLUM/DIATRIZOATE SOD 9 ML CUP ONE ×3 (14:01→14:37)
[2016-11-20] MEDS ORDERED: DIATRIZOATE MEGLUM/DIATRIZOATE SOD 9 ML CUP PO ONE (15:00)
--- NOTE | 2016-11-20 15:00 | RADHPO ---
EXAM DATE/TIME: 11/20/2016 13:48 [facility] COMPARISON: No previous studies available for comparison. INDICATIONS : Increased lab values. MEDICAL HISTORY : Hypercholesterolemia. Hypertension. Chronic obstructive pulmonary disease. Crohn's disease. hiatal he rnia. gastritis. gerd. testicular cancer. radiation therapy. arthritis. SURGICAL HISTORY : Cholecystectomy. Hernia repair. Bowel resection. ENCOUNTER: Initial ACUITY: 1 day PAIN SCORE: 0/10 LOCATION: Abdomen. MEASUREMENTS: LIVER: 17.3 cm length COMMON DUCT: 6 mm RIGHT KIDNEY: 10.0 x 4.8 x 5.3 cm SPLEEN: 10.8 cm length FINDINGS: LIVER: Increased echotexture without focal lesion or ductal dilatation. COMMON DUCT: No intraluminal mass or stone visualized. GALLBLADDER: Surgically absent. PANCREAS: The visualized portions are within normal limits. RIGHT KIDNEY: No hydronephrosis, stone or mass. SPLEEN: No focal lesion. CONCLUSION: 1. Liver mildly enlarged to 17 cm with fatty infiltration. 2. Cholecystectomy without biliary ductal dilatation. No free fluid. Gary Juarez MD on November 20, 2016 at 14:56 Board Certified Radiologist. This report was verified electronically.
[2016-11-20] MEDS ORDERED: IOHEXOL 350 MG/ML 10 ML VIAL (for RAD DIAG) IV ONE (17:29)
--- NOTE | 2016-11-20 18:03 | RADHPO ---
EXAM DATE/TIME: 11/20/2016 16:50 [facility] COMPARISON: CT PULMONARY ANGIOGRAM, September 13, 2016, 10:24. CT ABDOMEN & PELVIS W/O CONTRAST, February 13, 2016, 1 3:28. INDICATIONS : Fever. Elevated LFT's. nausea. IV CONTRAST: 100 cc Omnipaque 350 (iohexol) IV ORAL CONTRAST: Prescribed oral contrast ingested. RADIATION DOSE: 7.63 CTDIvol (mGy) MEDICAL HISTORY : Chronic obstructive pulmonary disease. Gastroesophageal reflux disease. Carcinoma, testicular.Hyperte nsion. Crohn's disease. SURGICAL HISTORY : Cholecystectomy. ENCOUNTER: Initial ACUITY: 1 day PAIN SCALE: 2/10 LOCATION: Abdomen. TECHNIQUE: Volumetric scanning of the abdomen and pelvis was performed. Using automated exposure control and ad justment of the mA and/or kV according to patient size, radiation dose was kept as low as reasonably achievable to obtain optimal diagnostic quality images. FINDINGS: Lung bases demonstrate some distal airway disease and peribronchial thickening with bronchiolectasis and several small nodular infiltrates. Mild fatty liver. Spleen, adrenals, kidneys and pancreas demonstrate no acute findings. Previous chol ecystectomy. No bowel obstruction. No free air or free fluid. Mild constipation. Colonic diverticula without diver ticulitis. CONCLUSION: 1. Distal airway disease in the lungs with some bronchial thickening and distal bronchiolectasis. Sev eral small areas of nodular infiltrate noted with overall improvement compared with CT from August 2016. 2. No acute findings within the abdomen. Mild fatty liver. Cholecystectomy. No constipation. Gary Juarez MD on November 20, 2016 at 17:56 Board Certified Radiologist. This report was verified electronically.
--- NOTE | 2016-11-20 18:29 | HHI.HP ---
HPI Service [facility] Primary Care Physician Herbert Mills M.D. Admission Diagnosis Sepsis with no known source Diagnoses: Travel History International Travel<30 Days: No Contact w/Intl Traveler <30 Da: No Traveled to Known Affected Are: No History of Present Illness This 66-year-old male who was seen by the undersigned at the [facility] emergency department on 11/20/16. He fell earlier today, no loss of consciousness, he is walking to the bathroom and his leg gave way. He has problems with early onset arthritis that affects most of his joints. Also he has Crohn's disease which is on Imuran. He came in with a temperature of 101 with headache and neck pain. Also has a heart rate is 110. He had some diarrhea. He had a recent C. difficile colitis in August 2016. He was found to have elevated liver enzymes. No focus of Infection was found in the emergency department. He was given a dose of intravenous vancomycin and a dose of intravenous Zosyn. He was seen by the undersigned in room 11. He underwent a lumbar puncture while in the emergency department. CSF analysis was unremarkable. He did have elevated liver enzymes on this admission and he had normal liver enzymes back on 10/27/16. He continues to use tizanidine for his muscular spasm. He was due to have an endoscopy and colonoscopy in few days. The patient did mention a episode of syncope on 09/29/16 that was felt secondary to dehydration. His blood pressure was low in the emergency department. Review of Systems Other As above, 10 systems reviewed otherwise negative Past Family Social History Past Medical History Crohn's disease COPD Osteoarthritis Rheumatoid arthritis Testicular cancer status post radiation in 2000 Hyperlipidemia Anxiety hypertension C. difficile colitis Hiatal hernia Sleep apnea Past Surgical History Cholecystectomy Reported Medications Reported Meds & Active Scripts Active Zofran Odt (Ondansetron Odt) 4 Mg Tab 4 Mg SL Q6HR PRN Acidophilus/l-Sporogenes (Lactobacillus Acidophilus) 1 Tab Tab 1 Tab PO TID Reported Hydrocodone-Acetaminophen 10-325 mg Tab 1 Tab PO Q6H PRN Diazepam 10 Mg Tab 10 Mg PO TID PRN Fluoxetine (Fluoxetine HCl) 20 Mg Tab 20 Mg PO DAILY Omeprazole 20 Mg Tab 20 Mg PO DAILY Gabapentin 600 Mg Tab 600 Mg PO HS Tizanidine (Tizanidine HCl) 4 Mg Tab 4 Mg PO QID Azathioprine 50 Mg Tab 50 Mg PO DAILY Hazardous agent use appropriate precautions for handling and disposal. Allergies: Coded Allergies: Fire Ant (Verified Allergy, Intermediate, Anaphylaxis, 07/17/16) Family History Reviewed but not significant Social History No smoking, occasional alcohol, no illicit drug use Physical Exam Vital Signs Vital Signs Date Time Temp Pulse Resp B/P Pulse Ox O2 Delivery O2 Flow Rate FiO2 11/20/16 17:00 16 11/20/16 15:30 98 16 154/81 99 Nasal Cannula 2 11/20/16 13:30 104 16 144/87 99 Nasal Cannula 2 11/20/16 11:30 98.4 107 16 134/70 99 Nasal Cannula 2 11/20/16 10:25 99.0 112 16 190/95 99 Room Air 11/20/16 10:25 Nasal Cannula 2 11/20/16 07:21 101.0 100 16 146/77 100 Nasal Cannula 2 11/20/16 07:21 100 18 98 Nasal Cannula 2 11/20/16 07:21 101.0 110 16 146/77 100 Nasal Cannula 2 11/20/16 07:18 101.0 110 16 148/82 98 Physical Exam GENERAL: This is a well-nourished, well-developed patient, in no apparent distress. SKIN: No rashes, ecchymoses or lesions. Cool and dry. HEAD: Atraumatic. Normocephalic. No temporal or scalp tenderness. EYES: Pupils equal round and reactive. Extraocular motions intact. No scleral icterus. No injection or drainage. ENT: Nose without bleeding, purulent drainage or septal hematoma. Throat without erythema, tonsillar hypertrophy or exudate. Uvula midline. Airway patent. NECK: Trachea midline. No JVD or lymphadenopathy. Supple, nontender, no meningeal signs. CARDIOVASCULAR: Regular rate and rhythm without murmurs, gallops, or rubs. RESPIRATORY: Occasional crackles . No wheezes GASTROINTESTINAL: Abdomen soft, non-tender, nondistended. No hepato-splenomegaly , or palpable masses. No guarding. MUSCULOSKELETAL:Manifestations of osteoarthritis evident in his fingers , Extremities without clubbing, cyanosis, or edema. NEUROLOGICAL: Awake and alert. Cranial nerves II through XII intact. Normal speech. Laboratory Laboratory Tests Test 11/20/16 11/20/16 11/20/16 11/20/16 08:00 08:40 08:57 10:36 White Blood Count 9.9 Red Blood Count 4.68 Hemoglobin 13.9 Hematocrit 42.9 Mean Corpuscular Volume 91.7 Mean Corpuscular Hemoglobin 29.7 Mean Corpuscular Hemoglobin 32.4 Concent Red Cell Distribution Width 14.2 Platelet Count 341 Mean Platelet Volume 7.0 Neutrophils (%) (Auto) 86.8 Lymphocytes (%) (Auto) 6.4 Monocytes (%) (Auto) 5.5 Eosinophils (%) (Auto) 1.2 Basophils (%) (Auto) 0.1 Neutrophils # (Auto) 8.7 Lymphocytes # (Auto) 0.6 Monocytes # (Auto) 0.5 Eosinophils # (Auto) 0.1 Basophils # (Auto) 0.0 CBC Comment DIFF FINAL Differential Comment Erythrocyte Sedimentation Rate 49 Prothrombin Time 10.3 Prothromb Time International 0.9 Ratio Activated Partial 24.6 Thromboplast Time Sodium Level 143 Potassium Level 4.1 Chloride Level 106 Carbon Dioxide Level 30.1 Anion Gap 7 Blood Urea Nitrogen 9 Creatinine 0.94 Estimat Glomerular Filtration 81 Rate Random Glucose 102 Calcium Level 8.1 Magnesium Level 1.2 Total Bilirubin 0.3 Aspartate Amino Transf 435 (AST/SGOT) Alanine Aminotransferase 183 (ALT/SGPT) Alkaline Phosphatase 188 Total Creatine Kinase 32 Troponin I LESS THAN 0.02 C-Reactive Protein 1.30 Total Protein 7.2 Albumin 3.0 Urine Collection Type CLEAN CATCH Urine Color YELLOW Urine Turbidity CLEAR Urine pH 5.5 Urine Specific [place] 1.025 Urine Protein NEG Urine Glucose (UA) NEG Urine Ketones NEG Urine Occult Blood NEG Urine Nitrite NEG Urine Bilirubin NEG Urine Leukocyte Esterase NEG Urine RBC 0-3 Urine Squamous Epithelial 0-5 Cells Microscopic Urinalysis Comment CULT NOT INDICATED Urine Collection Time 08:40 Lactic Acid Level 1.0 CSF Volume (Tube 1) 1.0 CSF Supernatant Color (tube 1) CLEAR CSF Gross Blood (Tube 1) 0 CSF Volume (Tube 2) 1.0 CSF Supernatant Color (tube 2) CLEAR CSF Gross Blood (Tube 2) 0 CSF Volume (Tube 3) 1.0 CSF Supernatant Color (tube 3) CLEAR CSF Gross Blood (Tube 3) 0 CSF Volume (Tube 4) 1.0 CSF Supernatant Color (tube 4) CLEAR CSF Gross Blood (Tube 4) 0 CSF WBC (Tube 4) 0 CSF RBC (Tube 4) 0 CSF Neutrophils 0 CSF Lymphocytes 0 CSF Glucose 57 CSF Total Protein 44.3 Test 11/20/16 12:05 Lactic Acid Level 1.7 Date/Time Procedure Status Source Growth 11/20/16 10:36 Gram Stain - Final Resulted Cerebral Spinal Fluid Lumbar Puncture 11/20/16 10:36 CSF Culture Resulted Cerebral Spinal Fluid Lumbar Puncture Pending 11/20/16 08:55 Influenza Types A,B Antigen (DAYANNA) - Final Complete Nasal Aspirate NEGATIVE FOR FLU A AND B ANTIGEN.... 11/20/16 08:05 Aerobic Blood Culture Received Blood Peripheral Pending 11/20/16 08:05 Anaerobic Blood Culture Received Blood Peripheral Pending Result Diagram: 11/20/16 0800 11/20/16 0800 Imaging Last Impressions Liver Ultrasound 11/20/16 0000 Signed Impressions: Service Date/Time: November 13:48 - CONCLUSION: 1. Liver mildly enlarged to 17 cm with fatty infiltration. 2. Cholecystectomy without biliary ductal dilatation. No free fluid. Gary Juarez MD Head CT 11/20/16 0000 Signed Impressions: Service Date/Time: November 08:31 - CONCLUSION: Normal examination for a patient of this age. No significant change has occurred. Gary Juarez MD Chest X-Ray 11/20/16 0000 Signed Impressions: Service Date/Time: November 07:34 - CONCLUSION: No acute cardiopulmonary abnormality is identified. Enio Aretaga MD Cervical Spine CT 11/20/16 0000 Signed Impressions: Service Date/Time: November 08:31 - CONCLUSION: 1. No acute findings. Mild degenerative disc disease. No significant change from June 2016. Gary Juarez MD Abdomen/Pelvis CT 11/20/16 0000 Signed Impressions: Service Date/Time: November 16:50 - CONCLUSION: 1. Distal airway disease in the lungs with some bronchial thickening and distal bronchiolectasis. Several small areas of nodular infiltrate noted with overall improvement compared with CT from August 2016. 2. No acute findings within the abdomen. Mild fatty liver. Cholecystectomy. No constipation. Gary Juarez MD Assessment and Plan Assessment and Plan Assessment Fever, etiology unclear Headache Fall Bronchiectasis Nodular infiltrates in both lungs Elevated liver enzymes Fatty liver changes Mild hepatomegaly Management Admit to telemetry Empiric antibiotics Follow CSF cultures Consult infectious disease specialist Pain control Consult GI Follow blood cultures Follow liver enzymes DVT prophylaxis Avoid hepatotoxic medications at this time Hold off tizanidine as this could increase liver enzymes Continue home medications otherwise Discussed with patient Discussed with nurse Discussed with emergency physician Roderick Reed MD Nov 20, 2016 18:29
[2016-11-20] MEDS ORDERED: MAGNESIUM SULFATE 4 GM PREMIX 100 ML IV ONE (18:30)
[2016-11-20] MEDS ORDERED: MAGNESIUM SULFATE 4 GM/NS 100 ML IV ONE ×2 (20:00)
--- NOTE | 2016-11-20 21:11 | MB ---
cc: MERE DONALDSON MD DATE OF CONSULTATION 11/20/[address] Valle REASON FOR CONSULTATION Fever and elevated liver function test. HISTORY OF PRESENT ILLNESS This is a 66-year-old white male who has multiple medical problems. The patient presented to emergency department after a fall. The patient noted that he was walking to the bathroom and his legs gave out and he fell onto the bathroom floor. His alerted EMS and he was brought to the emergency department for evaluation. The patient does not recall the events around the fall. He stated to me that he was feeling fine when he went to bed yesterday. Upon evaluation, he was found to have temperature of 101 degrees and heart rate of 100 and further workup was performed. He underwent lumbar puncture which showed no white cells in the CSF and normal glucose and normal protein. He denies headache or nausea or vomiting. Laboratory testing revealed elevated liver function tests. Prior blood test on 10/27 showed normal liver function. The patient tells that he has not been receiving any new medications. He has been evaluated by gastroenterology and was due to undergo endoscopy and colonoscopy in a few days. He was recently hospitalized and was treated for C-difficile colitis in August 2016 into September 2016. Subsequent evaluation in the emergency department on 09/29 for syncope was done and he was felt to be dehydrated. At that time, he was hypotensive in the emergency department. The patient notes that he has chronic diarrhea. He states that whenever he eats he gets diarrhea and notes that he has lost approximately 60 in the last six months. He was also evaluated for headache in October 2016 and he was given a prescription for medications including Nystatin for thrush. The white blood cell count is normal. His liver function tests revealed AST of 435, AST 183, alkaline phosphatase 188. Currently, he feels well. He states that he has neuropathy and gets pains in his legs, back and neck. PAST MEDICAL HISTORY 1. COPD, 2. Crohn's disease 3. Hypercholesteremia 4. Testicular cancer treated in 2000 with radiation therapy 5. Anxiety, depression, 6. Hypertension, 7. Peripheral neuropathy, 8. History of C-difficile colitis. 9. Hiatal hernia 10. Rheumatoid arthritis, 11. Sleep apnea. ALLERGIES NO KNOWN DRUG ALLERGIES. MEDICATIONS 1. Azathioprine 2. Protonix. 3. Prozac. 4. Neurontin 5. Lactinex. 6. Ampicillin/Sulbactam. 7. Vancomycin. SOCIAL HISTORY The patient is . No tobacco. Rare alcohol use. No illicit drugs. FAMILY HISTORY Noncontributory. REVIEW OF SYSTEMS GENERAL: No chills, significant for fever. HEENT: No visual blurring or diplopia. No difficulty swallowing. No throat soreness. CARDIOVASCULAR: No palpitations or chest pain. RESPIRATORY: No cough or shortness of breath. GASTROINTESTINAL: Significant for diarrhea. No constipation, mild right lower abdominal pains. GENITOURINARY:: No urgency, frequency or dysuria. HEMATOPOIETIC: No easy bruising or bleeding. ENDOCRINE: No polyuria or polydipsia. NEUROLOGIC: Weakness of the lower extremities. INTEGUMENTARY: No skin rash or itching. PSYCHIATRIC: Denies problems with his mentation. PHYSICAL EXAMINATION GENERAL: This is a slender well-developed male in no acute distress. VITAL SIGNS: Temperature 98.4, blood pressure is 134/70, respirations 16, heart rate 107. HEENT: Extraocular movements grossly intact, pupils reactive to light. No icterus. Oropharynx no visible lesions. NECK: Supple. No adenopathy. LUNGS: Clear breath sounds HEART: Regular rate and rhythm without murmurs. ABDOMEN: Bowel sounds present, soft, no tenderness appreciated. RECTAL: Not performed. EXTREMITIES: No clubbing, cyanosis or edema. SKIN: No rash. NEUROLOGIC: Nonfocal. PSYCHIATRIC: Patient calm and cooperative. LABORATORY DATA WBC 9.9, platelet count 341, hemoglobin 13.9, differential 86% neutrophils. Creatinine 0.94, BUN nine, sodium 143, AST 435, ALT 183, lactic acid 1.7. Hepatitis serology pending. IMPRESSION Elevated liver function tests in patient with fever and now status post fall. The patient had negative cerebrospinal fluid numbers and urinalysis unremarkable and chest x-ray shows no acute cardiopulmonary disease. Liver ultrasound shows mildly enlarged liver with fatty infiltration. At this point, given the clinical features and laboratory values it is unclear whether the patient has infection as the cause of his fever and elevated liver function tests. He potentially could have medication reaction, but it is certainly possible he could have a viral infection causing the fever and liver function test elevation. RECOMMENDATIONS 1. Continue vancomycin 2. Discontinue the ampicillin since he has no evidence of infection in the urine or lungs and cerebrospinal fluid test is unremarkable and he has a history of C-difficile and I would like to avoid certain antibiotics unless there is a foci of infection. The patient is due to undergo CT scan of the abdomen and that should be monitored as well. Thank you for this consultation. The patient's progress will be monitored and further recommendations will be given upon followup of his clinical status and laboratory values. Mere Donaldson MD FD/ /4:30 PM /8:43 PM
[2016-11-20] MEDS: VANCOMYCIN INJ 1,100 MG in SODIUM CHLOR 0.9% 250 ML INJ 250 ML IV SCH (22:18)
[2016-11-20] MEDS: SODIUM CHLORIDE 0.9% FLUSH 5 ML FLUSH FLUSH SCH (22:19)
[2016-11-20] MEDS: GABAPENTIN 300 MG CAP PO SCH (22:19)
[2016-11-21] VITALS: BP_SYST 179; BP_SYST 189; BP_DIAS 100; BP_DIAS 102; PULSE 103; RESP 18; TEMP 98.9; O2SAT 97
[2016-11-21] MEDS: AMPICILLIN-SULBACTAM INJ 3 GM in SODIUM CHLORIDE 0.9% INJ 100 ML IV SCH ×3 (00:57→12:51)
[2016-11-21 04:00] VITALS: BP 159/98; PULSE 102; RESP 20; TEMP 98.1; O2SAT 84
[2016-11-21] MEDS: SODIUM CHLOR 0.9% 1000 ML INJ 1,000 ML IV SCH ×3 (05:51→21:51)
[2016-11-21] MEDS: MORPHINE SULFATE 15 MG TAB PO PRN ×2 (05:58→09:51)
[2016-11-21 06:32] LABS: BASOPHIL % 0.1 % (0.0-2.0); EOSINOPHIL % 0.4 % (0.0-4.0); HEMATOCRIT 35.2 % (39.0-51.0); HEMO FLAGS DIFF FINAL; LYMPH % 2.4 % (9.0-44.0); LYMPHOCYTE # 0.3 TH/MM3 (1.0-4.8); MEAN CELL VOLUME 91.1 FL (80.0-100.0); MEAN CORPUSCULAR HEMOGLOBIN 30.1 PG (27.0-34.0); MEAN CORPUSCULAR HGB CONC 33.1 % (32.0-36.0); MONO % 5.1 % (0.0-8.0); PLATELET COUNT 262 TH/MM3 (150-450); RED BLOOD COUNT 3.86 MIL/MM3 (4.50-5.90); RED CELL DISTRIBUTION WIDTH 13.9 % (11.6-17.2); WHITE BLOOD COUNT 10.9 TH/MM3 (4.0-11.0)
[2016-11-21 06:36] LABS: POTASSIUM 3.5 MEQ/L (3.5-5.1)
[2016-11-21 06:39] LABS: BICARBONATE 31.5 MEQ/L (21.0-32.0)
[2016-11-21 08:00] VITALS: BP_SYST 156; BP_SYST 171; BP_DIAS 87; BP_DIAS 93; PULSE 90; PULSE 96; RESP 18; TEMP 97.3; O2SAT 96
[2016-11-21] MEDS: SODIUM CHLORIDE 0.9% FLUSH 5 ML FLUSH FLUSH SCH ×2 (09:00→21:00)
[2016-11-21] MEDS ORDERED: FLUoxetine HCL 20 MG CAP PO SCH (09:00)
[2016-11-21] MEDS: FLUoxetine HCL 10 MG CAP PO SCH (09:00)
[2016-11-21] MEDS: azaTHIOprine 50 MG TAB PO SCH (09:52)
[2016-11-21] MEDS: PANTOPRAZOLE SOD 20 MG DELAYED RELEASE TAB PO SCH (09:52)
[2016-11-21] MEDS: LACTOBACILLUS ACIDOPHILUS TAB PO SCH ×3 (09:52→17:50)
[2016-11-21] MEDS: VANCOMYCIN INJ 1,100 MG in SODIUM CHLOR 0.9% 250 ML INJ 250 ML IV SCH ×2 (09:53→21:47)
[2016-11-21 10:16] LABS: ALT (GPT) 92 U/L (12-78); AST (GOT) 75 U/L (15-37)
[2016-11-21 10:17] LABS: INDIRECT BILIRUBIN 0.3 MG/DL (0.0-0.8); TOTAL BILIRUBIN ADULT 0.4 MG/DL (0.2-1.0)
[2016-11-21 10:18] LABS: ALKALINE PHOSPHATASE 153 U/L (45-117)
[2016-11-21] MEDS ORDERED: VANCOMYCIN INJ 1,000 MG in SODIUM CHLOR 0.9% 250 ML INJ 250 ML IV SCH (11:30)
--- NOTE | 2016-11-21 11:54 | HHI.PR ---
Subjective Interval History Alert, oriented, complaining of headache, no fever last night Review of Systems Constitutional Constitutional Remarks As above, 10 systems reviewed otherwise negative Vitals/Results Intake & Output 11/20/16 11/20/16 11/21/16 15:00 23:00 07:00 Intake Total 3050 ml 420 ml Output Total 650 ml 500 ml Balance -650 ml 2550 ml 420 ml Intake Oral 420 ml IV Total 3050 ml Output Urine Total 650 ml 500 ml # Voids 2 1 2 # Bowel Movements 0 Vital Signs Vital Signs Date Time Temp Pulse Resp B/P Pulse Ox O2 Delivery O2 Flow Rate FiO2 11/21/16 08:00 97.3 90 18 156/87 96 11/21/16 04:00 98.1 102 20 159/98 84 11/21/16 00:00 98.9 103 18 189/100 97 11/21/16 00:00 98.9 103 18 179/102 97 11/20/16 22:30 103 11/20/16 22:00 97.8 93 20 151/65 98 11/20/16 18:40 97 16 154/76 97 11/20/16 17:00 16 11/20/16 15:30 98 16 154/81 99 Nasal Cannula 2 11/20/16 13:30 104 16 144/87 99 Nasal Cannula 2 CBC/BMP: 11/21/16 0534 11/21/16 0534 Lab Results Laboratory Tests Test 11/20/16 11/21/16 11/21/16 12:05 05:34 08:50 Lactic Acid Level 1.7 mmol/L Hepatitis A IgM Antibody NEGATIVE Hepatitis B Surface Antigen NEGATIVE Hepatitis B Core IgM Antibody NEGATIVE Hepatitis C Antibody NEGATIVE White Blood Count 10.9 TH/MM3 Red Blood Count 3.86 MIL/MM3 Hemoglobin 11.6 GM/DL Hematocrit 35.2 % Mean Corpuscular Volume 91.1 FL Mean Corpuscular Hemoglobin 30.1 PG Mean Corpuscular Hemoglobin 33.1 % Concent Red Cell Distribution Width 13.9 % Platelet Count 262 TH/MM3 Mean Platelet Volume 7.3 FL Neutrophils (%) (Auto) 92.0 % Lymphocytes (%) (Auto) 2.4 % Monocytes (%) (Auto) 5.1 % Eosinophils (%) (Auto) 0.4 % Basophils (%) (Auto) 0.1 % Neutrophils # (Auto) 10.0 TH/MM3 Lymphocytes # (Auto) 0.3 TH/MM3 Monocytes # (Auto) 0.6 TH/MM3 Eosinophils # (Auto) 0.0 TH/MM3 Basophils # (Auto) 0.0 TH/MM3 CBC Comment DIFF FINAL Differential Comment Sodium Level 144 MEQ/L Potassium Level 3.5 MEQ/L Chloride Level 106 MEQ/L Carbon Dioxide Level 31.5 MEQ/L Anion Gap 7 MEQ/L Blood Urea Nitrogen 6 MG/DL Creatinine 0.66 MG/DL Estimat Glomerular Filtration 121 ML/MIN Rate Random Glucose 111 MG/DL Calcium Level 7.6 MG/DL Total Bilirubin 0.4 MG/DL Direct Bilirubin 0.1 MG/DL Indirect Bilirubin 0.3 MG/DL Aspartate Amino Transf 75 U/L (AST/SGOT) Alanine Aminotransferase 92 U/L (ALT/SGPT) Alkaline Phosphatase 153 U/L Total Protein 6.8 GM/DL Albumin 2.7 GM/DL Physical Exam General General Appearance: Well Developed, No Acute Distress, Comfortable Eyes Eye Exam: Pupils Reactive Ears & Nose Ears & Nose Exam: Nasal Mucosa [place] Throat Throat Exam: Oral Mucosa [place] & Moist Neck Neck Exam: Trachea Midline Pulmonary Resp Exam: Crackles Cardiology CV Exam: Normal Sinus Rhythm, Good Perfusion Gastrointestinal/Abdomen GI Exam: Non-Tender, Bowel Sounds Present Musculoskeletal MS Exam: Normal Tone Integumentary Skin Exam: Warm, Dry Extremeties Extremities Exam: No Edema Neurologic Neuro Exam: Awake, Oriented, Speech Clear, Moving All Extremities Psychiatric Psych Exam: Appropriate Responses VTE Prophylaxis VTE Prophylaxis Meds: Heparin Assessment/Plan Assessment/Plan Assessment Fever, etiology unclear Headache Fall Bronchiectasis Nodular infiltrates in both lungs Elevated liver enzymes Fatty liver changes Mild hepatomegaly Management telemetry antibiotics per infectious disease Follow CSF cultures infectious disease specialist following Pain control GI following Follow blood cultures Follow liver enzymes DVT prophylaxis Avoid hepatotoxic medications at this time Hold off tizanidine as this could increase liver enzymes Increase morphine dose Discussed with patient Discussed with nurse Roderick Valle MD Nov 21, 2016 11:54
[2016-11-21 12:00] VITALS: BP 171/93; PULSE 96; RESP 18; TEMP 97; O2SAT 96
--- NOTE | 2016-11-21 12:15 | MB ---
cc: JESSIKA OCAMPO M.D. DATE OF CONSULTATION: 11/21/2016 DATE OF : 1950 REFERRING PHYSICIAN: Dr. Valle. REASON FOR CONSULTATION: 1. Elevated liver enzymes. 2. History of Crohn's disease. HISTORY OF PRESENT ILLNESS: Mr. Wolff is an unfortunate 66-year-old gentleman with multiple medical problems, admitted through the hospital with fever, weakness and falling episodes. He is a very poor historian and I am unable to get a clear history from him. He does have a history of Crohn disease was followed by Juan Alfredo, apparently he is scheduled to have an upper endoscopy and colonoscopy, as an outpatient next week. Unclear exactly which Doctor. His last colonoscopy and endoscopy were many years ago was unable to follow with due to his insurance. He is taking Azathioprine and another medication; he is not quite sure about the name. He reports having diarrhea, decreased appetite and weight loss approximately 60 pounds for the last couple of months. He is not aware of any elevation of his liver enzymes in the past denies any history of jaundice or any other liver issues. Denies history of alcohol or starting new medications. PAST MEDICAL HISTORY: 1. Chronic obstructive pulmonary disease. 2. Crohn's disease. 3. High cholesterol 4. Testicular cancer in 2000 status post radiation therapy. 5. Anxiety. 6. Hypertension. 7. Peripheral neuropathy. 8. C-Difficile. 9. Hiatal hernia. 10. Rheumatoid arthritis 11. Sleep apnea. ALLERGIES No known allergies. MEDICATIONS: Protonix pros and Neurontin Lactinex ampicillin and vancomycin. MEDICATIONS current medications in the hospital 1. Imuran. 2. Protonix. 3. Prozac. 4. Vancomycin was started on admission currently is a see above 06/23 Lactinex. 5. Ampicillin. 6. Morphine. 7. Zofran. 8. Valium IV fluids. SOCIAL HISTORY He denies smoking, drinking or drug use. FAMILY HISTORY Denies any family history of colon cancer or any other GI pathology on review of systems he denies any chills. She did have fever or weight loss, decreased appetite. REVIEW OF SYSTEMS ENT: No alteration in baseline hearing or visual acuity PULMONARY: Denies any chest pain, shortness of breath. GASTROINTESTINAL: As above. GENITOURINARY: Denies dysuria, hematuria. HEMATOLOGIC: No history of anemia or bleeding disorder. SKIN: No alteration in baseline skin lesion. NEUROLOGIC: No history of TIA or CVA kind of symptoms. Did have recent falls possible secondary to increased weakness. PHYSICAL EXAMINATION: IN GENERAL: On clinical exam he is sitting comfortably in bed in no acute distress. He looks chronically very weak and sleepy has difficulty communicating. VITAL SIGNS: Temperature is 98, one, pulse 102, respirations 20, blood pressure 159/98, pulse ox 94. HEAD, EYES, EARS, NOSE, AND THROAT: Pupils equal, round, reactive to light and accommodation. NECK: No jugular venous distention. No lymphadenopathy. CHEST: Clear to the patient and palpation. CARDIOVASCULAR SYSTEM: Sinus. No murmur. ABDOMEN: Abdomen is soft, nontender. Bowel sounds are present. CENTRAL NERVOUS SYSTEM: Awake, alert, oriented x3. No focal signs identified. LABORATORY FINDINGS: His hemoglobin on admission was 13.9, 11.6 white count 10.9, platelets 262. PT/INR normal. He has AST 435, ALT 183, alkaline phosphatase 188. Total CPK 32. C-reactive protein 130, rest normal liver enzymes today are pending. RADIOLOGIC: The patient had a CT abdomen and pelvis which showed distal airway disease in the lungs with bronchial thickening and distal bronchiolectasis. He has no acute findings in the abdomen, mild fatty liver, status post cholecystectomy. The patient also had a cervical spine CT which was suggestive of degenerative disk disease. Liver ultrasound also done on admission showed fatty infiltration of the liver, otherwise negative. The patient also had cerebral lumbar puncture, the results were negative for meningitis. IMPRESSION 1. Elevation of the liver enzymes. 2. Fever, unclear etiology at this time. 3. No indication of biliary obstruction. 4. Possible medication-induced versus sepsis. 5. Crohn disease based on clinical presentation does not seem to be controlled at this time. 6. Weight loss multifactorial no indication of malignancy at this time. RECOMMENDATIONS 1. We are going to send additional blood work, RENATO, antimitochondrial antibody, anti-smooth muscle antibody, celiac panel. Alpha-1 antitrypsin, iron therapy, NGTP, CMV, herpes, EBV virus and obtain records from the office. 2. The patient will benefit from an upper endoscopy and colonoscopy possibly before discharge or outpatient when clinically more stable. 3. History of C differential blood count. The C diff was sent again results are pending. I would like to thank Dr. Grecia thomas for referring him to our office for consultation. MD ALAN Silva/magdiel /7:23 AM /12:11 PM
[2016-11-21] MEDS ORDERED: MORPHINE SULFATE 15 MG TAB PO PRN ×2 (14:00→15:30)
[2016-11-21 14:10] LABS: GAMMA GT 107 U/L (15-85)
[2016-11-21 14:17] LABS: FERRITIN 100 NG/ML (26-388); TRANSFERRIN IRON PROFILE 297 MG/DL (200-360)
--- NOTE | 2016-11-21 16:21 | HHI.IDPN ---
Note Infectious Disease Note Patient feels okay. Notes he had generalized pain but it is better with pain meds. Afebrile. No nausea or vomiting. Cultures are negative. LFT's lower. PAST MEDICAL HISTORY 1. COPD, 2. Crohn's disease 3. Hypercholesteremia 4. Testicular cancer treated in 2000 with radiation therapy 5. Anxiety, depression, 6. Hypertension, 7. Peripheral neuropathy, 8. History of C-difficile colitis. 9. Hiatal hernia 10. Rheumatoid arthritis, 11. Sleep apnea. ALLERGIES NO KNOWN DRUG ALLERGIES. Current Medications Medications (Trade) Dose Ordered Sig/Rupal Route PRN Reason Start Time Stop Time Status Last Admin Dose Admin Sodium Chloride (NS 1000 ml Inj) 1,000 ml @ 100 mls/hr Q10H IV 11/20/16 11:06 11/21/16 05:51 IV Flush (NS Flush) 2 ml UNSCH PRN FLUSH FLUSH AFTER USING IV ACCESS 11/20/16 11:15 IV Flush (NS Flush) 2 ml BID FLUSH 11/20/16 21:00 11/20/16 22:19 Ondansetron HCl (Zofran Inj) 4 mg Q6H PRN IVP NAUSEA OR VOMITING 11/20/16 11:15 Naloxone HCl (Narcan Inj) 0.4 mg UNSCH PRN IV SEE LABEL COMMENTS 11/20/16 11:15 Azathioprine (Imuran) 50 mg DAILY PO 11/21/16 09:00 11/21/16 09:52 Diazepam (Valium) 10 mg TID PRN PO ANXIETY 11/20/16 11:15 11/21/16 01:03 Gabapentin (Neurontin) 600 mg HS PO 11/20/16 21:00 11/20/16 22:19 Lactobacillus Acidophilus (Lactinex) 1 tab TID PO 11/20/16 13:00 11/21/16 12:51 Pantoprazole Sodium (Protonix) 20 mg DAILY PO 11/21/16 09:00 11/21/16 09:52 Fluoxetine HCl 10 mg 10 mg DAILY PO 11/21/16 09:00 Pharmacy Profile Note 0 ml @ 0 mls/hr UNSCH OTHER 11/20/16 12:00 Ampicillin Sodium/ Sulbactam Sodium 3 gm/Sodium Chloride 100 ml @ 200 mls/hr Q6H IV 11/20/16 12:00 11/21/16 12:51 Vancomycin HCl/ Sodium Chloride (Vancomycin Inj/ NS 250 ml Inj) 261 ml @ 250 mls/hr Q12H IV 11/20/16 22:00 11/21/16 09:53 Miscellaneous Information SPECIFIC LAB TO BE DRAWN:VANCOMY... ONCE ONCE XX 11/22/16 09:45 11/22/16 09:46 Morphine Sulfate (Msir) 30 mg Q4H PRN PO pain 2-10 11/21/16 14:00 11/21/16 14:03 SOCIAL HISTORY The patient is . No tobacco. Rare alcohol use. No illicit drugs. FAMILY HISTORY Noncontributory. OBJECTIVE: Vital Signs Date Time Temp Pulse Resp B/P Pulse Ox O2 Delivery O2 Flow Rate FiO2 11/21/16 12:00 97.0 96 18 171/93 96 11/21/16 08:00 97.3 90 18 156/87 96 11/21/16 04:00 98.1 102 20 159/98 84 11/21/16 00:00 98.9 103 18 189/100 97 11/21/16 00:00 98.9 103 18 179/102 97 11/20/16 22:30 103 11/20/16 22:00 97.8 93 20 151/65 98 11/20/16 18:40 97 16 154/76 97 11/20/16 17:00 16 11/20/16 11/20/16 11/21/16 15:00 23:00 07:00 Intake Total 3050 ml 420 ml Output Total 650 ml 500 ml Balance -650 ml 2550 ml 420 ml Intake Oral 420 ml IV Total 3050 ml Output Urine Total 650 ml 500 ml # Voids 2 1 2 # Bowel Movements 0 Laboratory Tests Test 11/20/16 11/21/16 08:00 05:34 White Blood Count 9.9 TH/MM3 10.9 TH/MM3 Red Blood Count 4.68 MIL/MM3 3.86 MIL/MM3 Hemoglobin 13.9 GM/DL 11.6 GM/DL Hematocrit 42.9 % 35.2 % Mean Corpuscular Volume 91.7 FL 91.1 FL Mean Corpuscular Hemoglobin 29.7 PG 30.1 PG Mean Corpuscular Hemoglobin 32.4 % 33.1 % Concent Red Cell Distribution Width 14.2 % 13.9 % Platelet Count 341 TH/MM3 262 TH/MM3 Mean Platelet Volume 7.0 FL 7.3 FL Neutrophils (%) (Auto) 86.8 % 92.0 % Lymphocytes (%) (Auto) 6.4 % 2.4 % Monocytes (%) (Auto) 5.5 % 5.1 % Eosinophils (%) (Auto) 1.2 % 0.4 % Basophils (%) (Auto) 0.1 % 0.1 % Neutrophils # (Auto) 8.7 TH/MM3 10.0 TH/MM3 Lymphocytes # (Auto) 0.6 TH/MM3 0.3 TH/MM3 Monocytes # (Auto) 0.5 TH/MM3 0.6 TH/MM3 Eosinophils # (Auto) 0.1 TH/MM3 0.0 TH/MM3 Basophils # (Auto) 0.0 TH/MM3 0.0 TH/MM3 CBC Comment DIFF FINAL DIFF FINAL Differential Comment Erythrocyte Sedimentation Rate 49 mm/hr IMAGING: Liver Ultrasound 11/20/16 Signed Impressions: Service Date/Time: November 13:48 - CONCLUSION: 1. Liver mildly enlarged to 17 cm with fatty infiltration. 2. Cholecystectomy without biliary ductal dilatation. No free fluid. Gary Juarez MD Head CT 11/20/16 Signed Impressions: Service Date/Time: November 08:31 - CONCLUSION: Normal examination for a patient of this age. No significant change has occurred. Gary Juarez MD Chest X-Ray 11/20/16 Signed Impressions: Service Date/Time: November 07:34 - CONCLUSION: No acute cardiopulmonary abnormality is identified. Enio Arteaga MD Cervical Spine CT 11/20/16 Signed Impressions: Service Date/Time: November 08:31 - CONCLUSION: 1. No acute findings. Mild degenerative disc disease. No significant change from June 2016. Gary Juarez MD Abdomen/Pelvis CT 11/20/16 Signed Impressions: Service Date/Time: November 16:50 - CONCLUSION: 1. Distal airway disease in the lungs with some bronchial thickening and distal bronchiolectasis. Several small areas of nodular infiltrate noted with overall improvement compared with CT from August 2016. 2. No acute findings within the abdomen. Mild fatty liver. Cholecystectomy. No constipation. Gary Juarez MD PHYSICAL EXAMINATION GENERAL: No acute distress. HEENT: Extraocular movements grossly intact, pupils reactive to light. No icterus. Oropharynx no visible lesions. NECK: Supple. No adenopathy. LUNGS: Clear breath sounds HEART: Regular rate and rhythm without murmurs. ABDOMEN: Bowel sounds present, soft, no tenderness appreciated. EXTREMITIES: No clubbing, cyanosis or edema. SKIN: No rash. NEUROLOGIC: Nonfocal. PSYCHIATRIC: Patient calm and cooperative. IMPRESSION Elevated liver function tests in patient with fever and now status post fall. The patient had negative cerebrospinal fluid numbers and urinalysis unremarkable and chest x-ray shows no acute cardiopulmonary disease. Liver ultrasound shows mildly enlarged liver with fatty infiltration. At this point, given the clinical features and laboratory values it is unclear whether the patient has infection as the cause of his fever and elevated liver function tests. He potentially could have medication reaction, but it is certainly possible he could have a viral infection causing the fever and liver function test elevation. RECOMMENDATIONS 1. Continue vancomycin and monitor the blood culture. 2. Discontinue the ampicillin since he has no evidence of infection in the urine or lungs and cerebrospinal fluid test is unremarkable and he has a history of C-difficile and I would like to avoid certain antibiotics unless there is a foci of infection. If blood culture and CSF is negative at 72 hours can D/C antibiotics. Kye Gooden MD Nov 21, 2016 16:21
[2016-11-21 20:00] VITALS: BP 160/95; PULSE 113; PULSE 117; RESP 18; TEMP 97.4; O2SAT 92
[2016-11-21 20:05] VITALS: O2SAT 93
--- NOTE | 2016-11-21 20:31 | EKG ---
Date Performed: 11/20/2016 Time Performed: 07:40:20 PTAGE: 66 years EKG: Sinus tachycardia Rightward axis Right bundle branch block Abnormal ECG PREVIOUS TRACING : 10/27/2016 00.19 Compared to prior tracing no significant change DOCTOR: Cyrus Noble Interpretating Date/Time 11/21/2016 20:29:52
[2016-11-21] MEDS: GABAPENTIN 300 MG CAP PO SCH (21:47)
[2016-11-22] VITALS (9 sets, daily range): BP systolic 135–163; BP diastolic 81–100; PULSE 60–110; RESP 12–20; TEMP 97–99.1; O2SAT 84–100
[2016-11-22 07:30] LABS: POTASSIUM 3.9 MEQ/L (3.5-5.1)
[2016-11-22 07:34] LABS: BICARBONATE 29.4 MEQ/L (21.0-32.0)
[2016-11-22 07:38] LABS: INDIRECT BILIRUBIN 0.3 MG/DL (0.0-0.8); TOTAL BILIRUBIN ADULT 0.4 MG/DL (0.2-1.0)
[2016-11-22] MEDS: LACTOBACILLUS ACIDOPHILUS TAB PO SCH ×3 (08:36→17:40)
[2016-11-22] MEDS: FLUoxetine HCL 10 MG CAP PO SCH (08:37)
[2016-11-22] MEDS: PANTOPRAZOLE SOD 20 MG DELAYED RELEASE TAB PO SCH (08:37)
[2016-11-22] MEDS: azaTHIOprine 50 MG TAB PO SCH (08:37)
[2016-11-22] MEDS: SODIUM CHLORIDE 0.9% FLUSH 5 ML FLUSH FLUSH SCH ×2 (08:37→22:05)
[2016-11-22] MEDS: SODIUM CHLOR 0.9% 1000 ML INJ 1,000 ML IV SCH ×2 (09:03→22:26)
[2016-11-22 09:18] LABS: AUTOMATED NEUTROPHIL # 6.4 TH/MM3 (1.8-7.7); BASOPHIL # 0.1 TH/MM3 (0-0.2); BASOPHIL % 1.8 % (0.0-2.0); EOSINOPHIL # 0.1 TH/MM3 (0-0.4); EOSINOPHIL % 1.3 % (0.0-4.0); HEMATOCRIT 36.5 % (39.0-51.0); HEMO FLAGS DIFF FINAL; LYMPH % 8.3 % (9.0-44.0); LYMPHOCYTE # 0.7 TH/MM3 (1.0-4.8); MEAN CELL VOLUME 91.6 FL (80.0-100.0); MEAN CORPUSCULAR HEMOGLOBIN 29.9 PG (27.0-34.0); MEAN CORPUSCULAR HGB CONC 32.7 % (32.0-36.0); MONO % 9.1 % (0.0-8.0); NEUT % 79.5 % (16.0-70.0); PLATELET COUNT 268 TH/MM3 (150-450); RED BLOOD COUNT 3.98 MIL/MM3 (4.50-5.90); RED CELL DISTRIBUTION WIDTH 13.7 % (11.6-17.2)
--- NOTE | 2016-11-22 09:20 | HHI.PR ---
Subjective Remarks 66yr old male seen and examined today. No fever/CP/SOB/NV. Pain is controlled with meds. Objective Objective Results - Vital Signs Date Time Temp Pulse Resp B/P Pulse Ox O2 Delivery O2 Flow Rate FiO2 11/22/16 08:05 96 Nasal Cannula 3.00 11/22/16 08:00 98.7 91 20 163/100 99 11/22/16 04:00 97.9 97 18 155/87 91 11/22/16 00:39 97.6 110 16 145/89 93 11/21/16 20:05 93 Nasal Cannula 3.00 11/21/16 20:00 117 11/21/16 20:00 97.4 113 18 160/95 92 11/21/16 12:00 97.0 96 18 171/93 96 I/O 11/21/16 11/21/16 11/21/16 11/22/16 11/22/16 11/22/16 07:00 15:00 23:00 07:00 15:00 23:00 Intake Total 420 ml 1525 ml 1286 ml Output Total 600 ml Balance 420 ml 1525 ml 686 ml Intake Oral 420 ml IV Total 1525 ml 1286 ml Output Urine Total 600 ml # Voids 2 3 # Bowel Movements 0 1 0 Result Diagram: 11/21/16 0534 11/22/16 0625 Imaging Last Impressions Liver Ultrasound 11/20/16 0000 Signed Impressions: Service Date/Time: November 13:48 - CONCLUSION: 1. Liver mildly enlarged to 17 cm with fatty infiltration. 2. Cholecystectomy without biliary ductal dilatation. No free fluid. Gary Juarez MD Head CT 11/20/16 0000 Signed Impressions: Service Date/Time: November 08:31 - CONCLUSION: Normal examination for a patient of this age. No significant change has occurred. Gary Juarez MD Chest X-Ray 11/20/16 0000 Signed Impressions: Service Date/Time: November 07:34 - CONCLUSION: No acute cardiopulmonary abnormality is identified. Enio Arteaga MD Cervical Spine CT 11/20/16 0000 Signed Impressions: Service Date/Time: November 08:31 - CONCLUSION: 1. No acute findings. Mild degenerative disc disease. No significant change from June 2016. Gary Juarez MD Abdomen/Pelvis CT 11/20/16 0000 Signed Impressions: Service Date/Time: November 16:50 - CONCLUSION: 1. Distal airway disease in the lungs with some bronchial thickening and distal bronchiolectasis. Several small areas of nodular infiltrate noted with overall improvement compared with CT from August 2016. 2. No acute findings within the abdomen. Mild fatty liver. Cholecystectomy. No constipation. Gary Juarez MD Other Results Laboratory Tests Test 11/22/16 06:25 Sodium Level 144 Potassium Level 3.9 Chloride Level 107 Carbon Dioxide Level 29.4 Anion Gap 8 Blood Urea Nitrogen 2 Creatinine 0.52 Estimat Glomerular Filtration 159 Rate Random Glucose 75 Calcium Level 8.0 Total Bilirubin 0.4 Direct Bilirubin 0.1 Indirect Bilirubin 0.3 Aspartate Amino Transf 33 (AST/SGOT) Alanine Aminotransferase 57 (ALT/SGPT) Alkaline Phosphatase 104 Total Protein 6.0 Albumin 2.3 Amylase Level 14 Lipase 42 Date/Time Procedure Status Source Growth 11/20/16 10:36 Gram Stain - Final Resulted Cerebral Spinal Fluid Lumbar Puncture 11/20/16 10:36 CSF Culture - Preliminary Resulted Cerebral Spinal Fluid Lumbar Puncture NO GROWTH IN 48 HOURS. 11/20/16 08:55 Influenza Types A,B Antigen (DAYANNA) - Final Complete Nasal Aspirate NEGATIVE FOR FLU A AND B ANTIGEN.... 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 He is alert and awake. HEAD: Normocephalic without any lesion or mass noted. . EYES: Perrla, Normal eye movement, no Icterus. OROPHARYNGEAL: Oropharynx without erythema or edema. MOUTH/THROAT: Buccal mucosa is moist. NECK: Supple. CARDIAC: Regular rhythm, regular rate, S1 and S2 are heard. LUNGS: Clear to auscultation bilaterally. ABDOMEN: Soft, nontender, no organomegaly or masses. Bowel sounds are heard in all four quadrants. No rebound. No guarding. EXTREMITIES: No edema. Pulses equal bilateral. NEUROLOGICAL: No focal deficits. SKIN:Warm and moist PSYCH: Mood and affect appropriate A/P Assessment and Plan Assessment Fever, etiology unclear Headache Fall Bronchiectasis Nodular infiltrates in both lungs Elevated liver enzymes Fatty liver changes Mild hepatomegaly Management telemetry antibiotics per infectious disease Follow CSF cultures infectious disease specialist following Pain control Appreciate Gi input. Repeat c.diff pending. Patient will benefit from EGD/colonoscopy when clinically stable. Follow blood cultures Follow liver enzymes DVT prophylaxis: heparin Avoid hepatotoxic medications at this time Hold off tizanidine as this could increase liver enzymes Pain control: morphine Discussed with patient Discussed with nurse AM labs. Ronak Rosario MD Nov 22, 2016 09:20
[2016-11-22] MEDS ORDERED: VANCOMYCIN TROUGH XX ONE (09:45)
[2016-11-22] MEDS: VANCOMYCIN INJ 1,100 MG in SODIUM CHLOR 0.9% 250 ML INJ 250 ML IV SCH (10:48)
[2016-11-22] MEDS ORDERED: ACETAMINOPHEN 325 MG TAB PO ONE (13:30)
[2016-11-22] MEDS: GABAPENTIN 300 MG CAP PO SCH (22:05)
[2016-11-22] MEDS: VANCOMYCIN INJ 1,250 MG in SODIUM CHLOR 0.9% 250 ML INJ 250 ML IV SCH (22:26)
[2016-11-22] MEDS: MORPHINE SULFATE 15 MG TAB PO PRN (22:27)
[2016-11-23] VITALS (7 sets, daily range): BP systolic 130–187; BP diastolic 76–106; PULSE 67–119; RESP 12–20; TEMP 98–100; O2SAT 92–98
[2016-11-23] MEDS: MORPHINE SULFATE 15 MG TAB PO PRN ×2 (03:42→22:21)
[2016-11-23 07:51] LABS: AUTOMATED NEUTROPHIL # 5.5 TH/MM3 (1.8-7.7); BASOPHIL % 0.2 % (0.0-2.0); EOSINOPHIL # 0.2 TH/MM3 (0-0.4); EOSINOPHIL % 2.3 % (0.0-4.0); HEMATOCRIT 35.2 % (39.0-51.0); LYMPH % 9.8 % (9.0-44.0); LYMPHOCYTE # 0.7 TH/MM3 (1.0-4.8); MEAN CELL VOLUME 91.7 FL (80.0-100.0); MEAN CORPUSCULAR HEMOGLOBIN 29.1 PG (27.0-34.0); MEAN CORPUSCULAR HGB CONC 31.8 % (32.0-36.0); MONO % 9.6 % (0.0-8.0); NEUT % 78.1 % (16.0-70.0); PLATELET COUNT 272 TH/MM3 (150-450); RED BLOOD COUNT 3.83 MIL/MM3 (4.50-5.90); RED CELL DISTRIBUTION WIDTH 13.8 % (11.6-17.2); WHITE BLOOD COUNT 7.1 TH/MM3 (4.0-11.0)
[2016-11-23 07:53] LABS: HEMO FLAGS DIFF FINAL
[2016-11-23 07:59] LABS: CHLORIDE 108 MEQ/L (98-107); POTASSIUM 3.2 MEQ/L (3.5-5.1); SODIUM (NA) 146 MEQ/L (136-145)
[2016-11-23 08:03] LABS: ANION GAP 7 MEQ/L (5-15); BICARBONATE 30.9 MEQ/L (21.0-32.0); BLOOD UREA NITROGEN 3 MG/DL (7-18)
[2016-11-23 08:06] LABS: ALT (GPT) 38 U/L (12-78); AST (GOT) 13 U/L (15-37); GLOMERULAR FILTRATION RATE 133 ML/MIN (>89)
[2016-11-23 08:07] LABS: TOTAL BILIRUBIN ADULT 0.3 MG/DL (0.2-1.0)
[2016-11-23 08:09] LABS: ALKALINE PHOSPHATASE 92 U/L (45-117)
[2016-11-23] MEDS: FLUoxetine HCL 10 MG CAP PO SCH (08:12)
[2016-11-23] MEDS: azaTHIOprine 50 MG TAB PO SCH (08:13)
[2016-11-23] MEDS: PANTOPRAZOLE SOD 20 MG DELAYED RELEASE TAB PO SCH (08:13)
[2016-11-23] MEDS: LACTOBACILLUS ACIDOPHILUS TAB PO SCH ×3 (08:13→17:08)
[2016-11-23] MEDS: SODIUM CHLORIDE 0.9% FLUSH 5 ML FLUSH FLUSH SCH ×2 (08:14→21:00)
--- NOTE | 2016-11-23 08:15 | HHI.PR ---
Subjective Remarks 66yr old male seen and examined today. No fever/CP/SOB/NV. Pain is controlled with meds. Objective Objective Results - Vital Signs Date Time Temp Pulse Resp B/P Pulse Ox O2 Delivery O2 Flow Rate FiO2 11/23/16 07:56 92 21 11/23/16 04:03 98.0 105 12 159/99 92 11/23/16 00:03 98.6 67 12 130/76 96 11/22/16 23:27 18 11/22/16 20:41 99.1 60 12 135/81 93 11/22/16 19:41 95 Nasal Cannula 2.00 11/22/16 19:39 84 21 11/22/16 16:00 98.0 92 20 158/100 99 11/22/16 12:00 97.0 98 20 150/88 100 I/O 11/22/16 11/22/16 11/22/16 11/23/16 11/23/16 11/23/16 07:00 15:00 23:00 07:00 15:00 23:00 Intake Total 1286 ml 450 ml Output Total 600 ml 970 ml Balance 686 ml -520 ml Intake Oral 450 ml IV Total 1286 ml Output Urine Total 600 ml 970 ml # Voids 0 1 # Bowel Movements 0 Result Diagram: 11/23/16 0645 11/23/16 0645 Imaging Last Impressions Liver Ultrasound 11/20/16 0000 Signed Impressions: Service Date/Time: November 13:48 - CONCLUSION: 1. Liver mildly enlarged to 17 cm with fatty infiltration. 2. Cholecystectomy without biliary ductal dilatation. No free fluid. Gary Juarez MD Head CT 11/20/16 0000 Signed Impressions: Service Date/Time: November 08:31 - CONCLUSION: Normal examination for a patient of this age. No significant change has occurred. Gary Juarez MD Chest X-Ray 11/20/16 0000 Signed Impressions: Service Date/Time: November 07:34 - CONCLUSION: No acute cardiopulmonary abnormality is identified. Enio Arteaga MD Cervical Spine CT 11/20/16 0000 Signed Impressions: Service Date/Time: November 08:31 - CONCLUSION: 1. No acute findings. Mild degenerative disc disease. No significant change from June 2016. Gary Juarez MD Abdomen/Pelvis CT 11/20/16 0000 Signed Impressions: Service Date/Time: November 16:50 - CONCLUSION: 1. Distal airway disease in the lungs with some bronchial thickening and distal bronchiolectasis. Several small areas of nodular infiltrate noted with overall improvement compared with CT from August 2016. 2. No acute findings within the abdomen. Mild fatty liver. Cholecystectomy. No constipation. Gary Juarez MD Other Results Laboratory Tests Test 11/22/16 11/22/16 11/23/16 09:06 10:43 06:45 White Blood Count 8.0 7.1 Red Blood Count 3.98 3.83 Hemoglobin 11.9 11.2 Hematocrit 36.5 35.2 Mean Corpuscular Volume 91.6 91.7 Mean Corpuscular Hemoglobin 29.9 29.1 Mean Corpuscular Hemoglobin 32.7 31.8 Concent Red Cell Distribution Width 13.7 13.8 Platelet Count 268 272 Mean Platelet Volume 6.7 7.3 Neutrophils (%) (Auto) 79.5 78.1 Lymphocytes (%) (Auto) 8.3 9.8 Monocytes (%) (Auto) 9.1 9.6 Eosinophils (%) (Auto) 1.3 2.3 Basophils (%) (Auto) 1.8 0.2 Neutrophils # (Auto) 6.4 5.5 Lymphocytes # (Auto) 0.7 0.7 Monocytes # (Auto) 0.7 0.7 Eosinophils # (Auto) 0.1 0.2 Basophils # (Auto) 0.1 0.0 CBC Comment DIFF FINAL DIFF FINAL Differential Comment Vancomycin Level Trough 11.2 Sodium Level 146 Potassium Level 3.2 Chloride Level 108 Carbon Dioxide Level 30.9 Anion Gap 7 Blood Urea Nitrogen 3 Creatinine 0.61 Estimat Glomerular Filtration 133 Rate Random Glucose 89 Calcium Level 8.1 Total Bilirubin 0.3 Aspartate Amino Transf 13 (AST/SGOT) Alanine Aminotransferase 38 (ALT/SGPT) Alkaline Phosphatase 92 Total Protein 6.0 Albumin 2.3 Date/Time Procedure Status Source Growth 11/20/16 10:36 Gram Stain - Final Resulted Cerebral Spinal Fluid Lumbar Puncture 11/20/16 10:36 CSF Culture - Preliminary Resulted Cerebral Spinal Fluid Lumbar Puncture NO GROWTH IN 48 HOURS. 11/20/16 08:55 Influenza Types A,B Antigen (DAYANNA) - Final Complete Nasal Aspirate NEGATIVE FOR FLU A AND B ANTIGEN.... 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 He is alert and awake. HEAD: Normocephalic without any lesion or mass noted. . EYES: Perrla, Normal eye movement, no Icterus. OROPHARYNGEAL: Oropharynx without erythema or edema. MOUTH/THROAT: Buccal mucosa is moist. NECK: Supple. CARDIAC: Regular rhythm, regular rate, S1 and S2 are heard. LUNGS: Clear to auscultation bilaterally. ABDOMEN: Soft, nontender, no organomegaly or masses. Bowel sounds are heard in all four quadrants. No rebound. No guarding. EXTREMITIES: No edema. Pulses equal bilateral. NEUROLOGICAL: No focal deficits. SKIN:Warm and moist PSYCH: Mood and affect appropriate A/P Assessment and Plan Assessment Fever, etiology unclear Headache Fall Bronchiectasis Nodular infiltrates in both lungs Elevated liver enzymes Fatty liver changes Mild hepatomegaly Hypokalemia. Management telemetry antibiotics per infectious disease Follow CSF cultures infectious disease specialist following Pain control Appreciate GI input. Repeat c.diff pending. Patient will benefit from EGD/colonoscopy when clinically stable. Follow blood cultures Follow liver enzymes: normalized now. Replace potassium and monitor. DVT prophylaxis: heparin Avoid hepatotoxic medications at this time Hold off tizanidine as this could increase liver enzymes Pain control: morphine Discussed with patient Discussed with nurse AM labs. Ronak Rosario MD Nov 23, 2016 08:15
[2016-11-23] MEDS ORDERED: POTASSIUM CHLORIDE 20 MEQ CONTROLLED RELEASE TAB PO ONE (10:00)
[2016-11-23] MEDS: VANCOMYCIN INJ 1,250 MG in SODIUM CHLOR 0.9% 250 ML INJ 250 ML IV SCH ×2 (10:11→21:19)
[2016-11-23] MEDS: SODIUM CHLOR 0.9% 1000 ML INJ 1,000 ML IV SCH ×2 (12:35→19:52)
--- NOTE | 2016-11-23 16:49 | HHI.GIFU ---
GI Follow-up Note Consult Follow-up Subjective: Patient laying in bed comfortably, no new complaints except feeling weal and tired Objective: PHYSICAL EXAMINATION: Vitals signs stable No fever HEENT: Pupils round and reactive to light; normocephalic; atraumatic; no jaundice. Throat is clear. NECK: Neck is supple, no JVD, no lymphadenopathy. CHEST: Chest is clear to auscultation and percussion. CARDIAC: Regular rate and rhythm with no murmur gallop or rubs. ABDOMEN: Soft, nondistended, nontender; no hepatosplenomegaly; bowel sounds are present in all four quadrants. EXTREMITIES: No clubbing, cyanosis, or edema. SKIN: Normal; no rash; no jaundice. 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 Available Data (labs, X- Rays, Procedues) : Last Impressions Liver Ultrasound 11/20/16 Signed Impressions: Service Date/Time: November 13:48 - CONCLUSION: 1. Liver mildly enlarged to 17 cm with fatty infiltration. 2. Cholecystectomy without biliary ductal dilatation. No free fluid. Gary Juarez MD Head CT 11/20/16 Signed Impressions: Service Date/Time: November 08:31 - CONCLUSION: Normal examination for a patient of this age. No significant change has occurred. Gary Juarez MD Chest X-Ray 11/20/16 Signed Impressions: Service Date/Time: November 07:34 - CONCLUSION: No acute cardiopulmonary abnormality is identified. Enio Arteaga MD Cervical Spine CT 11/20/16 Signed Impressions: Service Date/Time: November 08:31 - CONCLUSION: 1. No acute findings. Mild degenerative disc disease. No significant change from June 2016. Gary Juarez MD Abdomen/Pelvis CT 11/20/16 0000 Signed Impressions: Service Date/Time: November 16:50 - CONCLUSION: 1. Distal airway disease in the lungs with some bronchial thickening and distal bronchiolectasis. Several small areas of nodular infiltrate noted with overall improvement compared with CT from August 2016. 2. No acute findings within the abdomen. Mild fatty liver. Cholecystectomy. No constipation. Gary Juarez MD Laboratory Tests Test 311/22/16 11/22/16 11/23/16 06:25 09:06 10:43 06:45 Sodium Level 144 MEQ/L 146 MEQ/L Potassium Level 3.9 MEQ/L 3.2 MEQ/L Chloride Level 107 MEQ/L 108 MEQ/L Carbon Dioxide Level 29.4 MEQ/L 30.9 MEQ/L Anion Gap 8 MEQ/L 7 MEQ/L Blood Urea Nitrogen 2 MG/DL 3 MG/DL Creatinine 0.52 MG/DL 0.61 MG/DL Estimat Glomerular Filtration 159 ML/MIN 133 ML/MIN Rate Random Glucose 75 MG/DL 89 MG/DL Calcium Level 8.0 MG/DL 8.1 MG/DL Total Bilirubin 0.4 MG/DL 0.3 MG/DL Direct Bilirubin 0.1 MG/DL Indirect Bilirubin 0.3 MG/DL Aspartate Amino Transf 33 U/L 13 U/L (AST/SGOT) Alanine Aminotransferase 57 U/L 38 U/L (ALT/SGPT) Alkaline Phosphatase 104 U/L 92 U/L Total Protein 6.0 GM/DL 6.0 GM/DL Albumin 2.3 GM/DL 2.3 GM/DL Amylase Level 14 U/L Lipase 42 U/L White Blood Count 8.0 TH/MM3 7.1 TH/MM3 Red Blood Count 3.98 MIL/MM3 3.83 MIL/MM3 Hemoglobin 11.9 GM/DL 11.2 GM/DL Hematocrit 36.5 % 35.2 % Mean Corpuscular Volume 91.6 FL 91.7 FL Mean Corpuscular Hemoglobin 29.9 PG 29.1 PG Mean Corpuscular Hemoglobin 32.7 % 31.8 % Concent Red Cell Distribution Width 13.7 % 13.8 % Platelet Count 268 TH/MM3 272 TH/MM3 Mean Platelet Volume 6.7 FL 7.3 FL Neutrophils (%) (Auto) 79.5 % 78.1 % Lymphocytes (%) (Auto) 8.3 % 9.8 % Monocytes (%) (Auto) 9.1 % 9.6 % Eosinophils (%) (Auto) 1.3 % 2.3 % Basophils (%) (Auto) 1.8 % 0.2 % Neutrophils # (Auto) 6.4 TH/MM3 5.5 TH/MM3 Lymphocytes # (Auto) 0.7 TH/MM3 0.7 TH/MM3 Monocytes # (Auto) 0.7 TH/MM3 0.7 TH/MM3 Eosinophils # (Auto) 0.1 TH/MM3 0.2 TH/MM3 Basophils # (Auto) 0.1 TH/MM3 0.0 TH/MM3 CBC Comment DIFF FINAL DIFF FINAL Differential Comment Vancomycin Level Trough 11.2 MCG/ML Allergies Coded Allergies Type Severity Reaction Last Updated Verified Fire Ant Allergy Intermediate Anaphylaxis 07/17/16 Yes Active Scripts Medications Dose Route/Sig Days Date Category Dose Instructions Zofran Odt (Ondansetron Odt) 4 Mg Tab 4 Mg SL Q6HR PRN 10/27/16 Rx Acidophilus/l-Sporogenes (Lactobacillus Acidophilus) 1 Tab Tab 1 Tab PO TID 09/17/16 Rx Hydrocodone-Acetaminophen 10-325 mg Tab 1 Tab PO Q6H PRN 09/15/16 Reported Diazepam 10 Mg Tab 10 Mg PO TID PRN 09/13/16 Reported Fluoxetine (Fluoxetine HCl) 20 Mg Tab 20 Mg PO DAILY 09/13/16 Reported Omeprazole 20 Mg Tab 20 Mg PO DAILY 09/13/16 Reported Gabapentin 600 Mg Tab 600 Mg PO HS 09/13/16 Reported Tizanidine (Tizanidine HCl) 4 Mg Tab 4 Mg PO QID 09/13/16 Reported Azathioprine 50 Mg Tab 50 Mg PO DAILY 09/13/16 Reported Hazardous agent use appropriate precautions for handling and disposal. ASSESSMENT/PLAN: Seen and examined, doing better. No bleeding. Had appointment with dr. Robison egd/colonoscopy tomorrow as outpt. Egd/ Colonoscopy planned for thursday as inpt. Lfts improving. It was a pleasure seeing Dave Wolff. Thank you for this consult. Entered by: Evan Ulrich MD Nov 23, 2016 16:49
[2016-11-23] MEDS: GABAPENTIN 300 MG CAP PO SCH (21:19)
[2016-11-23] MEDS: cloNIDine HCL 0.1 MG TAB PO PRN (21:19)
[2016-11-24] VITALS: BP 142/89; PULSE 95; RESP 18; TEMP 98.1; O2SAT 96
[2016-11-24 04:00] VITALS: BP 158/98; PULSE 90; RESP 18; TEMP 97.6; O2SAT 96
[2016-11-24] MEDS: SODIUM CHLOR 0.9% 1000 ML INJ 1,000 ML IV SCH (05:05)
[2016-11-24 06:19] LABS: BICARBONATE 29.2 MEQ/L (21.0-32.0)
--- NOTE | 2016-11-24 07:56 | HHI.GIFU ---
GI Follow-up Note Consult Follow-up Subjective: Patient laying in bed comfortably, feeling better. Discussed about egd/colonoscopy in am, would like to have it as an op with dr Canela .At this time denies nausea, vomiting, abdominal pain or any other gi problems . Objective: PHYSICAL EXAMINATION: Vitals signs stable No fever Vital Signs Date Time Temp Pulse Resp B/P Pulse Ox O2 Delivery O2 Flow Rate FiO2 11/24/16 04:00 97.6 90 18 158/98 96 11/24/16 00:00 96 21 11/24/16 00:00 98.1 95 18 142/89 96 HEENT: Pupils round and reactive to light; normocephalic; atraumatic; no jaundice. Throat is clear. NECK: Neck is supple, no JVD, no lymphadenopathy. CHEST: Chest is clear to auscultation and percussion. CARDIAC: Regular rate and rhythm with no murmur gallop or rubs. ABDOMEN: Soft, nondistended, nontender; no hepatosplenomegaly; bowel sounds are present in all four quadrants. EXTREMITIES: No clubbing, cyanosis, or edema. SKIN: Normal; no rash; no jaundice. DRILLING FLUIDS SPECIALIST: No focal deficits; alert and oriented times three. Available Data (labs, X- Rays, Procedues) : Laboratory Tests Test 11/22/16 11/22/16 11/23/16 11/24/16 09:06 10:43 06:45 05:05 White Blood Count 8.0 TH/MM3 7.1 TH/MM3 Red Blood Count 3.98 MIL/MM3 3.83 MIL/MM3 Hemoglobin 11.9 GM/DL 11.2 GM/DL Hematocrit 36.5 % 35.2 % Mean Corpuscular Volume 91.6 FL 91.7 FL Mean Corpuscular Hemoglobin 29.9 PG 29.1 PG Mean Corpuscular Hemoglobin 32.7 % 31.8 % Concent Red Cell Distribution Width 13.7 % 13.8 % Platelet Count 268 TH/MM3 272 TH/MM3 Mean Platelet Volume 6.7 FL 7.3 FL Neutrophils (%) (Auto) 79.5 % 78.1 % Lymphocytes (%) (Auto) 8.3 % 9.8 % Monocytes (%) (Auto) 9.1 % 9.6 % Eosinophils (%) (Auto) 1.3 % 2.3 % Basophils (%) (Auto) 1.8 % 0.2 % Neutrophils # (Auto) 6.4 TH/MM3 5.5 TH/MM3 Lymphocytes # (Auto) 0.7 TH/MM3 0.7 TH/MM3 Monocytes # (Auto) 0.7 TH/MM3 0.7 TH/MM3 Eosinophils # (Auto) 0.1 TH/MM3 0.2 TH/MM3 Basophils # (Auto) 0.1 TH/MM3 0.0 TH/MM3 CBC Comment DIFF FINAL DIFF FINAL Differential Comment Vancomycin Level Trough 11.2 MCG/ML Sodium Level 146 MEQ/L 146 MEQ/L Potassium Level 3.2 MEQ/L 3.0 MEQ/L Chloride Level 108 MEQ/L 109 MEQ/L Carbon Dioxide Level 30.9 MEQ/L 29.2 MEQ/L Anion Gap 7 MEQ/L 8 MEQ/L Blood Urea Nitrogen 3 MG/DL 3 MG/DL Creatinine 0.61 MG/DL 0.65 MG/DL Estimat Glomerular Filtration 133 ML/MIN 123 ML/MIN Rate Random Glucose 89 MG/DL 89 MG/DL Calcium Level 8.1 MG/DL 8.1 MG/DL Total Bilirubin 0.3 MG/DL Aspartate Amino Transf 13 U/L (AST/SGOT) Alanine Aminotransferase 38 U/L (ALT/SGPT) Alkaline Phosphatase 92 U/L Total Protein 6.0 GM/DL Albumin 2.3 GM/DL ASSESSMENT/PLAN: sepsis-clinically better elevated lfts -improved most likely secondary sepsi, medications-currently improved Crohn's disease -noncompliant due to insurance issues-needs egd/colonoscopy would like to have it as an op with his new gi doctor Recommendations fu labs egd/colon op with dr jami jeffers gi of his choice upon dc gi will sign off call us as needed It was a pleasure seeing Dave Wolff. Thank you for this consult. Entered by: Sandra Mcwilliams MD Nov 24, 2016 07:56
[2016-11-24 08:00] VITALS: BP 171/98; PULSE 117; PULSE 91; RESP 18; TEMP 97; O2SAT 92
[2016-11-24] MEDS: LACTOBACILLUS ACIDOPHILUS TAB PO SCH (08:04)
[2016-11-24] MEDS: azaTHIOprine 50 MG TAB PO SCH (08:05)
[2016-11-24] MEDS: MORPHINE SULFATE 15 MG TAB PO PRN (08:05)
[2016-11-24] MEDS: cloNIDine HCL 0.1 MG TAB PO PRN (08:05)
[2016-11-24] MEDS: PANTOPRAZOLE SOD 20 MG DELAYED RELEASE TAB PO SCH (08:06)
[2016-11-24] MEDS: FLUoxetine HCL 10 MG CAP PO SCH (09:00)
[2016-11-24] MEDS: SODIUM CHLORIDE 0.9% FLUSH 5 ML FLUSH FLUSH SCH (09:00)
--- NOTE | 2016-11-24 09:00 | HHI.PR ---
Subjective History of Present Illness PT is seen & exam,ined chart reviewed I am ok , feels better Headache is better ch back pain / pain meds are helping NO N/V appetite is better ch burning in b/l feet d/t neuropathy , unchanged No sig cough , no sputum No CP or SOB No abd pain No diarrhea or melena Offers no otehr c/o Vitals/Results Intake & Output 11/23/16 11/23/16 11/24/16 15:00 23:00 07:00 Intake Total 630 ml 800 ml Balance 630 ml 800 ml Intake Oral 630 ml IV Total 800 ml # Voids 5 2 5 # Bowel Movements 5 2 10 Vital Signs Vital Signs Date Time Temp Pulse Resp B/P Pulse Ox O2 Delivery O2 Flow Rate FiO2 11/24/16 08:00 117 11/24/16 04:00 97.6 90 18 158/98 96 11/24/16 00:00 96 21 11/24/16 00:00 98.1 95 18 142/89 96 11/23/16 23:32 20 11/23/16 20:00 98.7 103 18 179/106 98 11/23/16 20:00 119 11/23/16 16:00 100.0 97 20 187/100 93 11/23/16 11:00 98.5 110 20 174/100 93 CBC/BMP: 11/23/16 0645 11/24/16 0505 Lab Results Laboratory Tests Test 11/24/16 05:05 Sodium Level 146 MEQ/L Potassium Level 3.0 MEQ/L Chloride Level 109 MEQ/L Carbon Dioxide Level 29.2 MEQ/L Anion Gap 8 MEQ/L Blood Urea Nitrogen 3 MG/DL Creatinine 0.65 MG/DL Estimat Glomerular Filtration 123 ML/MIN Rate Random Glucose 89 MG/DL Calcium Level 8.1 MG/DL Physical Exam General General Appearance: No Acute Distress, Comfortable Eyes Eye Exam: Pupils Equal, Sclera White Ears & Nose Ears & Nose Exam: Nasal Mucosa [place] Throat Throat Exam: Oral Mucosa [place] & Moist Neck Neck Exam: Neck Supple, Trachea Midline Pulmonary Resp Exam: Clear Bilaterally, Breath Sounds Equal, No Distress Cardiology CV Exam: Regular, Normal Sinus Rhythm Gastrointestinal/Abdomen GI Exam: Soft, Non-Tender, Bowel Sounds Present Integumentary Skin Exam: Warm, Dry Extremeties Extremities Exam: No Edema Neurologic Neuro Exam: Alert, Awake, Oriented, Speech Clear, Moving All Extremities Psychiatric Psych Exam: Appropriate Responses VTE Prophylaxis VTE Prophylaxis Meds: Heparin Assessment/Plan Assessment/Plan Assessment ACUTE FEBRILE ILLNESS ? etiology unclear ? VIRAL INFECTION S/P Headache Fall Bronchiectasis Elevated liver enzymes/Fatty liver changes Mild hepatomegaly Hx Rheumatoid arthritis Hx Crohn's disease Hx of Testicular cancer s/p Orchiectomy s/p radiation in 2000 Hyperlipidemia Anxiety hypertension Hiatal hernia Sleep apnea PLAN Blood c/s neg s/p spinal tap , neg spinal fluid c/s neg x 72 hrs ID input appreciated will d/c IV vanco already off IV ampicillin Acute hep panel neg RENATO/AMA/ASMA [p] Dent test +ve CMV titer is neg GI input appreciated , rec EGD , cscope as out pt basis on Imuran analgesic prn Antidepressants cont current tx DVT prophylaxis Avoid hepatotoxic medications at this time Hold off tizanidine as this could increase liver enzymes medically stable for d./c d/c home today f/u pending labs at pcp's office f/u pcp f/u GI see MRS see Orders Luis Felipe Ramirez MD Nov 24, 2016 09:00
[2016-11-24 09:05] VITALS: RESP 20
[2016-11-24] MEDS ORDERED: PHARMACY ORDERED LAB XX ONE (09:45)
[2016-11-24] MEDS: VANCOMYCIN INJ 1,250 MG in SODIUM CHLOR 0.9% 250 ML INJ 250 ML IV SCH (10:00)
[2016-11-24] MEDS ORDERED: POTASSIUM CHLOR 10 MEQ PREMIX 100 ML IV ONE (10:00)
[2016-11-24] MEDS ORDERED: POTASSIUM CHLORIDE 10 MEQ CONTROLLED RELEASE TAB PO ONE (10:15)
[2016-11-24 10:54] LABS: ANA SCREEN NEG (NEG)
[2016-11-25 03:49] LABS: HERPES 6 IGG 1:20 (()); HERPES 6 IGM <1:20 (()); HERPES INTERPRETATION PAST INFECTION (()); MITOCHONDRIAL ABS LESS THAN 20.0 U (())
[2016-11-25 17:53] LABS: IGA SERUM 293 mg/dL (81-463); TISSUE TRANSGLUTAMINASE AB IGG ND U/mL (())
[2016-11-25 23:54] LABS: ENDOMYSIAL AB TITER ND (<1:5); TISSUE TRANSGLUTAMINASE AB LESS THAN 1 U/mL (())
--- NOTE | 2016-11-30 18:16 | HHI.DS ---
Discharge Summary Admission Date Nov 20, 2016 at 09:53 Discharge Date: Nov 24, 2016 Admitting Diagnosis Sepsis with no known source (1) Sepsis (2) Transaminitis Imaging Last Impressions Liver Ultrasound 11/20/16 Signed Impressions: Service Date/Time: November 13:48 - CONCLUSION: 1. Liver mildly enlarged to 17 cm with fatty infiltration. 2. Cholecystectomy without biliary ductal dilatation. No free fluid. Gary Juarez MD Head CT 11/20/16 Signed Impressions: Service Date/Time: November 08:31 - CONCLUSION: Normal examination for a patient of this age. No significant change has occurred. Gary Juarez MD Chest X-Ray 11/20/16 Signed Impressions: Service Date/Time: November 07:34 - CONCLUSION: No acute cardiopulmonary abnormality is identified. Enio Arteaga MD Cervical Spine CT 11/20/16 Signed Impressions: Service Date/Time: November 08:31 - CONCLUSION: 1. No acute findings. Mild degenerative disc disease. No significant change from June 2016. Gary Juarez MD Abdomen/Pelvis CT 11/20/16 Signed Impressions: Service Date/Time: November 16:50 - CONCLUSION: 1. Distal airway disease in the lungs with some bronchial thickening and distal bronchiolectasis. Several small areas of nodular infiltrate noted with overall improvement compared with CT from August 2016. 2. No acute findings within the abdomen. Mild fatty liver. Cholecystectomy. No constipation. Gary Juarez MD Hospital Course This 66-year-old male who presented to ED. He has fallen earlier, no loss of consciousness, he was walking to the bathroom and his leg gave way. He has problems with early onset arthritis that affects most of his joints. Also he has Crohn's disease for which is on Imuran. He came in with a temperature of 101 with headache and neck pain. Also has a heart rate is 110. He had some diarrhea. He had a recent C. difficile colitis in August 2016. He was found to have elevated liver enzymes. No focus of Infection was found in the emergency department. He was given a dose of intravenous vancomycin and a dose of intravenous Zosyn. He underwent a lumbar puncture while in the emergency department. CSF analysis was unremarkable. He did have elevated liver enzymes on this admission and he had normal liver enzymes back on 10/27/16. He continued to use tizanidine for his muscular spasm. He was due to have an endoscopy and colonoscopy in few days. The patient did mention a episode of syncope on 09/29/16 that was felt secondary to dehydration. His blood pressure was low in the emergency department. Pt. was admitted for further evaluation Acute febrile illness etiology unclear ? VIRAL INFECTION S/P Headache Fall Bronchiectasis Elevated liver enzymes/Fatty liver changes Mild hepatomegaly Hx Rheumatoid arthritis Hx Crohn's disease Hx of Testicular cancer s/p Orchiectomy s/p radiation in 2000 Hyperlipidemia Anxiety hypertension Hiatal hernia Sleep apnea During the course of the hospitalization, the following took place: Admitted to telemetry Empiric antibiotics will follow CSF cultures were followed Infectious disease and GI was consulted Appropriate pain control disorder Liver enzymes were followed We avoided hepatotoxic medications at this time Held off tizanidine as this could increase liver enzymes Continued some home medications Blood cultures remain negative Results from spinal fluid were negative Per ID recommendations, it wasn't clear as to the source of the fever and elevated liver enzymes. Potentially they could be due to medication reaction, also possibly due to viral infection. Was continued on vancomycin Discontinued the ampicillin since he has no evidence of infection in the urine or lungs and cerebrospinal fluid test is unremarkable and he has a history of C-difficile and wanted to avoid certain antibiotics unless there is a foci of infection. If blood culture and CSF was negative at 72 hours can D/C antibiotics-these were discontinued GI evaluated patient, acute hepatitis panel was negative RENATO, AMA, ASMA were pending [place] test was [place] test +ve CMV titer is neg GI input appreciated , rec EGD , cscope-patient declined GI workup, wanted to follow-up with his own computer systems design analyst as outpatient She was continued on antidepressant Patient was put on appropriate DVT prophylaxis DVT prophylaxis Patient stabilized, he had no further fever Patient was discharged home in stable condition Pt Condition on Discharge: Stable Discharge Disposition: Discharge Home Discharge Instructions DIET: Follow Instructions for: As Tolerated, No Restrictions Fluid Restrictions: none Activities you can perform: Regular-No Restrictions Other Activity Instructions: fall precautions Follow up Referrals: Gastroenterology - 3 Weeks PCP Follow-up - 1 Week Continued Medications: Azathioprine (Azathioprine) 50 Mg Tab 50 MG PO DAILY Hazardous agent use appropriate precautions for handling and disposal. Immunosuppression #30 Ref 0 TAB Diazepam (Diazepam) 10 Mg Tab 10 MG PO TID PRN ANXIETY Ref 0 TAB Fluoxetine (Fluoxetine) 20 Mg Tab 20 MG PO DAILY Depression Control #30 Ref 0 TAB Gabapentin (Gabapentin) 600 Mg Tab 600 MG PO HS Pain Management #30 Ref 0 TAB Hydrocodone-Acetaminophen (Hydrocodone-Acetaminophen) 10-325 mg Tab 1 TAB PO Q6H PRN PAIN Ref 0 TAB Lactobacillus Acidophilus (Acidophilus/l-Sporogenes) 1 Tab Tab 1 TAB PO TID probiotic #30 TAB Omeprazole (Omeprazole) 20 Mg Tab 20 MG PO DAILY Reflux #30 Ref 0 TAB Ondansetron Odt (Zofran Odt) 4 Mg Tab 4 MG SL Q6HR PRN Nausea/Vomiting #7 Ref 0 TAB Discontinued Medications: Tizanidine (Tizanidine) 4 Mg Tab 4 MG PO QID Muscle Spasm Ref 0 TAB Barbara MohamudP Nov 30, 2016 18:16
== END 2016-11-24 12:30 | disposition home or self-care (01) | DRG 872 ==
LOC: PHED 06:58 → PHEDA 09:53 → PH3A 18:40
PROVIDERS: ADMIT Specialist; ATTEND Specialist
DX: A41.9 Sepsis, unspecified organism (principal); K76.0 Fatty (change of) liver, not elsewhere classified; J44.9 Chronic obstructive pulmonary disease, unspecified; E83.42 Hypomagnesemia; G62.9 Polyneuropathy, unspecified; K50.90 Crohn's disease, unspecified, without complications; I10 Essential (primary) hypertension; E78.5 Hyperlipidemia, unspecified; E86.0 Dehydration; E87.6 Hypokalemia; G47.30 Sleep apnea, unspecified; G89.29 Other chronic pain; K21.9 Gastro-esophageal reflux disease without esophagitis; K44.9 Diaphragmatic hernia without obstruction or gangrene; M06.9 Rheumatoid arthritis, unspecified; M19.90 Unspecified osteoarthritis, unspecified site; M79.7 Fibromyalgia; F41.9 Anxiety disorder, unspecified; R29.6 Repeated falls; Z85.47 Personal history of malignant neoplasm of testis; Z90.79 Acquired absence of other genital organ(s); Z91.19 Patient's noncompliance with other medical treatment and regimen; Z92.3 Personal history of irradiation
CPT/HCPCS: 62270; 70450; 71010; 72125; 74177; 76705; 76937; 80048; 80053; 80074; 80076; 80202; 81001; 82103; 82150; 82390; 82550; 82728; 82784; 82945; 82977; 83516; 83520; 83540; 83550; 83605; 83690; 83735; 84157; 84484; 85025; 85610; 85652; 85730; 86038; 86140; 86256; 86308; 86790; 87040; 87070; 87205; 87497; 87804; 89051; 93005; 96361; 96374; 96375; J0290; J0295; J0360; J1885; J2405; J2543; J3370; J3475; J3480; J7030; J7050; J7500; Q9963; Q9967

== ENCOUNTER 2017-01-08 12:08 | Emergency (ER) | payer MEDICARE ==
[~2017-01-08] VITALS: Ht 180.3 cm; Wt 63.0 kg
[~2017-01-08 12:08] MED LIST changes: -AMLO10TA2 PO; -NYST1000 SWISH-SWAL; -TIZA4TAB PO
[2017-01-08 12:17] VITALS: BP 100/59; PULSE 68; RESP 18; TEMP 97.6; O2SAT 95
[2017-01-08] MEDS ORDERED: SODIUM CHLOR 0.9% 1000 ML INJ 1,000 ML IV ONE ×2 (12:52→13:45)
[2017-01-08] MEDS ORDERED: SODIUM CHLORIDE 0.9% FLUSH 10 ML FLUSH IVF PRN (13:00)
--- NOTE | 2017-01-08 13:05 | PD ---
HPI Chief Complaint: Medical Clearance Time Seen by Provider: 12:35 Travel History International Travel<30 days: No Contact w/Intl Traveler<30days: No Traveled to known affect area: No History of Present Illness HPI The patient is a 66-year-old male who presents to the emergency department via EMS for dizziness. The patient has a history of chronic pain secondary to neuropathy. The patient was evaluated by his neurologist, Dr. Cortés, earlier today in the office. The patient states she returned home from his office visit and the neurologist office called him and advised him to come to the emergency department because "my color didn't look good". The patient does have a history of chronic pain, takes multiple medications for chronic pain. He also has a history of labile blood pressure with hypotension and hypertension, takes clonidine when necessary, however, did not take any blood pressure medications today. The patient does complain of mild lightheadedness, but denies any chest pain, shortness of breath, nausea, vomiting, or abdominal pain. 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) Cardiovascular Problems: Yes (htn) High Cholesterol: Yes (controlled on meds) Chemotherapy: No Chest Pain: No Congestive Heart Failure: No COPD: Yes Cerebrovascular Accident: No Diabetes: No Diminished Hearing: No Endocrine: No Fibromyalgia: Yes Gastrointestinal Disorders: Yes (CHRON'S DISEASE, GERD, HIATAL HERNIA, CHRONIC GASTRITIS, DIARRHEA) GERD: Yes (TAKES PRILOSEC) Glaucoma: No Genitourinary: No Headaches: Yes Hepatitis: No Hiatal Hernia: Yes Heparin Induced Thrombocytopen: No Hypertension: Yes (controlled on meds) Kidney Stones: No Musculoskeletal: Yes (ARTHRITIS, BURSITIS, FIBROMYALGIA, DDD, R SHOULDER PAIN) Neurologic: Yes (LEG NEUROPATHY) Psychiatric: No Reproductive: 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) Respiratory: Yes (COPD) Immunizations Current: No ( ) Migraines: No Myocardial Infarction: No Radiation Therapy: No Renal Failure: No Seizures: No Sickle Cell Disease: No Sleep Apnea: Yes Thyroid Disease: No Ulcer: No Influenza Vaccination: No PNEUMOCCOCAL Vaccine (Year): 1 Past Surgical History Abdominal Surgery: Yes (HERNIA REPAIR 5 Y/0, BOWEL RESECTION 04/2010) AICD: No Appendectomy: No Arteriovenous Shunt: No Cardiac Surgery: No Cholecystectomy: Yes Ear Surgery: No Endocrine Surgery: No Eye Surgery: No Genitourinary Surgery: 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) Gynecologic Surgery: No Insulin Pump: No Joint Replacement: No Oral Surgery: Yes (TEETH REMOVAL) Pacemaker: No Thoracic Surgery: No Other Surgery: Yes Social History Alcohol Use: Yes (RARE) Tobacco Use: No (quit 2006 ) Substance Use: No Allergies-Medications (Allergen,Severity, Reaction): Coded Allergies: Fire Ant (Verified Allergy, Intermediate, Anaphylaxis, 07/17/16) Reported Meds & Prescriptions Reported Meds & Active Scripts Active Zofran Odt (Ondansetron Odt) 4 Mg Tab 4 Mg SL Q6HR PRN Acidophilus/l-Sporogenes (Lactobacillus Acidophilus) 1 Tab Tab 1 Tab PO TID Reported Dicyclomine (Dicyclomine HCl) 10 Mg Cap 10 Mg PO TID PRN Hydrocodone-Acetaminophen 10-325 mg Tab 1 Tab PO Q6H PRN Diazepam 10 Mg Tab 10 Mg PO TID PRN Fluoxetine (Fluoxetine HCl) 20 Mg Tab 20 Mg PO DAILY Omeprazole 20 Mg Tab 20 Mg PO DAILY Gabapentin 600 Mg Tab 600 Mg PO HS Azathioprine 50 Mg Tab 50 Mg PO DAILY Hazardous agent use appropriate precautions for handling and disposal. Review of Systems Except as stated in HPI: all other systems reviewed are Neg General / Constitutional: No: Fever HENT: Positive: Lightheadedness Cardiovascular: No: Chest Pain or Discomfort, Palpitations, Tachycardia, Diaphoresis Respiratory: No: Shortness of Breath Gastrointestinal: No: Nausea, Vomiting, Abdominal Pain Musculoskeletal: Positive: Weakness Neurologic: Positive: Dizziness Physical Exam Narrative GENERAL: Awake, alert, nontoxic-appearing 66-year-old male who appears his stated age and is in no acute respiratory distress. SKIN: Focused skin assessment warm/dry. HEAD: Atraumatic. Normocephalic. EYES: Pupils equal and round. No injection or drainage. ENT: No nasal bleeding or discharge. Mucous membranes pink and moist. NECK: Trachea midline. No JVD. CARDIOVASCULAR: Regular rate and rhythm. No murmur appreciated. Heart rate in the 60s. RESPIRATORY: No accessory muscle use. Clear to auscultation. Breath sounds equal bilaterally. GASTROINTESTINAL: Abdomen soft, well-healed midline surgical scar. No rebound tenderness. MUSCULOSKELETAL: No obvious deformities. No clubbing. No cyanosis. No edema. NEUROLOGICAL: Awake and alert. No obvious cranial nerve deficits. Motor grossly within normal limits. Normal speech. PSYCHIATRIC: Appropriate mood and affect; insight and judgment normal. Data Data Last Documented VS Vital Signs Date Time Temp Pulse Resp B/P Pulse Ox O2 Delivery O2 Flow Rate FiO2 01/08/17 13:43 66 01/08/17 13:41 104/59 102/57 70/52 01/08/17 12:17 97.6 18 95 Orders Electrocardiogram (01/08/17 12:52) Complete Blood Count With Diff (01/08/17 12:52) Comprehensive Metabolic Panel (01/08/17 12:52) Magnesium (Mg) (01/08/17 12:52) Ckmb (Isoenzyme) Profile (01/08/17 12:52) Troponin I (01/08/17 12:52) Urinalysis - C+S If Indicated (01/08/17 12:52) Ecg Monitoring (01/08/17 12:52) Iv Access Insert/Monitor (01/08/17 12:52) Oximetry (01/08/17 12:52) Sodium Chloride 0.9% Flush (Ns Flush) (01/08/17 13:00) Sodium Chlor 0.9% 1000 Ml Inj (Ns 1000 M (01/08/17 12:52) Orthostatic Vital Signs (01/08/17 12:52) Chest, Single Ap (01/08/17 ) CKMB (01/08/17 12:20) CKMB% (01/08/17 12:20) Magnesium Sulfate 1 Gm Premix (Magnesium (01/08/17 13:30) Sodium Chlor 0.9% 1000 Ml Inj (Ns 1000 M (01/08/17 13:45) Labs Laboratory Tests Test 01/08/17 01/08/17 12:20 14:00 White Blood Count 6.2 TH/MM3 Red Blood Count 3.43 MIL/MM3 Hemoglobin 10.2 GM/DL Hematocrit 30.6 % Mean Corpuscular Volume 89.3 FL Mean Corpuscular Hemoglobin 29.7 PG Mean Corpuscular Hemoglobin 33.2 % Concent Red Cell Distribution Width 13.5 % Platelet Count 189 TH/MM3 Mean Platelet Volume 7.3 FL Neutrophils (%) (Auto) 70.6 % Lymphocytes (%) (Auto) 13.1 % Monocytes (%) (Auto) 11.2 % Eosinophils (%) (Auto) 4.6 % Basophils (%) (Auto) 0.5 % Neutrophils # (Auto) 4.4 TH/MM3 Lymphocytes # (Auto) 0.8 TH/MM3 Monocytes # (Auto) 0.7 TH/MM3 Eosinophils # (Auto) 0.3 TH/MM3 Basophils # (Auto) 0.0 TH/MM3 CBC Comment DIFF FINAL Differential Comment Sodium Level 144 MEQ/L Potassium Level 3.9 MEQ/L Chloride Level 110 MEQ/L Carbon Dioxide Level 26.8 MEQ/L Anion Gap 7 MEQ/L Blood Urea Nitrogen 8 MG/DL Creatinine 0.89 MG/DL Estimat Glomerular Filtration 86 ML/MIN Rate Random Glucose 101 MG/DL Calcium Level 8.0 MG/DL Magnesium Level 1.3 MG/DL Total Bilirubin 0.1 MG/DL Aspartate Amino Transf 17 U/L (AST/SGOT) Alanine Aminotransferase 11 U/L (ALT/SGPT) Alkaline Phosphatase 55 U/L Total Creatine Kinase 145 U/L Creatine Kinase MB 1.5 NG/ML Troponin I LESS THAN 0.02 NG/ML Total Protein 5.3 GM/DL Albumin 2.1 GM/DL Urine Color YELLOW Urine Turbidity CLEAR Urine pH 5.5 Urine Specific [place] 1.007 Urine Protein NEG mg/dL Urine Glucose (UA) NEG mg/dL Urine Ketones NEG mg/dL Urine Occult Blood NEG Urine Nitrite NEG Urine Bilirubin NEG Urine Urobilinogen LESS THAN 2.0 MG/DL Urine Leukocyte Esterase NEG Urine RBC LESS THAN 1 /hpf Urine WBC 1 /hpf Microscopic Urinalysis Comment CULT NOT INDICATED MDM Medical Decision Making Medical Screen Exam Complete: Yes Emergency Medical Condition: Yes Medical Record Reviewed: Yes Interpretation(s) EKG reveals normal sinus rhythm with a rate of 60. RSR prime in V1 consistent with right bundle branch block. Laboratory Tests Test 01/08/17 01/08/17 12:20 14:00 White Blood Count 6.2 TH/MM3 Red Blood Count 3.43 MIL/MM3 Hemoglobin 10.2 GM/DL Hematocrit 30.6 % Mean Corpuscular Volume 89.3 FL Mean Corpuscular Hemoglobin 29.7 PG Mean Corpuscular Hemoglobin 33.2 % Concent Red Cell Distribution Width 13.5 % Platelet Count 189 TH/MM3 Mean Platelet Volume 7.3 FL Neutrophils (%) (Auto) 70.6 % Lymphocytes (%) (Auto) 13.1 % Monocytes (%) (Auto) 11.2 % Eosinophils (%) (Auto) 4.6 % Basophils (%) (Auto) 0.5 % Neutrophils # (Auto) 4.4 TH/MM3 Lymphocytes # (Auto) 0.8 TH/MM3 Monocytes # (Auto) 0.7 TH/MM3 Eosinophils # (Auto) 0.3 TH/MM3 Basophils # (Auto) 0.0 TH/MM3 CBC Comment DIFF FINAL Differential Comment Sodium Level 144 MEQ/L Potassium Level 3.9 MEQ/L Chloride Level 110 MEQ/L Carbon Dioxide Level 26.8 MEQ/L Anion Gap 7 MEQ/L Blood Urea Nitrogen 8 MG/DL Creatinine 0.89 MG/DL Estimat Glomerular Filtration 86 ML/MIN Rate Random Glucose 101 MG/DL Calcium Level 8.0 MG/DL Magnesium Level 1.3 MG/DL Total Bilirubin 0.1 MG/DL Aspartate Amino Transf 17 U/L (AST/SGOT) Alanine Aminotransferase 11 U/L (ALT/SGPT) Alkaline Phosphatase 55 U/L Total Creatine Kinase 145 U/L Creatine Kinase MB 1.5 NG/ML Troponin I LESS THAN 0.02 NG/ML Total Protein 5.3 GM/DL Albumin 2.1 GM/DL Urine Color YELLOW Urine Turbidity CLEAR Urine pH 5.5 Urine Specific [place] 1.007 Urine Protein NEG mg/dL Urine Glucose (UA) NEG mg/dL Urine Ketones NEG mg/dL Urine Occult Blood NEG Urine Nitrite NEG Urine Bilirubin NEG Urine Urobilinogen LESS THAN 2.0 MG/DL Urine Leukocyte Esterase NEG Urine RBC LESS THAN 1 /hpf Urine WBC 1 /hpf Microscopic Urinalysis Comment CULT NOT INDICATED Chest x-ray unremarkable Differential Diagnosis Differential diagnosis includes medication side effect, unintentional overdose, dehydration, acute renal failure, hypokalemia, orthostatic hypotension, UTI, symptomatic anemia. Narrative Course IV was established, labs are drawn and sent, and the patient was placed on cardiac telemetry monitoring and continuous pulse oximetry monitoring. EKG was ordered and interpreted. Orthostatic vital signs were obtained. The patient was administered 1 L of IV fluids. The patient's orthostatic vital signs were positive, therefore, the patient was administered a second liter of IV fluids. Repeat orthostatic vital signs will be obtained after IV fluids are administered. Magnesium was mildly low, therefore, was replaced intravenously. Otherwise, labs are unremarkable. Chest x-rays negative. UA is negative. Patient is afebrile, I do not believe this is sepsis. This may be overmedication versus orthostatic hypotension. Patient will be advised to follow-up with his primary physician. Return if symptoms worsen or progress. Diagnosis Primary Impression: Orthostatic hypotension Additional Impression: Dehydration Patient Instructions: General Instructions Additional Instructions: Follow-up with your primary physician. Please provide the patient a copy of labs and x-ray results at discharge. Return if symptoms worsen or progress. Med/Other Pt SpecificInfo: No Change to Meds Disposition: 01 DISCHARGE HOME Condition: Stable Aden Nash MD Jan 08, 2017 13:05
[2017-01-08 13:07] LABS: AUTOMATED NEUTROPHIL # 4.4 TH/MM3 (1.8-7.7); BASOPHIL % 0.5 % (0.0-2.0); EOSINOPHIL # 0.3 TH/MM3 (0-0.4); EOSINOPHIL % 4.6 % (0.0-4.0); HEMATOCRIT 30.6 % (39.0-51.0); HEMO FLAGS DIFF FINAL; LYMPH % 13.1 % (9.0-44.0); LYMPHOCYTE # 0.8 TH/MM3 (1.0-4.8); MEAN CELL VOLUME 89.3 FL (80.0-100.0); MEAN CORPUSCULAR HEMOGLOBIN 29.7 PG (27.0-34.0); MEAN CORPUSCULAR HGB CONC 33.2 % (32.0-36.0); MONO % 11.2 % (0.0-8.0); NEUT % 70.6 % (16.0-70.0); PLATELET COUNT 189 TH/MM3 (150-450); RED BLOOD COUNT 3.43 MIL/MM3 (4.50-5.90); RED CELL DISTRIBUTION WIDTH 13.5 % (11.6-17.2); WHITE BLOOD COUNT 6.2 TH/MM3 (4.0-11.0)
[2017-01-08] MEDS ORDERED: DICY10CA12 PO (13:17)
[2017-01-08 13:19] LABS: ALT (GPT) 11 U/L (12-78); ANION GAP 7 MEQ/L (5-15); AST (GOT) 17 U/L (15-37); BICARBONATE 26.8 MEQ/L (21.0-32.0); BLOOD UREA NITROGEN 8 MG/DL (7-18); CHLORIDE 110 MEQ/L (98-107); GLOMERULAR FILTRATION RATE 86 ML/MIN (>89); MAGNESIUM 1.3 MG/DL (1.5-2.5); POTASSIUM 3.9 MEQ/L (3.5-5.1); SODIUM (NA) 144 MEQ/L (136-145)
[2017-01-08 13:23] LABS: ALKALINE PHOSPHATASE 55 U/L (45-117); CREATINE KINASE 145 U/L (39-308); TOTAL BILIRUBIN ADULT 0.1 MG/DL (0.2-1.0)
[2017-01-08] MEDS ORDERED: MAGNESIUM SULFATE 1 GM PREMIX 100 ML IV ONE (13:30)
[2017-01-08 13:36] LABS: CKMB 1.5 NG/ML (0.5-3.6)
[2017-01-08 13:41] VITALS: BP_SYST 102; BP_SYST 104; BP_SYST 70; BP_DIAS 52; BP_DIAS 57; BP_DIAS 59
[2017-01-08 13:43] VITALS: PULSE 66
[2017-01-08 14:35] LABS: BLOOD, URINE NEG (NEG); COMMENT (UR) CULT NOT INDICATED; CULTURE IF INDICATED CULT NOT INDICATED; GLUCOSE,URINE NEG (NEG); KETONE, URINE NEG (NEG); NITRITE,URINE NEG (NEG); PH, URINE 5.5 (5.0-8.5); URINE COLOR YELLOW (YELLW/STRAW)
[2017-01-08 15:15] VITALS: BP_SYST 112; BP_SYST 145; BP_SYST 152; BP_DIAS 57; BP_DIAS 73; BP_DIAS 79
--- NOTE | 2017-01-08 16:13 | RADRPT ---
EXAM DATE/TIME: 01/08/2017 13:39 [facility] COMPARISON: CHEST SINGLE AP, November 20, 2016, 7:34. INDICATIONS : Shortness of breath. MEDICAL HISTORY : Hypertension. Chronic renal failure. SURGICAL HISTORY : None. ENCOUNTER: Initial ACUITY: 1 day PAIN SCORE: 0/10 LOCATION: Bilateral chest FINDINGS: A single view of the chest demonstrates the lungs to be symmetrically aerated without evidence of mas s, infiltrate or effusion. The cardiomediastinal contours are unremarkable. Osseous structures are intact. CONCLUSION: No acute disease. Manuelito Blair MD on January 08, 2017 at 16:11 Board Certified Radiologist. This report was verified electronically.
--- NOTE | 2017-01-08 18:29 | EKG ---
Date Performed: 01/08/2017 Time Performed: 13:55:47 PTAGE: 66 years EKG: Sinus rhythm RIGHT BUNDLE BRANCH BLOCK ABNORMAL ECG COMPARED TO PRIOR ELECTROCARDIOGRAM, Rate has slowed. PREVIOUS TRACING : 11/20/2016 07.40 DOCTOR: John Paul Morrissey Interpretating Date/Time 01/08/2017 18:28:47
== END 2017-01-08 16:32 | disposition home or self-care (01) ==
LOC: NEPE 12:08
DX: I95.1 Orthostatic hypotension (principal); E86.0 Dehydration; R94.31 Abnormal electrocardiogram [ECG] [EKG]
CPT/HCPCS: 71010; 80053; 81001; 82550; 82552; 83735; 84484; 85025; 93005; 96374; 99284; J3475; J7030

== ENCOUNTER → 2017-01-13 | Outpatient (CLI) | payer MEDICARE ==
[~2017-01-13] MED LIST changes: +DICY10CA12 PO
--- NOTE | 2017-01-19 09:47 | RSPPFT ---
DATE OF PROCEDURE: 01/13/17 COMMENTS: Spirometry with FVC of 3.7, FEV1 of 2.2, FEV1/FVC ratio at 61%. Slow vital capacity is 73%. TLC is 91%. Diffusion capacity is mildly reduced however normal when corrected for alveolar volume. IMPRESSION: 1. Moderate airways obstruction. 2. Post-bronchodilator study was not performed. 3. No evidence of airways restriction.
== END ==
LOC: PHRSP 10:28
PROVIDERS: ATTEND Internal Medicine
DX: J43.9 Emphysema, unspecified (principal)
CPT/HCPCS: 94010; 94726; 94729

== ENCOUNTER 2017-08-09 03:41 | Emergency (ER) | payer MEDICARE ==
[2017-08-09] VITALS (8 sets, daily range): BP systolic 165–196; BP diastolic 86–103; PULSE 78–88; RESP 16; TEMP 97.8; O2SAT 94–98
[~2017-08-09] VITALS: Ht 180.3 cm; Wt 66.0 kg
[~2017-08-09 03:41] MED LIST changes: -OMEP20TA PO; +OMEP20TA93 PO
[2017-08-09] MEDS ORDERED: ONDANSETRON HCL 4 MG/2 ML VIAL IV PUSH ONE (03:45)
[2017-08-09] MEDS ORDERED: HYDROmorphone HCL PF 0.5 MG/0.5 ML SYRINGE IV PUSH ONE (03:45)
[2017-08-09] MEDS ORDERED: LABETALOL HCL 100 MG/20 ML VIAL IV PUSH ONE ×2 (03:45→05:45)
[2017-08-09] MEDS ORDERED: SODIUM CHLORIDE 0.9% FLUSH 10 ML FLUSH IVF PRN (03:45)
[2017-08-09] MEDS ORDERED: CLON0.1T PO (03:55)
--- NOTE | 2017-08-09 04:05 | PD ---
HPI Chief Complaint: Headache Time Seen by Provider: 03:43 Travel History International Travel<30 days: No Contact w/Intl Traveler<30days: No Traveled to known affect area: No History of Present Illness HPI 67-year-old male presents to the emergency department by EMS transport from home for evaluation of headache and high blood pressure. Patient reports he takes his blood pressure medication as needed. Patient is noted headache and high blood pressure since approximately 5 PM on Thursday evening. Patient does have history of hypertension and does have history of chronic headache. Patient denies sudden onset thunderclap or worst ever headache. Patient does rate pain 9 point 5/10 in intensity. Patient took no pain medication for symptom relief. Patient did take clonidine 0.1 mg twice for elevated blood pressure without symptomatic relief. Patient denies any confusion visual disturbance loss of vision double vision change in speech difficulty swallowing balance disturbance no upper or lower extremity numbness tingling or weakness or ataxia of gait also denies any lower extremity numbness tingling or weakness saddle anesthesia or bladder or bowel dysfunction. Patient denies any abdominal pain or midline back pain. Patient denies any injury or fall. Patient denies any fever or chills. Patient denies chest pain or shortness of breath. Patient has had nausea with bilious emesis but no coffee-ground emesis or hematemesis. Patient states he has issues with his blood pressure sometimes running too low on antihypertensive medications as well as periodically sporadically becoming markedly hypertensive. Patient also has history of inflammatory bowel disease. Patient does not report any recent GI flares. Patient is status post cholecystectomy. Patient denies tobacco use or alcohol use. PFSH Past Medical History Narrative Medical Arthritis rheumatoid arthritis hypertension dyslipidemia COPD Crohn's disease anxiety depression fibromyalgia peripheral neuropathy testicular cancer status post orchiectomy and radiation therapy dental extraction alcohol use; nursing notes reviewed Arthritis: Yes Asthma: No Autoimmune Disease: Yes (RA) Blood Disorders: No Anxiety: Yes Depression: Yes Heart Rhythm Problems: No Cancer: 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) Cardiovascular Problems: Yes (htn) High Cholesterol: Yes (controlled on meds) Chemotherapy: No Chest Pain: No Congestive Heart Failure: No COPD: Yes Cerebrovascular Accident: No Diabetes: No Diminished Hearing: No Endocrine: No Fibromyalgia: Yes Gastrointestinal Disorders: Yes (CHRON'S DISEASE, GERD, HIATAL HERNIA, CHRONIC GASTRITIS, DIARRHEA) GERD: Yes (TAKES PRILOSEC) Glaucoma: No Genitourinary: No Headaches: Yes Hepatitis: No Hiatal Hernia: Yes Heparin Induced Thrombocytopen: No Hypertension: Yes (controlled on meds) Kidney Stones: No Musculoskeletal: Yes (ARTHRITIS, BURSITIS, FIBROMYALGIA, DDD, R SHOULDER PAIN) Neurologic: Yes (LEG NEUROPATHY) Psychiatric: No Reproductive: 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) Respiratory: Yes (COPD) Immunizations Current: No ( ) Migraines: No Myocardial Infarction: No Radiation Therapy: No Renal Failure: No Seizures: No Sickle Cell Disease: No Sleep Apnea: Yes Thyroid Disease: No Ulcer: No PNEUMOCCOCAL Vaccine (Year): 1 Past Surgical History Abdominal Surgery: Yes (HERNIA REPAIR 5 Y/0, BOWEL RESECTION 04/2010) AICD: No Appendectomy: No Arteriovenous Shunt: No Cardiac Surgery: No Cholecystectomy: Yes Ear Surgery: No Endocrine Surgery: No Eye Surgery: No Genitourinary Surgery: 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) Gynecologic Surgery: No Insulin Pump: No Joint Replacement: No Oral Surgery: Yes (TEETH REMOVAL) Pacemaker: No Thoracic Surgery: No Other Surgery: Yes Social History Alcohol Use: Yes (RARE) Tobacco Use: No (quit 2006 ) Substance Use: No Allergies-Medications (Allergen,Severity, Reaction): Coded Allergies: fire ant (Verified Allergy, Severe, 08/09/17) Reported Meds & Prescriptions Reported Meds & Active Scripts Active Zofran Odt (Ondansetron Odt) 4 Mg Tab 4 Mg SL Q6HR PRN Reported [medical marijuana] 20 Mg PO 5 TIMES A DAY Clonidine (Clonidine HCl) 0.1 Mg Tab 0.1 Mg PO BID Dicyclomine (Dicyclomine HCl) 10 Mg Cap 10 Mg PO TID PRN Hydrocodone-Acetaminophen 10-325 mg Tab 1 Tab PO Q6H PRN Diazepam 10 Mg Tab 10 Mg PO TID PRN Fluoxetine (Fluoxetine HCl) 20 Mg Tab 20 Mg PO DAILY Omeprazole 20 Mg Tab 20 Mg PO DAILY Gabapentin 600 Mg Tab 600 Mg PO HS Azathioprine 50 Mg Tab 50 Mg PO DAILY Hazardous agent use appropriate precautions for handling and disposal. Review of Systems Except as stated in HPI: all other systems reviewed are Neg General / Constitutional: No: Fever, Chills Eyes: No: Visual changes HENT: Positive: Headaches, No: Vertigo, Lightheadedness, Neck Stiffness, Neck Pain Cardiovascular: No: Chest Pain or Discomfort, Palpitations, Diaphoresis Respiratory: No: Shortness of Breath Gastrointestinal: Positive: Nausea, Vomiting, No: Diarrhea, Abdominal Pain Genitourinary: No: Frequency, Dysuria, Flank Pain Musculoskeletal: No: Myalgias, Arthralgias Skin: No Rash Neurologic: Positive: Dizziness, Headache, No: Weakness, Syncope, Focal Abnormalities, Coordination Problem, Change in Mentation, Slurred Speech, Paresthesia, Seizures, Sensory Disturbance Psychiatric: No: Anxiety Endocrine: No: Heat Intolerance Hematologic/Lymphatic: No: Easy Bruising Physical Exam Narrative GENERAL: Well-developed well-nourished disheveled male in no acute distress no respiratory distress; GCS 15 SKIN: Warm and dry. HEAD: Atraumatic. Normocephalic. EYES: Pupils equal and round. No scleral icterus. No injection or drainage. ENT: No nasal bleeding or discharge. Bilateral pupils equal round reactive to light extraocular muscles intact. Mucous membranes pink and moist. NECK: Trachea midline. No JVD. Supple no meningismus no nuchal rigidity. CARDIOVASCULAR: Regular rate and rhythm. RESPIRATORY: No accessory muscle use. Clear to auscultation. Breath sounds equal bilaterally. GASTROINTESTINAL: Abdomen soft, non-tender, nondistended. Hepatic and splenic margins not palpable. MUSCULOSKELETAL: Extremities without clubbing, cyanosis, or edema. No obvious deformities. NEUROLOGICAL: Awake and alert. GCS 15. No obvious cranial nerve deficits. Motor grossly within normal limits. Five out of 5 muscle strength in the arms and legs. No pronator drift. No limb ataxia. Sensory exam grossly intact. Normal speech. PSYCHIATRIC: Appropriate mood and affect; insight and judgment normal. Data Data Last Documented VS Vital Signs Date Time Temp Pulse Resp B/P (MAP) Pulse Ox O2 Delivery O2 Flow Rate FiO2 08/09/17 06:06 87 16 165/93 (117) 98 Nasal Cannula 2.00 08/09/17 03:47 97.8 Orders Orders Electrocardiogram (08/09/17 03:43) Complete Blood Count With Diff (08/09/17 03:43) Comprehensive Metabolic Panel (08/09/17 03:43) Magnesium (Mg) (08/09/17 03:43) Ckmb (Isoenzyme) Profile (08/09/17 03:43) Troponin I (08/09/17 03:43) Act Partial Throm Time (Ptt) (08/09/17 03:43) Prothrombin Time / Inr (Pt) (08/09/17 03:43) Urinalysis - C+S If Indicated (08/09/17 03:43) Chest, Single Ap (08/09/17 03:43) Ct Brain W/O Iv Contrast(Rout) (08/09/17 03:43) Ecg Monitoring (08/09/17 03:43) Iv Access Insert/Monitor (08/09/17 03:43) Oximetry (08/09/17 03:43) Sodium Chloride 0.9% Flush (Ns Flush) (08/09/17 03:45) Labetalol Inj (Trandate Inj) (08/09/17 03:45) Hydromorphone Pf Inj (Dilaudid Pf Inj) (08/09/17 03:45) Ondansetron Inj (Zofran Inj) (08/09/17 03:45) Ketorolac Inj (Toradol Inj) (08/09/17 05:15) Labetalol Inj (Trandate Inj) (08/09/17 05:45) Labs Laboratory Tests Test 08/09/17 04:00 White Blood Count 11.6 TH/MM3 Red Blood Count 4.46 MIL/MM3 Hemoglobin 13.0 GM/DL Hematocrit 39.0 % Mean Corpuscular Volume 87.5 FL Mean Corpuscular Hemoglobin 29.1 PG Mean Corpuscular Hemoglobin Concent 33.3 % Red Cell Distribution Width 12.9 % Platelet Count 241 TH/MM3 Mean Platelet Volume 6.5 FL Neutrophils (%) (Auto) 90.5 % Lymphocytes (%) (Auto) 3.5 % Monocytes (%) (Auto) 3.5 % Eosinophils (%) (Auto) 0.9 % Basophils (%) (Auto) 1.6 % Neutrophils # (Auto) 10.5 TH/MM3 Lymphocytes # (Auto) 0.4 TH/MM3 Monocytes # (Auto) 0.4 TH/MM3 Eosinophils # (Auto) 0.1 TH/MM3 Basophils # (Auto) 0.2 TH/MM3 CBC Comment DIFF FINAL Differential Comment Prothrombin Time 10.2 SEC Prothromb Time International Ratio 0.9 RATIO Activated Partial Thromboplast Time 22.5 SEC Blood Urea Nitrogen 7 MG/DL Creatinine 0.79 MG/DL Random Glucose 93 MG/DL Total Protein 7.5 GM/DL Albumin 3.2 GM/DL Calcium Level 8.3 MG/DL Magnesium Level 1.7 MG/DL Alkaline Phosphatase 84 U/L Aspartate Amino Transf (AST/SGOT) 50 U/L Alanine Aminotransferase (ALT/SGPT) 45 U/L Total Bilirubin 0.3 MG/DL Sodium Level 139 MEQ/L Potassium Level 3.4 MEQ/L Chloride Level 104 MEQ/L Carbon Dioxide Level 27.9 MEQ/L Anion Gap 7 MEQ/L Estimat Glomerular Filtration Rate 98 ML/MIN Total Creatine Kinase 41 U/L Troponin I LESS THAN 0.02 NG/ML MDM Medical Decision Making Medical Screen Exam Complete: Yes Emergency Medical Condition: Yes Medical Record Reviewed: Yes Interpretation(s) EKG normal sinus rhythm first degree AV block rate 85 right bundle branch block noted on prior EKGs no acute ST elevation or injury pattern change noted CT brain w/o: CONCLUSION: 1. Stable appearance with no intracranial hemorrhage or mass effect. 2. Mild mucosal thickening remains in the left maxillary sinus. Manuelito Blair MD on August 09, 2017 at 4:44 Board Certified Radiologist. This report was verified electronically. CBC & BMP Diagram 08/09/17 04:00 Total Protein 7.5, Albumin 3.2 L, Calcium Level 8.3 L, Magnesium Level 1.7, Alkaline Phosphatase 84, Aspartate Amino Transf (AST/SGOT) 50 H, Alanine Aminotransferase (ALT/SGPT) 45, Total Bilirubin 0.3 Vital Signs Date Time Temp Pulse Resp B/P (MAP) Pulse Ox O2 Delivery O2 Flow Rate FiO2 08/09/17 04:59 82 16 170/86 (114) 97 Nasal Cannula 2.00 08/09/17 04:33 82 16 178/97 (124) 98 Nasal Cannula 08/09/17 04:11 94 Room Air 08/09/17 04:10 78 186/99 (128) 96 Nasal Cannula 2.00 08/09/17 03:55 88 16 97 Room Air 08/09/17 03:47 97.8 88 16 180/103 (128) [address] 08/09/17 0343 Signed Impressions: Service Date/Time: Wednesday, August 09, 2017 04:19 - CONCLUSION: 1. Stable appearance with no intracranial hemorrhage or mass effect. 2. Mild mucosal thickening remains in the left maxillary sinus. Manuelito Blair MD Chest X-Ray 08/09/17 0343 Signed Impressions: Service Date/Time: Wednesday, August 09, 2017 16:10 - CONCLUSION: No acute disease. Manuelito Blair MD UA: mod blood few rbc's no glucose, ketones or pro Differential Diagnosis Uncontrolled hypertension hypertensive crisis cephalgia ICH CHI dehydration electrolyte disturbance bowel obstruction Narrative Course Patient transferred from EMS stretcher to ED stretcher placed on monitoring tech with continuous pulse oximetry; no focality on exam other than marked hypertension; patient administered Dilaudid 0.5 mg IV for pain management and labetalol 20 mg to be administered below 10 mg and 10 mg is ordered for administration patient with additional dose of Zofran 4 mg as needed for ongoing intractable nausea and/or vomiting. CT brain noncontrast ordered. CT imaging reveals no acute abnormality; chest x-rays within normal limits; laboratory values are grossly within normal range; patient is symptomatically improved CK is 43, not elevated troponin I is less than 0.02, not elevated patient resting; loco improved; ct pending CT no acute abnormality Patient administered Labetalol for BP elevation At 6:30 AM patient stable for outpatient management Diagnosis Primary Impression: Hypertension Qualified Codes: I10 - Essential (primary) hypertension Additional Impressions: Viral syndrome OTHER CHRONIC PAIN Referrals: Primary Care Physician 2 days Patient Instructions: General Instructions, Narcotic given in the ED Additional Instructions: Increase fluid hydration Monitor blood sugars closely Follow-up with primary care provider Take chronic medications as chronically prescribed; take your blood pressure medication as prescribed Return to the emergency for free concerns or change in condition May add acetaminophen/Tylenol to medication regimen as needed for fever 100.4F or greater Med/Other Pt SpecificInfo: Prescription(s) given Scripts Ondansetron Odt (Zofran Odt) 4 Mg Tab 4 MG SL Q6HR Y for Nausea/Vomiting, #10 TAB 0 Refills Prov: Shirley Argueta MD 08/09/17 Disposition: 01 DISCHARGE HOME Condition: Stable Shirley Argueta MD Aug 09, 2017 04:05
[2017-08-09 04:19] LABS: AUTOMATED NEUTROPHIL # 10.5 TH/MM3 (1.8-7.7); BASOPHIL # 0.2 TH/MM3 (0-0.2); BASOPHIL % 1.6 % (0.0-2.0); EOSINOPHIL # 0.1 TH/MM3 (0-0.4); EOSINOPHIL % 0.9 % (0.0-4.0); HEMO FLAGS DIFF FINAL; LYMPH % 3.5 % (9.0-44.0); LYMPHOCYTE # 0.4 TH/MM3 (1.0-4.8); MEAN CELL VOLUME 87.5 FL (80.0-100.0); MEAN CORPUSCULAR HEMOGLOBIN 29.1 PG (27.0-34.0); MEAN CORPUSCULAR HGB CONC 33.3 % (32.0-36.0); MONO % 3.5 % (0.0-8.0); NEUT % 90.5 % (16.0-70.0); PLATELET COUNT 241 TH/MM3 (150-450); RED BLOOD COUNT 4.46 MIL/MM3 (4.50-5.90); RED CELL DISTRIBUTION WIDTH 12.9 % (11.6-17.2); WHITE BLOOD COUNT 11.6 TH/MM3 (4.0-11.0)
[2017-08-09] MEDS ORDERED: medical marijuana PO (04:21)
[2017-08-09 04:27] LABS: CHLORIDE 104 MEQ/L (98-107); POTASSIUM 3.4 MEQ/L (3.5-5.1); SODIUM (NA) 139 MEQ/L (136-145)
[2017-08-09 04:31] LABS: ANION GAP 7 MEQ/L (5-15); APTT (PATIENT) 22.5 SEC (24.3-30.1); BICARBONATE 27.9 MEQ/L (21.0-32.0); BLOOD UREA NITROGEN 7 MG/DL (7-18); INTERNATIONAL NORMALIZED RATIO 0.9 RATIO; MAGNESIUM 1.7 MG/DL (1.5-2.5); PROTHROMBIN TIME - PATIENT 10.2 SEC (9.8-11.6)
[2017-08-09 04:34] LABS: ALT (GPT) 45 U/L (12-78); AST (GOT) 50 U/L (15-37); GLOMERULAR FILTRATION RATE 98 ML/MIN (>89)
[2017-08-09 04:35] LABS: TOTAL BILIRUBIN ADULT 0.3 MG/DL (0.2-1.0)
[2017-08-09 04:37] LABS: ALKALINE PHOSPHATASE 84 U/L (45-117)
--- NOTE | 2017-08-09 04:38 | RADRPT ---
EXAM DATE/TIME: 08/09/2017 03:49 CORRECTION Corrected on: August 11, 2017; fixed date and time [facility] COMPARISON: CHEST SINGLE AP, January 08, 2017, 13:39. INDICATIONS : Palpitations. MEDICAL HISTORY : Gastroesophageal reflux disease. Chronic obstructive pulmonary disease. Carcinoma, testicular. Hy pertension. Crohn's disease SURGICAL HISTORY : Cholecystectomy. ENCOUNTER: Initial ACUITY: 1 day PAIN SCORE: 2/10 LOCATION: Bilateral chest FINDINGS: A single view of the chest demonstrates the lungs to be symmetrically aerated without evidence of mas s, infiltrate or effusion. The cardiomediastinal contours are unremarkable. Osseous structures are intact. CONCLUSION: No acute disease. Manuelito Blair MD on August 09, 2017 at 4:37 Board Certified Radiologist. Board Certified Radiologist. This report was verified electronically.
[2017-08-09 04:40] LABS: CREATINE KINASE 41 U/L (39-308)
--- NOTE | 2017-08-09 04:46 | RADRPT ---
EXAM DATE/TIME: 08/09/2017 04:19 [facility] COMPARISON: CT BRAIN W/O CONTRAST, November 20, 2016, 8:31. INDICATIONS : High blood pressure. Headache. Weakness, dizzy. RADIATION DOSE: 64.65 CTDIvol (mGy) MEDICAL HISTORY : Carcinoma, testicular. Arthritis. Hypertension. SURGICAL HISTORY : None. ENCOUNTER: Initial ACUITY: 1 day PAIN SCALE: 9/10 LOCATION: Bilateral cranial TECHNIQUE: Multiple contiguous axial images were obtained of the head. Using automated exposure control and adj ustment of the mA and/or kV according to patient size, radiation dose was kept as low as reasonably a chievable to obtain optimal diagnostic quality images. DICOM format image data is available electro nically for review and comparison. FINDINGS: CEREBRUM: The ventricles are normal for age. No evidence of midline shift, mass lesion, hemorrhage or acute in farction. No extra-axial fluid collections are seen. POSTERIOR FOSSA: The cerebellum and brainstem are intact. The 4th ventricle is midline. The cerebellopontine angle i s unremarkable. EXTRACRANIAL: The visualized portion of the orbits is intact. SKULL: The calvaria is intact. No evidence of skull fracture. Mild mucosal thickening is again noted in the left maxillary sinus. CONCLUSION: 1. Stable appearance with no intracranial hemorrhage or mass effect. 2. Mild mucosal thickening remains in the left maxillary sinus. Manuelito Blair MD on August 09, 2017 at 4:44 Board Certified Radiologist. This report was verified electronically.
[2017-08-09] MEDS ORDERED: KETOROLAC TROMETHAMINE 30 MG/ML (IVP) VIAL IV PUSH ONE (05:15)
[2017-08-09 06:28] LABS: BLOOD, URINE MOD (NEG); GLUCOSE,URINE NEG (NEG); KETONE, URINE 40 mg/dL (NEG); NITRITE,URINE NEG (NEG); PH, URINE 5.5 (5.0-8.5)
[2017-08-09 06:30] LABS: METHOD OF COLLECTION CLEAN CATCH; URINE COLOR YELLOW (YELLW/STRAW)
[2017-08-09] MEDS ORDERED: ZOFR4TAB3 SL (06:33)
[2017-08-09 06:34] LABS: COMMENT (UR) CULT NOT INDICATED; CULTURE IF INDICATED CULT NOT INDICATED; SQUAMOUS EPITHELIAL CELL URINE 0-5 /hpf (0-5)
--- NOTE | 2017-08-09 23:00 | EKG ---
Date Performed: 08/09/2017 Time Performed: 03:54:43 PTAGE: 67 years EKG: Sinus rhythm WITH FIRST DEGREE AV BLOCK POSSIBLE LEFT ATRIAL ENLARGEMENT RIGHT BUNDLE BRANCH BLOCK ABNORMAL ECG PREVIOUS TRACING : 01/08/2017 13.55 Compared to prior tracing no significant change DOCTOR: Cyurs Noble Interpretating Date/Time 08/09/2017 22:58:21
== END 2017-08-09 06:46 | disposition home or self-care (01) ==
LOC: PHED 03:41
DX: I10 Essential (primary) hypertension (principal); B34.9 Viral infection, unspecified; G89.29 Other chronic pain; R94.31 Abnormal electrocardiogram [ECG] [EKG]; M06.9 Rheumatoid arthritis, unspecified; K50.90 Crohn's disease, unspecified, without complications; J44.9 Chronic obstructive pulmonary disease, unspecified
CPT/HCPCS: 70450; 71010; 80053; 81001; 82550; 83735; 84484; 85025; 85610; 85730; 93005; 96374; 96375; 99285; J1170; J1885; J2405

== ENCOUNTER 2017-08-11 18:01 | Inpatient (IN) | payer MEDICARE ==
[~2017-08-11] VITALS: Ht 180.3 cm; Wt 70.4 kg
[2017-08-11] VITALS (9 sets, daily range): BP systolic 122–171; BP diastolic 61–80; PULSE 64–74; RESP 14–16; TEMP 96.8–98.9; O2SAT 96–100
[~2017-08-11 18:01] MED LIST changes: +CLON0.1T PO; -LACT PO; +medical marijuana PO
[2017-08-11] MEDS ORDERED: SODIUM CHLOR 0.9% 1000 ML INJ 1,000 ML IV SCH (18:06)
[2017-08-11] MEDS ORDERED: SODIUM CHLORIDE 0.9% FLUSH 5 ML FLUSH IV FLUSH PRN (18:15)
[2017-08-11 18:40] LABS: AUTOMATED NEUTROPHIL # 4.6 TH/MM3 (1.8-7.7); BASOPHIL % 0.7 % (0.0-2.0); EOSINOPHIL # 0.2 TH/MM3 (0-0.4); HEMATOCRIT 38.1 % (39.0-51.0); HEMO FLAGS DIFF FINAL; LYMPH % 11.5 % (9.0-44.0); LYMPHOCYTE # 0.7 TH/MM3 (1.0-4.8); MEAN CELL VOLUME 90.2 FL (80.0-100.0); MEAN CORPUSCULAR HEMOGLOBIN 31.1 PG (27.0-34.0); MEAN CORPUSCULAR HGB CONC 34.5 % (32.0-36.0); MONO % 10.5 % (0.0-8.0); NEUT % 73.3 % (16.0-70.0); PLATELET COUNT 258 TH/MM3 (150-450); RED BLOOD COUNT 4.22 MIL/MM3 (4.50-5.90); RED CELL DISTRIBUTION WIDTH 13.7 % (11.6-17.2); WHITE BLOOD COUNT 6.2 TH/MM3 (4.0-11.0)
[2017-08-11] MEDS ORDERED: SODIUM CHLOR 0.9% 1000 ML INJ 1,000 ML IV ONE (18:45)
[2017-08-11] MEDS ORDERED: VANCOMYCIN INJ 1,000 MG in SODIUM CHLOR 0.9% 250 ML INJ 250 ML IV ONE (18:45)
[2017-08-11] MEDS ORDERED: PIPERACIL-TAZO 4.5 GM PREMIX 100 ML IV ONE (18:45)
[2017-08-11 18:47] LABS: INTERNATIONAL NORMALIZED RATIO 0.9 RATIO; PROTHROMBIN TIME - PATIENT 10.4 SEC (9.8-11.6)
[2017-08-11 18:49] LABS: BACTERIA, URINE RARE /hpf; BLOOD, URINE NEG (NEG); GLUCOSE,URINE NEG (NEG); KETONE, URINE NEG (NEG); NITRITE,URINE NEG (NEG); SQUAMOUS EPITHELIAL CELL URINE <1 /hpf (0-5); URINE COLOR YELLOW (YELLW/STRAW)
[2017-08-11 18:50] LABS: COMMENT (UR) CATH-CULTURE IND; CULTURE IF INDICATED CATH CULTURE IND
[2017-08-11 18:52] LABS: ALT (GPT) 19 U/L (12-78); ANION GAP 7 MEQ/L (5-15); AST (GOT) 11 U/L (15-37); BICARBONATE 29.5 MEQ/L (21.0-32.0); BLOOD UREA NITROGEN 11 MG/DL (7-18); CHLORIDE 106 MEQ/L (98-107); GLOMERULAR FILTRATION RATE 61 ML/MIN (>89); POTASSIUM 3.1 MEQ/L (3.5-5.1); SODIUM (NA) 142 MEQ/L (136-145)
--- NOTE | 2017-08-11 18:55 | RADRPT ---
EXAM DATE/TIME: 08/11/2017 18:37 [facility] COMPARISON: CHEST SINGLE AP, August 09, 2017, 3:49. INDICATIONS : Shortness of breath, syncope. MEDICAL HISTORY : None. SURGICAL HISTORY : None. ENCOUNTER: Initial ACUITY: 1 day PAIN SCORE: 0/10 LOCATION: Bilateral chest FINDINGS: A single view of the chest demonstrates the lungs to be symmetrically aerated without evidence of mas s, infiltrate or effusion. The cardiomediastinal contours are unremarkable. Osseous structures are intact. CONCLUSION: No acute disease. John Caballero MD on August 11, 2017 at 18:53 Board Certified Radiologist. This report was verified electronically.
[2017-08-11 19:05] LABS: ACETAMINOPHEN LESS THAN 2.0 MCG/ML (10.0-30.0); ALKALINE PHOSPHATASE 79 U/L (45-117); TOTAL BILIRUBIN ADULT 0.2 MG/DL (0.2-1.0)
[2017-08-11 19:06] LABS: ALCOHOL LESS THAN 3 MG/DL (0-5); CREATINE KINASE 48 U/L (39-308)
[2017-08-11] MEDS ORDERED: TIZA4 PO (19:06)
[2017-08-11] MEDS ORDERED: GABA300C5 PO (19:06)
[2017-08-11] MEDS ORDERED: AMLO10 PO (19:06)
--- NOTE | 2017-08-11 19:14 | HHI.HP ---
HPI Service Critical Care Medicine Primary Care Physician Rafiq Newberry MD Admission Diagnosis hypertension, sepsis Diagnosis: Travel History International Travel<30 Days: No Contact w/Intl Traveler <30 Da: No Traveled to Known Affected Are: No History of Present Illness 67-year-old male with a history of Crohn's disease, recently seen in the emergency room a few days ago for hypertension and nausea and vomiting, was found by his neighbor poorly responsive. When EMS arrived they noticed that the patient was extremely lethargic with some slurred speech. His blood pressure was 78 systolic and therefore they started giving him IV fluid bolus. Patient has a history of hypertension and his list of medications show few high blood pressure medications that he takes. Patient denies overdosing on these medications accidentally or intentionally. He was started on dopamine drip after 1 L of IV fluid bolus by EMS due to persistent hypotension. My assessment the patient was off dopamine with a blood pressure in the systolic 120s, alert awake and in no significant distress. Review of Systems Constitutional: COMPLAINS OF: Diaphoretic episodes, Fatigue, DENIES: Fever, Weight gain, Weight loss, Chills, Dizziness, Change in appetite, Night Sweats Endocrine: DENIES: Heat/cold intolerance, Polydipsia, Polyuria, Polyphagia Eyes: DENIES: Blurred vision, Diplopia, Eye inflammation, Eye pain, Vision loss , Photosensitivity, Double Vision Ears, nose, mouth, throat: DENIES: Tinnitus, Hearing loss, Vertigo, Nasal discharge, Oral lesions, Throat pain, Hoarseness, Ear Pain, Running Nose, Epistaxis, Sinus Pain, Toothache, Odynophagia Respiratory: DENIES: Apneas, Cough, Snoring, Wheezing, Hemoptysis, Sputum production, Shortness of breath Cardiovascular: DENIES: Chest pain, Palpitations, Syncope, Dyspnea on Exertion , PND, Lower Extremity Edema, Orthopnea, Claudication Gastrointestinal: DENIES: Abdominal pain, Black stools, Bloody stools, Constipation, Diarrhea, Nausea, Vomiting, Difficulty Swallowing, Anorexia Genitourinary: DENIES: Sexual dysfunction, Urinary frequency, Urinary incontinence, Urgency, Hematuria, Dysuria, Nocturia, Penile Discharge, Testicular Pain, Testicular Swelling Musculoskeletal: DENIES: Joint pain, Muscle aches, Stiffness, Joint Swelling, Back pain, Neck pain Integumentary: DENIES: Abnormal pigmentation, Nail changes, Pruritus, Rash Hematologic/lymphatic: DENIES: Bruising, Lymphadenopathy Immunologic/allergic: DENIES: Eczema, Urticaria Neurologic: COMPLAINS OF: Abnormal gait, Poor Balance, DENIES: Headache, Localized weakness, Paresthesias, Seizures, Speech Problems, Tremor Psychiatric: DENIES: Anxiety, Confusion, Mood changes, Depression, Hallucinations, Agitation, Suicidal Ideation, Homicidal Ideation, Delusions Past Family Social History Allergies: Coded Allergies: fire ant (Verified Allergy, Severe, 08/11/17) Uncoded Allergies: paper tape (Adverse Reaction, Mild, Rash, 08/11/17) Past Medical History Crohn's disease COPD Osteoarthritis Rheumatoid arthritis Testicular cancer status post radiation in 2000 Hyperlipidemia Anxiety hypertension C. difficile colitis Hiatal hernia Sleep apnea Past Surgical History Cholecystectomy Reported Medications Reported Meds & Active Scripts Active Zofran Odt (Ondansetron Odt) 4 Mg Tab 4 Mg SL Q6HR PRN Reported Norvasc (Amlodipine Besylate) 10 Mg Tab 10 Mg PO DAILY HOLD FOR LOW BLOOD PRESSURE Zanaflex (Tizanidine HCl) 4 Mg Tab 4 Mg PO QID PRN Gabapentin 300 Mg Cap 300 Mg PO TID [medical marijuana] 20 Mg PO 5 TIMES A DAY Clonidine (Clonidine HCl) 0.1 Mg Tab 0.1 Mg PO BID PRN Dicyclomine (Dicyclomine HCl) 10 Mg Cap 10 Mg PO TID PRN Hydrocodone-Acetaminophen 10-325 mg Tab 1 Tab PO Q6H PRN Diazepam 10 Mg Tab 10 Mg PO TID PRN Fluoxetine (Fluoxetine HCl) 20 Mg Tab 20 Mg PO DAILY Omeprazole 20 Mg Tab 20 Mg PO DAILY Azathioprine 50 Mg Tab 50 Mg PO DAILY Hazardous agent use appropriate precautions for handling and disposal. Active Ordered Medications Current Medications Medications (Trade) Dose Ordered Sig/Rupal Route PRN Reason Start Time Stop Time Status Last Admin Dose Admin Azathioprine (Imuran) 50 mg DAILY PO 08/12/17 09:00 Diazepam (Valium) 10 mg TID PRN PO ANXIETY 08/11/17 19:15 Dicyclomine HCl (Bentyl) 10 mg TID PRN PO Bowel Management 08/11/17 19:15 Fluoxetine HCl (PROzac) 20 mg DAILY PO 08/12/17 09:00 Gabapentin (Neurontin) 300 mg TID PO 08/12/17 09:00 Tizanidine HCl (Zanaflex) 4 mg QID PRN PO MUSCLE SPASM 08/11/17 19:15 Sodium Chloride 1,000 ml @ 124 mls/hr Q8H4M IV 08/11/17 20:00 08/11/17 20:26 Sodium Chloride (NS Flush) 2 ml UNSCH PRN IV FLUSH FLUSH AFTER USING IV ACCESS 08/11/17 19:30 Sodium Chloride (NS Flush) 2 ml BID IV FLUSH 08/11/17 21:00 Acetaminophen/ Hydrocodone Bitart ([place] 5-325 Mg) 1 tab Q4H PRN PO PAIN SCALE 1 TO 5 08/11/17 19:30 Morphine Sulfate (Morphine Inj) 2 mg Q2H PRN IV PUSH PAIN SCALE 6 TO 10 08/11/17 19:30 Ondansetron HCl (Zofran Inj) 4 mg Q6H PRN IV PUSH NAUSEA OR VOMITING 08/11/17 19:30 Zolpidem Tartrate (Ambien) 5 mg HS PRN PO INSOMNIA 08/11/17 19:30 Albuterol/ Ipratropium (Duoneb Neb) 1 ampule Q6HR NEB INH 08/11/17 22:00 08/11/17 21:05 Albuterol/ Ipratropium (Duoneb Neb) 1 ampule Q2HR NEB PRN INH WHEEZING 08/11/17 19:30 Heparin Sodium (Porcine) (Heparin Inj) 5,000 units Q8H SQ 08/11/17 21:00 Miscellaneous Information 1 [id number] XX 08/11/17 19:30 Chlorhexidine Gluconate (Chlorhexidine 2% Cloth) 3 pack Taper DAILY@04 TOP 08/12/17 04:00 08/08/18 03:59 Chlorhexidine Gluconate (Chlorhexidine 2% Cloth) 3 pack UNSCH PRN TOP HYGIENIC CARE 08/11/17 19:30 Senna/Docusate Sodium (Sima-Colace) 1 tab BID PO 08/11/17 21:00 Magnesium Hydroxide (Milk Of Magnesia Liq) 30 ml Q12H PRN PO Mild constipation 08/11/17 19:30 Sennosides (Senokot) 17.2 mg Q12H PRN PO Moderate constipation 08/11/17 19:30 Bisacodyl (Dulcolax Supp) 10 mg DAILY PRN RECTAL SEVERE CONSITIPATION 08/11/17 19:30 Lactulose (Lactulose Liq) 30 ml DAILY PRN PO SEVERE CONSITIPATION 08/11/17 19:30 Piperacillin Sod/ Tazobactam Sod 100 ml @ 200 mls/hr Q6H IV 08/12/17 02:00 Pharmacy Profile Note 0 ml @ 0 mls/hr UNSCH OTHER 08/11/17 19:30 Pantoprazole Sodium (Protonix) 20 mg DAILY PO 08/12/17 09:00 Vancomycin HCl 1250 mg/Sodium Chloride 262.5 ml @ 250 mls/hr Q18H IV 08/12/17 10:00 Miscellaneous Information SPECIFIC LAB TO BE DRAWN:[facility]... ONCE ONCE .XX 08/13/17 21:45 08/13/17 21:46 Family History Reviewed but not significant for early coronary artery disease or malignancy Social History No smoking, occasional alcohol, no illicit drug use Physical Exam Vital Signs Vital Signs Date Time Temp Pulse Resp B/P (MAP) Pulse Ox O2 Delivery O2 Flow Rate FiO2 08/11/17 18:46 68 14 130/67 (88) 99 Nasal Cannula 2.00 08/11/17 18:39 67 15 122/61 (81) 100 2.00 08/11/17 18:39 14 100 Nasal Cannula 2.00 08/11/17 18:15 98.6 65 14 150/79 (102) 99 Nasal Cannula 2.00 08/11/17 18:12 96 Nasal Cannula 2.00 08/11/17 18:10 96.8 64 14 150/79 (102) 99 Physical Exam GENERAL: Well-nourished, well-developed patient. SKIN: Warm and dry. HEAD: Normocephalic. EYES: No scleral icterus. No injection or drainage. NECK: Supple, trachea midline. No JVD or lymphadenopathy. CARDIOVASCULAR: Regular rate and rhythm without murmurs, gallops, or rubs. RESPIRATORY: Breath sounds equal bilaterally. No accessory muscle use. GASTROINTESTINAL: Abdomen soft, non-tender, nondistended. MUSCULOSKELETAL: No cyanosis, or edema. BACK: Nontender without obvious deformity. NEURO EXAM: GCS: M 6 V 5 E 4 Mental Status: The patient is alert and oriented to person, place, and time with normal speech. Cranial Nerves: Visual acuity intact bilaterally. Visual le normal in all quadrants. Pupils are round, reactive to light. Extraocular movements are intact without ptosis. Hearing is normal bilaterally. Voice is normal. Tongue protrudes midline and moves symmetrically. Reflexes: Biceps, patellar, and Achilles are 2/4 bilaterally. No clonus. Laboratory Laboratory Tests Test 08/11/17 18:10 08/11/17 18:25 White Blood Count 6.2 Red Blood Count 4.22 Hemoglobin 13.1 Hematocrit 38.1 Mean Corpuscular Volume 90.2 Mean Corpuscular Hemoglobin 31.1 Mean Corpuscular Hemoglobin Concent 34.5 Red Cell Distribution Width 13.7 Platelet Count 258 Mean Platelet Volume 6.5 Neutrophils (%) (Auto) 73.3 Lymphocytes (%) (Auto) 11.5 Monocytes (%) (Auto) 10.5 Eosinophils (%) (Auto) 4.0 Basophils (%) (Auto) 0.7 Neutrophils # (Auto) 4.6 Lymphocytes # (Auto) 0.7 Monocytes # (Auto) 0.7 Eosinophils # (Auto) 0.2 Basophils # (Auto) 0.0 CBC Comment DIFF FINAL Differential Comment Prothrombin Time 10.4 Prothromb Time International Ratio 0.9 Blood Urea Nitrogen 11 Creatinine 1.20 Random Glucose 114 Total Protein 6.8 Albumin 2.9 Calcium Level 8.1 Alkaline Phosphatase 79 Aspartate Amino Transf (AST/SGOT) 11 Alanine Aminotransferase (ALT/SGPT) 19 Total Bilirubin 0.2 Sodium Level 142 Potassium Level 3.1 Chloride Level 106 Carbon Dioxide Level 29.5 Anion Gap 7 Estimat Glomerular Filtration Rate 61 Lactic Acid Level 1.2 Ammonia 29 Total Creatine Kinase 48 Troponin I LESS THAN 0.02 Thyroid Stimulating Hormone 3rd Gen 3.310 Salicylates Level LESS THAN 1.7 Acetaminophen Level LESS THAN 2.0 Ethyl Alcohol Level LESS THAN 3 Urine Color YELLOW Urine Turbidity CLEAR Urine pH 6.0 Urine Specific [place] 1.004 Urine Protein NEG Urine Glucose (UA) NEG Urine Ketones NEG Urine Occult Blood NEG Urine Nitrite NEG Urine Bilirubin NEG Urine Urobilinogen LESS THAN 2.0 Urine Leukocyte Esterase NEG Urine RBC 1 Urine WBC 2 Urine Squamous Epithelial Cells <1 Urine Bacteria RARE Microscopic Urinalysis Comment CATH-CULTURE IND Urine Opiates Screen POS Urine Barbiturates Screen NEG Urine Amphetamines Screen NEG Urine Benzodiazepines Screen POS Urine Cocaine Screen NEG Urine Cannabinoids Screen POS Date/Time Source Procedure Growth Status 08/11/17 18:15 Blood Peripheral Aerobic Blood Culture Pending Received 08/11/17 18:15 Blood Peripheral Anaerobic Blood Culture Pending Received 08/11/17 18:25 Urine Catheterized Urine Urine Culture Pending Received Result Diagram: 08/11/17 1810 08/11/17 1810 Imaging Last 24 hours Impressions Chest X-Ray 08/11/17 1806 Signed Impressions: Service Date/Time: Friday, August 11, 2017 18:37 - CONCLUSION: No acute disease. John Caballero MD Abdomen/Pelvis CT 08/11/17 0000 Signed Impressions: Service Date/Time: Friday, August 11, 2017 19:43 - CONCLUSION: 1. Diverticulosis without diverticulitis. 2. No acute inflammatory process. 3. Status post cholecystectomy. MD Dhiraj Richard VTE Risk Assessment Dhiraj VTE Risk Assessment: Mod/High Risk (score >= 2) Caprini Risk Assessment Model Point Value = 1 Point Value = 2 Point Value = 3 Point Value = 5 Age 41-60 Minor surgery BMI > 25 kg/m2 Swollen legs Varicose veins or History of unexplained or recurrent spontaneous Oral contraceptives or hormone replacement Sepsis (< 1 month) Serious lung disease, including pneumonia (< 1 month) Abnormal pulmonary function Acute myocardial infarction Congestive heart failure (< 1 month) History of inflammatory bowel disease Medical patient at bed rest Age 61-74 Arthroscopic surgery Major open surgery (> 45 min) Laparoscopic surgery (> 45 min) Malignancy Confined to bed (> 72 hours) Immobilizing plaster cast Central venous access Age >= 75 History of VTE Family history of VTE Factor V Leiden Prothrombin [id number] Lupus anticoagulant Anticardiolipin antibodies Elevated serum homocysteine Heparin-induced thrombocytopenia Other congenital or acquired thrombophilia Stroke (< 1 month) Elective arthroplasty Hip, pelvis, or leg fracture Acute spinal cord injury (< 1 month) Prophylaxis Regimen Total Risk Factor Score Risk Level Prophylaxis Regimen 0-1 Low Early ambulation 2 Moderate Order ONE of the following: *Sequential Compression Device (SCD) *Heparin 5000 units SQ BID 3-4 Higher Order ONE of the following medications: *Heparin 5000 units SQ TID *Enoxaparin/Lovenox 40 mg SQ daily (WT < 150 kg, CrCl > 30 mL/min) *Enoxaparin/Lovenox 30 mg SQ daily (WT < 150 kg, CrCl > 10-29 mL/min) *Enoxaparin/Lovenox 30 mg SQ BID (WT < 150 kg, CrCl > 30 mL/min) AND/OR *Sequential Compression Device (SCD) 5 or more Highest Order ONE of the following medications: *Heparin 5000 units SQ TID (Preferred with Epidurals) *Enoxaparin/Lovenox 40 mg SQ daily (WT < 150 kg, CrCl > 30 mL/min) *Enoxaparin/Lovenox 30 mg SQ daily (WT < 150 kg, CrCl > 10-29 mL/min) *Enoxaparin/Lovenox 30 mg SQ BID (WT < 150 kg, CrCl > 30 mL/min) AND *Sequential Compression Device (SCD) Assessment and Plan Assessment and Plan Hypotension - SIRS?? - Medication effect - Aggressive IV fluid resuscitation - Admit to ICU - Broad-spectrum antibiotics - Follow-up cultures and de-escalate COPD - No exacerbation - DuoNeb scheduled and when necessary - No indication for steroids Fibromyalgia - Resume home meds - Pain medication when necessary History of C. difficile colitis - C. difficile PCR Anxiety - Diazepam when necessary Crohn's disease - Home dose Azathioprine DVT GI prophylaxis - Teds SCDs - Subcutaneous heparin - Protonix Critical Care: The total critical care time was 35 minutes. Time to perform other separately billable procedures was not included in the critical care time. Jh Keita MD Aug 11, 2017 19:14
[2017-08-11] MEDS ORDERED: ONDANSETRON ODT 4 MG TAB SL PRN (19:15)
[2017-08-11] MEDS ORDERED: LACTULOSE SYRUP 20 GM/30 ML CUP PO PRN (19:30)
[2017-08-11] MEDS ORDERED: SODIUM CHLORIDE 0.9% FLUSH 10 ML FLUSH IV FLUSH PRN (19:30)
[2017-08-11] MEDS ORDERED: SENNOSIDES 8.6 MG TAB PO PRN (19:30)
[2017-08-11] MEDS ORDERED: BISACODYL 10 MG SUPP RECTAL PRN (19:30)
[2017-08-11] MEDS ORDERED: CHLORHEXIDINE GLUCONATE 2 % 1 PACK (2 CLOTHS) TOP PRN (19:30)
[2017-08-11] MEDS ORDERED: MAGNESIUM HYDROXIDE SUSP 30 ML CUP PO PRN (19:30)
[2017-08-11] MEDS ORDERED: ZOLPIDEM TARTRATE 5 MG TAB PO PRN (19:30)
[2017-08-11] MEDS ORDERED: ONDANSETRON HCL 4 MG/2 ML VIAL IV PUSH PRN (19:30)
[2017-08-11] MEDS ORDERED: MISCELLANEOUS NURSING INFORMATION XX SCH (19:30)
[2017-08-11] MEDS ORDERED: RESP: ALBUTEROL 2.5 MG/IPRATROPIUM 0.5 MG NEB (PRN) INH (19:30)
[2017-08-11] MEDS ORDERED: Vancomycin Consult Pharmacy 1 EA OTHER SCH (19:30)
--- NOTE | 2017-08-11 19:54 | PD ---
HPI Chief Complaint: General Weakness Time Seen by Provider: 18:06 Travel History International Travel<30 days: No Contact w/Intl Traveler<30days: No Traveled to known affect area: No History of Present Illness HPI 67-year-old male was found by his neighbor poorly responsive. There are called 911. When they arrived they noticed that the patient was groggy with some slurred speech. His blood pressure was 78 systolic at which point they started giving him IV fluid bolus. Patient has history of Crohn's disease. He was seen in the emergency room a few days ago for hypertension and nausea and vomiting. Patient has history of hypertension as well and his list of medications show few high blood pressure medications that he takes. Patient denies overdosing on these medications accidentally or intentionally. He did appear groggy with slurred speech but was answering questions appropriately. He was started on dopamine drip after 1 L of IV fluid bolus by EMS due to persistent hypotension. When he arrived he was getting 5 mics per minute of dopamine drip and blood pressure was 135 systolic. Patient denies of any pain anywhere. Patient denies of any bloody stool. [facility] Past Medical History Narrative Medical List of his past medical, surgical, social and family history is reviewed from the nursing note. Arthritis: Yes Asthma: No Autoimmune Disease: Yes (RA) Blood Disorders: No Anxiety: Yes Depression: Yes Heart Rhythm Problems: No Cancer: 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) Cardiovascular Problems: Yes (htn) High Cholesterol: Yes (controlled on meds) Chemotherapy: No Chest Pain: No Congestive Heart Failure: No COPD: Yes Cerebrovascular Accident: No Diabetes: No Diminished Hearing: No Endocrine: No Fibromyalgia: Yes Gastrointestinal Disorders: Yes (CHRON'S DISEASE, GERD, HIATAL HERNIA, CHRONIC GASTRITIS, DIARRHEA) GERD: Yes (TAKES PRILOSEC) Glaucoma: No Genitourinary: No Headaches: Yes Hepatitis: No Hiatal Hernia: Yes Heparin Induced Thrombocytopen: No Hypertension: Yes (controlled on meds) Immune Disorder: Yes (CHRON'S DISEASE, FIBROMYALGIA, IBS) Kidney Stones: No Musculoskeletal: Yes (ARTHRITIS, BURSITIS, FIBROMYALGIA, DDD, R SHOULDER PAIN) Neurologic: Yes (LEG NEUROPATHY) Psychiatric: Yes (Depression, Anxiety) Reproductive: 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) Respiratory: Yes (COPD) Immunizations Current: No ( ) Migraines: No Myocardial Infarction: No Radiation Therapy: Yes Renal Failure: No Seizures: No Sickle Cell Disease: No Sleep Apnea: Yes Thyroid Disease: No Ulcer: No PNEUMOCCOCAL Vaccine (Year): 1 Past Surgical History Abdominal Surgery: Yes (HERNIA REPAIR 5 Y/0, BOWEL RESECTION 04/2010) AICD: No Appendectomy: No Arteriovenous Shunt: No Cardiac Surgery: No Cholecystectomy: Yes Ear Surgery: No Endocrine Surgery: No Eye Surgery: No Genitourinary Surgery: 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) Gynecologic Surgery: No Insulin Pump: No Joint Replacement: No Oral Surgery: Yes (TEETH REMOVAL) Pacemaker: No Thoracic Surgery: No Other Surgery: Yes Social History Alcohol Use: Yes (RARE) Tobacco Use: No (quit 2006 ) Substance Use: No Allergies-Medications (Allergen,Severity, Reaction): Coded Allergies: fire ant (Verified Allergy, Severe, 08/11/17) Uncoded Allergies: paper tape (Adverse Reaction, Mild, Rash, 08/11/17) Comments List of his allergies reviewed from the nursing note. Reported Meds & Prescriptions Reported Meds & Active Scripts Active Zofran Odt (Ondansetron Odt) 4 Mg Tab 4 Mg SL Q6HR PRN Reported Norvasc (Amlodipine Besylate) 10 Mg Tab 10 Mg PO DAILY HOLD FOR LOW BLOOD PRESSURE Zanaflex (Tizanidine HCl) 4 Mg Tab 4 Mg PO QID PRN Gabapentin 300 Mg Cap 300 Mg PO TID [medical marijuana] 20 Mg PO 5 TIMES A DAY Clonidine (Clonidine HCl) 0.1 Mg Tab 0.1 Mg PO BID PRN Dicyclomine (Dicyclomine HCl) 10 Mg Cap 10 Mg PO TID PRN Hydrocodone-Acetaminophen 10-325 mg Tab 1 Tab PO Q6H PRN Diazepam 10 Mg Tab 10 Mg PO TID PRN Fluoxetine (Fluoxetine HCl) 20 Mg Tab 20 Mg PO DAILY Omeprazole 20 Mg Tab 20 Mg PO DAILY Azathioprine 50 Mg Tab 50 Mg PO DAILY Hazardous agent use appropriate precautions for handling and disposal. Narrative Medication List of his home medications reviewed from the nursing note. Review of Systems Except as stated in HPI: all other systems reviewed are Neg Neurologic: Positive: Weakness Physical Exam Narrative GENERAL: Lethargic, slurred speech, moderate distress SKIN: Focused skin assessment warm/dry. HEAD: Atraumatic. Normocephalic. EYES: Pupils equal and round. No scleral icterus. No injection or drainage. ENT: No nasal bleeding or discharge. Dry mucous membrane and coated tongue NECK: Trachea midline. No JVD. CARDIOVASCULAR: Regular rate and rhythm. No murmur appreciated. RESPIRATORY: No accessory muscle use. Clear to auscultation. Breath sounds equal bilaterally. GASTROINTESTINAL: Abdomen soft, non-tender, nondistended. Hepatic and splenic margins not palpable. MUSCULOSKELETAL: No obvious deformities. No clubbing. No cyanosis. No edema. NEUROLOGICAL: Awake and alert. No obvious cranial nerve deficits. Motor grossly within normal limits. Slurred speech. PSYCHIATRIC: Appropriate mood and affect; insight and judgment normal. Data Data Last Documented VS Vital Signs Date Time Temp Pulse Resp B/P (MAP) Pulse Ox O2 Delivery O2 Flow Rate FiO2 08/11/17 18:46 68 14 130/67 (88) 99 Nasal Cannula 2.00 08/11/17 18:15 98.6 Orders Orders Electrocardiogram (08/11/17 18:06) Ammonia (08/11/17 18:06) Complete Blood Count With Diff (08/11/17 18:06) Comprehensive Metabolic Panel (08/11/17 18:06) Creatine Kinase (Cpk) (08/11/17 18:06) Prothrombin Time / Inr (Pt) (08/11/17 18:06) Troponin I (08/11/17 18:06) Thyroid Stimulating Hormone (08/11/17 18:06) Urinalysis - C+S If Indicated (08/11/17 18:06) Lactic Acid Sepsis Protocol (08/11/17 18:06) Blood Culture (08/11/17 18:06) Chest, Single Ap (08/11/17 18:06) Blood Glucose (08/11/17 18:06) Ecg Monitoring (08/11/17 18:06) Iv Access Insert/Monitor (08/11/17 18:06) Oximetry (08/11/17 18:06) Sodium Chloride 0.9% Flush (Ns Flush) (08/11/17 18:15) Sodium Chlor 0.9% 1000 Ml Inj (Ns 1000 M (08/11/17 18:06) Type And Screen (08/11/17 18:06) Alcohol (Ethanol) (08/11/17 18:07) Drug Screen, Random Urine (08/11/17 18:07) Salicylates (Aspirin) (08/11/17 18:07) Tylenol (Acetaminophen) (08/11/17 18:07) Sodium Chlor 0.9% 1000 Ml Inj (Ns 1000 M (08/11/17 18:45) Piperacil-Tazo 4.5 Gm Premix (Zosyn 4.5 (08/11/17 18:45) Vancomycin Inj (Vancomycin Inj) (08/11/17 18:45) Urine Culture (08/11/17 18:25) Admit Order (Ed Use Only) (08/11/17 18:59) Ct Abd/Pel W Iv Contrast(Rout) (08/11/17 ) Labs Laboratory Tests Test 08/11/17 18:10 08/11/17 18:25 White Blood Count 6.2 TH/MM3 Red Blood Count 4.22 MIL/MM3 Hemoglobin 13.1 GM/DL Hematocrit 38.1 % Mean Corpuscular Volume 90.2 FL Mean Corpuscular Hemoglobin 31.1 PG Mean Corpuscular Hemoglobin Concent 34.5 % Red Cell Distribution Width 13.7 % Platelet Count 258 TH/MM3 Mean Platelet Volume 6.5 FL Neutrophils (%) (Auto) 73.3 % Lymphocytes (%) (Auto) 11.5 % Monocytes (%) (Auto) 10.5 % Eosinophils (%) (Auto) 4.0 % Basophils (%) (Auto) 0.7 % Neutrophils # (Auto) 4.6 TH/MM3 Lymphocytes # (Auto) 0.7 TH/MM3 Monocytes # (Auto) 0.7 TH/MM3 Eosinophils # (Auto) 0.2 TH/MM3 Basophils # (Auto) 0.0 TH/MM3 CBC Comment DIFF FINAL Differential Comment Prothrombin Time 10.4 SEC Prothromb Time International Ratio 0.9 RATIO Blood Urea Nitrogen 11 MG/DL Creatinine 1.20 MG/DL Random Glucose 114 MG/DL Total Protein 6.8 GM/DL Albumin 2.9 GM/DL Calcium Level 8.1 MG/DL Alkaline Phosphatase 79 U/L Aspartate Amino Transf (AST/SGOT) 11 U/L Alanine Aminotransferase (ALT/SGPT) 19 U/L Total Bilirubin 0.2 MG/DL Sodium Level 142 MEQ/L Potassium Level 3.1 MEQ/L Chloride Level 106 MEQ/L Carbon Dioxide Level 29.5 MEQ/L Anion Gap 7 MEQ/L Estimat Glomerular Filtration Rate 61 ML/MIN Lactic Acid Level 1.2 mmol/L Ammonia 29 MCMOL/L Total Creatine Kinase 48 U/L Troponin I LESS THAN 0.02 NG/ML Thyroid Stimulating Hormone 3rd Gen 3.310 uIU/ML Salicylates Level LESS THAN 1.7 MG/DL Acetaminophen Level LESS THAN 2.0 MCG/ML Ethyl Alcohol Level LESS THAN 3 MG/DL Urine Color YELLOW Urine Turbidity CLEAR Urine pH 6.0 Urine Specific [place] 1.004 Urine Protein NEG mg/dL Urine Glucose (UA) NEG mg/dL Urine Ketones NEG mg/dL Urine Occult Blood NEG Urine Nitrite NEG Urine Bilirubin NEG Urine Urobilinogen LESS THAN 2.0 MG/DL Urine Leukocyte Esterase NEG Urine RBC 1 /hpf Urine WBC 2 /hpf Urine Squamous Epithelial Cells <1 /hpf Urine Bacteria RARE /hpf Microscopic Urinalysis Comment CATH-CULTURE IND Urine Opiates Screen POS Urine Barbiturates Screen NEG Urine Amphetamines Screen NEG Urine Benzodiazepines Screen POS Urine Cocaine Screen NEG Urine Cannabinoids Screen POS MDM Medical Decision Making Medical Screen Exam Complete: Yes Emergency Medical Condition: Yes Medical Record Reviewed: Yes Interpretation(s) Twelve-lead EKG was reviewed by me. Normal sinus rhythm, right bundle branch block, normal axis. Heart rate of 85 bpm. Differential Diagnosis Sepsis, hypovolemic shock, electrolyte abnormalities Narrative Course 7:52 PM blood test results are back. Patient was started on IV fluid bolus 2 since the blood pressure came down after the dopamine was stopped. Body temperature was 96 and he was started on IV Zosyn and vancomycin for sepsis protocol. I've admitted the patient to the hospitalist under Dr. Keita's care. Critical Care Narrative Aggregate critical care time was 45 minutes. Time to perform other separately billable procedures was not included in the critical care time. My time did not include minutes spent treating any other patients simultaneously or on activities that did not directly contribute to the patient's treatment. The services I provided to this patient were to treat and/or prevent clinically significant deterioration that could result in: Hypovolemic shock, altered mental status I provided critical care services requiring my management, as noted below: Chart data review, documentation time, medication orders and management, vital sign assessments/reviewing monitor data, ordering and reviewing lab tests, ordering and interpreting/reviewing x-rays and diagnostic studies, care of the patient and discussion of the patient with the admitting physicians. Procedures EKG Prior to Arrival: Yes Physician Communication Physician Communication Dr. Keita Diagnosis Primary Impression: Altered mental status Qualified Codes: R40.0 - Somnolence Additional Impressions: Hypovolemic shock Dehydration Admitting Information Admitting Physician Requests: Admit Lei Garcia MD Aug 11, 2017 19:54
[2017-08-11] MEDS ORDERED: IOHEXOL 350 MG/ML 10 ML VIAL (for RAD DIAG) IVCONTRAST ONE (19:59)
--- NOTE | 2017-08-11 20:09 | RADRPT ---
EXAM DATE/TIME: 08/11/2017 19:43 [place] COMPARISON: CT ABDOMEN & PELVIS W CONTRAST, November 20, 2016, 16:50. INDICATIONS : Diffuse abdominal pain. IV CONTRAST: 85 cc Omnipaque 350 (iohexol) IV ORAL CONTRAST: No oral contrast ingested. RADIATION DOSE: 8.55 CTDIvol (mGy) MEDICAL HISTORY : Hypertension. Hernia, hiatal. Carcinoma, testicular.Crohns. COPD. SURGICAL HISTORY : Cholecystectomy. Bowel ressection. ENCOUNTER: Initial ACUITY: 1 day PAIN SCALE: 8/10 LOCATION: All quadrants. TECHNIQUE: Volumetric scanning of the abdomen and pelvis was performed. Using automated exposure control and ad justment of the mA and/or kV according to patient size, radiation dose was kept as low as reasonably achievable to obtain optimal diagnostic quality images. DICOM format image data is available electro nically for review and comparison. FINDINGS: LOWER LUNGS: The visualized lower lungs are clear. LIVER: Homogeneous density without lesion. There is no dilation of the biliary tree. Cholecystectomy clips. SPLEEN: Normal size without lesion. PANCREAS: Within normal limits. KIDNEYS: Normal in size and shape. There is no mass, stone or hydronephrosis. ADRENAL GLANDS: Within normal limits. VASCULAR: There is no aortic aneurysm. There is focal bulging in the distal aorta but no aneurysmal dilatation. Diffuse atherosclerotic changes. BOWEL/MESENTERY: Scattered diverticulosis. No inflammatory changes.. There is no free intraperitoneal air or fluid. ABDOMINAL WALL: Within normal limits. RETROPERITONEUM: There is no lymphadenopathy. BLADDER: No wall thickening or mass. REPRODUCTIVE: Within normal limits. INGUINAL: There is no lymphadenopathy or hernia. MUSCULOSKELETAL: Within normal limits for patient age. CONCLUSION: 1. Diverticulosis without diverticulitis. 2. No acute inflammatory process. 3. Status post cholecystectomy. John Caballero MD on August 11, 2017 at 20:03 Board Certified Radiologist. This report was verified electronically.
[2017-08-11] MEDS: SODIUM CHLOR 0.9% 1000 ML INJ 1,000 ML IV SCH (20:26)
[2017-08-11] MEDS: SODIUM CHLORIDE 0.9% FLUSH 10 ML FLUSH IV FLUSH SCH (21:00)
[2017-08-11] MEDS: DOCUSATE SODIUM 50 MG/SENNA 8.6 MG TAB PO SCH (21:00)
[2017-08-11] MEDS: RESP: ALBUTEROL 2.5 MG/IPRATROPIUM 0.5 MG NEB (SCH) INH (21:05)
[2017-08-11] MEDS: HEPARIN SODIUM - SQ 10,000 UNITS/ML VIAL SQ SCH (21:46)
[2017-08-11] MEDS: MORPHINE SULFATE 4 MG/ML INJ IV PUSH PRN (22:34)
[2017-08-11] MEDS ORDERED: LABETALOL HCL 100 MG/20 ML VIAL IV PUSH PRN (23:00)
[2017-08-11] MEDS ORDERED: hydrALAZINE HCL 20 MG/ML VIAL IV PUSH PRN (23:00)
[2017-08-11] MEDS: DICYCLOMINE HCL 10 MG CAP PO PRN (23:41)
[2017-08-12] VITALS (19 sets, daily range): BP systolic 104–176; BP diastolic 60–83; PULSE 81–96; RESP 11–22; TEMP 97.5–98.5; O2SAT 94–99
[2017-08-12] MEDS: PIPERACIL-TAZO 4.5 GM PREMIX 100 ML IV SCH ×4 (02:57→21:32)
[2017-08-12] MEDS: MORPHINE SULFATE 4 MG/ML INJ IV PUSH PRN ×2 (02:57→06:09)
[2017-08-12] MEDS: CHLORHEXIDINE GLUCONATE 2 % 1 PACK (2 CLOTHS) TOP SCH (04:00)
[2017-08-12] MEDS: SODIUM CHLOR 0.9% 1000 ML INJ 1,000 ML IV SCH ×3 (04:04→21:48)
[2017-08-12] MEDS: RESP: ALBUTEROL 2.5 MG/IPRATROPIUM 0.5 MG NEB (SCH) INH ×4 (04:24→21:07)
[2017-08-12 04:51] LABS: AUTOMATED NEUTROPHIL # 4.5 TH/MM3 (1.8-7.7); BASOPHIL % 0.6 % (0.0-2.0); EOSINOPHIL # 0.2 TH/MM3 (0-0.4); EOSINOPHIL % 3.4 % (0.0-4.0); HEMATOCRIT 38.7 % (39.0-51.0); HEMO FLAGS DIFF FINAL; LYMPH % 10.2 % (9.0-44.0); LYMPHOCYTE # 0.6 TH/MM3 (1.0-4.8); MEAN CELL VOLUME 89.8 FL (80.0-100.0); MEAN CORPUSCULAR HEMOGLOBIN 30.7 PG (27.0-34.0); MEAN CORPUSCULAR HGB CONC 34.2 % (32.0-36.0); MONO % 10.1 % (0.0-8.0); NEUT % 75.7 % (16.0-70.0); PLATELET COUNT 233 TH/MM3 (150-450); RED BLOOD COUNT 4.31 MIL/MM3 (4.50-5.90); RED CELL DISTRIBUTION WIDTH 14.3 % (11.6-17.2)
[2017-08-12 05:11] LABS: ALT (GPT) 15 U/L (12-78); ANION GAP 6 MEQ/L (5-15); AST (GOT) 13 U/L (15-37); BICARBONATE 30.3 MEQ/L (21.0-32.0); CHLORIDE 109 MEQ/L (98-107); GLOMERULAR FILTRATION RATE 76 ML/MIN (>89); MAGNESIUM 1.4 MG/DL (1.5-2.5); POTASSIUM 3.2 MEQ/L (3.5-5.1); SODIUM (NA) 145 MEQ/L (136-145)
--- NOTE | 2017-08-12 05:12 | EKG ---
Date Performed: 08/11/2017 Time Performed: 18:10:15 PTAGE: 67 years EKG: Baseline artifact present probable Sinus rhythm POSSIBLE LEFT ATRIAL ENLARGEMENT RIGHT BUNDLE BRANCH BLOCK Nonspecific T wave changes ABNORMAL ECG C ompared to prior electrocardiogram, possible Nonspecific T wave changes are now present . PREVIOUS TRACING : 08/09/2017 03.54 DOCTOR: John Paul Morrissey Interpretating Date/Time 08/12/2017 05:11:04
[2017-08-12 05:13] LABS: ALKALINE PHOSPHATASE 72 U/L (45-117); BLOOD UREA NITROGEN 7 MG/DL (7-18); TOTAL BILIRUBIN ADULT 0.3 MG/DL (0.2-1.0)
[2017-08-12] MEDS: HEPARIN SODIUM - SQ 10,000 UNITS/ML VIAL SQ SCH ×3 (05:34→21:35)
[2017-08-12] MEDS: FLUoxetine HCL 20 MG CAP PO SCH (08:42)
[2017-08-12] MEDS: SODIUM CHLORIDE 0.9% FLUSH 10 ML FLUSH IV FLUSH SCH ×2 (08:42→21:33)
[2017-08-12] MEDS: GABAPENTIN 300 MG CAP PO SCH ×3 (08:42→17:33)
[2017-08-12] MEDS: azaTHIOprine 50 MG TAB PO SCH (08:42)
[2017-08-12] MEDS: DOCUSATE SODIUM 50 MG/SENNA 8.6 MG TAB PO SCH ×2 (08:43→21:34)
[2017-08-12] MEDS: PANTOPRAZOLE SOD 20 MG DELAYED RELEASE TAB PO SCH (08:43)
[2017-08-12] MEDS ORDERED: NON-FORMULARY DRUG (Omeprazole 20 MG) PO SCH (09:00)
[2017-08-12] MEDS: DICYCLOMINE HCL 10 MG CAP PO PRN (09:34)
[2017-08-12] MEDS: ACETAMINOPHEN/HYDROcodone 325 MG/5 MG TAB PO PRN ×3 (09:35→21:35)
[2017-08-12] MEDS: VANCOMYCIN INJ 1,250 MG in SODIUM CHLOR 0.9% 250 ML INJ 250 ML IV SCH (09:36)
[2017-08-12] MEDS ORDERED: SODIUM PHOSPHATE INJ 30 MMOL in SODIUM CHLOR 0.9% 250 ML INJ 240 ML IV PRN (10:15)
[2017-08-12] MEDS ORDERED: POTASSIUM CHLOR 40 MEQ PREMIX 100 ML IV PRN ×2 (10:15)
[2017-08-12] MEDS ORDERED: MAGNESIUM SULFATE INJ 4 GM in SODIUM CHLORIDE 0.9% INJ 92 ML IV PRN (10:15)
[2017-08-12] MEDS ORDERED: POTASSIUM PHOSPHATE INJ 30 MMOL in SODIUM CHLOR 0.9% 250 ML INJ 250 ML IV PRN (10:15)
[2017-08-12] MEDS ORDERED: MAGNESIUM SULFATE INJ 2 GM in SODIUM CHLORIDE 0.9% INJ 96 ML IV PRN (10:15)
[2017-08-12] MEDS ORDERED: MAGNESIUM OXIDE 400 MG TAB PO PRN (10:15)
[2017-08-12] MEDS ORDERED: POTASSIUM CHLORIDE 25 MEQ EFFERVESCENT TAB PO PRN (10:15)
[2017-08-12] MEDS ORDERED: POTASSIUM PHOSPHATE MONOBASIC 500 MG TAB PO/TUBE PRN (10:15)
[2017-08-12] MEDS ORDERED: POTASSIUM CHLOR 20 MEQ PREMIX 100 ML IV PRN (10:15)
[2017-08-12] MEDS: POTASSIUM PHOSPHATE MONOBASIC 500 MG TAB PO PRN ×2 (13:00→15:31)
[2017-08-12] MEDS: POTASSIUM CHLOR 20 MEQ PREMIX 100 ML IV PRN ×2 (13:00→15:11)
--- NOTE | 2017-08-12 15:21 | HHI.CCPN ---
Subjective Remarks/Hospital Course 08/11: 67-year-old male with a history of Crohn's disease, recently seen in the emergency room a few days ago for hypertension and nausea and vomiting, was found by his neighbor poorly responsive. When EMS arrived they noticed that the patient was extremely lethargic with some slurred speech. His blood pressure was 78 systolic and therefore they started giving him IV fluid bolus. Patient has a history of hypertension and his list of medications show few high blood pressure medications that he takes. Patient denies overdosing on these medications accidentally or intentionally. He was started on dopamine drip after 1 L of IV fluid bolus by EMS due to persistent hypotension. My assessment the patient was off dopamine with a blood pressure in the systolic 120s, alert awake and in no significant distress. 08/12: Comfortably in bed. No hypotension since early this morning. Maintaining blood pressure. Denies any chest pain or shortness of breath. Objective Vital Signs Date Time Temp Pulse Resp B/P (MAP) Pulse Ox O2 Delivery O2 Flow Rate FiO2 08/12/17 14:00 81 08/12/17 13:00 16 146/71 (96) 98 08/12/17 12:00 98.4 08/12/17 08:21 Nasal Cannula 2.00 Intake and Output 08/12/17 08/12/17 08/13/17 08:00 16:00 00:00 Intake Total 1204 ml 746.5 ml Output Total 1650 ml Balance -446 ml 746.5 ml Result Diagram: 08/12/17 0437 08/12/17 0437 Imaging Last 24 hours Impressions Chest X-Ray 08/11/17 1806 Signed Impressions: Service Date/Time: Friday, August 11, 2017 18:37 - CONCLUSION: No acute disease. John Caballero MD Abdomen/Pelvis CT 08/11/17 0000 Signed Impressions: Service Date/Time: Friday, August 11, 2017 19:43 - CONCLUSION: 1. Diverticulosis without diverticulitis. 2. No acute inflammatory process. 3. Status post cholecystectomy. John Caballero MD Objective Remarks GENERAL: Well-nourished, well-developed patient. SKIN: Warm and dry. HEAD: Normocephalic. EYES: No scleral icterus. No injection or drainage. NECK: Supple, trachea midline. No JVD or lymphadenopathy. CARDIOVASCULAR: Regular rate and rhythm without murmurs, gallops, or rubs. RESPIRATORY: Breath sounds equal bilaterally. No accessory muscle use. GASTROINTESTINAL: Abdomen soft, non-tender, nondistended. MUSCULOSKELETAL: No cyanosis, or edema. BACK: Nontender without obvious deformity. NEURO EXAM: Mental Status: The patient is alert and oriented to person, place, and time with normal speech. Cranial Nerves: Visual acuity intact bilaterally. Visual le normal in all quadrants. Pupils are round, reactive to light. Extraocular movements are intact without ptosis. Hearing is normal bilaterally. Voice is normal. Tongue protrudes midline and moves symmetrically. Reflexes: Biceps, patellar, and Achilles are 2/4 bilaterally. No clonus. A/P Assessment and Plan Hypotension (resolved) - SIRS?? - Medication effect - s/p Aggressive IV fluid resuscitation - Admit to ICU - Broad-spectrum antibiotics - Follow-up cultures and de-escalate COPD - No exacerbation - DuoNeb scheduled and when necessary - No indication for steroids Fibromyalgia - Resume home meds - Pain medication when necessary History of C. difficile colitis - C. difficile PCR Anxiety - Diazepam when necessary Crohn's disease - Home dose Azathioprine DVT GI prophylaxis - Teds SCDs - Subcutaneous heparin - Protonix Consult and transfer to hospitalist service for further medical management. Transfer out of ICU. Robles Muse MD Aug 12, 2017 15:21
[2017-08-13] VITALS (10 sets, daily range): BP systolic 112–183; BP diastolic 57–98; PULSE 52–95; RESP 12–18; TEMP 96.4–98.6; O2SAT 95–99
[2017-08-13] MEDS: PIPERACIL-TAZO 4.5 GM PREMIX 100 ML IV SCH ×2 (01:43→08:21)
[2017-08-13] MEDS: VANCOMYCIN INJ 1,250 MG in SODIUM CHLOR 0.9% 250 ML INJ 250 ML IV SCH (03:32)
[2017-08-13] MEDS: CHLORHEXIDINE GLUCONATE 2 % 1 PACK (2 CLOTHS) TOP SCH (03:33)
[2017-08-13] MEDS: SODIUM CHLOR 0.9% 1000 ML INJ 1,000 ML IV SCH ×2 (03:33→12:59)
[2017-08-13] MEDS: RESP: ALBUTEROL 2.5 MG/IPRATROPIUM 0.5 MG NEB (SCH) INH ×4 (03:49→20:05)
[2017-08-13] MEDS: ACETAMINOPHEN/HYDROcodone 325 MG/5 MG TAB PO PRN ×4 (03:57→22:13)
[2017-08-13] MEDS: HEPARIN SODIUM - SQ 10,000 UNITS/ML VIAL SQ SCH ×3 (05:43→21:39)
[2017-08-13 06:01] LABS: C. DIFF EPI 027 PRESUMPTIVE NEGATIVE (NEGATIVE)
[2017-08-13] MEDS: FLUoxetine HCL 20 MG CAP PO SCH (08:19)
[2017-08-13] MEDS: azaTHIOprine 50 MG TAB PO SCH (08:19)
[2017-08-13] MEDS: DIAZEPAM 10 MG TAB PO PRN (08:20)
[2017-08-13] MEDS: GABAPENTIN 300 MG CAP PO SCH ×3 (08:20→17:28)
[2017-08-13] MEDS: PANTOPRAZOLE SOD 20 MG DELAYED RELEASE TAB PO SCH (08:20)
[2017-08-13] MEDS: DICYCLOMINE HCL 10 MG CAP PO PRN (08:20)
[2017-08-13] MEDS: SODIUM CHLORIDE 0.9% FLUSH 10 ML FLUSH IV FLUSH SCH ×2 (08:22→21:38)
[2017-08-13] MEDS: DOCUSATE SODIUM 50 MG/SENNA 8.6 MG TAB PO SCH (08:26)
--- NOTE | 2017-08-13 11:39 | HHI.PR ---
Subjective Remarks Follow-up hypotension/SIRS/and now diarrhea 08/13/17-patient seen and examined, reports multiple episode of moderate diarrhea 7 overnight and BP labile and appendectomy. C. difficile PCR negative Objective Vitals Vital Signs Date Time Temp Pulse Resp B/P (MAP) Pulse Ox O2 Delivery O2 Flow Rate FiO2 08/13/17 08:00 97.9 77 18 183/98 (126) 98 08/13/17 04:00 97.9 84 18 160/86 (110) 98 08/13/17 03:48 86 08/13/17 00:00 98.6 52 16 158/77 (104) 95 08/12/17 21:10 98 08/12/17 20:00 97.8 86 18 162/78 (106) 96 08/12/17 18:00 89 08/12/17 16:00 98.5 90 17 132/63 (86) 96 08/12/17 16:00 90 08/12/17 15:00 81 11 145/70 (95) 95 08/12/17 14:00 81 11 176/80 (112) 97 08/12/17 14:00 81 08/12/17 13:00 81 16 146/71 (96) 98 08/12/17 12:00 89 08/12/17 12:00 98.4 89 19 157/82 (107) 97 I/O 08/12/17 08/12/17 08/12/17 08/13/17 08/13/17 08/13/17 07:00 15:00 23:00 07:00 15:00 23:00 Intake Total 1554 ml 846.5 ml 500 ml 240 ml Output Total 1650 ml 1700 ml Balance -96 ml 846.5 ml -1200 ml 240 ml Intake Oral 240 ml 400 ml 240 ml IV Total 1314 ml 846.5 ml 100 ml Output Urine Total 1650 ml 1700 ml Stool Total 0 ml # Voids 2 1 # Bowel Movements 2 4 Result Diagram: 08/12/1743608/12/17436 Imaging Last Impressions Chest X-Ray 08/11/171805 Signed Impressions: Service Date/Time: Friday, August 11, 2017 18:37 - CONCLUSION: No acute disease. John Caballero MD Abdomen/Pelvis CT 08/11/17 0000 Signed Impressions: Service Date/Time: Friday, August 11, 2017 19:43 - CONCLUSION: 1. Diverticulosis without diverticulitis. 2. No acute inflammatory process. 3. Status post cholecystectomy. John Caballero MD Objective Remarks GENERAL: NAD SKIN: Warm and dry. HEAD: Normocephalic. EYES: No scleral icterus. No injection or drainage. NECK: Supple, trachea midline. No JVD or lymphadenopathy. CARDIOVASCULAR: Regular rate and rhythm without murmurs, gallops, or rubs. RESPIRATORY: Breath sounds equal bilaterally. No accessory muscle use. GASTROINTESTINAL: Abdomen soft, non-tender, nondistended. MUSCULOSKELETAL: No cyanosis, or edema. BACK: Nontender without obvious deformity. No CVA tenderness. A/P Problem List: (1) Benign labile hypertension ICD Code: I10 - Essential (primary) hypertension (2) Hypotension ICD Code: I95.9 - Hypotension, unspecified (3) SIRS (systemic inflammatory response syndrome) ICD Code: R65.10 - Systemic inflammatory response syndrome (SIRS) of non- infectious origin without acute organ dysfunction Assessment and Plan 67-year-old man with Hypotension (resolved) - SIRS?? - Medication effect - s/p Aggressive IV fluid resuscitation - Stop all Broad-spectrum antibiotics Now benign labile hypertension -Resume Norvasc 10 mg daily -Hydralazine when necessary COPD - No exacerbation - DuoNeb scheduled and when necessary - No indication for steroids Fibromyalgia - Continue home meds - Pain medication when necessary History of C. difficile colitis - C. difficile PCR negative Anxiety - Diazepam when necessary Crohn's disease - Home dose Azathioprine 50 mg daily, Bentyl Diarrhea -Conservative treatment Hypokalemia -Give potassium 60 mEq 1 now and monitor electrolyte DVT GI prophylaxis - Teds SCDs - Subcutaneous heparin - Protonix Discharge Planning Discharge home next 24-48 hours John Shannon MD Aug 13, 2017 11:39
[2017-08-13] MEDS: MORPHINE SULFATE 4 MG/ML INJ IV PUSH PRN (11:43)
[2017-08-13] MEDS ORDERED: POTASSIUM CHLORIDE 10 MEQ CONTROLLED RELEASE TAB PO ONE (11:45)
[2017-08-13] MEDS ORDERED: hydrALAZINE HCL 25 MG TAB PO PRN (11:45)
[2017-08-13] MEDS ORDERED: PHARMACY ORDERED LAB ONE (21:45)
[2017-08-14] VITALS (7 sets, daily range): BP systolic 113–153; BP diastolic 65–82; PULSE 74–103; RESP 17–18; TEMP 96.7–97.8; O2SAT 92–98
[2017-08-14] MEDS: DIAZEPAM 10 MG TAB PO PRN ×2 (00:15→11:30)
[2017-08-14] MEDS: RESP: ALBUTEROL 2.5 MG/IPRATROPIUM 0.5 MG NEB (SCH) INH ×2 (02:43→09:15)
[2017-08-14] MEDS: SODIUM CHLOR 0.9% 1000 ML INJ 1,000 ML IV SCH (03:17)
[2017-08-14] MEDS: CHLORHEXIDINE GLUCONATE 2 % 1 PACK (2 CLOTHS) TOP SCH (04:00)
[2017-08-14] MEDS: ACETAMINOPHEN/HYDROcodone 325 MG/5 MG TAB PO PRN ×2 (04:15→09:22)
[2017-08-14] MEDS: HEPARIN SODIUM - SQ 10,000 UNITS/ML VIAL SQ SCH (04:15)
[2017-08-14 06:06] LABS: BICARBONATE 28.6 MEQ/L (21.0-32.0); POTASSIUM 3.3 MEQ/L (3.5-5.1)
[2017-08-14] MEDS: SODIUM CHLORIDE 0.9% FLUSH 10 ML FLUSH IV FLUSH SCH (09:00)
[2017-08-14] MEDS: GABAPENTIN 300 MG CAP PO SCH ×2 (09:16→12:31)
[2017-08-14] MEDS: azaTHIOprine 50 MG TAB PO SCH (09:17)
[2017-08-14] MEDS: PANTOPRAZOLE SOD 20 MG DELAYED RELEASE TAB PO SCH (09:17)
[2017-08-14] MEDS: FLUoxetine HCL 20 MG CAP PO SCH (09:20)
--- NOTE | 2017-08-14 10:30 | HHI.FF ---
Face to Face Verification Diagnosis: (1) Physical deconditioning (2) HYPERTENSION NOS (3) Panic disorder without agoraphobia (4) Diarrhea (5) SIRS (systemic inflammatory response syndrome) Physical Therapy Order: Evaluate and Treat, Improve ambulation, Strength and gait training I have seen patient Dave Wolff on 08/14/17. My clinical findings support the need for the requested home health care services because: Ltd mobility - disease progression Deconditioned w/ increased weakness I certify that my clinical findings support that this patient is homebound because: Unsteady gait/balance Jayne Kelley MD Aug 14, 2017 10:30
--- NOTE | 2017-08-14 10:35 | HHI.DS ---
Discharge Summary Admission Date Aug 11, 2017 at 19:02 Discharge Date: Aug 14, 2017 Admitting Diagnosis hypertension, sepsis (1) SIRS (systemic inflammatory response syndrome) ICD Code: R65.10 - Systemic inflammatory response syndrome (SIRS) of non- infectious origin without acute organ dysfunction Diagnosis: Principal (2) Benign labile hypertension ICD Code: I10 - Essential (primary) hypertension Diagnosis: Secondary (3) Diarrhea ICD Code: R19.7 - Diarrhea Diagnosis: Secondary Status: Acute Procedures See hospital course Brief History - From Admission 67-year-old male with a history of Crohn's disease, recently seen in the emergency room a few days ago for hypertension and nausea and vomiting, was found by his neighbor poorly responsive. When EMS arrived they noticed that the patient was extremely lethargic with some slurred speech. His blood pressure was 78 systolic and therefore they started giving him IV fluid bolus. Patient has a history of hypertension and his list of medications show few high blood pressure medications that he takes. Patient denies overdosing on these medications accidentally or intentionally. He was started on dopamine drip after 1 L of IV fluid bolus by EMS due to persistent hypotension. My assessment the patient was off dopamine with a blood pressure in the systolic 120s, alert awake and in no significant distress. CBC/BMP: 08/12/17 0437 08/14/17 0500 Significant Findings Laboratory Tests Test 08/11/17 18:10 08/11/17 18:25 08/11/17 22:05 08/12/17 04:37 Red Blood Count 4.22 MIL/MM3 (4.50-5.90) 4.31 MIL/MM3 (4.50-5.90) Hematocrit 38.1 % (39.0-51.0) 38.7 % (39.0-51.0) Mean Platelet Volume 6.5 FL (7.0-11.0) 6.7 FL (7.0-11.0) Neutrophils (%) (Auto) 73.3 % (16.0-70.0) 75.7 % (16.0-70.0) Monocytes (%) (Auto) 10.5 % (0.0-8.0) 10.1 % (0.0-8.0) Lymphocytes # (Auto) 0.7 TH/MM3 (1.0-4.8) 0.6 TH/MM3 (1.0-4.8) Random Glucose 114 MG/DL (74-106) Albumin 2.9 GM/DL (3.4-5.0) 2.7 GM/DL (3.4-5.0) Calcium Level 8.1 MG/DL (8.5-10.1) 7.9 MG/DL (8.5-10.1) Aspartate Amino Transf (AST/SGOT) 11 U/L (15-37) 13 U/L (15-37) Potassium Level 3.1 MEQ/L (3.5-5.1) 3.2 MEQ/L (3.5-5.1) Estimat Glomerular Filtration Rate 61 ML/MIN (>89) 76 ML/MIN (>89) Troponin I LESS THAN 0.02 NG/ML Salicylates Level LESS THAN 1.7 MG/DL Acetaminophen Level LESS THAN 2.0 MCG/ML Urine Bacteria RARE /hpf (NONE) Urine Opiates Screen POS (NEG) Urine Benzodiazepines Screen POS (NEG) Urine Cannabinoids Screen POS (NEG) Phosphorus Level 2.1 MG/DL (2.5-4.9) Magnesium Level 1.4 MG/DL (1.5-2.5) Chloride Level 109 MEQ/L (98-107) Test 08/13/17 03:10 08/14/17 05:00 Blood Urea Nitrogen 2 MG/DL (7-18) Calcium Level 8.2 MG/DL (8.5-10.1) Potassium Level 3.3 MEQ/L (3.5-5.1) Chloride Level 108 MEQ/L (98-107) Imaging Last Impressions Chest X-Ray 08/11/17 1806 Signed Impressions: Service Date/Time: Friday, August 11, 2017 18:37 - CONCLUSION: No acute disease. John Caballero MD Abdomen/Pelvis CT 08/11/17 0000 Signed Impressions: Service Date/Time: Friday, August 11, 2017 19:43 - CONCLUSION: 1. Diverticulosis without diverticulitis. 2. No acute inflammatory process. 3. Status post cholecystectomy. John Caballero MD PE at Discharge GENERAL: NAD SKIN: Warm and dry. HEAD: Normocephalic. EYES: No scleral icterus. No injection or drainage. NECK: Supple, trachea midline. No JVD or lymphadenopathy. CARDIOVASCULAR: Regular rate and rhythm without murmurs, gallops, or rubs. RESPIRATORY: Breath sounds equal bilaterally. No accessory muscle use. GASTROINTESTINAL: Abdomen soft, non-tender, nondistended. MUSCULOSKELETAL: No cyanosis, or edema. BACK: Nontender without obvious deformity. No CVA tenderness. Pt update on day of discharge Follow-up for SIRS and diarrhea Patient stated diarrhea is improved. He is tolerating oral intake. Patient denies any pain. Denies any chest pain, palpitation, abdominal pain, shortness of breathing, lightheadedness or dizziness. Patient anxious to go home. He remains afebrile. No issues overnight. Discussed with patient's nurse. Hospital Course 67-year-old man who presented with diarrhea and hypotension. Patient initially admitted to the intensive care unit secondary to hypotension that resolved quickly in emergency department with aggressive IV fluid resuscitation. He was also started on Zosyn empirically pending workup. Patient had infectious workup which was negative. Zosyn DC'd in which she continued to well off antibiotics. During his hospitalization urine drug screen was done which showed positive for cannabinoids, opioids, benzos. Patient had a short hospitalization since he improved quickly. He also had a CT scan of the abdomen /pelvis due to diarrhea which was negative. Diarrhea improved throughout hospitalization. Diarrhea may be due to polysubstance abuse. Education was given. Pt Condition on Discharge: Stable Discharge Disposition: Disch w/ Home Health Serv Discharge Time: <= 30 minutes Discharge Instructions DIET: Follow Instructions for: Heart Healthy Diet Activities you can perform: Regular-No Restrictions Follow up Referrals: PCP Follow-up - 1 Week PCP Follow-up @ [facility]/ with [facility] - [phone] Continued Medications: Amlodipine (Norvasc) 10 Mg Tab 10 MG PO DAILY for Blood Pressure Management, #30 TAB 0 Refills HOLD FOR LOW BLOOD PRESSURE Azathioprine (Azathioprine) 50 Mg Tab 50 MG PO DAILY for Immunosuppression, #30 TAB 0 Refills Hazardous agent use appropriate precautions for handling and disposal. Diazepam (Diazepam) 10 Mg Tab 10 MG PO TID PRN for ANXIETY, TAB 0 Refills Dicyclomine (Dicyclomine) 10 Mg Cap 10 MG PO TID PRN for Bowel Management, CAP 0 Refills Fluoxetine (Fluoxetine) 20 Mg Tab 20 MG PO DAILY for Depression Control, #30 TAB 0 Refills Gabapentin (Gabapentin) 300 Mg Cap 300 MG PO TID for Pain Management, #90 CAP 0 Refills Hydrocodone-Acetaminophen (Hydrocodone-Acetaminophen) 10-325 mg Tab 1 TAB PO Q6H PRN for PAIN, TAB 0 Refills Omeprazole (Omeprazole) 20 Mg Tab 20 MG PO DAILY for Reflux, #30 TAB 0 Refills Ondansetron Odt (Zofran Odt) 4 Mg Tab 4 MG SL Q6HR PRN for Nausea/Vomiting, #10 TAB 0 Refills Tizanidine (Zanaflex) 4 Mg Tab 4 MG PO QID PRN for MUSCLE SPASM, TAB 0 Refills [medical marijuana] () 20 MG PO 5 TIMES A DAY Discontinued Medications: Clonidine (Clonidine) 0.1 Mg Tab 0.1 MG PO BID PRN for B/P 180/100 OR HIGHER, #60 TAB 0 Refills Jayne Kelley MD Aug 14, 2017 10:35
== END 2017-08-14 14:44 | disposition home health service (06) | DRG 315 ==
LOC: NEPC 18:01 → NEDA 19:02 → HIME 22:05 → N06B 08-12 20:22
PROVIDERS: ADMIT Family Medicine; ATTEND Family Medicine
DX: I95.9 Hypotension, unspecified (principal); K50.90 Crohn's disease, unspecified, without complications; R65.10 Systemic inflammatory response syndrome (SIRS) of non-infectious origin without acute organ dysfunction; J44.9 Chronic obstructive pulmonary disease, unspecified; R19.7 Diarrhea, unspecified; I10 Essential (primary) hypertension; K21.9 Gastro-esophageal reflux disease without esophagitis; K44.9 Diaphragmatic hernia without obstruction or gangrene; G57.90 Unspecified mononeuropathy of unspecified lower limb; M79.7 Fibromyalgia; F41.9 Anxiety disorder, unspecified; E87.6 Hypokalemia; Z85.47 Personal history of malignant neoplasm of testis; Z92.3 Personal history of irradiation; Z87.891 Personal history of nicotine dependence
CPT/HCPCS: 71010; 74177; 80048; 80053; 80307; 81001; 82140; 82550; 83605; 83735; 84100; 84443; 84484; 85025; 85610; 86850; 86900; 86901; 87040; 87086; 87493; 87641; 93005; 94640; 94664; 96360; J0360; J1644; J2270; J2543; J3370; J3480; J7030; J7050; J7500; Q9967

== ENCOUNTER 2017-11-04 17:05 | Emergency (ER) | payer MEDICARE ==
[~2017-11-04] VITALS: Ht 180.3 cm; Wt 74.0 kg
[~2017-11-04 17:05] MED LIST changes: +AMLO10 PO; -CLON0.1T PO; +GABA300C5 PO; -GABA600T PO; +TIZA4 PO
[2017-11-04 17:12] VITALS: BP 94/58; PULSE 88; RESP 18; TEMP 98.2; O2SAT 99
[2017-11-04 17:50] LABS: AUTOMATED NEUTROPHIL # 3.8 TH/MM3 (1.8-7.7); BASOPHIL % 0.7 % (0.0-2.0); EOSINOPHIL # 0.3 TH/MM3 (0-0.4); EOSINOPHIL % 6.2 % (0.0-4.0); HEMOGLOBIN 11.3 GM/DL (13.0-17.0); LYMPHOCYTE # 0.7 TH/MM3 (1.0-4.8); MEAN CELL VOLUME 90.4 FL (80.0-100.0); MEAN CORPUSCULAR HGB CONC 34.2 % (32.0-36.0); MEAN PLATELET VOLUME 7.3 FL (7.0-11.0); MONO % 8.4 % (0.0-8.0); MONOCYTE # 0.4 TH/MM3 (0-0.9); NEUT % 70.7 % (16.0-70.0); PLATELET COUNT 201 TH/MM3 (150-450); RED BLOOD COUNT 3.65 MIL/MM3 (4.50-5.90); RED CELL DISTRIBUTION WIDTH 15.1 % (11.6-17.2); WHITE BLOOD COUNT 5.3 TH/MM3 (4.0-11.0)
[2017-11-04] MEDS ORDERED: CHOL4POW3 PO (17:53)
[2017-11-04] MEDS ORDERED: FLUO-1 PO (17:53)
[2017-11-04] MEDS ORDERED: OXYC1TAB36 PO (17:53)
[2017-11-04 18:05] LABS: ALT (GPT) 15 U/L (12-78)
[2017-11-04 18:07] LABS: ALBUMIN 2.5 GM/DL (3.4-5.0); ALKALINE PHOSPHATASE 69 U/L (45-117); AST (GOT) 20 U/L (15-37); BICARBONATE 31.4 MEQ/L (21.0-32.0); BLOOD UREA NITROGEN 7 MG/DL (7-18); CALCIUM 7.7 MG/DL (8.5-10.1); CHLORIDE 110 MEQ/L (98-107); CREATININE 1.11 MG/DL (0.60-1.30); GLOMERULAR FILTRATION RATE 66 ML/MIN (>89); GLUCOSE,RANDOM 91 MG/DL (74-106); SODIUM (NA) 144 MEQ/L (136-145); TOTAL BILIRUBIN ADULT 0.2 MG/DL (0.2-1.0); TOTAL PROTEIN 5.8 GM/DL (6.4-8.2)
[2017-11-04 18:13] VITALS: BP 125/67; PULSE 60; RESP 18; O2SAT 98
--- NOTE | 2017-11-04 19:03 | PD ---
HPI Chief Complaint: General Weakness Time Seen by Provider: 18:50 Travel History International Travel<30 days: No Contact w/Intl Traveler<30days: No Traveled to known affect area: No History of Present Illness HPI 67-year-old male with a reported history of Crohn's, COPD, osteoarthritis, rheumatoid arthritis, brought in by ambulance from home for evaluation of generalized weakness and low blood pressure. The patient reports generalized weakness and generalized malaise for the last couple of days. 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 No chest pain or dyspnea. No fevers. No cough. He reports having pain all over, however this is usual for him. 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) Cardiovascular Problems: Yes (htn) High Cholesterol: Yes (controlled on meds) Chemotherapy: No Chest Pain: No Congestive Heart Failure: No COPD: Yes Cerebrovascular Accident: No Diabetes: No Diminished Hearing: No Endocrine: No Fibromyalgia: Yes Gastrointestinal Disorders: Yes (CHRON'S DISEASE, GERD, HIATAL HERNIA, CHRONIC GASTRITIS, DIARRHEA) GERD: Yes (TAKES PRILOSEC) Glaucoma: No Genitourinary: No Headaches: Yes Hepatitis: No Hiatal Hernia: Yes Heparin Induced Thrombocytopen: No Hypertension: Yes (controlled on meds) Immune Disorder: Yes (CHRON'S DISEASE, FIBROMYALGIA, IBS) Kidney Stones: No Musculoskeletal: Yes (ARTHRITIS, BURSITIS, FIBROMYALGIA, DDD, R SHOULDER PAIN) Neurologic: Yes (LEG NEUROPATHY) Psychiatric: Yes (Depression, Anxiety) Reproductive: 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) Respiratory: Yes (COPD) Immunizations Current: No ( ) Migraines: No Myocardial Infarction: No Radiation Therapy: Yes Renal Failure: No Seizures: No Sickle Cell Disease: No Sleep Apnea: Yes Thyroid Disease: No Ulcer: No PNEUMOCCOCAL Vaccine (Year): 1 ?: Not Past Surgical History Abdominal Surgery: Yes (HERNIA REPAIR 5 Y/0, BOWEL RESECTION 04/2010) AICD: No Appendectomy: No Arteriovenous Shunt: No Cardiac Surgery: No Cholecystectomy: Yes Ear Surgery: No Endocrine Surgery: No Eye Surgery: No Genitourinary Surgery: 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) Gynecologic Surgery: No Insulin Pump: No Joint Replacement: No Oral Surgery: Yes (TEETH REMOVAL) Pacemaker: No Thoracic Surgery: No Other Surgery: Yes Social History Alcohol Use: Yes (RARE) Tobacco Use: No (quit 2006 ) Substance Use: No Allergies-Medications (Allergen,Severity, Reaction): Coded Allergies: fire ant (Verified Allergy, Severe, 11/04/17) Uncoded Allergies: paper tape (Adverse Reaction, Mild, Rash, 08/11/17) Reported Meds & Prescriptions Reported Meds & Active Scripts Active Reported Prozac (Fluoxetine HCl) 10 Mg Cap 10 Mg PO DAILY Oxycodone-Acetaminophen 10-325 mg Tab 1 Tab PO Q4H PRN Cholestyramine 4 Gm/Dose Powd 4 Gm PO DAILY 1 level scoopful of powder contains 4 grams of cholestyramine. Norvasc (Amlodipine Besylate) 10 Mg Tab 10 Mg PO DAILY HOLD FOR LOW BLOOD PRESSURE Zanaflex (Tizanidine HCl) 4 Mg Tab 4 Mg PO QID PRN Gabapentin 300 Mg Cap 300 Mg PO TID [medical marijuana] 20 Mg PO 5 TIMES A DAY Dicyclomine (Dicyclomine HCl) 10 Mg Cap 10 Mg PO TID PRN Hydrocodone-Acetaminophen 10-325 mg Tab 1 Tab PO Q6H PRN Omeprazole 20 Mg Tab 20 Mg PO DAILY Azathioprine 50 Mg Tab 50 Mg PO DAILY Hazardous agent use appropriate precautions for handling and disposal. Review of Systems Except as stated in HPI: all other systems reviewed are Neg Physical Exam Narrative GENERAL: Well-developed, well-nourished, awake, alert, no apparent distress, ambulating in exam room without difficulty and without assistance. SKIN: Focused skin assessment warm/dry. No rash. No pallor. HEAD: Atraumatic. Normocephalic. EYES: Pupils equal and round. No scleral icterus. No injection or drainage. ENT: No nasal bleeding or discharge. Mucous membranes pink and moist. NECK: Trachea midline. No JVD. CARDIOVASCULAR: Regular rate and rhythm. RESPIRATORY: No accessory muscle use. Clear to auscultation. Breath sounds equal bilaterally. GASTROINTESTINAL: Abdomen soft, non-tender, nondistended. MUSCULOSKELETAL: No obvious deformities. No clubbing. No cyanosis. No edema. NEUROLOGICAL: Awake and alert. No obvious cranial nerve deficits. Motor grossly within normal limits. Normal speech. No focal deficits. PSYCHIATRIC: Appropriate mood and affect; insight and judgment normal. Data Data Last Documented VS Vital Signs Date Time Temp Pulse Resp B/P (MAP) Pulse Ox O2 Delivery O2 Flow Rate FiO2 11/04/17 19:10 57 17 98 Room Air 11/04/17 19:09 139/86 (103) 11/04/17 17:12 98.2 Orders Orders Complete Blood Count With Diff (11/04/17 17:30) Comprehensive Metabolic Panel (11/04/17 17:30) Urinalysis - C+S If Indicated (11/04/17 17:30) Iv Access Insert/Monitor (11/04/17 17:30) Oxygen Administration (11/04/17 17:30) Oximetry (11/04/17 17:30) Lipase (11/04/17 17:30) Lactic Acid (11/04/17 17:30) Influenzae A/B Antigen (11/04/17 18:54) Chest, Single Ap (11/04/17 ) Labs Laboratory Tests Test 11/04/17 17:33 11/04/17 19:16 White Blood Count 5.3 TH/MM3 Red Blood Count 3.65 MIL/MM3 Hemoglobin 11.3 GM/DL Hematocrit 33.0 % Mean Corpuscular Volume 90.4 FL Mean Corpuscular Hemoglobin 31.0 PG Mean Corpuscular Hemoglobin Concent 34.2 % Red Cell Distribution Width 15.1 % Platelet Count 201 TH/MM3 Mean Platelet Volume 7.3 FL Neutrophils (%) (Auto) 70.7 % Lymphocytes (%) (Auto) 14.0 % Monocytes (%) (Auto) 8.4 % Eosinophils (%) (Auto) 6.2 % Basophils (%) (Auto) 0.7 % Neutrophils # (Auto) 3.8 TH/MM3 Lymphocytes # (Auto) 0.7 TH/MM3 Monocytes # (Auto) 0.4 TH/MM3 Eosinophils # (Auto) 0.3 TH/MM3 Basophils # (Auto) 0.0 TH/MM3 CBC Comment DIFF FINAL Differential Comment Blood Urea Nitrogen 7 MG/DL Creatinine 1.11 MG/DL Random Glucose 91 MG/DL Total Protein 5.8 GM/DL Albumin 2.5 GM/DL Calcium Level 7.7 MG/DL Alkaline Phosphatase 69 U/L Aspartate Amino Transf (AST/SGOT) 20 U/L Alanine Aminotransferase (ALT/SGPT) 15 U/L Total Bilirubin 0.2 MG/DL Sodium Level 144 MEQ/L Potassium Level 4.0 MEQ/L Chloride Level 110 MEQ/L Carbon Dioxide Level 31.4 MEQ/L Anion Gap 3 MEQ/L Estimat Glomerular Filtration Rate 66 ML/MIN Lactic Acid Level 0.8 mmol/L Lipase 37 U/L Urine Color YELLOW Urine Turbidity CLEAR Urine pH 6.0 Urine Specific [place] 1.012 Urine Protein NEG mg/dL Urine Glucose (UA) NEG mg/dL Urine Ketones NEG mg/dL Urine Occult Blood NEG Urine Nitrite NEG Urine Bilirubin NEG Urine Urobilinogen LESS THAN 2.0 MG/DL Urine Leukocyte Esterase NEG Urine RBC 1 /hpf Urine WBC 1 /hpf Urine Squamous Epithelial Cells <1 /hpf Urine Hyaline Casts 17 /lpf Urine Mucus FEW /lpf Microscopic Urinalysis Comment CULT NOT INDICATED MDM Medical Decision Making Medical Screen Exam Complete: Yes Emergency Medical Condition: Yes Differential Diagnosis Metabolic abnormality, anemia, UTI, pneumonia, influenza Narrative Course Vital signs reviewed. CBC: WBC 5.3, hemoglobin 11.3, hematocrit 33, platelets 201, neutrophils 70%. CMP is remarkable for albumin 2.5, calcium 7.7, otherwise unremarkable. Lipase is 37. Lactic acid is 0.8. UA is not suggestive of UTI. Influenza is negative. Chest x-ray: No acute cardiopulmonary findings. Stable compared to previous exam. The patient was made aware of all findings. He is resting comfortably. There are no focal deficits on exam. At this point is stable for discharge home with further outpatient follow-up with a primary care physician this week. He was advised on when to return to the emergency department. He verbalizes understanding and agreement with plan. Diagnosis Primary Impression: Generalized weakness Referrals: Primary Care Physician 3 days Additional Instructions: Follow-up with a primary care physician this week. Return to the emergency department for worsening symptoms or any other concerns. Disposition: 01 DISCHARGE HOME Condition: Stable Chris Black MD Nov 04, 2017 19:03
[2017-11-04 19:09] VITALS: BP 139/86; PULSE 59; RESP 18; O2SAT 98
[2017-11-04 19:30] LABS: BILIRUBIN, URINE NEG (NEG); BLOOD, URINE NEG (NEG); GLUCOSE,URINE NEG (NEG); HYALINE CAST, URINE 17 /lpf (RARE); KETONE, URINE NEG (NEG); MUCUS URINE FEW /lpf (OCC); NITRITE,URINE NEG (NEG); SQUAMOUS EPITHELIAL CELL URINE <1 /hpf (0-5); URINE COLOR YELLOW (YELLW/STRAW); URINE LEUKOCYTE ESTERASE NEG (NEG)
--- NOTE | 2017-11-04 20:03 | RADRPT ---
EXAM DATE/TIME: 11/04/2017 19:25 [facility] COMPARISON: CHEST SINGLE AP, August 11, 2017, 18:37. INDICATIONS : Cough. MEDICAL HISTORY : Chronic obstructive pulmonary disease. SURGICAL HISTORY : None. ENCOUNTER: Initial ACUITY: 1 day PAIN SCORE: 0/10 LOCATION: Bilateral chest FINDINGS: A single view of the chest demonstrates the lungs to be symmetrically aerated without evidence of mas s, infiltrate or effusion. The cardiomediastinal contours are unremarkable. Osseous structures are intact. CONCLUSION: 1. No acute cardiopulmonary findings. Stable compared to previous exam. Rashawn Perez MD on November 04, 2017 at 20:01 Board Certified Radiologist. This report was verified electronically.
== END 2017-11-04 20:48 | disposition home or self-care (01) ==
LOC: NEPD 17:05
DX: R53.1 Weakness (principal); F32.9 Major depressive disorder, single episode, unspecified; J44.9 Chronic obstructive pulmonary disease, unspecified; E78.00 Pure hypercholesterolemia, unspecified; M79.7 Fibromyalgia; K50.90 Crohn's disease, unspecified, without complications; K21.9 Gastro-esophageal reflux disease without esophagitis; M06.9 Rheumatoid arthritis, unspecified; I10 Essential (primary) hypertension; Z85.47 Personal history of malignant neoplasm of testis; Z87.891 Personal history of nicotine dependence
CPT/HCPCS: 71045; 80053; 81001; 83605; 83690; 85025; 87804; 99284

== ENCOUNTER 2017-12-30 09:44 | Emergency (ER) | payer MEDICARE ==
[2017-12-30] VITALS (7 sets, daily range): BP systolic 186–226; BP diastolic 71–114; PULSE 86–101; RESP 19–20; TEMP 98.3; O2SAT 91–92
[~2017-12-30] VITALS: Ht 180.3 cm; Wt 63.0 kg
[~2017-12-30 09:44] MED LIST changes: +CHOL4POW3 PO; -DIAZ10TA PO; +FLUO-1 PO; -FLUO1TAB3 PO; +OXYC1TAB36 PO; -ZOFR4TAB3 SL
[2017-12-30] MEDS ORDERED: OMEP40CA2 PO (10:07)
[2017-12-30] MEDS ORDERED: GABA300C5 PO (10:07)
--- NOTE | 2017-12-30 10:11 | PD ---
HPI Chief Complaint: Hypertension Time Seen by Provider: 09:55 Travel History International Travel<30 days: No Contact w/Intl Traveler<30days: No Traveled to known affect area: No History of Present Illness HPI 67 years old male complains of headache and elevated blood pressure. Patient has history recurrent headache and has been seen by neurologist. Patient also has history hypertension and has amlodipine 5 mg to be taken as needed for elevated blood pressure. Patient states that headache is worse this morning. Patient states that headache is aching headache diffuse over the head. Patient denies any visual change. Patient denies any neck pain. Patient denies any chest pain shortness of breath. Patient denies abdominal pain. Patient states that he had intermittent nausea vomiting this morning. Patient states that his blood pressure was in the 200 range at home. Patient took amlodipine 5 mg around 7:00 this morning. EMS was called. Patient was brought in for evaluation. Patient has history of chronic pain and has been taking hydrocodone and oxycodone as needed for pain. Patient also has history of COPD. On a scale from 1-10 headache is a 7. 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) Cardiovascular Problems: Yes (HTN) High Cholesterol: Yes (controlled on meds) Chemotherapy: No Chest Pain: No Congestive Heart Failure: No COPD: Yes Cerebrovascular Accident: No Diabetes: No Diminished Hearing: No Endocrine: No Fibromyalgia: Yes Gastrointestinal Disorders: Yes (CHRON'S DISEASE, GERD, HIATAL HERNIA, CHRONIC GASTRITIS, DIARRHEA) GERD: Yes (TAKES PRILOSEC) Glaucoma: No Genitourinary: No Headaches: Yes Hepatitis: No Hiatal Hernia: Yes Heparin Induced Thrombocytopen: No Hypertension: Yes (controlled on meds) Immune Disorder: Yes (CHRON'S DISEASE, FIBROMYALGIA, IBS) Kidney Stones: No Musculoskeletal: Yes (ARTHRITIS, BURSITIS, FIBROMYALGIA, DDD, R SHOULDER PAIN) Neurologic: Yes (LEG NEUROPATHY) Psychiatric: Yes (Depression, Anxiety) Reproductive: 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) Respiratory: Yes (COPD) Immunizations Current: No ( ) Migraines: No Myocardial Infarction: No Radiation Therapy: Yes Renal Failure: No Seizures: No Sickle Cell Disease: No Sleep Apnea: Yes Thyroid Disease: No Ulcer: No Tetanus Vaccination: > 5 Years Influenza Vaccination: No PNEUMOCCOCAL Vaccine (Year): 1 Past Surgical History Abdominal Surgery: Yes (HERNIA REPAIR 5 Y/0, BOWEL RESECTION 04/2010) AICD: No Appendectomy: No Arteriovenous Shunt: No Cardiac Surgery: No Cholecystectomy: Yes Ear Surgery: No Endocrine Surgery: No Eye Surgery: No Genitourinary Surgery: 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) Gynecologic Surgery: No Insulin Pump: No Joint Replacement: No Oral Surgery: Yes (TEETH REMOVAL) Pacemaker: No Thoracic Surgery: No Other Surgery: Yes Social History Alcohol Use: Yes (RARE) Tobacco Use: No (quit 2006 ) Substance Use: No Allergies-Medications (Allergen,Severity, Reaction): Coded Allergies: fire ant (Verified Allergy, Severe, 12/30/17) Uncoded Allergies: paper tape (Adverse Reaction, Mild, Rash, 08/11/17) Reported Meds & Prescriptions Reported Meds & Active Scripts Active Lisinopril 10 Mg Tab 10 Mg PO DAILY Reported Omeprazole 40 Mg Cap 40 Mg PO DAILY Gabapentin 300 Mg Cap 300 Mg PO QID Prozac (Fluoxetine HCl) 10 Mg Cap 10 Mg PO DAILY Oxycodone-Acetaminophen 10-325 mg Tab 1 Tab PO Q4H PRN Cholestyramine 4 Gm/Dose Powd 4 Gm PO DAILY 1 level scoopful of powder contains 4 grams of cholestyramine. Norvasc (Amlodipine Besylate) 10 Mg Tab 10 Mg PO DAILY HOLD FOR LOW BLOOD PRESSURE Zanaflex (Tizanidine HCl) 4 Mg Tab 4 Mg PO QID PRN [medical marijuana] 20 Mg PO 5 TIMES A DAY Dicyclomine (Dicyclomine HCl) 10 Mg Cap 10 Mg PO TID PRN Azathioprine 50 Mg Tab 50 Mg PO DAILY Hazardous agent use appropriate precautions for handling and disposal. Review of Systems General / Constitutional: No: Fever Eyes: No: Visual changes HENT: Positive: Headaches Cardiovascular: No: Chest Pain or Discomfort Respiratory: No: Shortness of Breath Gastrointestinal: No: Abdominal Pain Genitourinary: No: Dysuria Musculoskeletal: No: Pain Skin: No Rash Neurologic: No: Weakness Psychiatric: No: Depression Endocrine: No: Polydipsia Hematologic/Lymphatic: No: Easy Bruising Physical Exam Narrative GENERAL: Well-nourished, well-developed patient. SKIN: Focused skin assessment warm/dry. HEAD: Normocephalic. EYES: No scleral icterus. No injection or drainage. Pupils 2 mm equal reactive. NECK: Supple, trachea midline. No JVD or lymphadenopathy. No meningismus CARDIOVASCULAR: Regular rate and rhythm without murmurs, gallops, or rubs. RESPIRATORY: Breath sounds equal bilaterally. No accessory muscle use. GASTROINTESTINAL: Abdomen soft, non-tender, nondistended. MUSCULOSKELETAL: No cyanosis, or edema. BACK: Nontender without obvious deformity. No CVA tenderness. Neurologic exam: Patient is awake and alert oriented 3. No obvious focal neurological deficit. Data Data Last Documented VS Vital Signs Date Time Temp Pulse Resp B/P (MAP) Pulse Ox O2 Delivery O2 Flow Rate FiO2 12/30/17 12:20 90 20 210/107 (141) 91 Room Air 12/30/17 09:48 98.3 Orders Orders Electrocardiogram (12/30/17 10:04) Complete Blood Count With Diff (12/30/17 10:04) Basic Metabolic Panel (Bmp) (12/30/17 10:04) Chest, Single Ap (12/30/17 10:04) Ct Brain W/O Iv Contrast(Rout) (12/30/17 10:04) Iv Access Insert/Monitor (12/30/17 10:04) Ecg Monitoring (12/30/17 10:04) Oximetry (12/30/17 10:04) Labetalol Inj (Trandate Inj) (12/30/17 10:15) Sodium Chlor 0.9% 1000 Ml Inj (Ns 1000 M (12/30/17 10:15) Ondansetron Inj (Zofran Inj) (12/30/17 10:15) Labetalol Inj (Trandate Inj) (12/30/17 11:30) Ondansetron Inj (Zofran Inj) (12/30/17 12:30) Hydralazine Inj (Apresoline Inj) (12/30/17 12:30) Labs Laboratory Tests Test 12/30/17 10:10 White Blood Count 11.6 TH/MM3 Red Blood Count 4.30 MIL/MM3 Hemoglobin 13.1 GM/DL Hematocrit 39.3 % Mean Corpuscular Volume 91.5 FL Mean Corpuscular Hemoglobin 30.5 PG Mean Corpuscular Hemoglobin Concent 33.4 % Red Cell Distribution Width 14.6 % Platelet Count 301 TH/MM3 Mean Platelet Volume 7.0 FL Neutrophils (%) (Auto) 90.8 % Lymphocytes (%) (Auto) 3.7 % Monocytes (%) (Auto) 4.7 % Eosinophils (%) (Auto) 0.3 % Basophils (%) (Auto) 0.5 % Neutrophils # (Auto) 10.5 TH/MM3 Lymphocytes # (Auto) 0.4 TH/MM3 Monocytes # (Auto) 0.5 TH/MM3 Eosinophils # (Auto) 0.0 TH/MM3 Basophils # (Auto) 0.1 TH/MM3 CBC Comment DIFF FINAL Differential Comment Blood Urea Nitrogen 9 MG/DL Creatinine 0.99 MG/DL Random Glucose 89 MG/DL Calcium Level 8.5 MG/DL Sodium Level 146 MEQ/L Potassium Level 3.8 MEQ/L Chloride Level 111 MEQ/L Carbon Dioxide Level 26.9 MEQ/L Anion Gap 8 MEQ/L Estimat Glomerular Filtration Rate 76 ML/MIN MDM Medical Decision Making Medical Screen Exam Complete: Yes Emergency Medical Condition: Yes Interpretation(s) Last Impressions Head CT 12/30/17 1004 Signed Impressions: Service Date/Time: Saturday, December 30, 2017 10:24 - CONCLUSION: Negative for acute process Black Perez MD FACR Chest X-Ray 12/30/17 1004 Signed Impressions: Service Date/Time: Saturday, December 30, 2017 10:11 - CONCLUSION: 1. Stable biapical emphysematous changes, right worse than left. 2. No acute infiltrate Sukhjinder Martinez MD 11:12 AM. CBC WBC 11.6. 90 neutrophil. BMP within normal limits. Differential Diagnosis Differential diagnosis including tension headache, cluster headache, migraine headache, uncontrolled hypertension, hypertensive urgency, hypertensive crisis. Narrative Course 67 years old male with headache and elevated blood pressure. History of recurrent headache and hypertension. Patient is on amlodipine 5 mg as needed for high blood pressure. Labetalol 10 mg IV given. Repeat labetalol 10 mg IV. Hydralazine 10 mg IV. Zofran 4 mg IV. Normal saline solution 125 cc an hour. 12:52 PM. Blood pressure came under more control. Lisinopril 10 mg p.o. given. Diagnosis Primary Impression: Uncontrolled hypertension Additional Impression: Cephalgia Qualified Codes: R51 - Headache Patient Instructions: General Instructions Additional Instructions: Take lisinopril as directed. Amlodipine in addition to lisinopril to control blood pressure. Follow-up with personal physician for blood pressure check. Return if any problem of persistent high blood pressure. Med/Other Pt SpecificInfo: Prescription(s) given Scripts Ondansetron Odt (Zofran Odt) 4 Mg Tab 4 MG SL Q6HR Y for Nausea/Vomiting, #10 TAB 0 Refills Prov: Mani Crandall MD 12/30/17 Lisinopril (Lisinopril) 10 Mg Tab 10 MG PO DAILY, #30 TAB 0 Refills Prov: Mani Crandall MD 12/30/17 Disposition: 01 DISCHARGE HOME Condition: Stable Mani Crandall MD Dec 30, 2017 10:11
[2017-12-30] MEDS ORDERED: LABETALOL HCL 100 MG/20 ML VIAL IV PUSH ONE ×2 (10:15→11:30)
[2017-12-30] MEDS ORDERED: SODIUM CHLOR 0.9% 1000 ML INJ 1,000 ML IV SCH (10:15)
[2017-12-30] MEDS ORDERED: ONDANSETRON HCL 4 MG/2 ML VIAL IV PUSH ONE ×2 (10:15→12:30)
--- NOTE | 2017-12-30 10:31 | RADRPT ---
EXAM DATE/TIME: 12/30/2017 10:11 [facility] COMPARISON: CHEST SINGLE AP, November 04, 2017, 19:25. INDICATIONS : Short of breath. MEDICAL HISTORY : Carcinoma, testicular. Gastroesophageal reflux disease. Chronic obstructive pulmonary disease. HT N, Chron's disease, hiatal hernia. SURGICAL HISTORY : Hiatal hernia repair. ENCOUNTER: Initial ACUITY: 1 day PAIN SCORE: 0/10 LOCATION: Bilateral chest FINDINGS: A single view of the chest demonstrates the lungs to be symmetrically aerated without evidence of mas s, infiltrate or effusion. Biapical emphysematous changes, most prominent on the right. The cardiome diastinal contours are unremarkable. Osseous structures are intact with a dextroscoliosis of the tho racolumbar spine. CONCLUSION: 1. Stable biapical emphysematous changes, right worse than left. 2. No acute infiltrate Sukhjinder Martinez MD on December 30, 2017 at 10:28 Board Certified Radiologist. This report was verified electronically.
--- NOTE | 2017-12-30 10:35 | RADRPT ---
EXAM DATE/TIME: 12/30/2017 10:24 [facility] COMPARISON: CT BRAIN W/O CONTRAST, August 09, 2017, 4:19. INDICATIONS : Elevated blood pressure and headache RADIATION DOSE: 37.02 CTDIvol (mGy) MEDICAL HISTORY : Hypertension. Chronic obstructive pulmonary disease. Carcinoma, testicular. SURGICAL HISTORY : None. ENCOUNTER: Initial ACUITY: 1 day PAIN SCALE: 10/10 LOCATION: cranial TECHNIQUE: Multiple contiguous axial images were obtained of the head. Using automated exposure control and adj ustment of the mA and/or kV according to patient size, radiation dose was kept as low as reasonably a chievable to obtain optimal diagnostic quality images. DICOM format image data is available electro nically for review and comparison. FINDINGS: CEREBRUM: The ventricles are normal for age. No evidence of midline shift, mass lesion, hemorrhage or acute in farction. No extra-axial fluid collections are seen. POSTERIOR FOSSA: The cerebellum and brainstem are intact. The 4th ventricle is midline. The cerebellopontine angle i s unremarkable. EXTRACRANIAL: The visualized portion of the orbits is intact. SKULL: The calvaria is intact. No evidence of skull fracture. CONCLUSION: Negative for acute process Black Perez MD FACR on December 30, 2017 at 10:33 Board Certified Radiologist. This report was verified electronically.
[2017-12-30 10:38] LABS: AUTOMATED NEUTROPHIL # 10.5 TH/MM3 (1.8-7.7); BASOPHIL # 0.1 TH/MM3 (0-0.2); BASOPHIL % 0.5 % (0.0-2.0); EOSINOPHIL % 0.3 % (0.0-4.0); HEMATOCRIT 39.3 % (39.0-51.0); HEMOGLOBIN 13.1 GM/DL (13.0-17.0); LYMPH % 3.7 % (9.0-44.0); LYMPHOCYTE # 0.4 TH/MM3 (1.0-4.8); MEAN CELL VOLUME 91.5 FL (80.0-100.0); MEAN CORPUSCULAR HEMOGLOBIN 30.5 PG (27.0-34.0); MEAN CORPUSCULAR HGB CONC 33.4 % (32.0-36.0); MONO % 4.7 % (0.0-8.0); MONOCYTE # 0.5 TH/MM3 (0-0.9); NEUT % 90.8 % (16.0-70.0); PLATELET COUNT 301 TH/MM3 (150-450); RED CELL DISTRIBUTION WIDTH 14.6 % (11.6-17.2); WHITE BLOOD COUNT 11.6 TH/MM3 (4.0-11.0)
[2017-12-30 10:56] LABS: BICARBONATE 26.9 MEQ/L (21.0-32.0); CALCIUM 8.5 MG/DL (8.5-10.1); CREATININE 0.99 MG/DL (0.60-1.30)
[2017-12-30] MEDS ORDERED: LISI10TA3 PO (11:21)
--- NOTE | 2017-12-30 11:32 | EKG ---
Date Performed: 12/30/2017 Time Performed: 10:06:41 PTAGE: 67 years EKG: SINUS TACHYCARDIA INDETERMINATE AXIS RIGHT BUNDLE BRANCH BLOCK ABNORMAL ECG Compared to PREVIOUS TRACING , rate faster DOCTOR: Nathalie Delcid Interpretating Date/Time 12/30/2017 11:31:22
[2017-12-30] MEDS ORDERED: hydrALAZINE HCL 20 MG/ML VIAL IV PUSH ONE (12:30)
[2017-12-30] MEDS ORDERED: ZOFR4TAB3 SL (12:54)
[2017-12-30] MEDS ORDERED: LISINOPRIL 10 MG TAB PO ONE (13:15)
[2017-12-30] MEDS ORDERED: PROMETHAZINE INJ 25 MG/ML VIAL IM ONE (13:30)
== END 2017-12-30 15:30 | disposition home or self-care (01) ==
LOC: NEPC 09:44 → NETRI 15:30
DX: I10 Essential (primary) hypertension (principal); R51 Headache; E78.00 Pure hypercholesterolemia, unspecified; K21.9 Gastro-esophageal reflux disease without esophagitis; M79.7 Fibromyalgia; G89.29 Other chronic pain; Z87.891 Personal history of nicotine dependence
CPT/HCPCS: 70450; 71045; 80048; 85025; 93005; 96361; 96372; 96374; 96375; 96376; 99284; J0360; J2405; J2550; J7030

== ENCOUNTER 2018-04-14 09:38 | Observation (INO) ==
[2018-04-14 10:39] LABS: Baso # (Auto) 0.1 th/mm3 (0.0-0.2); Baso % (Auto) 0.9 % (0.0-2.0); Eos % (Auto) 0.1 % (0.0-4.0); Hematocrit 45.7 % (39.0-51.0); Lymph # (Auto) 0.4 th/mm3 (1.0-4.8); Lymph % (Auto) 4.8 % (9.0-44.0); Mean Corpuscular HGB Conc 32.8 % (32.0-36.0); Mean Corpuscular Hemoglobin 30.6 pg (27.0-34.0); Mean Corpuscular Volume 93.4 fL (80.0-100.0); Mean Platelet Volume 7.1 fL (7.0-11.0); Mono % (Auto) 10.7 % (0.0-8.0); Neut # (Auto) 7.8 th/mm3 (1.8-7.7); Neut % (Auto) 83.5 % (16.0-70.0); Platelet Count 614 th/mm3 (150-450); Red Cell Distribution Width 14.5 % (11.6-17.2); White Blood Count 9.3 th/mm3 (4.0-11.0)
[2018-04-14 10:48] LABS: Chloride 103 meq/L (98-107); Sodium 143 meq/L (136-145)
[2018-04-14 10:50] LABS: Potassium 3.4 meq/L (3.5-5.1)
[2018-04-14 10:52] LABS: Albumin 2.7 g/dL (3.4-5.0); Anion Gap 12 meq/L (5-15); Blood Urea Nitrogen 23 mg/dL (7-18); Calcium 8.6 mg/dL (8.5-10.1); Carbon Dioxide 27.6 meq/L (21.0-32.0); Glucose,Random 144 mg/dL (74-106); Lipase 81 U/L (73-393)
[2018-04-14 10:55] LABS: Alanine Aminotransferase 14 U/L (12-78); Aspartate Aminotransferase 20 U/L (15-37); Glomerular Filtration Rate 27 mL/min (>89)
[2018-04-14 10:57] LABS: Total Protein 7.9 g/dL (6.4-8.2)
[2018-04-14 10:58] LABS: Alkaline Phosphatase 79 U/L (45-117)
[2018-04-14] MEDS ORDERED: Aluminum/Magnesium/Simethacone Susp 30 ML UDC PO ONE (11:17)
[2018-04-14] MEDS ORDERED: Famotidine PF Inj 20 MG/2 ML Vial IV.PUSH ONE (11:17)
[2018-04-14] MEDS ORDERED: Dicyclomine Inj 20 MG/2 ML Ampul IM ONE (11:17)
[2018-04-14] MEDS ORDERED: Morphine Sulfate Inj 8 MG/ML Vial IV.PUSH ONE (11:17)
[2018-04-14] MEDS ORDERED: Sod Chloride 0.9% Inj 1,000 ML IV.SIG ONE (11:17)
--- NOTE | 2018-04-14 11:28 | ED ---
HPI General Chief complaint: Nausea/Vomiting/Diarrhea Stated complaint: Vomiting/cough Time Seen by Provider: 04/14/18 11:07 Source: patient Limitations: no limitations History of Present Illness HPI narrative: 68 years old and arrives to the ER with complaint of abdominal pain. He has had rhinorrhea for the past few days and notes vomiting about 10 times a day. Associated symptoms include diarrhea 10 times a day as well. He has a history of Crohn's disease and esophagitis. He also reports a history of COPD and rheumatoid arthritis. He reports chronic pain. Recently increasing opioid management from Lortab to oxycodone seems to have provided no major benefit. Appetite is decreased. The patient reports about a 90 pound weight loss over the past 18 months or so. He follows with Dr Valerio for PMD. Onset (ago): week(s) (1) Location: abdomen Radiation: non-radiation Severity: moderate Severity scale (1-10): 10 Quality: constant Relieving factors: medication (no change with oxycodone) Exacerbating factors: eating Related Data Home Medications Medication Instructions Recorded Confirmed azathioprine 50 mg PO DAILY 04/14/18 04/14/18 diazepam 10 mg PO TID PRN 04/14/18 04/14/18 dicyclomine 10 mg PO TID 04/14/18 04/14/18 fluoxetine 40 mg PO DAILY 04/14/18 04/14/18 metoclopramide HCl [Reglan] 10 mg PO BID 04/14/18 04/14/18 omeprazole 40 mg PO DAILY 04/14/18 04/14/18 oxycodone-acetaminophen 1 tab PO Q6H PRN 04/14/18 04/14/18 tizanidine 4 mg PO QID PRN 04/14/18 04/14/18 Allergies Allergy/AdvReac Type Severity Reaction Status Date / Time fire ant Allergy Severe Respiratory Verified 04/14/18 09:49 Failure NSAIDS (Non-Steroidal AdvReac Dyspepsia Verified 04/14/18 09:49 Anti-Inflamma paper tape AdvReac Mild Rash Uncoded 04/14/18 09:59 Review of Systems Except as stated in HPI: all other systems reviewed are negative Constitutional Reports difficulty sleeping (sleeps two hours per night last few nights) [facility] Medical History Medical History COPD (chronic obstructive pulmonary disease) (Acute) Chronic neck and back pain (Acute) Crohns disease (Acute) DDD (degenerative disc disease) (Acute) Esophageal stricture (Acute) GERD (gastroesophageal reflux disease) (Acute) History of endoscopy (Acute) IBS (irritable bowel syndrome) (Acute) Intestinal anastomosis present (Acute) Neuropathy (Acute) Osteoarthritis (Acute) Rheumatoid arthritis (Acute) Sinus problem (Acute) Sleep apnea (Acute) Weight loss (Acute) Surgical History Surgical History H/O colectomy (Acute) H/O hernia repair (Acute) History of cataract removal with insertion of prosthetic lens (Acute) History of cholecystectomy (Acute) History of colonoscopy (Acute) Social History Social History Substance History: No History of Abuse Second Hand Smoke Exposure: No Smoking Status: Former smoker Tobacco Type: Cigarettes How Often Do You Have a Drink Containing Alcohol: Monthly or less Recent Travel in [facility] within the Last 8 Weeks: No Recent Out of Country Travel within the Last 8 Weeks: No Immunization History Tetanus Immunization: Unsure Hx Influenza Vaccine This Season: No Exam Narrative Exam Narrative: GENERAL: 68-year-old male, very thin, pleasant SKIN: Focused skin assessment warm/dry. HEAD: Atraumatic. Normocephalic. EYES: Pupils equal and round. No scleral icterus. No injection or drainage. ENT: No nasal bleeding or discharge. Mucous membranes pink and moist. NECK: Trachea midline. No JVD. CARDIOVASCULAR: Tachycardia at about 110. Regular rhythm. RESPIRATORY: No accessory muscle use. Clear to auscultation. Breath sounds equal bilaterally. GASTROINTESTINAL: Soft. Generalized tenderness to palpation. MUSCULOSKELETAL: No obvious deformities. No clubbing. No cyanosis. No edema. NEUROLOGICAL: Awake and alert. No obvious cranial nerve deficits. Motor grossly within normal limits. Normal speech. PSYCHIATRIC: Appropriate mood and affect; insight and judgment normal. Course Reevaluation(s) Reevaluation #1: Patient received medications. Heart rate is decreased from 112 -100. Case discussed with Dr. Bui at about the same time, 12 noon. Patient requested ice chips and was given some. Admission order placed due to renal injury of unknown acuity. Time: 12:01 Initial Documented Vital Signs Temperature 97 F L 04/14/18 09:40 Pulse Rate 126 H 04/14/18 09:40 Respiratory Rate 20 04/14/18 09:40 Blood Pressure 126/66 04/14/18 09:40 Pulse Oximetry 95 04/14/18 09:40 Last Documented Vital Signs Temperature 97 F L 04/14/18 09:40 Pulse Rate 103 H 04/14/18 10:54 Respiratory Rate 16 04/14/18 11:48 Blood Pressure 141/81 H 04/14/18 10:54 Pulse Oximetry 90 L 04/14/18 10:54 Medical Decision Making Lab Data Lab results reviewed: Yes I reviewed the patient's lab results. Lab results narrative: There is a decline in renal function. The 4 months ago creatinine was normal. There is no hyperkalemia. The patient denies excessive NSAID use. Result diagrams: 04/14/18 10:27 04/14/18 10:27 Lab Results 04/14/18 04/14/18 Range/Units 10:27 10:27 CBC w Diff Slide review pending WBC 9.3 (4.0-11.0) th/mm3 RBC 4.90 (4.50-5.90) mil/mm3 Hgb 15.0 (13.0-17.0) gm/dL Hct 45.7 (39.0-51.0) % MCV 93.4 (80.0-100.0) fL MCH 30.6 (27.0-34.0) pg MCHC 32.8 (32.0-36.0) % RDW 14.5 (11.6-17.2) % Plt Count 614 H (150-450) th/mm3 MPV 7.1 (7.0-11.0) fL Neut % (Auto) 83.5 H (16.0-70.0) % Lymph % (Auto) 4.8 L (9.0-44.0) % [place] % (Auto) 10.7 H (0.0-8.0) % Eos % (Auto) 0.1 (0.0-4.0) % Baso % (Auto) 0.9 (0.0-2.0) % Neut # (Auto) 7.8 H (1.8-7.7) th/mm3 Lymph # (Auto) 0.4 L (1.0-4.8) th/mm3 [place] # (Auto) 1.0 H (0.0-0.9) th/mm3 Eos # (Auto) 0.0 (0.0-0.4) th/mm3 Baso # (Auto) 0.1 (0.0-0.2) th/mm3 WBC Differential . Diff Scan Auto diff confirmed Differential Comment . Platelet Estimate High H (Normal) Platelet Morphology Enlarged H (Normal) Sodium 143 (136-145) meq/L Potassium 3.4 L (3.5-5.1) meq/L Chloride 103 (98-107) meq/L Carbon Dioxide 27.6 (21.0-32.0) meq/L Anion Gap 12 (5-15) meq/L BUN 23 H (7-18) mg/dL Creatinine 2.40 H (0.60-1.30) mg/dL Estimated GFR 27 L (>89) mL/min Random Glucose 144 H (74-106) mg/dL Calcium 8.6 (8.5-10.1) mg/dL Total Bilirubin 0.4 (0.2-1.0) mg/dL AST 20 (15-37) U/L ALT 14 (12-78) U/L Alkaline Phosphatase 79 (45-117) U/L Total Protein 7.9 (6.4-8.2) g/dL Albumin 2.7 L (3.4-5.0) g/dL Lipase 81 (73-393) U/L Discharge Plan Discharge Disposition Patient Disposition: 30 Still Patient Physicians Team ED Provider: Rashawn Noble Primary Care Provider: Rafiq Newberry Rxs /Orders / Referrals /Forms Prescriptions: No Action fluoxetine 40 mg Capsule 40 mg PO DAILY RF: 0 tizanidine 4 mg Tablet 4 mg PO QID PRN (Reason: muscle spasms) RF: 0 azathioprine 50 mg Tablet 50 mg PO DAILY RF: 0 omeprazole 40 mg Capsule,Delayed Release(Dr/Ec) 40 mg PO DAILY RF: 0 oxycodone-acetaminophen 10-325 mg Tablet 1 tab PO Q6H PRN (Reason: Pain) RF: 0 diazepam 10 mg Tablet 10 mg PO TID PRN (Reason: Anxiety) RF: 0 dicyclomine 10 mg Capsule 10 mg PO TID RF: 0 metoclopramide HCl [Reglan] 10 mg Tablet 10 mg PO BID RF: 0 Status ED Status: With Doctor
[2018-04-14] MEDS ORDERED: Temazepam 15 MG Capsule PO PRN (12:20)
--- NOTE | 2018-04-14 13:45 | P.HP ---
History of Present Illness Primary Care Physician: Rafiq Newberry Chief Complaint: Nausea and vomiting History of Present Illness: 68-year-old male with rather complex medical history with Crohn's disease, hypertension, hyperlipidemia, chronic obstructive pulmonary disease, severe gastritis, sleep apnea, history of tobacco use, anxiety, testicular cancer who presented to the hospital because of intractable nausea vomiting. Patient indicates that over the last 10 days to 2 weeks he has had intractable nausea and vomiting. States that he has not been able to keep much down to include liquids or solids. He does have chronic gastritis in which she is followed by sld inclusion teacher Dr. Reyes in [facility], patient states that he had an appointment to have endoscopy with dilatation 2 days ago, however because he was not feeling well he did not go to the appointment. The patient indicates that he vomited this morning after he had some fatigue. His who is a nurse told him that he had some black colored vomit this morning and then changed to a green color. The patient did come to [facility] emergency department for evaluation, even though he knows that his GI physician does not come to [place]. Patient is treated for chronic pain. The patient does not indicate that he has any more significant pain than usual. He states that his pain is from his brainstem all the way down to his feet. He is followed by Dr. Cortés for pain management. He just switched him over from Lortab to oxycodone without any significant improvement. Patient indicates that he was on medical marijuana prescription, however it was too expensive and did not help with his pain control. Patient states that he has been able to take his medications without any nausea or vomiting. Patient had workup done emergency department and found to have acute renal failure of unknown etiology. It was recommended by the ER physician that the patient be admitted for further evaluation and management. - Diagnosis (1) Acute renal failure (2) Nausea & vomiting Review of Systems All other systems reviewed negative except as stated in HPI Constitutional: Reports weight loss (90 pounds any year and a half) Gastrointestinal: Reports nausea, Reports vomiting PMFSH - History History Provided By: Patient - Medical History Medical History: Medical History (Last Reviewed 04/14/18 @ 13:30 by MILO Gonzales) COPD (chronic obstructive pulmonary disease) Chronic neck and back pain Crohns disease DDD (degenerative disc disease) Esophageal stricture GERD (gastroesophageal reflux disease) History of endoscopy IBS (irritable bowel syndrome) Intestinal anastomosis present Neuropathy Osteoarthritis Rheumatoid arthritis Sinus problem Sleep apnea Weight loss - Surgical History Surgical History: Surgical History (Last Reviewed 04/14/18 @ 13:30 by MILO Gonzales) H/O colectomy H/O hernia repair History of cataract removal with insertion of prosthetic lens History of cholecystectomy History of colonoscopy - Family History Family History: Family History (Last Updated 04/14/18 @ 13:31 by MILO Gonzales) Father History of heart disease Brother History of poliomyelitis Sister History of cancer - Tobacco History Second Hand Smoke Exposure: No Smoking Status: Former smoker Tobacco Type: Cigarettes Number of Pack Years (if former smoker): 70 - Alcohol History How Often Do You Have a Drink Containing Alcohol: Monthly or less - Substance Use History Substance History: No History of Abuse - Travel History Recent Travel in the [facility] Within the Last 8 Weeks: No Recent Travel Out of the Country Within the Last 8 Weeks: No - Immunization History Tetanus Immunization: Unsure Hx Influenza Vaccine This Season: No Medications and Allergies Active Medications: Active Medications Lactated Ringer's (Lr 1000 Ml Inj) 1,000 mls @ 100 mls/hr IV.CONT .Q10H LIBERTAD Lactulose (Lactulose Liq) 30 ml PO DAILY PRN PRN Reason: SEVERE CONSITIPATION Metoclopramide HCl (Reglan Inj) 5 mg IV.PUSH Q6HR PRN; Protocol PRN Reason: NAUSEA OR VOMITING Temazepam (Restoril) 15 mg PO HS PRN PRN Reason: INSOMNIA Allergies Allergy/AdvReac Type Severity Reaction Status Date / Time fire ant Allergy Severe Respiratory Verified 04/14/18 09:49 Failure NSAIDS (Non-Steroidal AdvReac Dyspepsia Verified 04/14/18 09:49 Anti-Inflamma paper tape AdvReac Mild Rash Uncoded 04/14/18 09:59 Home Medications Medication Instructions Recorded Confirmed Type azathioprine 50 mg PO DAILY 04/14/18 04/14/18 History diazepam 10 mg PO TID PRN 04/14/18 04/14/18 History dicyclomine 10 mg PO TID 04/14/18 04/14/18 History fluoxetine 40 mg PO DAILY 04/14/18 04/14/18 History metoclopramide HCl [Reglan] 10 mg PO BID 04/14/18 04/14/18 History omeprazole 40 mg PO DAILY 04/14/18 04/14/18 History oxycodone-acetaminophen 1 tab PO Q6H PRN 04/14/18 04/14/18 History tizanidine 4 mg PO QID PRN 04/14/18 04/14/18 History Exam Vital signs: Vital Signs 04/14/18 09:40 04/14/18 10:54 04/14/18 11:48 Temperature 97 F L Pulse Rate 126 H 103 H Respiratory Rate 20 18 16 Blood Pressure 126/66 141/81 H Pulse Oximetry 95 90 L 04/14/18 11:55 04/14/18 13:20 Temperature 96.5 F L Pulse Rate 106 H 90 Respiratory Rate 18 16 Blood Pressure 141/86 H 152/86 H Pulse Oximetry 94 L 98 Intake & Output 04/13/18 04/14/18 04/14/18 18:59 06:59 18:59 Intake Total 1000 / 1000 Balance 1000 / 1000 Weight 52 kg Intake: IV 1000 / 1000 NS Inj 1,000 ML @ Wide Open IV. 1000 / 1000 SIG BOLUS ONE Rx#:[id number] Other: Date of Last Bowel Movement 04/14/18 Narrative: GENERAL: Well-developed, cachectic, in no acute distress. alert and orientated HEENT: Head is normocephalic without any lesions or masses noted. Facial features are symmetric with bitemporal wasting. Eyes: Pupils equal round reactive to light. Extraocular muscles are intact. Conjunctivae were clear. Oropharyngeal: Pharynx without any erythema edema. Tongue is midline without deviation. Buccal mucosa is moist without any masses or lesions NECK: Supple without any masses. Trachea midline no deviation. No JVD, no bruits are appreciated CARDIAC: Regular rhythm, regular rate. S1/S2 are heard. No murmurs gallops or rubs. LUNGS: Clear to auscultation bilaterally. No wheeze, rhonchi or rales. No use of accessory muscles on inspiration or expiration. ABDOMEN: Soft, nontender. Nondistended. Bowel sounds heard in all 4 quadrants. No organomegaly or masses. Negative rebound, negative guarding EXTREMITIES: No edema, pulses are equal bilaterally. No cyanosis or clubbing NEUROLOGY: Mood and affect appear appropriate. Cranial nerves II through XII grossly intact. Muscle strength 5/5 in upper and lower extremities bilaterally. Deep tendon reflexes are 2+ in upper and lower extremities bilaterally. Results - Labs CBC & Chem 7: 04/14/18 10:27 04/14/18 10:27 Labs: Laboratory Results - last 24 hr 04/14/18 04/14/18 10:27 10:27 CBC w Diff Slide review pending WBC 9.3 RBC 4.90 Hgb 15.0 Hct 45.7 MCV 93.4 MCH 30.6 MCHC 32.8 RDW 14.5 Plt Count 614 H MPV 7.1 Neut % (Auto) 83.5 H Lymph % (Auto) 4.8 L [place] % (Auto) 10.7 H Eos % (Auto) 0.1 Baso % (Auto) 0.9 Neut # (Auto) 7.8 H Lymph # (Auto) 0.4 L [place] # (Auto) 1.0 H Eos # (Auto) 0.0 Baso # (Auto) 0.1 WBC Differential . Diff Scan Auto diff confirmed Differential Comment . Platelet Estimate High H Platelet Morphology Enlarged H Sodium 143 Potassium 3.4 L Chloride 103 Carbon Dioxide 27.6 Anion Gap 12 BUN 23 H Creatinine 2.40 H Estimated GFR 27 L Random Glucose 144 H Calcium 8.6 Total Bilirubin 0.4 AST 20 ALT 14 Alkaline Phosphatase 79 Total Protein 7.9 Albumin 2.7 L Lipase 81 Caprini VTE Risk Assessment Caprini VTE Risk Assessment: Moderate/High Risk (score >= 2) Caprini Risk Assessment Model: Point Value = 1 Point Value = 2 Point Value = 3 Point Value = 5 Age 41-60 Minor surgery BMI > 25 kg/m2 Swollen legs Varicose veins or History of unexplained or recurrent spontaneous Oral contraceptives or hormone replacement Sepsis (< 1 month) Serious lung disease, including pneumonia (< 1 month) Abnormal pulmonary function Acute myocardial infarction Congestive heart failure (< 1 month) History of inflammatory bowel disease Medical patient at bed rest Age 61-74 Arthroscopic surgery Major open surgery (> 45 min) Laparoscopic surgery (> 45 min) Malignancy Confined to bed (> 72 hours) Immobilizing plaster cast Central venous access Age >= 75 History of VTE Family history of VTE Factor V Leiden Prothrombin [id number] Lupus anticoagulant Anticardiolipin antibodies Elevated serum homocysteine Heparin-induced thrombocytopenia Other congenital or acquired thrombophilia Stroke (< 1 month) Elective arthroplasty Hip, pelvis, or leg fracture Acute spinal cord injury (< 1 month) Prophylaxis Regimen: Total Risk Factor Score Risk Level Prophylaxis Regimen 0-1 Low Early ambulation 2 Moderate Order ONE of the following: *Sequential Compression Device (SCD) *Heparin 5000 units SQ BID 3-4 Higher Order ONE of the following medications: *Heparin 5000 units SQ TID *Enoxaparin/Lovenox 40 mg SQ daily (WT < 150 kg, CrCl > 30 mL/min) *Enoxaparin/Lovenox 30 mg SQ daily (WT < 150 kg, CrCl > 10-29 mL/min) *Enoxaparin/Lovenox 30 mg SQ BID (WT < 150 kg, CrCl > 30 mL/min) AND/OR *Sequential Compression Device (SCD) 5 or more Highest Order ONE of the following medications: *Heparin 5000 units SQ TID (Preferred with Epidurals) *Enoxaparin/Lovenox 40 mg SQ daily (WT < 150 kg, CrCl > 30 mL/min) *Enoxaparin/Lovenox 30 mg SQ daily (WT < 150 kg, CrCl > 10-29 mL/min) *Enoxaparin/Lovenox 30 mg SQ BID (WT < 150 kg, CrCl > 30 mL/min) AND *Sequential Compression Device (SCD) Assessment and Plan - Assessment (1) Acute renal failure Code(s): N17.9 - Acute kidney failure, unspecified Status: Acute (2) Nausea & vomiting Code(s): R11.2 - Nausea with vomiting, unspecified Status: Acute - Plan Acute renal failure, unknown etiology -Could be secondary to poor p.o. intake, dehydration, nausea vomiting -Laboratory studies indicating dehydration hemoconcentration -Obtain CT scan of the abdomen to rule out any other etiology -Continue IV fluids -Start liquid diet and advance as tolerated -Monitor renal function -Avoid nephrotoxins Chronic gastritis -Start Pepcid IV 20 mg IV twice daily -Patient to follow-up with his primary sld inclusion teacher upon discharge -If patient continues to have intractable nausea vomiting/gastritis may consider GI consult chronic generalized pain -Home medications have been continued DVT prevention -Subcutaneous heparin Discussed Condition With: Patient, nursing staff, Dr. Bui
[2018-04-14] MEDS: Heparin - SQ 10,000 UNITS/ML Vial SQ SCH ×2 (14:12→22:32)
[2018-04-14] MEDS ORDERED: Diatrizoate Meglum/Diatrizoate Sod Liq 9 ML UDC PO ONE (14:54)
--- NOTE | 2018-04-14 18:17 | CT ---
EXAM DATE: 04/14/2018 6:04 PM EDT AGE/SEX: 68 years / Male INDICATIONS: Acute renal failure. Nausea, vomiting and abdominal pain. CLINICAL DATA: This is the patient's initial encounter. Patient reports that signs and symptoms have been present for 2 days and indicates a pain score of 7/10. MEDICAL/SURGICAL HISTORY: Crohn's disease. Gastroesophageal reflux disease. Chronic obstructi ve pulmonary disease. Irritable bowel syndrome. Carcinoma, Testicular. Cholecystectomy. Hernia repa ir. Colectomy. Orchiectomy. RADIATION DOSE: 5.56 CTDI (mGy) COMPARISON: No prior exams available for comparison. TECHNIQUE: Multiple contiguous axial images were obtained through the abdomen. Images were obtained using multiple row detector helical technique. Using automated exposure control and adjustment of the mA and/or kV according to patient size, radiation dose was kept as low as reasonably achievable to o btain optimal diagnostic quality images. DICOM format image data is available electronically for rev iew and comparison. FINDINGS: There is distal airway disease at the lung bases characterized by peribronchial thickening, mild cyli ndrical bronchiectasis and bronchiolectasis with distal mucoid plugging of airways. There is some gastric distention. No evidence for obstruction. No acute findings in the liver, spleen , adrenals, kidneys or pancreas. Previous cholecystectomy. There is previous partial bowel resection in the right lower quadrant. No obstruction, free fluid or free air. No pelvic adenopathy or mass. CONCLUSION: 1. Distal airway disease in the lung bases with peribronchial thickening. Differential diagnosis inc ludes chronic aspiration and atypical mycobacterial disease. 2. No acute findings within the abdomen and pelvis. 3. Previous cholecystectomy and partial bowel resection in the right lower quadrant. 4. Mild gastric distention. Electronically signed by: Gary Juarez MD 04/14/2018 6:16 PM EDT
[2018-04-14] MEDS: oxyCODONE/Acetaminophen 10/325 Tablet PO PRN (18:18)
[2018-04-14] MEDS: Famotidine PF Inj 20 MG/2 ML Vial IV.PUSH SCH (21:04)
[2018-04-15 01:16] LABS: Bilirubin,Urine Moderate (Negative); Clarity,Urine Clear (Clear); Color,Urine Yellow (Yellw/Straw); Glucose,Urine (UA) Negative (Negative); Leukocyte Esterase,Urine Negative (Negative); Nitrite,Urine Negative (Negative); PH,Urine 5.5 (5.0-8.5); Urobilinogen,Urine 0.2 mg/dL (Less than 2)
[2018-04-15 01:23] LABS: Ictotest,Urine Positive (Negative)
[2018-04-15 01:30] LABS: Hyaline Casts,Urine Greater than 30 /lpf (0-3); Squamous Epithelial Cell,Urine 0-5 /hpf (0-5)
[2018-04-15 01:31] LABS: Mucus,Urine Few /lpf (Occasional); RBC,Urine 0-3 /hpf (0-3); WBC,Urine 0-5 /hpf (0-5)
[2018-04-15] MEDS: oxyCODONE/Acetaminophen 10/325 Tablet PO PRN ×3 (01:50→15:54)
[2018-04-15 05:17] VITALS: RESP 20
[2018-04-15 06:30] LABS: Baso % (Auto) 0.2 % (0.0-2.0); Eos % (Auto) 0.5 % (0.0-4.0); Hematocrit 38.6 % (39.0-51.0); Hemoglobin 12.9 gm/dL (13.0-17.0); Lymph # (Auto) 0.6 th/mm3 (1.0-4.8); Lymph % (Auto) 9.5 % (9.0-44.0); Mean Corpuscular HGB Conc 33.4 % (32.0-36.0); Mean Corpuscular Hemoglobin 31.1 pg (27.0-34.0); Mean Corpuscular Volume 93.1 fL (80.0-100.0); Neut # (Auto) 5.1 th/mm3 (1.8-7.7); Neut % (Auto) 74.8 % (16.0-70.0); Platelet Count 474 th/mm3 (150-450); Red Blood Count 4.15 mil/mm3 (4.50-5.90); Red Cell Distribution Width 14.3 % (11.6-17.2); White Blood Count 6.7 th/mm3 (4.0-11.0)
[2018-04-15 06:54] LABS: Calcium 7.9 mg/dL (8.5-10.1); Carbon Dioxide 28.3 meq/L (21.0-32.0)
[2018-04-15 07:14] LABS: Potassium 2.6 meq/L (3.5-5.1)
--- NOTE | 2018-04-15 07:47 | P.PN ---
Subjective Interval history: 68-year-old male who is seen and examined in follow-up today for acute renal failure, nausea and vomiting. Patient states that he is doing better. Has not had any recurrent nausea vomiting since being in the hospital. Patient states that he spoke with hospice last night who was going to accept him under their care. Unfortunately, he still wants EGD with colonoscopy performed by his dowel maker. Because of that hospice indicates that they cannot accept him as a patient. Vital signs are stable. Patient remains afebrile. Physical Exam Vital signs: Vital Signs 04/14/18 09:40 04/14/18 10:54 04/14/18 11:48 Temperature 97 F L Pulse Rate 126 H 103 H Respiratory Rate 20 18 16 Blood Pressure 126/66 141/81 H Pulse Oximetry 95 90 L 04/14/18 11:55 04/14/18 13:20 04/14/18 16:00 Temperature 96.5 F L 96.4 F L Pulse Rate 106 H 90 90 Respiratory Rate 18 16 16 Blood Pressure 141/86 H 152/86 H 197/93 H Pulse Oximetry 94 L 98 99 04/14/18 20:00 04/15/18 00:00 04/15/18 03:18 Temperature 96.7 F L 97 F L Pulse Rate 86 80 Respiratory Rate 20 20 16 Blood Pressure 174/96 H 160/92 H Pulse Oximetry 99 99 04/15/18 04:00 Temperature 96.2 F L Pulse Rate 83 Respiratory Rate 20 Blood Pressure 160/86 H Pulse Oximetry 99 Intake & Output 04/14/18 04/15/18 04/15/18 18:59 06:59 18:59 Intake Total 1480 / 1480 1120 / 1120 Balance 1480 / 1480 1120 / 1120 Weight 56.3 kg 57.9 kg Intake: IV 1000 / 1000 1000 / 1000 LR 1000 mL Inj 1,000 ML @ 100 1000 / 1000 mls/hr IV.CONT .Q10H LIBERTAD Rx#: [id number] NS Inj 1,000 ML @ Wide Open IV. 1000 / 1000 SIG BOLUS ONE Rx#:[id number] Oral 480 / 480 120 / 120 Other: # Voids 0 4 Date of Last Bowel Movement 04/14/18 04/13/18 # Bowel Movements 0 1 Weight On Admission 56.245 kg Narrative: GENERAL: Well-developed, cachectic, in no acute distress. alert and orientated HEENT: Head is normocephalic without any lesions or masses noted. Facial features are symmetric with bitemporal wasting. Eyes: Extraocular muscles are intact. Conjunctivae were clear. NECK: Supple without any masses. Trachea midline no deviation. No JVD, CARDIAC: Regular rhythm, regular rate. S1/S2 are heard. No murmurs gallops or rubs. LUNGS: Clear to auscultation bilaterally. No wheeze, rhonchi or rales. No use of accessory muscles on inspiration or expiration. ABDOMEN: Soft, nontender. Nondistended. Bowel sounds heard in all 4 quadrants. No organomegaly or masses. Negative rebound, negative guarding EXTREMITIES: No edema, pulses are equal bilaterally. No cyanosis or clubbing NEUROLOGY: Mood and affect appear appropriate. Cranial nerves II through XII grossly intact. Moving all extremities, speech is clear Results - Labs CBC & Chem 7: 04/15/18 05:34 04/15/18 15:28 Laboratory Results - last 24 hr 04/14/18 04/14/18 04/15/18 10:27 10:27 01:00 CBC w Diff Slide review pending WBC 9.3 RBC 4.90 Hgb 15.0 Hct 45.7 MCV 93.4 MCH 30.6 MCHC 32.8 RDW 14.5 Plt Count 614 H MPV 7.1 Neut % (Auto) 83.5 H Lymph % (Auto) 4.8 L Kimble % (Auto) 10.7 H Eos % (Auto) 0.1 Baso % (Auto) 0.9 Neut # (Auto) 7.8 H Lymph # (Auto) 0.4 L Kimble # (Auto) 1.0 H Eos # (Auto) 0.0 Baso # (Auto) 0.1 WBC Differential . Diff Scan Auto diff confirmed Differential Comment . Platelet Estimate High H Platelet Morphology Enlarged H Sodium 143 Potassium 3.4 L Chloride 103 Carbon Dioxide 27.6 Anion Gap 12 BUN 23 H Creatinine 2.40 H Estimated GFR 27 L Random Glucose 144 H Calcium 8.6 Total Bilirubin 0.4 AST 20 ALT 14 Alkaline Phosphatase 79 Total Protein 7.9 Albumin 2.7 L Lipase 81 Urine Color Yellow Urine Clarity Clear Urine pH 5.5 Ur Specific [place] 1.020 Urine Protein 30 H Urine Glucose (UA) Negative Urine Ketones 15 H Urine Occult Blood Negative Urine Nitrate Negative Urine Bilirubin Moderate H Urine Ictotest Positive H Urine Urobilinogen 0.2 Ur Leukocyte Esterase Negative Urine RBC 0-3 Urine WBC 0-5 Ur Squamous Epith Cells 0-5 Hyaline Casts Greater than 30 H Granular Casts 1-3 H Urine Mucus Few H Micro UA Comment Culture not ind Urine Culture Comments Culture not ind 04/15/18 04/15/18 05:34 05:34 CBC w Diff Auto diff final WBC 6.7 RBC 4.15 L Hgb 12.9 L D Hct 38.6 L MCV 93.1 MCH 31.1 MCHC 33.4 RDW 14.3 Plt Count 474 H MPV 7.0 Neut % (Auto) 74.8 H Lymph % (Auto) 9.5 Kimble % (Auto) 15.0 H Eos % (Auto) 0.5 Baso % (Auto) 0.2 Neut # (Auto) 5.1 Lymph # (Auto) 0.6 L Kimble # (Auto) 1.0 H Eos # (Auto) 0.0 Baso # (Auto) 0.0 WBC Differential . Diff Scan Differential Comment . Platelet Estimate Platelet Morphology Sodium 143 Potassium 2.6 L* D Chloride 105 Carbon Dioxide 28.3 Anion Gap 10 BUN 19 H Creatinine 1.20 Estimated GFR 60 L Random Glucose 90 Calcium 7.9 L Total Bilirubin AST ALT Alkaline Phosphatase Total Protein Albumin Lipase Urine Color Urine Clarity Urine pH Ur Specific [place] Urine Protein Urine Glucose (UA) Urine Ketones Urine Occult Blood Urine Nitrate Urine Bilirubin Urine Ictotest Urine Urobilinogen Ur Leukocyte Esterase Urine RBC Urine WBC Ur Squamous Epith Cells Hyaline Casts Granular Casts Urine Mucus Micro UA Comment Urine Culture Comments - Imaging Impressions Abdomen/Pelvis CT 04/14/18 13:23 CONCLUSION: 1. Distal airway disease in the lung bases with peribronchial thickening. Differential diagnosis includes chronic aspiration and atypical mycobacterial disease. 2. No acute findings within the abdomen and pelvis. 3. Previous cholecystectomy and partial bowel resection in the right lower quadrant. 4. Mild gastric distention. Assessment and Plan - Assessment (1) Acute renal failure Code(s): N17.9 - Acute kidney failure, unspecified Status: Acute (2) Nausea & vomiting Code(s): R11.2 - Nausea with vomiting, unspecified Status: Acute - Plan Acute renal failure, resolved -Likely secondary to poor p.o. intake, dehydration, nausea vomiting -Laboratory studies indicating dehydration hemoconcentration -CT the abdomen did not indicate any acute abnormality that would contribute to his renal failure, did indicate some mild gastric distention -Continue IV fluids -Advance diet as tolerated to regular diet -Monitor renal function -Avoid nephrotoxins Hypokalemia -Continue to monitor and replete as needed Chronic gastritis -Continue Pepcid IV 20 mg IV twice daily -Patient to follow-up with his primary dowel maker upon discharge chronic generalized pain -Home medications have been continued Malnutrition, frailty -Patient requested hospice consult -Unable to be accepted and discharged to hospice, patient wants continued aggressive treatment with EGD and dilatation. DVT prevention -Subcutaneous heparin Discharge Planning: Discharge home with hospice Activity: Ad stephanie. Diet: Regular diet Medication per medication reconciliation Follow-up with primary medical doctor in 1 week
[2018-04-15] MEDS: Famotidine PF Inj 20 MG/2 ML Vial IV.PUSH SCH (08:37)
[2018-04-15] MEDS ORDERED: FLUoxetine 20 MG Capsule PO SCH (09:00)
[2018-04-15] MEDS ORDERED: azaTHIOprine 50 MG Tablet PO SCH (09:00)
[2018-04-15] MEDS: Heparin - SQ 10,000 UNITS/ML Vial SQ SCH (11:11)
[2018-04-15 12:33] VITALS: O2SAT 98
[2018-04-15 16:24] LABS: Potassium 3.2 meq/L (3.5-5.1)
[2018-04-15 16:27] LABS: Calcium 7.8 mg/dL (8.5-10.1); Carbon Dioxide 28.1 meq/L (21.0-32.0)
[2018-04-15 17:13] VITALS: BP 131/86; PULSE 85; TEMP 97.2
[2018-04-15] MEDS ORDERED: Famotidine PF Inj 20 MG/2 ML Vial IV.PUSH SCH (21:00)
== END 2018-04-15 17:58 | disposition home or self-care (01) ==
LOC: PH3 09:38 → PHED 09:38 → PHEDA 11:59 → INTOOBSV 11:59 → PH3 12:45
PROVIDERS: ADMIT Hospitalist; ATTEND Hospitalist
DX: G89.29 Other chronic pain; E78.5 Hyperlipidemia, unspecified; J44.9 Chronic obstructive pulmonary disease, unspecified; Z96.1 Presence of intraocular lens; K50.90 Crohn's disease, unspecified, without complications; N17.9 Acute kidney failure, unspecified; E86.0 Dehydration; K21.9 Gastro-esophageal reflux disease without esophagitis; Z85.47 Personal history of malignant neoplasm of testis; E87.6 Hypokalemia; G47.30 Sleep apnea, unspecified; E46 Unspecified protein-calorie malnutrition; M19.90 Unspecified osteoarthritis, unspecified site; K31.89 Other diseases of stomach and duodenum; M06.9 Rheumatoid arthritis, unspecified; Z90.49 Acquired absence of other specified parts of digestive tract; I10 Essential (primary) hypertension; Z98.49 Cataract extraction status, unspecified eye; K29.50 Unspecified chronic gastritis without bleeding; G62.9 Polyneuropathy, unspecified; F17.210 Nicotine dependence, cigarettes, uncomplicated